=== PATIENT | female | born 1980 | race Caucasian/White ===

== ENCOUNTER 2016-12-10 14:44 | Emergency (ER) | payer OTHER ==
[2016-12-10 14:44] VITALS: BMI 32.7
[2016-12-10 16:17] VITALS: O2SAT 100
[2016-12-10] MEDS ORDERED: Sodium Chloride 0.9% 1,000 ML IV ONE (17:43)
[2016-12-10] MEDS ORDERED: DiphenhydrAMINE 50 mg/ml Inj IVP STA (17:44)
--- NOTE | 2016-12-10 18:14 | C.PDOC ---
History Of Present Illness 36 y/o female presents to the ED complaining of headache to the "upper face and forehead" since last night. She states that she also "feels achey" and has "shivers." Patient reports she was able to sleep last night despite her headache but this morning she took Advil with no relief. She has h/o prior similar headaches, however today it is also associated with dizziness (room spinning), particularly when she moves her head. She admits to light sensitivity. Patient denies fever, rashes, nausea, vomiting, chest pain, SOB, or sick contacts. Time Seen by Provider: 12/10/16 17:21 Chief Complaint (Nursing): Dizziness/Lightheaded History Per: Patient History/Exam Limitations: no limitations Onset/Duration Of Symptoms: Days Current Symptoms Are (Timing): Still Present Severity: Moderate Past Medical History Reviewed: Historical Data, Nursing Documentation, Vital Signs Vital Signs: Last Vital Signs Temp 98.8 F 12/10/16 16:15 Pulse 89 12/10/16 16:15 Resp 16 12/10/16 16:15 BP 124/78 12/10/16 16:15 Pulse Ox 100 12/10/16 18:47 - Medical History PMH: No Chronic Diseases - [facility] Procedures EXCISION OF ABDOMEN SKIN, EXTERNAL APPROACH (11/16/15) EXTRACTION OF POC, LOW CERVICAL, OPEN APPROACH (11/16/15) OCCLUSION OF BILATERAL FALLOPIAN TUBES, OPEN APPROACH (11/16/15) Family History: States: No Known Family Hx - Social History Hx Tobacco Use: No Hx Alcohol Use: No Hx Substance Use: No - Immunization History Hx Tetanus Toxoid Vaccination: No Hx Influenza Vaccination: No Hx Pneumococcal Vaccination: No Review Of Systems Except As Marked, All Systems Reviewed And Found Negative. Constitutional: Positive for: Chills, Other ("achey"). Negative for: Fever Eyes: Positive for: Vision Change (blurry vision) Cardiovascular: Negative for: Chest Pain, Palpitations Respiratory: Negative for: Cough, Shortness of Breath Gastrointestinal: Negative for: Nausea, Vomiting Skin: Negative for: Rash Neurological: Positive for: Headache, Dizziness. Negative for: Weakness, Numbness, Incoordination, Change in Speech, Altered Mental Status Physical Exam - Physical Exam Appears: Well, Non-toxic, Other (uncomfortable) Skin: Normal Color, Warm, Dry, No Rash Head: Normacephalic, Tenderness (at frontal and maxillary sinuses) Eye(s): bilateral: Normal Inspection, PERRL, EOMI Ear(s): Bilateral: Normal Nose: Normal, No Discharge Oral Mucosa: Moist Throat: Normal, No Erythema, No Exudate Neck: Normal ROM, No Midline Cervical Tenderness, Paracervical Tenderness, No Step Off Deformity, Supple, Other (no meningismus) Lymphatic: No Adenopathy Chest: Symmetrical Cardiovascular: Rhythm Regular Respiratory: Normal Breath Sounds, No Rales, No Rhonchi, No Wheezing Gastrointestinal/Abdominal: Normal Exam, Bowel Sounds, Soft, No Tenderness Extremity: Normal ROM, No Swelling Neurological/Psych: Oriented x3, Normal Speech, Normal Cognition, Normal Cranial Nerves (II-XII intact), No Cerebellar Signs, Normal Motor, Normal Sensation Gait: Steady ED Course And Treatment O2 Sat by Pulse Oximetry: 100 (ra) Pulse Ox Interpretation: Normal Progress Note: Upreg POC, IV Reglan, IV benadryl, IV NS bolus, and PO meclizine ordered. Disposition - Disposition Disposition Time: 19:00 Condition: STABLE - Clinical Impression Clinical Impression: Headache, Vertigo, peripheral - Scribe Statement The provider has reviewed the documentation as recorded by the Scribe (Mary Stewart) Provider Attestation: All medical record entries made by the Scribe were at my direction and personally dictated by me. I have reviewed the chart and agree that the record accurately reflects my personal performance of the history, physical exam, medical decision making, and the department course for this patient. I have also personally directed, reviewed, and agree with the discharge instructions and disposition. Physician Patient Turnover Patient Signed Over To: Solo Blankenship Handoff Comments: pending reassessment after IV fluids, IV & PO meds
[2016-12-10] MEDS ORDERED: DiphenhydrAMINE 50 mg/ml Inj ONE (19:09)
[2016-12-10 20:40] VITALS: BP 112/74; PULSE 78; RESP 18; TEMP 98.2
== END 2016-12-10 21:35 | disposition home or self-care (01) ==
LOC: C.ER 14:44
DX: R51 Headache (principal); H81.399 Other peripheral vertigo, unspecified ear
CPT/HCPCS: 96361; 96374; 96375; 99285; J1200; J2765; J7040

== ENCOUNTER 2017-01-16 04:18 | Inpatient (IN) | payer OTHER ==
[2017-01-16 04:18] VITALS: BMI 32.7
[2017-01-16] MEDS ORDERED: Sodium Chloride 0.9% 1,000 ML IV ONE ×2 (04:31→08:44)
--- NOTE | 2017-01-16 04:39 | C.PDOC ---
History Of Present Illness A 36 y/o female presents to the ER c/o lower abdominal pain and dysuria since yesterday. Pt developed left flank pain, several episodes of vomiting, and fever that began today. Patent denies diarrhea, recent travels, vaginal bleeding or discharge, or any other complaints. Time Seen by Provider: 01/16/17 04:30 Chief Complaint (Nursing): Abdominal Pain History Per: Patient History/Exam Limitations: no limitations Onset/Duration Of Symptoms: Days Current Symptoms Are (Timing): Still Present Severity: Mild Location Of Pain/Discomfort: Suprapubic Quality Of Discomfort: "Pain" Associated Symptoms: Fever, Vomiting, Back Pain (left flank). denies: Diarrhea Last Bowel Movement: Yesterday Recent travel outside of the [place]: No Additional History Per: Patient Abnormal Vaginal Bleeding: No Past Medical History Reviewed: Historical Data, Nursing Documentation, Vital Signs Vital Signs: Last Vital Signs Temp 100.9 F H 01/16/17 04:24 Pulse 132 H 01/16/17 04:24 Resp 16 01/16/17 04:24 BP 106/64 01/16/17 04:24 Pulse Ox 98 01/16/17 06:03 - Medical History PMH: No Chronic Diseases - [facility] Procedures EXCISION OF ABDOMEN SKIN, EXTERNAL APPROACH (11/16/15) EXTRACTION OF POC, LOW CERVICAL, OPEN APPROACH (11/16/15) OCCLUSION OF BILATERAL FALLOPIAN TUBES, OPEN APPROACH (11/16/15) Family History: States: Unknown Family Hx - Social History Hx Tobacco Use: No Hx Alcohol Use: No Hx Substance Use: No - Immunization History Hx Tetanus Toxoid Vaccination: No Hx Influenza Vaccination: No Hx Pneumococcal Vaccination: No Review Of Systems Constitutional: Positive for: Fever Gastrointestinal: Positive for: Vomiting, Abdominal Pain (Lower abdominal), Other (Left flank pain). Negative for: Diarrhea Genitourinary: Positive for: Dysuria. Negative for: Vaginal Discharge, Vaginal Bleeding Physical Exam - Physical Exam Appears: Non-toxic, No Acute Distress Skin: Warm, Dry Head: Atraumatic, Normacephalic Eye(s): bilateral: Normal Inspection Gastrointestinal/Abdominal: Soft, Tenderness (Suprapubic tenderness. No RLQ tenderness), No Guarding, No Rebound Back: CVA Tenderness (Left CVA tenderness) Neurological/Psych: Oriented x3, Normal Speech, Normal Cognition ED Course And Treatment - Laboratory Results Result Diagrams: 01/16/17 04:43 01/16/17 04:43 O2 Sat by Pulse Oximetry: 98 (RA) Pulse Ox Interpretation: Normal Medical Decision Making Medical Decision Making: Impression: 36 y/o c/o lower abdominal pain since yesterday and left flank pain , vomiting, and fever today. Plans: -Blood labs, UA/ UCG -Toradol -Zofran -IV fluids -Reassess and disposition Patient is tachycardic at 142 on arrival with T 100.9, vomiting and left flank pain, labs reviewed and pt has 24 bands and 94% shift. After hydratiion pt is still tachycardic at 132 with minimal dizziness but reports some pain improvement. Pt will be admitted to [facility] Dr Hatch for acute pyelonephritis. Case d/w Dr Hatch who accepted the pt. Pt is aware of admission plan. Disposition - Disposition Disposition: HOSPITALIZED Disposition Time: 06:01 Condition: STABLE - Clinical Impression Clinical Impression: Acute pyelonephritis - Scribe Statement The provider has reviewed the documentation as recorded by the Scribbushra harris All medical record entries made by the Nazaninibbushra were at my direction and personally dictated by me. I have reviewed the chart and agree that the record accurately reflects my personal performance of the history, physical exam, medical decision making, and the department course for this patient. I have also personally directed, reviewed, and agree with the discharge instructions and disposition.
[2017-01-16] MEDS ORDERED: Sodium Chloride 0.9% 1,000 ML ONE ×3 (04:43→16:18)
[2017-01-16 04:51] LABS: RBC URINE 49 /hpf (0-3); URINE BACTERIA MANY (<OCC); URINE BILIRUBIN NEGATIVE (NEGATIVE); URINE BLOOD 2+ (NEGATIVE); URINE COLOR Yellow (YELLOW); URINE GLUCOSE (UA) NORMAL (Normal); URINE KETONE NEGATIVE (NEGATIVE); URINE LEUKOCYTE ESTERASE 2+ Leu/uL (Negative); URINE PROTEIN 2+ mg/dL (NEGATIVE); URINE UROBILINOGEN NORMAL mg/dL (0.2-1.0); WBC URINE 166 /hpf (0-5)
[2017-01-16 04:52] LABS: BASO % 0.2 % (0.0-2.0); EOS % 0.1 % (0.0-4.0); HEMATOCRIT 40.7 % (34.0-47.0); LYMPH # 0.5 K/uL (1.0-4.3); LYMPH % 4.7 % (20.0-40.0); MEAN CELL VOLUME 89.4 fL (81.0-99.0); MEAN CORPUSCULAR HEMOGLOBIN 30.2 pg (27.0-31.0); MEAN CORPUSCULAR HGB CONC 33.8 g/dL (33.0-37.0); MEAN PLATELET VOLUME 8.1 fL (7.2-11.7); MONO # 0.1 K/uL (0.0-0.8); MONO % 1.1 % (0.0-10.0); PLATELET COUNT 197 K/uL (130-400); RED CELL DISTRIBUTION WIDTH 13.3 % (11.5-14.5); WHITE BLOOD COUNT 9.7 K/uL (4.8-10.8)
[2017-01-16 04:55] LABS: CHLORIDE 99 mmol/L (98-107)
[2017-01-16 04:56] LABS: POTASSIUM 3.2 mmol/L (3.6-5.2); SODIUM 135 mmol/L (132-148)
[2017-01-16 04:58] LABS: ALB/GLOB RATIO 1.2 (1.0-2.1); ALKALINE PHOSPHATASE 104 U/L (38-126); AST/SGOT 38 U/L (14-36); CARBON DIOXIDE 25 mmol/L (22-30); GFR AFRICAN-AMERICAN > 60; TOTAL PROTEIN 7.1 g/dL (6.3-8.3)
[2017-01-16 04:59] LABS: ALT/SGPT 44 U/L (9-52); BLOOD UREA NITROGEN 18 mg/dL (7-17); CALCIUM 8.8 mg/dl (8.6-10.4); GLUCOSE,RANDOM 115 mg/dL (65-105)
[2017-01-16] MEDS ORDERED: Potassium Chloride 10 mEq ER Tab PO ONE (05:11)
[2017-01-16] MEDS ORDERED: Potassium Chloride 10 mEq ER Tab PO STA (05:11)
[2017-01-16 05:43] LABS: EOSINOPHIL 1 % (0-4); MYELOCYTE 1 % (0-0); NEUTROPHIL 58 % (50-75); REACTIVE LYMPHOCYTES 3 % (0-0); TOTAL CELLS COUNTED 100
[2017-01-16] MEDS ORDERED: Sodium Chloride 0.9% 1,000 ML IV SCH (06:15)
[2017-01-16] MEDS ORDERED: Ciprofloxacin 400mg/200ml D5W 400 MG/200 ML BAG IVPB SCH (06:30)
--- NOTE | 2017-01-16 07:15 | CP.PCM.HP ---
<Aaron Rivera - Last Filed: 01/16/17 06:54> History of Present Illness - History of Present Illness History of Present Illness: CC: "Nausea/vomiting, Left Flank pain" 36 F with no significant PMH presents to [facility] ED with complaint of nausea/vomiting and left flank pain. Patient stated that it began yesterday morning. Patient has never experienced these symptoms before and stated they began suddenly. Patient reports that she had two episodes of vomiting, one was the food she ate and the second was dark brown coffee ground emesis. Patient is only complaining of left flank pain. She rates the pain 10/10 in severity. She describes the pain as constant and sharp, located in the left flank and radiating to the left groin. Nothing exacerbates her symptoms while hot tea helped alleviate them. Admits to subjective fever/chills, sob, palpitations, epigastric pain, n/v, dyuria, urinary frequency. Denies cp, diarrhea, constipation, incontinence, weakness, numbness/tingling. PMD: and [facility] in [place] PMH: denies Meds: denies Allergy: PCN PSH: Hosp: child FH: denies Social: works at [employer], denies tobacco/etoh/illicit drug use, LNMP January 07, regular flow and duration Present on Admission - Present on Admission Any Indicators Present on Admission: No History of DVT/PE: No History of Uncontrolled Diabetes: No Urinary Catheter: No Decubitus Ulcer Present: No Review of Systems - Constitutional Constitutional: Chills, Fever - EENT Eyes: absent: Change in Vision Ears: absent: Ear Discharge, Ear Pain, Dizziness Nose/Mouth/Throat: absent: Nasal Congestion, Nasal Discharge, Nose Pain - Breasts Breasts: absent: Mass, Pain, Swelling - Cardiovascular Cardiovascular: Dyspnea, Palpitations. absent: Chest Pain, Chest Pain at Rest, Chest Pain with Activity - Respiratory Respiratory: Dyspnea. absent: Cough, Hemoptysis - Gastrointestinal Gastrointestinal: Abdominal Pain, Coffee Ground Emesis, Nausea, Vomiting. absent: Constipation, Diarrhea, Fecal Incontinence - Genitourinary Genitourinary: Dysuria, Urinary Frequency, Urinary Urgency. absent: Difficulty Urinating, Urinary Incontinence, Urinary Hesitance - Reproductive: Female Reproductive:Female: Normal Menses - Menstruation Menstruation: Menses 1-7 Days, Normal Menses - Musculoskeletal Musculoskeletal: Back Pain. absent: Numbness, Tingling - Integumentary Integumentary: absent: Lesions, New Lesions, Jaundice - Neurological Neurological: absent: Dizziness, Numbness, Headaches, Syncope, Tingling, Vertigo , Weakness - Psychiatric Psychiatric: absent: Anxiety, Depression, Homicidal Ideation, Suicidal Ideation - Endocrine Endocrine: Palpitations. absent: Fatigue, Polydipsia, Polyuria - Hematologic/Lymphatic Hematologic: absent: Easy Bleeding, Easy Bruising, Lymphadenopathy Past Patient History - Infectious Disease Hx of Infectious Diseases: None - Past Social History Smoking Status: Never Smoked - PSYCHIATRIC Hx Substance Use: No - SURGICAL HISTORY Hx Surgeries: Yes Hx Section: Yes - ANESTHESIA Hx Anesthesia: Yes Meds Allergies/Adverse Reactions: Allergies Allergy/AdvReac Type Severity Reaction Status Date / Time Penicillins Allergy RASH Verified 01/16/17 04:30 Physical Exam - Constitutional Appears: In Acute Distress - Head Exam Head Exam: ATRAUMATIC, NORMOCEPHALIC - Eye Exam Eye Exam: Normal appearance - ENT Exam ENT Exam: Mucous Membranes Moist - Respiratory Exam Respiratory Exam: Clear to Auscultation Bilateral, NORMAL BREATHING PATTERN - Cardiovascular Exam Cardiovascular Exam: Tachycardia, REGULAR RHYTHM, +S1, +S2 - GI/Abdominal Exam GI & Abdominal Exam: Normal Bowel Sounds, Soft, Tenderness (epigastric). absent : Distended, Firm, Rebound - Extremities Exam Extremities exam: Positive for: normal capillary refill, pedal pulses present. Negative for: calf tenderness, pedal edema - Back Exam Back exam: CVA tenderness (L), CVA tenderness (R) - Neurological Exam Neurological exam: Alert, CN II-XII Intact, Oriented x3 - Psychiatric Exam Psychiatric exam: Normal Affect, Normal Mood - Skin Skin Exam: Diaphoretic, Intact, Normal Color, Warm Results - Vital Signs Recent Vital Signs: Last Vital Signs Temp 98.5 F 01/16/17 06:26 Pulse 101 H 01/16/17 06:26 Resp 20 01/16/17 06:26 BP 97/60 L 01/16/17 06:26 Pulse Ox 97 01/16/17 06:26 - Labs Result Diagrams: 01/16/17 04:43 01/16/17 04:43 Assessment & Plan - Assessment and Plan (Free Text) Plan: 1. UTI suspected pyelonephritis Med/surg received Phenazopyrinidine and Cipro PO in ED Ciprofloxacin 400 mg IVPB Q12H Morphine 1mg IVP Q4H PRN Tylenol 650 mg PO Q6H PRN NS 100 cc/hr 2. Nausea/vomting no episodes since yesterday morning Zofran 4 mg IVP Q6H PRN 3. Subjective Coffee ground emesis Protonix 40 mg IVP Q12H Monitor 4. Prophylactic Measures Lovenox 40 mg SC daily SCDs Protonix 40 mg IVP Q12H Regular diet <Christopher Hatch - Last Filed: 01/16/17 18:58> Results - Vital Signs Recent Vital Signs: Last Vital Signs Temp 98.1 F 01/16/17 18:26 Pulse 77 01/16/17 18:26 Resp 20 01/16/17 18:26 BP 98/55 L 01/16/17 18:26 Pulse Ox 98 01/16/17 18:26 - Labs Result Diagrams: 01/16/17 04:43 01/16/17 04:43 Labs: Laboratory Results - last 24 hr 01/16/17 01/16/17 01/16/17 09:21 09:21 09:37 Puncture Site Rra pCO2 31 L pO2 136 H HCO3 24.8 ABG pH 7.47 H ABG Total CO2 23.6 ABG O2 Saturation 99.6 H ABG Base Excess -0.2 Gabe Test Pos ABG Potassium 3.3 L A-a O2 Difference -25.0 Respiratory Index -0.2 Sodium 142.0 Chloride 114.0 H Glucose 162 H Lactate 1.9 FiO2 21.0 Magnesium 1.4 L Procalcitonin 10.22 H Arterial Blood Potassium 3.3 L Assessment & Plan - Date & Time Date: 01/16/17 (I have seen and examined the patient. I agree with the findings and plan of care as documented by Dr. Rivera. Patient with pyelonephritis. IV Cipro due to penicillin allergy. Also with nausea/ vomiting. Zofran. Symptomatic treatment. Monitor for acute changes.) Time: 18:56
[2017-01-16] MEDS ORDERED: Potassium Chloride 10 mEq ER Tab PO SCH (08:00)
[2017-01-16] MEDS ORDERED: Ciprofloxacin 200mg/100ml D5W 100 ML IVPB STA (08:41)
[2017-01-16 09:41] LABS: ABG ALLEN TEST POS; DRAW SITE RRA
[2017-01-16] MEDS ORDERED: Pantoprazole 40 mg EC Tab PO SCH (10:00)
[2017-01-16] MEDS ORDERED: Enoxaparin 40 mg Syringe ONE (10:08)
[2017-01-16] MEDS: Enoxaparin 40 mg Syringe SC SCH (10:13)
[2017-01-16] MEDS ORDERED: Magnesium Sulfate 1 gm in D5W 1 GM/100 ML BAG IVPB ONE ×2 (12:53→13:17)
[2017-01-16] MEDS: Magnesium Sulfate 1 gm in D5W 1 GM/100 ML BAG IVPB SCH ×2 (13:00→13:30)
[2017-01-16] MEDS ORDERED: Ciprofloxacin 400mg/200ml D5W 0 MG/0 ML BAG IVPB ONE (14:30)
[2017-01-16] MEDS ORDERED: Ciprofloxacin 400mg/200ml D5W 400 MG/200 ML BAG IVPB ONE (14:35)
[2017-01-16] MEDS: Ciprofloxacin 400mg/200ml D5W 400 MG/200 ML BAG IVPB SCH (14:35)
[2017-01-16] MEDS ORDERED: Iohexol 240 (50 ml) PO ONE (16:15)
[2017-01-16] MEDS ORDERED: Iohexol 240 (50 ml) ONE (16:18)
[2017-01-16] MEDS: Sodium Chloride 0.9% 1,000 ML IV SCH ×2 (16:23→21:14)
--- NOTE | 2017-01-16 16:41 | US ---
Abdominal ultrasound 01/16/2017. History: Abdominal and back pain. Sonographic evaluation of the abdomen performed. Comparison also made with renal ultrasound dated 09/21/2015 and abdominal ultrasound 05/01/2015. The liver exhibits normal size measuring approximately 13 cm in CC dimension. Liver demonstrates smooth contour however slight increased echotexture suggesting fatty infiltration. Other infiltrative hepatocellular disease process not excluded. No obvious hepatic mass or collection seen on images presented. No evidence of ascites. Gallbladder is physiologically distended. No evidence of intraluminal gallbladder calculi. No wall edema pericholecystic fluid collections or sonographic Paris sign. Common bile duct measures 2.4 mm. Evaluation of the pancreas is somewhat limited due to bowel gas and body habitus. No gross pancreatic masses collections or calcifications. No significant pancreatic dilatation. The spleen measures 9.5 cm. No obvious splenic mass collection or calcification. Kidneys are relatively symmetric in size. No evidence of nephrolithiasis or hydronephrosis. No renal mass or collection. . Two images (transverse and sagittal) images of the bladder demonstrate no shadowing intraluminal calculi. Mildly prominent bladder wall could be due to incomplete distention however cystitis not excluded. Impression: Findings suggest mild fatty hepatic infiltration however other infiltrative hepatocellular disease process not excluded. Clinical correlation recommended. Limited evaluation of the urinary bladder demonstrates no shadowing intraluminal calculi. Questionable minimal wall thickening could be due to underdistention however rule out cystitis.
[2017-01-16] MEDS: Meropenem 1 GM in Sodium Chloride 0.9% 100 ML IVPB SCH (16:49)
[2017-01-16] MEDS ORDERED: Iodixanol 320 MG/ML 100 ML BOTTLE IV ONE (17:21)
--- NOTE | 2017-01-16 17:35 | CP.PCM.PN ---
<BabakrejiCharissa acn - Last Filed: 01/17/17 00:55> Subjective - Date & Time of Evaluation Date of Evaluation: 01/17/17 Time of Evaluation: 10:14 - Subjective Subjective: Pt seen and examined. Pt reports that she is having lower abdominal pain and lower back pain on both the right and left side. Pt also report nausea and hematemesis prior to arrival, as well as fever and chills. Pt reports that she is slightly short of breath. Pt also reports dysuria. Pt denies chest pain, headache, dizzines. Objective - Vital Signs/Intake and Output Vital Signs (last 24 hours): Temp Pulse Resp BP Pulse Ox 98 F 77 18 123/80 98 01/16/17 11:15 01/16/17 15:15 01/16/17 15:15 01/16/17 15:15 01/16/17 15:15 Intake and Output: 01/16/17 01/16/17 06:59 18:59 Intake Total 1000 Balance 1000 - Medications Medications: Current Medications Acetaminophen (Tylenol 325mg Tab) 650 mg PO Q6 PRN PRN Reason: Fever >100.4 F Enoxaparin Sodium (Lovenox) 40 mg SC DAILY [facility] Last Admin: 01/16/17 10:13 Dose: 40 mg Ciprofloxacin (Cipro 400mg/200ml Dsw) 400 mg in 200 mls @ 133 mls/hr IVPB Q12H [facility] Last Admin: 01/16/17 14:35 Dose: 133 mls/hr Sodium Chloride (Sodium Chloride 0.9%) 1,000 mls @ 125 mls/hr IV .Q8H [facility] Last Admin: 01/16/17 16:23 Dose: 125 mls/hr Meropenem 1 gm/ Sodium (Chloride) 100 mls @ 200 mls/hr IVPB Q8H [facility] Last Admin: 01/16/17 16:49 Dose: 200 mls/hr Morphine Sulfate (Morphine) 1 mg IVP Q4 PRN PRN Reason: Pain, moderate (4-7) Last Admin: 01/16/17 11:16 Dose: 1 mg Ondansetron HCl (Zofran Inj) 4 mg IVP Q6 PRN PRN Reason: Nausea/Vomiting Last Admin: 01/16/17 15:17 Dose: 4 mg Pantoprazole Sodium (Protonix Inj) 40 mg IVP Q12 [facility] Last Admin: 01/16/17 10:14 Dose: 40 mg - Constitutional Appears: Toxic - Head Exam Head Exam: ATRAUMATIC, NORMOCEPHALIC - Eye Exam Eye Exam: EOMI, PERRL - ENT Exam ENT Exam: Mucous Membranes Dry - Neck Exam Neck Exam: Full ROM - Respiratory Exam Respiratory Exam: Clear to Ausculation Bilateral. absent: Rales, Rhonchi - Cardiovascular Exam Cardiovascular Exam: +S1, +S2 - GI/Abdominal Exam GI & Abdominal Exam: Soft, Tenderness. absent: Distended, Guarding, Rigid - Extremities Exam Extremities Exam: Full ROM. absent: Pedal Edema - Neurological Exam Neurological Exam: Alert, Awake, Oriented x3 - Psychiatric Exam Psychiatric exam: Normal Affect, Normal Mood - Skin Skin Exam: Normal Color, Warm Assessment and Plan - Assessment and Plan (Free Text) Assessment: Sepsis: Tmax 100.9 Bands -24 Hypotensive Tachycardic on admission Procalcitonin 10.22 ID, Dr. Ling, consulted. Help appreciated. Cipro 400 mg IV q12h Meropenem 1 gm IV q8h Blood cultures positive for gram negative rods Urine cultures pending Lactic Acid 1.9 NS IVF 125 cc/hr Tylenol 650 mg po q6h prn for fever Pyelonephritis/Complicated UTI: Abd/Pelvis CT with PO and IV contrast - no evidence of nephrolithiasis or hydronephrosis; pyelonephritis cannot be ruled out (please see full report) Abdomen U/S: no evidence of nephrolithiasis or hydronephrosis; baldder wall thickening, correlate with cystitis; fatty liver (please see full report) ID, Dr. Ling, consulted. Help appreciated. Cipro 400 mg IV q12h Meropenem 1 gm IV q8h Zofran prn for nausea Electrolyte Abmormalities: Hypokalemia and hypomangesemia K and Mg replaced Prophylactic Measures: DVT: SCDs, lovenox 40 mg sc qd GI: Protonix 40 mg IV <Jamel Whitaker - Last Filed: 01/17/17 17:19> Objective - Vital Signs/Intake and Output Vital Signs (last 24 hours): Temp Pulse Resp BP Pulse Ox 97.8 F 73 18 96/61 L 97 01/17/17 15:14 01/17/17 15:14 01/17/17 15:14 01/17/17 15:14 01/17/17 15:14 - Medications Medications: Current Medications Acetaminophen (Tylenol 325mg Tab) 650 mg PO Q6 PRN PRN Reason: Fever >100.4 F Last Admin: 01/16/17 22:50 Dose: 650 mg Enoxaparin Sodium (Lovenox) 40 mg SC DAILY [facility] Last Admin: 01/17/17 10:09 Dose: 40 mg Ciprofloxacin (Cipro 400mg/200ml Dsw) 400 mg in 200 mls @ 133 mls/hr IVPB Q12H [facility] Last Admin: 01/17/17 15:00 Dose: 133 mls/hr Sodium Chloride (Sodium Chloride 0.9%) 1,000 mls @ 125 mls/hr IV .Q8H [facility] Last Admin: 01/17/17 13:34 Dose: Not Given Meropenem 1 gm/ Sodium (Chloride) 100 mls @ 200 mls/hr IVPB Q8H [facility] Last Admin: 01/17/17 16:35 Dose: 200 mls/hr Morphine Sulfate (Morphine) 1 mg IVP Q4 PRN PRN Reason: Pain, moderate (4-7) Last Admin: 01/16/17 11:16 Dose: 1 mg Ondansetron HCl (Zofran Inj) 4 mg IVP Q6 PRN PRN Reason: Nausea/Vomiting Last Admin: 01/17/17 03:38 Dose: 4 mg Pantoprazole Sodium (Protonix Inj) 40 mg IVP Q12 [facility] Last Admin: 01/17/17 10:09 Dose: 40 mg Pneumococcal Polyvalent Vaccine (Pneumovax 23 Vaccine) 0.5 ml IM .ONCE ONE Stop: 01/19/17 10:01 - Labs Labs: 01/17/17 07:00 01/17/17 07:00 PT 13.2 SECONDS (9.7-12.2) H 01/17/17 07:00 INR 1.2 01/17/17 07:00 APTT 30 SECONDS (21-34) 01/17/17 07:00 Attending/Attestation - Attestation I have personally seen and examined this patient.: Yes I have fully participated in the care of the patient.: Yes I have reviewed all pertinent clinical information, including history, physical exam and plan: Yes Notes (Text): 01/17/17 17:18 Patient was seen and examined at bedside with the resident Patient is on treatment for pyelonephritis We will request ID evaluation I discussed the plan of care with the resident and agree with the above history and physical and assessment/plan by the resident.
--- NOTE | 2017-01-16 18:51 | CT ---
PROCEDURE: CT Abdomen and pelvis dated 01/16/2017. HISTORY: flank pain, abdominal pain, dysuria, hematemesis COMPARISON: Correlation made with abdominal ultrasound obtained earlier same day. TECHNIQUE: Contiguous axial images of the abdomen and pelvis of performed following oral and intravenous injection of approximately 100 cc Visipaque 320 contrast material. . Additional 2 dimensional sagittal and coronal reformats provided Radiation dose: Total exam DLP = 432.21 mGy-cm. This CT exam was performed using one or more of the following dose reduction techniques: Automated exposure control, adjustment of the mA and/or kV according to patient size, and/or use of iterative reconstruction technique. FINDINGS: LOWER THORAX: Mild atelectasis and or scarring changes left lung base including the left lingular region. No effusion or basilar pneumothorax. There is a small hiatal hernia with slight wall thickening of the distal esophagus that could be due to protrusion of gastric mucosa. Possibility of esophagitis not excluded. LIVER: The liver exhibits normal size measuring approximately 14.6 cm in CC dimension. Mild diffuse fatty hepatic infiltration. No obvious hepatic mass collection or calcification. Portal and splenic veins are opacified. . GALLBLADDER AND BILE DUCTS: Gallbladder is physiologically distended. No evidence of intraluminal gallbladder calculi. PANCREAS: Visualized portions of the pancreas appear grossly unremarkable. . SPLEEN: Spleen exhibits normal size and attenuation pattern without mass collection or calcification ADRENALS: No adrenal lesions KIDNEYS AND URETERS: . No evidence of nephrolithiasis or hydronephrosis.Vague area of low attenuation superior margin left renal cortex which is of uncertain etiology though could represent volume averaging of medulla which appears to be slightly compressed inferiorly by the somewhat lobular splenic parenchyma however the possibility of a pyelonephritis not excluded. . . There also appears to be very subtle enhancement of the left ureteral urothelium suggesting mild sequela of inflammation/infection. Clinical correlation recommended BLADDER: The urinary bladder is incompletely distended. No evidence of nephrolithiasis or hydronephrosis. REPRODUCTIVE: Uterus appears unremarkable. There small bilateral adnexal cysts on. Pelvic ultrasound followup could be performed if necessary APPENDIX: What appears to represent a normal appendix best seen on axial series 2, image 47- 53. BOWEL: Evaluation of the bowel is somewhat limited due to incomplete opacification. Stomach is incompletely distended which presumably accounts for slight thick-walled appearance. Visualized loops of small bowel exhibit normal contour and caliber. No evidence acute mechanical small bowel obstruction with oral contrast material seen extending into the colon to the level of the distal at ascending colon region. Moderate amount of stool seen throughout the transverse and to a lesser degree descending 6 sigmoid colon consistent with mild fecal retention. . PERITONEUM: No evidence of free intraperitoneal air or fluid. Small fat containing umbilical hernia LYMPH NODES: Unremarkable. No enlarged lymph nodes. VASCULATURE: Unremarkable. No aortic aneurysm. BONES: No fracture or destructive lesion. OTHER FINDINGS: None. IMPRESSION: Vague area of low attenuation superior margin left renal cortex which is of uncertain etiology though could represent volume averaging of medulla which appears to be slightly compressed inferiorly by the somewhat lobular splenic parenchyma however the possibility of a pyelonephritis not excluded. There also appears be some minor enhancement of the urothelium left ureter possibly secondary to inflammation/infection. Clinic correlation recommended. Small bilateral adnexal cysts ; pelvic ultrasound followup could be performed for further evaluation. . Mild fatty hepatic infiltration.
--- NOTE | 2017-01-16 22:27 | CP.PCM.CON ---
History of Present Illness - History of Present Illness History of Present Illness: dictated Past Patient History - Infectious Disease Hx of Infectious Diseases: None - Past Medical History & Family History Past Medical History?: Yes - Past Social History Smoking Status: Never Smoked - MUSCULOSKELETAL/RHEUMATOLOGICAL Hx Falls: No - PSYCHIATRIC Hx Substance Use: No - SURGICAL HISTORY Hx Surgeries: Yes Hx Section: Yes - ANESTHESIA Hx Anesthesia: Yes Meds Allergies/Adverse Reactions: Allergies Allergy/AdvReac Type Severity Reaction Status Date / Time Penicillins Allergy RASH Verified 01/16/17 04:30 - Medications Medications: Current Medications Acetaminophen (Tylenol 325mg Tab) 650 mg PO Q6 PRN PRN Reason: Fever >100.4 F Enoxaparin Sodium (Lovenox) 40 mg SC DAILY [facility] Last Admin: 01/16/17 10:13 Dose: 40 mg Ciprofloxacin (Cipro 400mg/200ml Dsw) 400 mg in 200 mls @ 133 mls/hr IVPB Q12H [facility] Last Admin: 01/16/17 14:35 Dose: 133 mls/hr Sodium Chloride (Sodium Chloride 0.9%) 1,000 mls @ 125 mls/hr IV .Q8H [facility] Last Admin: 01/16/17 21:14 Dose: Not Given Meropenem 1 gm/ Sodium (Chloride) 100 mls @ 200 mls/hr IVPB Q8H [facility] Last Admin: 01/16/17 16:49 Dose: 200 mls/hr Gentamicin Sulfate 240 mg/ (Sodium Chloride) 256 mls @ 167 mls/hr IVPB ONCE ONE Stop: 01/16/17 22:31 Last Admin: 01/16/17 21:09 Dose: 167 mls/hr Potassium Chloride (Potassium Chloride 20 Meq/100 Ml) 20 meq in 100 mls @ 50 mls/hr IVPB ONCE ONE Stop: 01/17/17 00:10 Morphine Sulfate (Morphine) 1 mg IVP Q4 PRN PRN Reason: Pain, moderate (4-7) Last Admin: 01/16/17 11:16 Dose: 1 mg Ondansetron HCl (Zofran Inj) 4 mg IVP Q6 PRN PRN Reason: Nausea/Vomiting Last Admin: 01/16/17 15:17 Dose: 4 mg Pantoprazole Sodium (Protonix Inj) 40 mg IVP Q12 [facility] Last Admin: 01/16/17 21:17 Dose: 40 mg Pneumococcal Polyvalent Vaccine (Pneumovax 23 Vaccine) 0.5 ml IM .ONCE ONE Stop: 01/19/17 10:01 Results - Vital Signs Recent Vital Signs: Last Vital Signs Temp 98 F 01/16/17 20:13 Pulse 77 01/16/17 20:13 Resp 20 01/16/17 20:13 BP 97/65 L 01/16/17 20:13 Pulse Ox 98 01/16/17 20:13 - Labs Result Diagrams: 01/16/17 04:43 01/16/17 04:43 Labs: Laboratory Results - last 24 hr 01/16/17 01/16/17 01/16/17 09:21 09:21 09:37 Puncture Site Rra pCO2 31 L pO2 136 H HCO3 24.8 ABG pH 7.47 H ABG Total CO2 23.6 ABG O2 Saturation 99.6 H ABG Base Excess -0.2 Gabe Test Pos ABG Potassium 3.3 L A-a O2 Difference -25.0 Respiratory Index -0.2 Sodium 142.0 Chloride 114.0 H Glucose 162 H Lactate 1.9 FiO2 21.0 Magnesium 1.4 L Procalcitonin 10.22 H Arterial Blood Potassium 3.3 L
--- NOTE | 2017-01-16 22:43 | CON ---
DATE: 01/16/2017 REQUESTING PHYSICIAN: Dr. Hatch. HISTORY OF PRESENT ILLNESS: This patient is a 36-year-old female came in with nausea and vomiting an d left-sided pain, pain started 2 days ago. She was vomiting and she says some blood came out. She has been having left flank pain and pain was 10/10. She also had severe bandemia. Hence, I was aske d to see her. She was admitted with fever, chills and also complains of epigastric pain, nausea, vom iting, urgency, frequency. Denies any diarrhea, no constipation. Denies any chest pain. She feels weak right now and she follows in the clinic on [address] [place]. PAST MEDICAL HISTORY: Negative. MEDICATIONS: She takes no medications. ALLERGIES: PENICILLIN CAUSES A RASH. PAST SURGICAL HISTORY: She has had . FAMILY HISTORY: Negative. SOCIAL HISTORY: Denies any tobacco, alcohol, or drug abuse, last LMP was 01/07/2017. REVIEW OF SYSTEMS: As above. She has been complaining of chills and fever. Denied any ear, nose, th roat problems. Did complain of some shortness of breath and palpitations. Also had no cough, no upp er respiratory infection signs. She has abdominal pain. Also had nausea and vomiting. Had some cof fee ground emesis. Complains of frequency, urgency and dysuria and has left flank pain and no neurol ogical, no psych, no endocrine problems and no past infections. She had 1 urine infection long ago a nd she says she has gallstones. PHYSICAL EXAMINATION: VITAL SIGNS: I find her temperature is 98. Pulse is 77, it was 92 before. Blood pressure is 97/65, respirations are 20. HEENT: Head is atraumatic, normocephalic. Pupils are reacting to light. Mild pallor present. Thro at: No congestion, no thrush seen. NECK: Supple. JVP is flat. LUNGS: Clear. HEART: S1, S2 regular. ABDOMEN: Soft. Left CVA tenderness present. Bowel sounds are present. EXTREMITIES: No edema, clubbing or cyanosis. LABORATORY DATA: Noted. Labs show white count is 9.7, hemoglobin is 13.8, hematocrit is 40.7, plate let count is 197. Neutrophils 93.9 4.7, bands are 24, lymphs 9. Chemistry shows 135, potassium 3.2, chloride 99, CO2 is 25, BUN is 18, creatinine is 1.1, magnesium is 1.4 and procalcitonin is 10. 22. ASSESSMENT AND PLAN: I hope she got potassium supplement and I gave 1 dose of gentamicin to her. Tess tomlinson is on meropenem and Cipro at this time. Blood cultures came out positive for gram-negative davina at this time, and I would order echocardiogram to rule out any endocarditis at this time. Will follow. Alice Ling MD cc: [id number] TT: 01/16/2017 22:43:15 Confirmation # [id number] Dictation # [id number] ln
[2017-01-17] MEDS: Meropenem 1 GM in Sodium Chloride 0.9% 100 ML IVPB SCH ×4 (00:31→21:41)
[2017-01-17] MEDS: Ciprofloxacin 400mg/200ml D5W 400 MG/200 ML BAG IVPB SCH ×3 (02:05→15:00)
[2017-01-17 07:20] LABS: EOS % 0.5 % (0.0-4.0); MONO # 0.5 K/uL (0.0-0.8)
[2017-01-17 07:37] LABS: BASO % 0.2 % (0.0-2.0); HEMATOCRIT 32.9 % (34.0-47.0); LYMPH # 1.4 K/uL (1.0-4.3); LYMPH % 17.1 % (20.0-40.0); MEAN CELL VOLUME 91.2 fL (81.0-99.0); MEAN CORPUSCULAR HEMOGLOBIN 30.5 pg (27.0-31.0); MEAN CORPUSCULAR HGB CONC 33.4 g/dL (33.0-37.0); MEAN PLATELET VOLUME 8.6 fL (7.2-11.7); MONO % 6.1 % (0.0-10.0); RED CELL DISTRIBUTION WIDTH 13.9 % (11.5-14.5)
[2017-01-17 07:58] LABS: CHLORIDE 107 mmol/L (98-107)
[2017-01-17 07:59] LABS: SODIUM 138 mmol/L (132-148)
[2017-01-17 08:01] LABS: ALKALINE PHOSPHATASE 68 U/L (38-126); AST/SGOT 38 U/L (14-36); BILIRUBIN,TOTAL 0.7 mg/dL (0.2-1.3); BLOOD UREA NITROGEN 11 mg/dL (7-17); CARBON DIOXIDE 25 mmol/L (22-30); GFR AFRICAN-AMERICAN > 60; GLUCOSE,RANDOM 96 mg/dL (65-105); TOTAL PROTEIN 5.6 g/dL (6.3-8.3)
[2017-01-17 08:02] LABS: ALT/SGPT 61 U/L (9-52); CALCIUM 7.4 mg/dl (8.6-10.4); MAGNESIUM 2.1 mg/dL (1.6-2.3); PHOSPHOROUS 1.9 mg/dL (2.5-4.5)
[2017-01-17 08:10] LABS: INR 1.2
[2017-01-17] MEDS ORDERED: Potassium Phosphate 15 MMOLE in Dextrose 5% In Water 250 ML IVPB ONE (10:00)
[2017-01-17] MEDS: Enoxaparin 40 mg Syringe SC SCH (10:09)
[2017-01-17] MEDS: Sodium Chloride 0.9% 1,000 ML IV SCH ×3 (10:10→21:20)
--- NOTE | 2017-01-17 14:41 | CP.PCM.PN ---
<Cortez Conrad - Last Filed: 01/17/17 14:39> Subjective - Date & Time of Evaluation Date of Evaluation: 01/17/17 Time of Evaluation: 09:05 - Subjective Subjective: Pt seen and examined. Pt reports that she is feeling a bit better than she did yesterday. Pt reports she had one episode of vomiting this am and is still nauseous. Pt reports that her abdominal pain has improved. Pt also reports subjective fever and chills. Pt reports decreased appetite. Pt denies chest pain , shortness of breath, diarrhea. Objective - Vital Signs/Intake and Output Vital Signs (last 24 hours): Temp Pulse Resp BP Pulse Ox 97.5 F L 76 20 103/70 100 01/17/17 00:00 01/17/17 04:00 01/17/17 00:00 01/17/17 04:00 01/17/17 00:00 - Medications Medications: Current Medications Acetaminophen (Tylenol 325mg Tab) 650 mg PO Q6 PRN PRN Reason: Fever >100.4 F Last Admin: 01/16/17 22:50 Dose: 650 mg Enoxaparin Sodium (Lovenox) 40 mg SC DAILY [facility] Last Admin: 01/17/17 10:09 Dose: 40 mg Ciprofloxacin (Cipro 400mg/200ml Dsw) 400 mg in 200 mls @ 133 mls/hr IVPB Q12H [facility] Last Admin: 01/17/17 02:05 Dose: 133 mls/hr Sodium Chloride (Sodium Chloride 0.9%) 1,000 mls @ 125 mls/hr IV .Q8H [facility] Last Admin: 01/17/17 13:34 Dose: Not Given Meropenem 1 gm/ Sodium (Chloride) 100 mls @ 200 mls/hr IVPB Q8H [facility] Last Admin: 01/17/17 06:06 Dose: 200 mls/hr Potassium Phosphate 15 mmole/ (Dextrose) 255 mls @ 42.5 mls/hr IVPB ONCE ONE Stop: 01/17/17 15:59 Last Admin: 01/17/17 10:31 Dose: 42.5 mls/hr Morphine Sulfate (Morphine) 1 mg IVP Q4 PRN PRN Reason: Pain, moderate (4-7) Last Admin: 01/16/17 11:16 Dose: 1 mg Ondansetron HCl (Zofran Inj) 4 mg IVP Q6 PRN PRN Reason: Nausea/Vomiting Last Admin: 01/17/17 03:38 Dose: 4 mg Pantoprazole Sodium (Protonix Inj) 40 mg IVP Q12 [facility] Last Admin: 01/17/17 10:09 Dose: 40 mg Pneumococcal Polyvalent Vaccine (Pneumovax 23 Vaccine) 0.5 ml IM .ONCE ONE Stop: 01/19/17 10:01 - Labs Labs: 01/17/17 07:00 01/17/17 07:00 PT 13.2 SECONDS (9.7-12.2) H 01/17/17 07:00 INR 1.2 01/17/17 07:00 APTT 30 SECONDS (21-34) 01/17/17 07:00 - Constitutional Appears: No Acute Distress - Head Exam Head Exam: ATRAUMATIC, NORMOCEPHALIC - Eye Exam Eye Exam: EOMI - ENT Exam ENT Exam: Mucous Membranes Moist - Neck Exam Neck Exam: Full ROM - Respiratory Exam Respiratory Exam: Clear to Ausculation Bilateral. absent: Rales, Rhonchi, Wheezes - Cardiovascular Exam Cardiovascular Exam: +S1, +S2. absent: Gallop, Rubs - GI/Abdominal Exam GI & Abdominal Exam: Soft, Tenderness Additional comments: Slight LLQ and mid epigastric tenderness - Extremities Exam Extremities Exam: Full ROM. absent: Pedal Edema - Neurological Exam Neurological Exam: Alert, Awake, Oriented x3 - Psychiatric Exam Psychiatric exam: Normal Affect, Normal Mood - Skin Skin Exam: Normal Color, Warm Assessment and Plan - Assessment and Plan (Free Text) Assessment: Sepsis: Afebrile, nontachycardic No leukocytosis Dr. Anuradha APPIAH, consulted. Help appreciated. Ciprofloxacin 400 mg IV q12h Meropenem 1 gm IV q8h Blood cultures positive for gram negative rods Urine cultures positive for gram negative rods Echocardiogram pending read NS IVF 125 cc/hr Tylenol 650 mg po q6h prn for fever Pyelonephritis/Complicated UTI: Abd/Pelvis CT with PO and IV contrast - no evidence of nephrolithiasis or hydronephrosis; pyelonephritis cannot be ruled out (please see full report) Abdomen U/S: no evidence of nephrolithiasis or hydronephrosis; baldder wall thickening, correlate with cystitis; fatty liver (please see full report) ID, Dr. Ling, consulted. Help appreciated. Cipro 400 mg IV q12h Meropenem 1 gm IV q8h Zofran prn for nausea Electrolyte Abmormalities: Hypophosphatemia Phos repleted Prophylactic Measures: DVT: SCDs, lovenox 40 mg sc qd GI: Protonix 40 mg IV <Jamel Whitaker M - Last Filed: 01/17/17 16:23> Objective - Vital Signs/Intake and Output Vital Signs (last 24 hours): Temp Pulse Resp BP Pulse Ox 97.8 F 73 18 96/61 L 97 01/17/17 15:14 01/17/17 15:14 01/17/17 15:14 01/17/17 15:14 01/17/17 15:14 - Medications Medications: Current Medications Acetaminophen (Tylenol 325mg Tab) 650 mg PO Q6 PRN PRN Reason: Fever >100.4 F Last Admin: 01/16/17 22:50 Dose: 650 mg Enoxaparin Sodium (Lovenox) 40 mg SC DAILY [facility] Last Admin: 01/17/17 10:09 Dose: 40 mg Ciprofloxacin (Cipro 400mg/200ml Dsw) 400 mg in 200 mls @ 133 mls/hr IVPB Q12H [facility] Last Admin: 01/17/17 15:00 Dose: 133 mls/hr Sodium Chloride (Sodium Chloride 0.9%) 1,000 mls @ 125 mls/hr IV .Q8H [facility] Last Admin: 01/17/17 13:34 Dose: Not Given Meropenem 1 gm/ Sodium (Chloride) 100 mls @ 200 mls/hr IVPB Q8H [facility] Last Admin: 01/17/17 06:06 Dose: 200 mls/hr Morphine Sulfate (Morphine) 1 mg IVP Q4 PRN PRN Reason: Pain, moderate (4-7) Last Admin: 01/16/17 11:16 Dose: 1 mg Ondansetron HCl (Zofran Inj) 4 mg IVP Q6 PRN PRN Reason: Nausea/Vomiting Last Admin: 01/17/17 03:38 Dose: 4 mg Pantoprazole Sodium (Protonix Inj) 40 mg IVP Q12 [facility] Last Admin: 01/17/17 10:09 Dose: 40 mg Pneumococcal Polyvalent Vaccine (Pneumovax 23 Vaccine) 0.5 ml IM .ONCE ONE Stop: 01/19/17 10:01 - Labs Labs: 01/17/17 07:00 01/17/17 07:00 PT 13.2 SECONDS (9.7-12.2) H 01/17/17 07:00 INR 1.2 01/17/17 07:00 APTT 30 SECONDS (21-34) 01/17/17 07:00 Attending/Attestation - Attestation I have personally seen and examined this patient.: Yes I have fully participated in the care of the patient.: Yes I have reviewed all pertinent clinical information, including history, physical exam and plan: Yes Notes (Text): 01/17/17 16:21 Patient was seen and examined at bedside with the resident. Patient is clinically improving. Continue antibiotic management for bacteremia/ pyelonephritis I discussed the plan of care with the resident and agree with the above history and physical and assessment/plan by the resident.
--- NOTE | 2017-01-17 16:14 | CARD ---
APPROVED REPORT EXAM: Two-dimensional and M-mode echocardiogram with Doppler and color Doppler. Other Information Quality : GoodRhythm : INDICATION Dyspnea Infection:Rule out subacute bacterial endocarditis Palpitations M-Mode DIMENSIONS RVDd2.21 (2.1-3.2cm)Left Atrium (MM)3.92 (2.5-4.0cm) IVSd0.75 (0.7-1.1cm)Aortic Root2.43 (2.2-3.7cm) LVDd4.49 (4.0-5.6cm)Aortic Cusp Exc.1.85 (1.5-2.0cm) PWd0.88 (0.7-1.1cm)FS (%) 56 % LVDs1.98 (2.0-3.8cm)LVEF (%)86 (>50%) Aortic Valve AI P 1/2 [id number] Mitral Valve MV E Zgxuakru08.7cm/sMV A Bqhypnxm59.6cm/sE/A ratio1.2 TDI E/Lateral E'0.0E/Medial E'0.0 Tricuspid Valve TR Peak [id number]/sTR Peak [id number] LEFT VENTRICLE The left ventricle is normal size. There is normal left ventricular wall thickness. The left ventricular function is normal. The left ventricular ejection fraction is within the normal range. There is normal LV segmental wall motion. The left ventricular diastolic function is normal. RIGHT VENTRICLE The right ventricle is normal size. There is normal right ventricular wall thickness. The right ventricular systolic function is normal. ATRIA The left atrium size is normal. The right atrium size is normal. AORTIC VALVE The aortic valve is not well visualized. There is trace aortic regurgitation. MITRAL VALVE The mitral valve is mildly thickened. There is no mitral valve regurgitation noted. TRICUSPID VALVE There is trace tricuspid regurgitation. There is mild pulmonary hypertension. GREAT VESSELS The aortic root is normal in size. The IVC is normal in size and collapses >50% with inspiration. PERICARDIAL EFFUSION There is no pericardial effusion. <Conclusion> The left ventricle is normal size. There is normal left ventricular wall thickness. The left ventricular function is normal. The left ventricular ejection fraction is within the normal range. There is normal LV segmental wall motion. There is mild pulmonary hypertension. Trace AI and Trace TR No vegitation seen
--- NOTE | 2017-01-17 20:54 | CP.PCM.PN ---
Subjective - Date & Time of Evaluation Date of Evaluation: 01/17/17 Time of Evaluation: 02:30 - Subjective Subjective: dictated Objective - Vital Signs/Intake and Output Vital Signs (last 24 hours): Temp Pulse Resp BP Pulse Ox 97.8 F 73 18 96/61 L 97 01/17/17 15:14 01/17/17 15:14 01/17/17 15:14 01/17/17 15:14 01/17/17 15:14 Intake and Output: 01/17/17 01/18/17 18:59 06:59 Intake Total 910 Balance 910 - Medications Medications: Current Medications Acetaminophen (Tylenol 325mg Tab) 650 mg PO Q6 PRN PRN Reason: Fever >100.4 F Last Admin: 01/16/17 22:50 Dose: 650 mg Enoxaparin Sodium (Lovenox) 40 mg SC DAILY [facility] Last Admin: 01/17/17 10:09 Dose: 40 mg Ciprofloxacin (Cipro 400mg/200ml Dsw) 400 mg in 200 mls @ 133 mls/hr IVPB Q12H [facility] Last Admin: 01/17/17 15:00 Dose: 133 mls/hr Sodium Chloride (Sodium Chloride 0.9%) 1,000 mls @ 125 mls/hr IV .Q8H [facility] Last Admin: 01/17/17 13:34 Dose: Not Given Meropenem 1 gm/ Sodium (Chloride) 100 mls @ 200 mls/hr IVPB Q8H [facility] Last Admin: 01/17/17 16:35 Dose: 200 mls/hr Morphine Sulfate (Morphine) 1 mg IVP Q4 PRN PRN Reason: Pain, moderate (4-7) Last Admin: 01/16/17 11:16 Dose: 1 mg Ondansetron HCl (Zofran Inj) 4 mg IVP Q6 PRN PRN Reason: Nausea/Vomiting Last Admin: 01/17/17 03:38 Dose: 4 mg Pantoprazole Sodium (Protonix Inj) 40 mg IVP Q12 [facility] Last Admin: 01/17/17 10:09 Dose: 40 mg Pneumococcal Polyvalent Vaccine (Pneumovax 23 Vaccine) 0.5 ml IM .ONCE ONE Stop: 01/19/17 10:01 - Labs Labs: 01/17/17 07:00 01/17/17 07:00 PT 13.2 SECONDS (9.7-12.2) H 01/17/17 07:00 INR 1.2 01/17/17 07:00 APTT 30 SECONDS (21-34) 01/17/17 07:00
--- NOTE | 2017-01-17 21:32 | PN ---
DATE: 01/17/2017 SUBJECTIVE: The patient was seen today again and she said she was feeling slightly better. She did not have any abdominal pain, but she had vomiting and was still nauseous. She denied any other compla ints. No chest pain, no shortness of breath, no fever. She did receive gentamicin yesterday and is on meropenem and Cipro at this time. PHYSICAL EXAMINATION: VITAL SIGNS: T-max is 97.8, pulse is 73, blood pressure remains 96/61, respirations are 18. HEENT: Head is atraumatic, normocephalic. Pupils are reacting to light. Throat: No congestion, no thrush seen. NECK: Supple. JVP flat. ABDOMEN: Mild left CVA tenderness present. No guarding, no rigidity present. EXTREMITIES: No edema, clubbing or cyanosis. LABORATORY DATA: White count 8, hemoglobin 11, hematocrit 32.9, platelet count is 172. Creatinine i s 1.1, BUN is 9. Her LFTs are a little bit elevated. Albumin is 2.8. She had a procalcitonin of 10 .22, so she is really septic and blood cultures came out positive and urine culture came out positive for gram-negative rods, and ID and sensitivity is pending. ASSESSMENT AND PLAN: She also had a CAT scan of the abdomen and pelvis, which showed no evidence of n ephrolithiasis or hydronephrosis, vague area of low attenuation, superior margin, left renal cortex w hich is of uncertain etiology, could represent volume averaging of medulla, which appears to be sligh tly compressed. However, the possibility of pyelonephritis cannot be excluded, which is probably wha t she has at this time. Also appears to be very subtle enhancement of the left ureter. Clinical cor relation recommended. Urinary bladder is incompletely distended, but there is no small bilater al adnexal cyst. Pelvic sonogram could be performed for further evaluation. At this time, this patie nt has gram-negative septicemia with left pyelonephritis from urinary tract infection. Echocardiogra m has been ordered. She is on 2 drugs, including Cipro and meropenem. Since blood pressure remains low, I am not sure if this is her baseline but she still remains with a low blood pressure. We will follow the ID and sensitivity of the organism and continue meropenem and Cipro at this time and I am hoping she is on fluids. We will find out if she is on fluids as she should be on. Alice Ling MD cc: [id number] TT: 01/17/2017 21:31:34 Confirmation # [id number] Dictation # [id number] ln
[2017-01-18] MEDS: Ciprofloxacin 400mg/200ml D5W 400 MG/200 ML BAG IVPB SCH ×2 (02:39→14:12)
[2017-01-18] MEDS: Sodium Chloride 0.9% 1,000 ML IV SCH ×3 (05:21→22:09)
[2017-01-18] MEDS: Meropenem 1 GM in Sodium Chloride 0.9% 100 ML IVPB SCH ×3 (05:49→22:08)
[2017-01-18 07:08] LABS: BASO % 0.4 % (0.0-2.0); EOS # 0.1 K/uL (0.0-0.7); EOS % 1.8 % (0.0-4.0); HEMATOCRIT 33.7 % (34.0-47.0); LYMPH # 1.5 K/uL (1.0-4.3); LYMPH % 29.2 % (20.0-40.0); MEAN CELL VOLUME 91.6 fL (81.0-99.0); MEAN CORPUSCULAR HEMOGLOBIN 31.7 pg (27.0-31.0); MEAN CORPUSCULAR HGB CONC 34.6 g/dL (33.0-37.0); MEAN PLATELET VOLUME 8.4 fL (7.2-11.7); MONO # 0.5 K/uL (0.0-0.8); MONO % 9.8 % (0.0-10.0); NRBC % 0.1 % (0.0-2.0); WHITE BLOOD COUNT 5.1 K/uL (4.8-10.8)
[2017-01-18 07:31] LABS: CHLORIDE 106 mmol/L (98-107)
[2017-01-18 07:32] LABS: SODIUM 138 mmol/L (132-148)
[2017-01-18 07:34] LABS: AST/SGOT 27 U/L (14-36); BILIRUBIN,TOTAL 0.6 mg/dL (0.2-1.3); CARBON DIOXIDE 25 mmol/L (22-30); GFR AFRICAN-AMERICAN > 60
[2017-01-18 07:35] LABS: ALKALINE PHOSPHATASE 68 U/L (38-126); ALT/SGPT 52 U/L (9-52); BLOOD UREA NITROGEN 11 mg/dL (7-17); CALCIUM 8.2 mg/dl (8.6-10.4); GLUCOSE,RANDOM 88 mg/dL (65-105); PHOSPHOROUS 2.5 mg/dL (2.5-4.5)
[2017-01-18 07:36] LABS: MAGNESIUM 2.1 mg/dL (1.6-2.3)
[2017-01-18] MEDS: Enoxaparin 40 mg Syringe SC SCH (09:07)
--- NOTE | 2017-01-18 16:38 | CP.PCM.PN ---
<Cortez Conrad - Last Filed: 01/18/17 18:18> Subjective - Date & Time of Evaluation Date of Evaluation: 01/18/17 Time of Evaluation: 09:34 - Subjective Subjective: Pt seen and examined. Pt reports that she is feeling much better today. She reports that she feels slightly nauseous but no reports of vomiting. She reports thather abdominal pain has improved. Pt denies fever, chills, chest pain , shortness of breath, diarrhea, constipation. Objective - Vital Signs/Intake and Output Vital Signs (last 24 hours): Temp Pulse Resp BP Pulse Ox 98.7 F 64 20 107/72 96 01/18/17 16:00 01/18/17 16:00 01/18/17 16:00 01/18/17 16:00 01/18/17 16:00 Intake and Output: 01/18/17 01/18/17 06:59 18:59 Intake Total 1700 Balance 1700 - Medications Medications: Current Medications Acetaminophen (Tylenol 325mg Tab) 650 mg PO Q6 PRN PRN Reason: Fever >100.4 F Last Admin: 01/16/17 22:50 Dose: 650 mg Enoxaparin Sodium (Lovenox) 40 mg SC DAILY [facility] Last Admin: 01/18/17 09:07 Dose: 40 mg Ciprofloxacin (Cipro 400mg/200ml Dsw) 400 mg in 200 mls @ 133 mls/hr IVPB Q12H [facility] Last Admin: 01/18/17 14:12 Dose: 133 mls/hr Sodium Chloride (Sodium Chloride 0.9%) 1,000 mls @ 125 mls/hr IV .Q8H [facility] Last Admin: 01/18/17 05:21 Dose: 125 mls/hr Meropenem 1 gm/ Sodium (Chloride) 100 mls @ 200 mls/hr IVPB Q8H [facility] Last Admin: 01/18/17 15:12 Dose: 200 mls/hr Morphine Sulfate (Morphine) 1 mg IVP Q4 PRN PRN Reason: Pain, moderate (4-7) Last Admin: 01/16/17 11:16 Dose: 1 mg Ondansetron HCl (Zofran Inj) 4 mg IVP Q6 PRN PRN Reason: Nausea/Vomiting Last Admin: 01/17/17 03:38 Dose: 4 mg Pantoprazole Sodium (Protonix Inj) 40 mg IVP Q12 [facility] Last Admin: 01/18/17 09:07 Dose: 40 mg Pneumococcal Polyvalent Vaccine (Pneumovax 23 Vaccine) 0.5 ml IM .ONCE ONE Stop: 01/19/17 10:01 - Labs Labs: 01/18/17 06:55 01/18/17 06:55 PT 13.2 SECONDS (9.7-12.2) H 01/17/17 07:00 INR 1.2 01/17/17 07:00 APTT 30 SECONDS (21-34) 01/17/17 07:00 - Constitutional Appears: No Acute Distress - Head Exam Head Exam: ATRAUMATIC, NORMOCEPHALIC - Eye Exam Eye Exam: EOMI - ENT Exam ENT Exam: Mucous Membranes Moist. absent: Mucous Membranes Dry - Respiratory Exam Respiratory Exam: Clear to Ausculation Bilateral. absent: Rales, Rhonchi, Wheezes - Cardiovascular Exam Cardiovascular Exam: +S1, +S2 - GI/Abdominal Exam GI & Abdominal Exam: Soft. absent: Distended, Guarding, Tenderness - Extremities Exam Extremities Exam: absent: Pedal Edema - Neurological Exam Neurological Exam: Alert, Awake, Oriented x3 - Psychiatric Exam Psychiatric exam: Normal Affect, Normal Mood - Skin Skin Exam: Normal Color, Warm Assessment and Plan - Assessment and Plan (Free Text) Assessment: Sepsis: Afebrile, nontachycardic No leukocytosis ID, Dr. Ling, consulted. Help appreciated. Ciprofloxacin 400 mg IV q12h Meropenem 1 gm IV q8h Blood cultures positive for E.coli Urine cultures positive for E.coli Repeat blood cultures negative after 48 hrs Repeat urine cultures pending Echocardiogram - normal EF, mild pulmonary HTN, no vegetations seen NS IVF 125 cc/hr Tylenol 650 mg po q6h prn for fever Pyelonephritis/Complicated UTI: Abd/Pelvis CT with PO and IV contrast - no evidence of nephrolithiasis or hydronephrosis; pyelonephritis cannot be ruled out (please see full report) Abdomen U/S: no evidence of nephrolithiasis or hydronephrosis; baldder wall thickening, correlate with cystitis; fatty liver (please see full report) ID, Dr. Ling, consulted. Help appreciated. Cipro 400 mg IV q12h Meropenem 1 gm IV q8h Zofran prn for nausea Prophylactic Measures: DVT: SCDs, lovenox 40 mg sc qd GI: Protonix 40 mg IV <Tina Whitakern M - Last Filed: 01/19/17 16:09> Objective - Vital Signs/Intake and Output Vital Signs (last 24 hours): Temp Pulse Resp BP Pulse Ox 98.6 F 87 21 93/59 L 97 01/19/17 15:35 01/19/17 15:35 01/19/17 15:35 01/19/17 15:35 01/19/17 15:35 Intake and Output: 01/19/17 01/19/17 06:59 18:59 Intake Total 735 Balance 735 - Medications Medications: Current Medications Acetaminophen (Tylenol 325mg Tab) 650 mg PO Q6 PRN PRN Reason: Fever >100.4 F Last Admin: 01/16/17 22:50 Dose: 650 mg Enoxaparin Sodium (Lovenox) 40 mg SC DAILY [facility] Last Admin: 01/19/17 10:41 Dose: 40 mg Ciprofloxacin (Cipro 400mg/200ml Dsw) 400 mg in 200 mls @ 133 mls/hr IVPB Q12H [facility] Morphine Sulfate (Morphine) 1 mg IVP Q4 PRN PRN Reason: Pain, moderate (4-7) Last Admin: 01/16/17 11:16 Dose: 1 mg Ondansetron HCl (Zofran Inj) 4 mg IVP Q6 PRN PRN Reason: Nausea/Vomiting Last Admin: 01/19/17 06:49 Dose: 4 mg Pantoprazole Sodium (Protonix Ec Tab) 40 mg PO Q12H [facility] Last Admin: 01/19/17 12:30 Dose: 40 mg - Labs Labs: 01/19/17 07:13 01/19/17 07:13 PT 13.2 SECONDS (9.7-12.2) H 01/17/17 07:00 INR 1.2 01/17/17 07:00 APTT 30 SECONDS (21-34) 01/17/17 07:00 Attending/Attestation - Attestation I have personally seen and examined this patient.: Yes I have fully participated in the care of the patient.: Yes I have reviewed all pertinent clinical information, including history, physical exam and plan: Yes Notes (Text): 01/19/17 16:08 Patient was seen and examined at bedside with the resident Patient is clinically improving Continue IV antibiotics for sepsis/pyelonephritis ID is on board I discussed the plan of care with the resident and agree with the above history and physical and assessment/plan by the resident.
--- NOTE | 2017-01-18 22:27 | CP.PCM.PN ---
Subjective - Date & Time of Evaluation Date of Evaluation: 01/18/17 Time of Evaluation: 05:00 - Subjective Subjective: Dictated Objective - Vital Signs/Intake and Output Vital Signs (last 24 hours): Temp Pulse Resp BP Pulse Ox 98.7 F 64 20 107/72 96 01/18/17 16:00 01/18/17 16:00 01/18/17 16:00 01/18/17 16:00 01/18/17 16:00 - Medications Medications: Current Medications Acetaminophen (Tylenol 325mg Tab) 650 mg PO Q6 PRN PRN Reason: Fever >100.4 F Last Admin: 01/16/17 22:50 Dose: 650 mg Enoxaparin Sodium (Lovenox) 40 mg SC DAILY [facility] Last Admin: 01/18/17 09:07 Dose: 40 mg Ciprofloxacin (Cipro 400mg/200ml Dsw) 400 mg in 200 mls @ 133 mls/hr IVPB Q12H [facility] Last Admin: 01/18/17 14:12 Dose: 133 mls/hr Sodium Chloride (Sodium Chloride 0.9%) 1,000 mls @ 125 mls/hr IV .Q8H [facility] Last Admin: 01/18/17 22:09 Dose: 125 mls/hr Meropenem 1 gm/ Sodium (Chloride) 100 mls @ 200 mls/hr IVPB Q8H [facility] Last Admin: 01/18/17 22:08 Dose: 200 mls/hr Morphine Sulfate (Morphine) 1 mg IVP Q4 PRN PRN Reason: Pain, moderate (4-7) Last Admin: 01/16/17 11:16 Dose: 1 mg Ondansetron HCl (Zofran Inj) 4 mg IVP Q6 PRN PRN Reason: Nausea/Vomiting Last Admin: 01/17/17 03:38 Dose: 4 mg Pantoprazole Sodium (Protonix Inj) 40 mg IVP Q12 [facility] Last Admin: 01/18/17 22:08 Dose: 40 mg Pneumococcal Polyvalent Vaccine (Pneumovax 23 Vaccine) 0.5 ml IM .ONCE ONE Stop: 01/19/17 10:01 - Labs Labs: 01/18/17 06:55 01/18/17 06:55 PT 13.2 SECONDS (9.7-12.2) H 01/17/17 07:00 INR 1.2 01/17/17 07:00 APTT 30 SECONDS (21-34) 01/17/17 07:00
--- NOTE | 2017-01-18 23:18 | PN ---
DATE: 01/18/2017 INFECTIOUS DISEASE FOLLOWUP: The patient is feeling better. She says she is going frequently to the bathroom and she is on IV flu ids. Denies any abdominal pain, no nausea and no vomiting. PHYSICAL EXAMINATION: VITAL SIGNS: T-max is 98.7, pulse 64, blood pressure 107/72 and respirations are 20. HEENT: Head is atraumatic and normocephalic. NECK: Supple. LUNGS: Clear. No crackles or rales pr esent. HEART: S1, S2 regular. ABDOMEN: Soft, nontender, no guarding and no rigidity present. EXTR EMITIES: Have no edema, clubbing or cyanosis. LABORATORY DATA: White count is 5.1, hemoglobin 11.7 and platelets are 190. Creatinine is 1.1 and B UN is 11. Her blood cultures came out positive E. coli and the urine is also sensitive to . C ultures are sensitive to Cipro and she was on Cipro and meropenem so at this time, will repeat the bl ood cultures to see if they are clearing. She will continue Cipro. She will need Cipro for a total o f 2 weeks starting from the day she came in. We will follow. Also to check the echo and I also told the patient to repeat a CAT scan in a month to see if her kidneys are good. Alice Ling MD cc: [id number] TT: 01/18/2017 22:59:30 Confirmation # [id number] Dictation # [id number] sn
[2017-01-19] MEDS: Ciprofloxacin 400mg/200ml D5W 400 MG/200 ML BAG IVPB SCH (02:26)
[2017-01-19] MEDS: Sodium Chloride 0.9% 1,000 ML IV SCH ×2 (05:26→13:59)
[2017-01-19 07:38] LABS: BASO % 0.5 % (0.0-2.0); EOS # 0.1 K/uL (0.0-0.7); HEMATOCRIT 37.6 % (34.0-47.0); LYMPH # 1.2 K/uL (1.0-4.3); LYMPH % 28.2 % (20.0-40.0); MEAN CELL VOLUME 90.7 fL (81.0-99.0); MEAN CORPUSCULAR HEMOGLOBIN 30.7 pg (27.0-31.0); MEAN CORPUSCULAR HGB CONC 33.8 g/dL (33.0-37.0); MEAN PLATELET VOLUME 8.8 fL (7.2-11.7); MONO # 0.4 K/uL (0.0-0.8); MONO % 8.9 % (0.0-10.0); NRBC % 0.1 % (0.0-2.0); RED CELL DISTRIBUTION WIDTH 13.6 % (11.5-14.5); WHITE BLOOD COUNT 4.3 K/uL (4.8-10.8)
[2017-01-19 08:13] LABS: CHLORIDE 102 mmol/L (98-107); POTASSIUM 4.2 mmol/L (3.6-5.2); SODIUM 137 mmol/L (132-148)
[2017-01-19 08:15] LABS: ALB/GLOB RATIO 1.1 (1.0-2.1); AST/SGOT 22 U/L (14-36); BILIRUBIN,TOTAL 0.5 mg/dL (0.2-1.3); CARBON DIOXIDE 26 mmol/L (22-30); GFR AFRICAN-AMERICAN > 60; TOTAL PROTEIN 6.6 g/dL (6.3-8.3)
[2017-01-19 08:16] LABS: ALKALINE PHOSPHATASE 69 U/L (38-126); ALT/SGPT 45 U/L (9-52); BLOOD UREA NITROGEN 14 mg/dL (7-17); CALCIUM 8.6 mg/dl (8.6-10.4); GLUCOSE,RANDOM 105 mg/dL (65-105); PHOSPHOROUS 2.5 mg/dL (2.5-4.5)
[2017-01-19] MEDS ORDERED: Pneumococcal 23-Valent Vaccine IM ONE (10:00)
[2017-01-19] MEDS: Enoxaparin 40 mg Syringe SC SCH (10:41)
[2017-01-19] MEDS ORDERED: Pantoprazole 40 mg EC Tab PO SCH (12:15)
--- NOTE | 2017-01-19 12:26 | CP.PCM.PN ---
<Milagro Barnes - Last Filed: 01/19/17 12:24> Subjective - Date & Time of Evaluation Date of Evaluation: 01/19/17 Time of Evaluation: 08:45 - Subjective Subjective: Medicine Progress Note Patient seen and examined. Patient had one episode of non-bilious, non-bloody vomiting this morning prior to breakfast. Pt currently states that she feels better after she vomited and is willing to eat her breakfast. Patient continues to complain of bilateral low back pain but states that it has improved. She denies dysuria or hematuria. Denies fever, chills, diarrhea, abdominal pain, chest pain and shortness of breath. Objective - Vital Signs/Intake and Output Vital Signs (last 24 hours): Temp Pulse Resp BP Pulse Ox 98.1 F 73 20 92/60 L 98 01/19/17 08:27 01/19/17 08:27 01/19/17 08:27 01/19/17 08:27 01/19/17 08:27 - Medications Medications: Current Medications Acetaminophen (Tylenol 325mg Tab) 650 mg PO Q6 PRN PRN Reason: Fever >100.4 F Last Admin: 01/16/17 22:50 Dose: 650 mg Enoxaparin Sodium (Lovenox) 40 mg SC DAILY [facility] Last Admin: 01/19/17 10:41 Dose: 40 mg Ciprofloxacin (Cipro 400mg/200ml Dsw) 400 mg in 200 mls @ 133 mls/hr IVPB Q12H [facility] Last Admin: 01/19/17 02:26 Dose: 133 mls/hr Sodium Chloride (Sodium Chloride 0.9%) 1,000 mls @ 125 mls/hr IV .Q8H [facility] Last Admin: 01/19/17 05:26 Dose: 125 mls/hr Morphine Sulfate (Morphine) 1 mg IVP Q4 PRN PRN Reason: Pain, moderate (4-7) Last Admin: 01/16/17 11:16 Dose: 1 mg Ondansetron HCl (Zofran Inj) 4 mg IVP Q6 PRN PRN Reason: Nausea/Vomiting Last Admin: 01/19/17 06:49 Dose: 4 mg Pantoprazole Sodium (Protonix Ec Tab) 40 mg PO Q12H [facility] - Labs Labs: 01/19/17 07:13 01/19/17 07:13 PT 13.2 SECONDS (9.7-12.2) H 01/17/17 07:00 INR 1.2 01/17/17 07:00 APTT 30 SECONDS (21-34) 01/17/17 07:00 - Constitutional Appears: Non-toxic, No Acute Distress - Head Exam Head Exam: ATRAUMATIC, NORMOCEPHALIC - Eye Exam Eye Exam: EOMI, Normal appearance - ENT Exam ENT Exam: Mucous Membranes Moist - Neck Exam Neck Exam: Normal Inspection - Respiratory Exam Respiratory Exam: Clear to Ausculation Bilateral, NORMAL BREATHING PATTERN. absent: Rhonchi, Wheezes, Respiratory Distress - Cardiovascular Exam Cardiovascular Exam: REGULAR RHYTHM, +S1, +S2. absent: Irregular Rhythm, Murmur - GI/Abdominal Exam GI & Abdominal Exam: Soft, Normal Bowel Sounds. absent: Tenderness - Extremities Exam Extremities Exam: Normal Inspection. absent: Pedal Edema - Back Exam Back Exam: NORMAL INSPECTION - Neurological Exam Neurological Exam: Alert, Awake, Normal Gait, Oriented x3 - Psychiatric Exam Psychiatric exam: Normal Affect, Normal Mood - Skin Skin Exam: Dry, Intact, Normal Color, Warm Assessment and Plan - Assessment and Plan (Free Text) Assessment: Sepsis- Resolved: Afebrile, nontachycardic No leukocytosis ID, Dr. Ling, consulted. Help appreciated. Ciprofloxacin 400 mg IV q12h Meropenem 1 gm IV q8h Blood cultures positive for E.coli Urine cultures positive for E.coli Repeat blood cultures negative after 48 hrs Repeat urine cultures negative x24 hours Echocardiogram - normal EF, mild pulmonary HTN, no vegetations seen NS IVF 125 cc/hr Tylenol 650 mg po q6h prn for fever Pyelonephritis/Complicated UTI: Abd/Pelvis CT with PO and IV contrast - no evidence of nephrolithiasis or hydronephrosis; pyelonephritis cannot be ruled out (please see full report) Abdomen U/S: no evidence of nephrolithiasis or hydronephrosis; baldder wall thickening, correlate with cystitis; fatty liver (please see full report) ID, Dr. Ling, consulted. Help appreciated. Continue Cipro 400 mg IV q12h for 14 days Meropenem 1 gm IV q8h DC on 01/[address] Anuradha Iniguezfrgenia prn for nausea Prophylactic Measures: DVT: SCDs, lovenox 40 mg sc qd GI: Protonix 40 mg IV <Jamel Whitaker M - Last Filed: 01/19/17 17:21> Objective - Vital Signs/Intake and Output Vital Signs (last 24 hours): Temp Pulse Resp BP Pulse Ox 98.6 F 87 21 93/59 L 97 01/19/17 15:35 01/19/17 15:35 01/19/17 15:35 01/19/17 15:35 01/19/17 15:35 Intake and Output: 01/19/17 01/19/17 06:59 18:59 Intake Total 735 Balance 735 - Medications Medications: Current Medications Acetaminophen (Tylenol 325mg Tab) 650 mg PO Q6 PRN PRN Reason: Fever >100.4 F Last Admin: 01/16/17 22:50 Dose: 650 mg Enoxaparin Sodium (Lovenox) 40 mg SC DAILY [facility] Last Admin: 01/19/17 10:41 Dose: 40 mg Ciprofloxacin (Cipro 400mg/200ml Dsw) 400 mg in 200 mls @ 133 mls/hr IVPB Q12H [facility] Morphine Sulfate (Morphine) 1 mg IVP Q4 PRN PRN Reason: Pain, moderate (4-7) Last Admin: 01/16/17 11:16 Dose: 1 mg Ondansetron HCl (Zofran Inj) 4 mg IVP Q6 PRN PRN Reason: Nausea/Vomiting Last Admin: 01/19/17 06:49 Dose: 4 mg Pantoprazole Sodium (Protonix Ec Tab) 40 mg PO Q12H [facility] Last Admin: 01/19/17 12:30 Dose: 40 mg - Labs Labs: 01/19/17 07:13 01/19/17 07:13 PT 13.2 SECONDS (9.7-12.2) H 01/17/17 07:00 INR 1.2 01/17/17 07:00 APTT 30 SECONDS (21-34) 01/17/17 07:00 Attending/Attestation - Attestation I have personally seen and examined this patient.: Yes I have fully participated in the care of the patient.: Yes I have reviewed all pertinent clinical information, including history, physical exam and plan: Yes Notes (Text): 01/19/17 17:20 Patient was seen and examined at bedside with the resident Patient stated that she is feeling better We will continue IV antibiotics Follow-up results of repeat blood culture Discussed the plan of care with the resident and agree with the above history and physical and assessment/plan by the resident.
--- NOTE | 2017-01-19 19:23 | CP.PCM.PN ---
Subjective - Date & Time of Evaluation Date of Evaluation: 01/19/17 Time of Evaluation: 02:20 - Subjective Subjective: dictated Objective - Vital Signs/Intake and Output Vital Signs (last 24 hours): Temp Pulse Resp BP Pulse Ox 98.6 F 87 21 93/59 L 97 01/19/17 15:35 01/19/17 15:35 01/19/17 15:35 01/19/17 15:35 01/19/17 15:35 Intake and Output: 01/19/17 01/20/17 18:59 06:59 Intake Total 735 Balance 735 - Medications Medications: Current Medications Acetaminophen (Tylenol 325mg Tab) 650 mg PO Q6 PRN PRN Reason: Fever >100.4 F Last Admin: 01/16/17 22:50 Dose: 650 mg Enoxaparin Sodium (Lovenox) 40 mg SC DAILY [facility] Last Admin: 01/19/17 10:41 Dose: 40 mg Ciprofloxacin (Cipro 400mg/200ml Dsw) 400 mg in 200 mls @ 133 mls/hr IVPB Q12H [facility] Morphine Sulfate (Morphine) 1 mg IVP Q4 PRN PRN Reason: Pain, moderate (4-7) Last Admin: 01/16/17 11:16 Dose: 1 mg Ondansetron HCl (Zofran Inj) 4 mg IVP Q6 PRN PRN Reason: Nausea/Vomiting Last Admin: 01/19/17 06:49 Dose: 4 mg Pantoprazole Sodium (Protonix Ec Tab) 40 mg PO Q12H [facility] Last Admin: 01/19/17 12:30 Dose: 40 mg - Labs Labs: 01/19/17 07:13 01/19/17 07:13 PT 13.2 SECONDS (9.7-12.2) H 01/17/17 07:00 INR 1.2 01/17/17 07:00 APTT 30 SECONDS (21-34) 01/17/17 07:00
--- NOTE | 2017-01-19 20:01 | PN ---
DATE: 01/19/2017 SUBJECTIVE: The patient said she was feeling a little better. She did not have any IV access, so th ey gave Cipro p.o. this morning. Her speaks a good amount of Albanian and I explained to him what happened, that she developed a blood infection secondary to the urine infection and has swelling of the right kidney and I also told him that in 4 weeks she needs to repeat the CAT scan as an outpa tient to see if the kidney has come back to its normal size and she needs a followup with the primary and she can follow in the clinic with Dr. Whitaker or his team. PHYSICAL EXAMINATION: VITAL SIGNS: T-max is 98.6, pulse 87, blood pressure 93/59, respirations are 21. HEENT: Head is atraumatic, normocephalic. NECK: Supple. LUNGS: Clear. No crackles or rales present. HEART: S1, S2 regular. ABDOMEN: Soft. No CVA tenderness present. EXTREMITIES: No edema, clubbing or cyanosis. LABORATORY DATA: White count is 4.3, hemoglobin 12.7, hematocrit 37.6, platelet count is 218. Creat inine is 1.1. Last urine culture and blood culture are negative at 24 hours. She was admitted on the , so today is day 4 of treatment. We will continue Cipro until Saturday an d if she remains stable, she can go home on Cipro p.o. for 9 more days. She should repeat her CAT sc an in a month or so and also she should get acidophilus so that she does not end up with Clostridium difficile. We will follow. Also need to check the echo report. The echo report shows conclusion is that there is no vegetation seen, so that is a good echo, so we will continue with Cipro and add Bacid for now. Alice Ling MD cc: [id number] TT: 01/19/2017 20:00:24 Confirmation # [id number] Dictation # [id number] dwight
[2017-01-19] MEDS: Pantoprazole 40 mg EC Tab PO SCH (21:33)
[2017-01-20] MEDS: Ciprofloxacin 400mg/200ml D5W 400 MG/200 ML BAG IVPB SCH ×2 (01:50→13:31)
[2017-01-20 07:51] LABS: BASO % 1.1 % (0.0-2.0); EOS # 0.1 K/uL (0.0-0.7); EOS % 2.7 % (0.0-4.0); HEMATOCRIT 38.6 % (34.0-47.0); LYMPH # 1.9 K/uL (1.0-4.3); LYMPH % 42.6 % (20.0-40.0); MEAN CELL VOLUME 91.7 fL (81.0-99.0); MEAN CORPUSCULAR HGB CONC 33.8 g/dL (33.0-37.0); MEAN PLATELET VOLUME 8.5 fL (7.2-11.7); MONO # 0.4 K/uL (0.0-0.8); MONO % 9.9 % (0.0-10.0); NRBC % 0.1 % (0.0-2.0); RED CELL DISTRIBUTION WIDTH 13.5 % (11.5-14.5); WHITE BLOOD COUNT 4.4 K/uL (4.8-10.8)
[2017-01-20 07:58] VITALS: RESP 20
[2017-01-20 08:11] LABS: CHLORIDE 103 mmol/L (98-107); SODIUM 138 mmol/L (132-148)
[2017-01-20 08:12] LABS: POTASSIUM 4.9 mmol/L (3.6-5.2)
[2017-01-20 08:13] LABS: GFR AFRICAN-AMERICAN > 60
[2017-01-20 08:14] LABS: ALB/GLOB RATIO 1.1 (1.0-2.1); ALKALINE PHOSPHATASE 72 U/L (38-126); AST/SGOT 38 U/L (14-36); BILIRUBIN,TOTAL 0.5 mg/dL (0.2-1.3); BLOOD UREA NITROGEN 13 mg/dL (7-17); CARBON DIOXIDE 28 mmol/L (22-30); GLUCOSE,RANDOM 87 mg/dL (65-105); PHOSPHOROUS 2.9 mg/dL (2.5-4.5); TOTAL PROTEIN 6.5 g/dL (6.3-8.3)
[2017-01-20 08:15] LABS: ALT/SGPT 51 U/L (9-52); CALCIUM 8.9 mg/dl (8.6-10.4); MAGNESIUM 2.2 mg/dL (1.6-2.3)
--- NOTE | 2017-01-20 09:30 | VASCLAB ---
PROCEDURE: Right Upper Extremity Venous Duplex Exam HISTORY: right upper extremity edema PRIORS: None. TECHNIQUE: Right upper extremity, internal jugular, subclavian, axillary, brachial, ulnar, radial, basilic and upper cephalic veins were evaluated. Flow was assessed with color Doppler, compressibility, assessment of phasic flow and augmentation response. Report prepared by EUNICE Ortega, RVT FINDINGS: RIGHT: 1. Internal Jugular: 1.1. Compressibility - Fully compressible: Thrombus - None : Flow - Phasic: Augmentation -Normal: Reflux - None. 2. Subclavian: 2.1. Compressibility - Fully compressible: Thrombus - None : Flow - Phasic: Augmentation -Normal: Reflux - None. 3. Axillary: 3.1. Compressibility - Fully compressible: Thrombus - None : Flow - Phasic: Augmentation -Normal: Reflux - None. 4. Brachial: 4.1. Compressibility - Fully compressible: Thrombus - None: Flow - Phasic: Augmentation -Normal: Reflux - None. 5. Ulnar: 5.1. Compressibility - Fully compressible: Thrombus - None: Flow - Phasic: Augmentation -Normal: Reflux - None. 6. Radial: 6.1. Compressibility - Fully compressible: Thrombus - None: Flow - Phasic: Augmentation - Normal: Reflux - None. 7. Cephalic: 7.1. Compressibility - Fully compressible: Thrombus - None: Flow - Phasic: Augmentation -Normal: Reflux - None. 8. Basilic: 8.1. Compressibility - Fully compressible: Thrombus - None: Flow - Phasic: Augmentation -Normal: Reflux - None. OTHER FINDINGS: Right: None. IMPRESSION: Right: No evidence of vein thrombosis of the right upper extremity with excellent venous flow. Normal valve function noted of the right side. Normal venous flow noted in the left internal jugular and left subclavian veins.
--- NOTE | 2017-01-20 09:54 | CP.PCM.PN ---
<Milagro Barnes - Last Filed: 01/20/17 09:50> Subjective - Date & Time of Evaluation Date of Evaluation: 01/20/17 Time of Evaluation: 09:50 - Subjective Subjective: Medicine Progress Note Patient seen and examined. Patient states that she feels much better today and is in a positive mood. She ate her breakfast today with no difficulty. Patient ambulating around room comfortably and states her back pain has improved as well. Patient denies fever, chest pain, shortness of breath, abdominal pain and vomiting. Objective - Vital Signs/Intake and Output Vital Signs (last 24 hours): Temp Pulse Resp BP Pulse Ox 97.9 F 71 20 92/63 L 95 01/20/17 07:57 01/20/17 07:57 01/20/17 07:57 01/20/17 07:57 01/20/17 07:57 - Medications Medications: Current Medications Acetaminophen (Tylenol 325mg Tab) 650 mg PO Q6 PRN PRN Reason: Fever >100.4 F Last Admin: 01/16/17 22:50 Dose: 650 mg Enoxaparin Sodium (Lovenox) 40 mg SC DAILY [facility] Last Admin: 01/19/17 10:41 Dose: 40 mg Ciprofloxacin (Cipro 400mg/200ml Dsw) 400 mg in 200 mls @ 133 mls/hr IVPB Q12H [facility] Last Admin: 01/20/17 01:50 Dose: 133 mls/hr Lactobacillus Acidophilus (Bacid Acidophilus) 1 cap PO BID [facility] Morphine Sulfate (Morphine) 1 mg IVP Q4 PRN PRN Reason: Pain, moderate (4-7) Last Admin: 01/16/17 11:16 Dose: 1 mg Ondansetron HCl (Zofran Inj) 4 mg IVP Q6 PRN PRN Reason: Nausea/Vomiting Last Admin: 01/19/17 06:49 Dose: 4 mg Pantoprazole Sodium (Protonix Ec Tab) 40 mg PO Q12 [facility] Last Admin: 01/19/17 21:33 Dose: 40 mg - Labs Labs: 01/20/17 07:38 01/20/17 07:38 PT 13.2 SECONDS (9.7-12.2) H 01/17/17 07:00 INR 1.2 01/17/17 07:00 APTT 30 SECONDS (21-34) 01/17/17 07:00 - Constitutional Appears: Non-toxic, No Acute Distress - Head Exam Head Exam: ATRAUMATIC, NORMOCEPHALIC - Eye Exam Eye Exam: EOMI, Normal appearance - ENT Exam ENT Exam: Mucous Membranes Moist, Normal Exam - Respiratory Exam Respiratory Exam: Clear to Ausculation Bilateral, NORMAL BREATHING PATTERN. absent: Rhonchi, Wheezes, Respiratory Distress - Cardiovascular Exam Cardiovascular Exam: REGULAR RHYTHM, +S1, +S2 - GI/Abdominal Exam GI & Abdominal Exam: Soft, Normal Bowel Sounds. absent: Tenderness - Extremities Exam Extremities Exam: Normal Inspection. absent: Pedal Edema - Back Exam Back Exam: NORMAL INSPECTION - Neurological Exam Neurological Exam: Alert, Awake, Normal Gait, Oriented x3 - Psychiatric Exam Psychiatric exam: Normal Affect, Normal Mood - Skin Skin Exam: Dry, Intact, Normal Color, Warm Assessment and Plan - Assessment and Plan (Free Text) Assessment: Sepsis- Resolved: Afebrile, nontachycardic No leukocytosis ID, Dr. Ling, consulted. Help appreciated. Per ID recommendations, the patient may be discharged home Sunday 01/21 if blood cultures remain negative. Should discharge patient on PO Cipro and Bacid for 9 days. Patient should then follow up with [facility] to establish care. Start Bacid today. Ciprofloxacin 400 mg IV q12h Blood cultures positive for E.coli Urine cultures positive for E.coli Repeat blood cultures negative after 48 hrs Repeat urine cultures negative x24 hours Echocardiogram - normal EF, mild pulmonary HTN, no vegetations seen Tylenol 650 mg po q6h prn for fever Pyelonephritis/Complicated UTI: Abd/Pelvis CT with PO and IV contrast - no evidence of nephrolithiasis or hydronephrosis; pyelonephritis cannot be ruled out (please see full report) Abdomen U/S: no evidence of nephrolithiasis or hydronephrosis; baldder wall thickening, correlate with cystitis; fatty liver (please see full report) ID, Dr. Ling, consulted. Help appreciated. Continue Cipro 400 mg IV q12h for 14 days Meropenem 1 gm IV q8h DC on 01/[address] Anuradha Iniguezfrgenia prn for nausea Prophylactic Measures: DVT: SCDs, lovenox 40 mg sc qd GI: Protonix 40 mg IV <Jamel Whitaker M - Last Filed: 01/20/17 12:09> Objective - Vital Signs/Intake and Output Vital Signs (last 24 hours): Temp Pulse Resp BP Pulse Ox 97.9 F 71 20 92/63 L 95 01/20/17 07:57 01/20/17 07:57 01/20/17 07:57 01/20/17 07:57 01/20/17 07:57 - Medications Medications: Current Medications Acetaminophen (Tylenol 325mg Tab) 650 mg PO Q6 PRN PRN Reason: Fever >100.4 F Last Admin: 01/16/17 22:50 Dose: 650 mg Enoxaparin Sodium (Lovenox) 40 mg SC DAILY [facility] Last Admin: 01/20/17 10:03 Dose: 40 mg Ciprofloxacin (Cipro 400mg/200ml Dsw) 400 mg in 200 mls @ 133 mls/hr IVPB Q12H [facility] Last Admin: 01/20/17 01:50 Dose: 133 mls/hr Lactobacillus Acidophilus (Bacid Acidophilus) 1 cap PO BID [facility] Last Admin: 01/20/17 10:03 Dose: 1 cap Morphine Sulfate (Morphine) 1 mg IVP Q4 PRN PRN Reason: Pain, moderate (4-7) Last Admin: 01/16/17 11:16 Dose: 1 mg Ondansetron HCl (Zofran Inj) 4 mg IVP Q6 PRN PRN Reason: Nausea/Vomiting Last Admin: 01/19/17 06:49 Dose: 4 mg Pantoprazole Sodium (Protonix Ec Tab) 40 mg PO Q12 [facility] Last Admin: 01/20/17 10:02 Dose: 40 mg - Labs Labs: 01/20/17 07:38 01/20/17 07:38 PT 13.2 SECONDS (9.7-12.2) H 01/17/17 07:00 INR 1.2 01/17/17 07:00 APTT 30 SECONDS (21-34) 01/17/17 07:00 Attending/Attestation - Attestation I have personally seen and examined this patient.: Yes I have fully participated in the care of the patient.: Yes I have reviewed all pertinent clinical information, including history, physical exam and plan: Yes Notes (Text): 01/20/17 12:08 Patient was seen and examined at bedside. Family is present at bedside. Patient feels better. No complains of abdominal pain or flank pain. No complaints of dysuria. Patient continues to be on IV ciprofloxacin. Repeat blood culture and urine cultures are negative so far. Discharge planning likely in the next 24 hours if the patient remains medically stable and she continues to improve and she remains afebrile. I discussed the plan of care with the resident and agree with the above history and physical and assessment/plan but the resident.
[2017-01-20] MEDS: Pantoprazole 40 mg EC Tab PO SCH ×2 (10:02→21:30)
[2017-01-20] MEDS: Enoxaparin 40 mg Syringe SC SCH (10:03)
[2017-01-20] MEDS: Lactobacillus Acidophilus 500 MU Cap PO SCH ×2 (10:03→17:54)
[2017-01-21] MEDS: Ciprofloxacin 400mg/200ml D5W 400 MG/200 ML BAG IVPB SCH ×2 (01:16→14:07)
[2017-01-21 07:19] LABS: BASO % 0.9 % (0.0-2.0); EOS # 0.1 K/uL (0.0-0.7); EOS % 2.6 % (0.0-4.0); HEMATOCRIT 40.3 % (34.0-47.0); LYMPH % 36.1 % (20.0-40.0); MEAN CELL VOLUME 91.7 fL (81.0-99.0); MEAN CORPUSCULAR HEMOGLOBIN 31.8 pg (27.0-31.0); MEAN CORPUSCULAR HGB CONC 34.7 g/dL (33.0-37.0); MONO # 0.5 K/uL (0.0-0.8); MONO % 9.3 % (0.0-10.0); RED CELL DISTRIBUTION WIDTH 13.2 % (11.5-14.5); WHITE BLOOD COUNT 5.6 K/uL (4.8-10.8)
[2017-01-21 08:05] LABS: CHLORIDE 100 mmol/L (98-107); POTASSIUM 4.2 mmol/L (3.6-5.2); SODIUM 136 mmol/L (132-148)
[2017-01-21 08:07] LABS: ALB/GLOB RATIO 1.1 (1.0-2.1); ALKALINE PHOSPHATASE 75 U/L (38-126); AST/SGOT 41 U/L (14-36); BILIRUBIN,TOTAL 0.6 mg/dL (0.2-1.3); CARBON DIOXIDE 28 mmol/L (22-30); GFR AFRICAN-AMERICAN > 60; TOTAL PROTEIN 6.9 g/dL (6.3-8.3)
[2017-01-21 08:08] LABS: ALT/SGPT 56 U/L (9-52); BLOOD UREA NITROGEN 18 mg/dL (7-17); CALCIUM 8.7 mg/dl (8.6-10.4); GLUCOSE,RANDOM 90 mg/dL (65-105); MAGNESIUM 2.1 mg/dL (1.6-2.3); PHOSPHOROUS 3.4 mg/dL (2.5-4.5)
[2017-01-21 08:19] VITALS: BP 93/66; PULSE 92; TEMP 98.7; O2SAT 99
[2017-01-21] MEDS: Pantoprazole 40 mg EC Tab PO SCH (09:12)
[2017-01-21] MEDS: Enoxaparin 40 mg Syringe SC SCH (09:12)
[2017-01-21] MEDS: Lactobacillus Acidophilus 500 MU Cap PO SCH (09:12)
--- NOTE | 2017-01-21 16:45 | CP.PCM.DIS ---
<HoustonCortez - Last Filed: 01/21/17 16:35> Provider - Provider Date of Admission: 01/16/17 05:54 Attending physician: Crhistopher Hatch MD Time Spent in preparation of Discharge (in minutes): 34 Hospital Course - Lab Results Lab Results: Micro Results 01/16/17 06:00 Blood-Venous Blood Culture - Final NO GROWTH AFTER 5 DAYS 01/16/17 06:00 Blood-Venous Gram Stain - Final TEST NOT PERFORMED 01/18/17 17:00 Blood Blood Culture - Preliminary NO GROWTH AFTER 48 HOURS 01/18/17 20:00 Urine,Clean Catch Urine Culture - Final No Growth (<1,000 CFU/ML) 01/16/17 06:00 Blood-Venous Blood Culture - Final Escherichia Coli 01/16/17 06:00 Blood-Venous Gram Stain - Final Most Recent Lab Values WBC 5.6 K/uL (4.8-10.8) 01/21/17 07:13 RBC 4.39 Mil/uL (3.80-5.20) 01/21/17 07:13 Hgb 14.0 g/dL (11.0-16.0) 01/21/17 07:13 Hct 40.3 % (34.0-47.0) 01/21/17 07:13 MCV 91.7 fL (81.0-99.0) 01/21/17 07:13 MCH 31.8 pg (27.0-31.0) H 01/21/17 07:13 MCHC 34.7 g/dL (33.0-37.0) 01/21/17 07:13 RDW 13.2 % (11.5-14.5) 01/21/17 07:13 Plt Count 254 K/uL (130-400) 01/21/17 07:13 MPV 8.0 fL (7.2-11.7) 01/21/17 07:13 Neut % (Auto) 51.1 % (50.0-75.0) 01/21/17 07:13 Lymph % (Auto) 36.1 % (20.0-40.0) 01/21/17 07:13 [facility] % (Auto) 9.3 % (0.0-10.0) 01/21/17 07:13 Eos % (Auto) 2.6 % (0.0-4.0) 01/21/17 07:13 Baso % (Auto) 0.9 % (0.0-2.0) 01/21/17 07:13 Neut # 2.9 K/uL (1.8-7.0) 01/21/17 07:13 Lymph # 2.0 K/uL (1.0-4.3) 01/21/17 07:13 [facility] # 0.5 K/uL (0.0-0.8) 01/21/17 07:13 Eos # 0.1 K/uL (0.0-0.7) 01/21/17 07:13 Baso # 0.0 K/uL (0.0-0.2) 01/21/17 07:13 Neutrophils % (Manual) 58 % (50-75) 01/16/17 04:43 Band Neutrophils % 24 % (0-2) H* 01/16/17 04:43 Lymphocytes % (Manual) 9 % (20-40) L 01/16/17 04:43 Reactive Lymphs % 3 % (0-0) H 01/16/17 04:43 Monocytes % (Manual) 4 % (0-10) 01/16/17 04:43 Eosinophils % (Manual) 1 % (0-4) 01/16/17 04:43 Myelocytes % 1 % (0-0) H 01/16/17 04:43 Platelet Estimate Normal (NORMAL) 01/16/17 04:43 PT 13.2 SECONDS (9.7-12.2) H 01/17/17 07:00 INR 1.2 01/17/17 07:00 APTT 30 SECONDS (21-34) 01/17/17 07:00 Puncture Site Rra 01/16/17 09:37 pCO2 31 mm/Hg (35-45) L 01/16/17 09:37 pO2 136 mm/Hg (80-100) H 01/16/17 09:37 HCO3 24.8 mmol/L (21-28) 01/16/17 09:37 ABG pH 7.47 (7.35-7.45) H 01/16/17 09:37 ABG Total CO2 23.6 mmol/L (22-28) 01/16/17 09:37 ABG O2 Saturation 99.6 % (95-98) H 01/16/17 09:37 ABG Base Excess -0.2 mmol/L (-2.0-3.0) 01/16/17 09:37 Gabe Test Pos 01/16/17 09:37 ABG Potassium 3.3 mmol/L (3.6-5.2) L 01/16/17 09:37 A-a O2 Difference -25.0 mm/Hg 01/16/17 09:37 Respiratory Index -0.2 01/16/17 09:37 Sodium 142.0 mmol/l (132-148) 01/16/17 09:37 Chloride 114.0 mmol/L (98-107) H 01/16/17 09:37 Glucose 162 mg/dl (65-105) H 01/16/17 09:37 Lactate 1.9 mmol/L (0.7-2.1) 01/16/17 09:37 FiO2 21.0 % 01/16/17 09:37 Sodium 136 mmol/L (132-148) 01/21/17 07:13 Potassium 4.2 mmol/L (3.6-5.2) 01/21/17 07:13 Chloride 100 mmol/L (98-107) 01/21/17 07:13 Carbon Dioxide 28 mmol/L (22-30) 01/21/17 07:13 Anion Gap 13 (10-20) 01/21/17 07:13 BUN 18 mg/dL (7-17) H 01/21/17 07:13 Creatinine 1.2 MG/DL (0.7-1.2) 01/21/17 07:13 Est GFR ( Amer) > 60 01/21/17 07:13 Est GFR (Non-Af Amer) 51 01/21/17 07:13 Random Glucose 90 mg/dL (65-105) 01/21/17 07:13 Calcium 8.7 mg/dl (8.6-10.4) 01/21/17 07:13 Phosphorus 3.4 mg/dL (2.5-4.5) 01/21/17 07:13 Magnesium 2.1 mg/dL (1.6-2.3) 01/21/17 07:13 Total Bilirubin 0.6 mg/dL (0.2-1.3) 01/21/17 07:13 AST 41 U/L (14-36) H 01/21/17 07:13 ALT 56 U/L (9-52) H 01/21/17 07:13 Alkaline Phosphatase 75 U/L (38-126) 01/21/17 07:13 Total Protein 6.9 g/dL (6.3-8.3) 01/21/17 07:13 Albumin 3.6 g/dL (3.5-5.0) 01/21/17 07:13 Globulin 3.2 gm/dL (2.2-3.9) 01/21/17 07:13 Albumin/Globulin Ratio 1.1 (1.0-2.1) 01/21/17 07:13 Lipase 142 U/L (23-300) 01/16/17 04:43 Procalcitonin 10.22 NG/ML (0.19-0.49) H 01/16/17 09:21 Arterial Blood Potassium 3.3 mmol/L (3.6-5.2) L 01/16/17 09:37 Urine Color Yellow (YELLOW) 01/16/17 04:43 Urine Clarity Hazy (Clear) 01/16/17 04:43 Urine pH 6.0 (5.0-8.0) 01/16/17 04:43 Ur Specific May 1.008 (1.003-1.030) 01/16/17 04:43 Urine Protein 2+ mg/dL (NEGATIVE) H 01/16/17 04:43 Urine Glucose (UA) Normal mg/dL (Normal) 01/16/17 04:43 Urine Ketones Negative mg/dL (NEGATIVE) 01/16/17 04:43 Urine Blood 2+ (NEGATIVE) H 01/16/17 04:43 Urine Nitrate Positive (NEGATIVE) H 01/16/17 04:43 Urine Bilirubin Negative (NEGATIVE) 01/16/17 04:43 Urine Urobilinogen Normal mg/dL (0.2-1.0) 01/16/17 04:43 Ur Leukocyte Esterase 2+ Helder/uL (Negative) H 01/16/17 04:43 Urine WBC (Auto) 166 /hpf (0-5) H 01/16/17 04:43 Urine RBC (Auto) 49 /hpf (0-3) H 01/16/17 04:43 Ur Squamous Epith Cells 12 /hpf (0-5) H 01/16/17 04:43 Urine Bacteria Many (<OCC) H 01/16/17 04:43 Urine HCG, Qual Negative (NEGATIVE) 01/16/17 04:43 - Hospital Course Hospital Course: HPI: 36 F with no significant PMH presents to [facility] ED with complaint of nausea/vomiting and left flank pain. Patient stated that it began yesterday morning. Patient has never experienced these symptoms before and stated they began suddenly. Patient reports that she had two episodes of vomiting, one was the food she ate and the second was dark brown coffee ground emesis. Patient is only complaining of left flank pain. She rates the pain 10/ 10 in severity. She describes the pain as constant and sharp, located in the left flank and radiating to the left groin. Nothing exacerbates her symptoms while hot tea helped alleviate them. Admits to subjective fever/chills, sob, palpitations, epigastric pain, n/v, dyuria, urinary frequency. Denies cp, diarrhea, constipation, incontinence, weakness, numbness/tingling. Hospital Course: Pt presented with sepsis with a fever of 100.9, HR of 142, and bandemia, with neutrophils being 24. Both urine and blood cultures were positive for E.coli. Infectious Disease, Dr. Ling, was consulted. Pt was started on IV meropenem and ciprofloxacin. Fever was controlled with tylenol prn. Abd/Pelvis CT with PO and IV contrast revealed no evidence of nephrolithiasis or hydronephrosis; pyelonephritis cannot be ruled out (please see full report). Abdomen U/S revealed no evidence of nephrolithiasis or hydronephrosis; bladder wall thickening, correlate with cystitis; fatty liver ( please see full report). Echocardiogram revealed a normal EF, mild pulmonary HTN , no vegetations seen. Pt improved clinically on IV antibiotics. Pt remained afebrile. Rpeeat urine cultures were negative. Blood cultures were negative after 48 hours. As per ID, pt was deemed stable to be discharged on oral antibiotics and probiotc with follow up with PMD and follow up abd/pelvis CT within one month. Discharge Exam - Head Exam Head Exam: ATRAUMATIC, NORMOCEPHALIC - Eye Exam Eye Exam: EOMI, PERRL - ENT Exam ENT Exam: Mucous Membranes Moist - Neck Exam Neck exam: Full Rom - Respiratory Exam Respiratory Exam: Clear to PA & Lateral. absent: Rales, Rhonchi, Wheezes - Cardiovascular Exam Cardiovascular Exam: +S1, +S2. absent: Gallop, Rubs - Extremities Exam Extremities exam: full ROM - Neurological Exam Neurological exam: Alert, Oriented x3 - Psychiatric Exam Psychiatric exam: Normal Affect, Normal Mood - Skin Skin Exam: Normal Color, Warm Discharge Plan - Discharge Medications Prescriptions: Ciprofloxacin [Cipro] 500 mg PO Q12 #16 tab Lactobacillus Acidophilus [Bacid Acidophilus] 1 cap PO BID #16 cap - Follow Up Plan Condition: STABLE Disposition: HOME/ ROUTINE Patient education suggested?: Yes Instructions: Ciprofloxacin (By mouth), Probiotic (By mouth), Acute Pyelonephritis (DC), Acute Pyelonephritis (GEN) Additional Instructions: Please follow up with primary medical doctor in one month. Please also obtain a repeat CAT scan of the abdomen/pelvis in one month. Please take scripts for new medications, ciprofloxacin and bacid, as prescribed. Please return to the hospital if symptoms worsen or new symptoms arise. <Steve Rollins - Last Filed: 02/22/17 13:26> Provider - Provider Date of Admission: 01/16/17 05:54 Attending physician: Christopher Hatch MD Hospital Course - Lab Results Lab Results: Micro Results 01/18/17 17:00 Blood Blood Culture - Final NO GROWTH AFTER 5 DAYS 01/18/17 17:00 Blood Gram Stain - Final TEST NOT PERFORMED 01/16/17 06:00 Blood-Venous Blood Culture - Final NO GROWTH AFTER 5 DAYS 01/16/17 06:00 Blood-Venous Gram Stain - Final TEST NOT PERFORMED 01/18/17 20:00 Urine,Clean Catch Urine Culture - Final No Growth (<1,000 CFU/ML) 01/16/17 06:00 Blood-Venous Blood Culture - Final Escherichia Coli 01/16/17 06:00 Blood-Venous Gram Stain - Final Most Recent Lab Values WBC 5.6 K/uL (4.8-10.8) 01/21/17 07:13 RBC 4.39 Mil/uL (3.80-5.20) 01/21/17 07:13 Hgb 14.0 g/dL (11.0-16.0) 01/21/17 07:13 Hct 40.3 % (34.0-47.0) 01/21/17 07:13 MCV 91.7 fL (81.0-99.0) 01/21/17 07:13 MCH 31.8 pg (27.0-31.0) H 01/21/17 07:13 MCHC 34.7 g/dL (33.0-37.0) 01/21/17 07:13 RDW 13.2 % (11.5-14.5) 01/21/17 07:13 Plt Count 254 K/uL (130-400) 01/21/17 07:13 MPV 8.0 fL (7.2-11.7) 01/21/17 07:13 Neut % (Auto) 51.1 % (50.0-75.0) 01/21/17 07:13 Lymph % (Auto) 36.1 % (20.0-40.0) 01/21/17 07:13 [facility] % (Auto) 9.3 % (0.0-10.0) 01/21/17 07:13 Eos % (Auto) 2.6 % (0.0-4.0) 01/21/17 07:13 Baso % (Auto) 0.9 % (0.0-2.0) 01/21/17 07:13 Neut # 2.9 K/uL (1.8-7.0) 01/21/17 07:13 Lymph # 2.0 K/uL (1.0-4.3) 01/21/17 07:13 [facility] # 0.5 K/uL (0.0-0.8) 01/21/17 07:13 Eos # 0.1 K/uL (0.0-0.7) 01/21/17 07:13 Baso # 0.0 K/uL (0.0-0.2) 01/21/17 07:13 Neutrophils % (Manual) 58 % (50-75) 01/16/17 04:43 Band Neutrophils % 24 % (0-2) H* 01/16/17 04:43 Lymphocytes % (Manual) 9 % (20-40) L 01/16/17 04:43 Reactive Lymphs % 3 % (0-0) H 01/16/17 04:43 Monocytes % (Manual) 4 % (0-10) 01/16/17 04:43 Eosinophils % (Manual) 1 % (0-4) 01/16/17 04:43 Myelocytes % 1 % (0-0) H 01/16/17 04:43 Platelet Estimate Normal (NORMAL) 01/16/17 04:43 PT 13.2 SECONDS (9.7-12.2) H 01/17/17 07:00 INR 1.2 01/17/17 07:00 APTT 30 SECONDS (21-34) 01/17/17 07:00 Puncture Site Rra 01/16/17 09:37 pCO2 31 mm/Hg (35-45) L 01/16/17 09:37 pO2 136 mm/Hg (80-100) H 01/16/17 09:37 HCO3 24.8 mmol/L (21-28) 01/16/17 09:37 ABG pH 7.47 (7.35-7.45) H 01/16/17 09:37 ABG Total CO2 23.6 mmol/L (22-28) 01/16/17 09:37 ABG O2 Saturation 99.6 % (95-98) H 01/16/17 09:37 ABG Base Excess -0.2 mmol/L (-2.0-3.0) 01/16/17 09:37 Gabe Test Pos 01/16/17 09:37 ABG Potassium 3.3 mmol/L (3.6-5.2) L 01/16/17 09:37 A-a O2 Difference -25.0 mm/Hg 01/16/17 09:37 Respiratory Index -0.2 01/16/17 09:37 Sodium 142.0 mmol/l (132-148) 01/16/17 09:37 Chloride 114.0 mmol/L (98-107) H 01/16/17 09:37 Glucose 162 mg/dl (65-105) H 01/16/17 09:37 Lactate 1.9 mmol/L (0.7-2.1) 01/16/17 09:37 FiO2 21.0 % 01/16/17 09:37 Sodium 136 mmol/L (132-148) 01/21/17 07:13 Potassium 4.2 mmol/L (3.6-5.2) 01/21/17 07:13 Chloride 100 mmol/L (98-107) 01/21/17 07:13 Carbon Dioxide 28 mmol/L (22-30) 01/21/17 07:13 Anion Gap 13 (10-20) 01/21/17 07:13 BUN 18 mg/dL (7-17) H 01/21/17 07:13 Creatinine 1.2 MG/DL (0.7-1.2) 01/21/17 07:13 Est GFR ( Amer) > 60 01/21/17 07:13 Est GFR (Non-Af Amer) 51 01/21/17 07:13 Random Glucose 90 mg/dL (65-105) 01/21/17 07:13 Calcium 8.7 mg/dl (8.6-10.4) 01/21/17 07:13 Phosphorus 3.4 mg/dL (2.5-4.5) 01/21/17 07:13 Magnesium 2.1 mg/dL (1.6-2.3) 01/21/17 07:13 Total Bilirubin 0.6 mg/dL (0.2-1.3) 01/21/17 07:13 AST 41 U/L (14-36) H 01/21/17 07:13 ALT 56 U/L (9-52) H 01/21/17 07:13 Alkaline Phosphatase 75 U/L (38-126) 01/21/17 07:13 Total Protein 6.9 g/dL (6.3-8.3) 01/21/17 07:13 Albumin 3.6 g/dL (3.5-5.0) 01/21/17 07:13 Globulin 3.2 gm/dL (2.2-3.9) 01/21/17 07:13 Albumin/Globulin Ratio 1.1 (1.0-2.1) 01/21/17 07:13 Lipase 142 U/L (23-300) 01/16/17 04:43 Procalcitonin 10.22 NG/ML (0.19-0.49) H 01/16/17 09:21 Arterial Blood Potassium 3.3 mmol/L (3.6-5.2) L 01/16/17 09:37 Urine Color Yellow (YELLOW) 01/16/17 04:43 Urine Clarity Hazy (Clear) 01/16/17 04:43 Urine pH 6.0 (5.0-8.0) 05/10/17 04:43 Ur Specific May 1.008 (1.003-1.030) 01/16/17 04:43 Urine Protein 2+ mg/dL (NEGATIVE) H 01/16/17 04:43 Urine Glucose (UA) Normal mg/dL (Normal) 01/16/17 04:43 Urine Ketones Negative mg/dL (NEGATIVE) 01/16/17 04:43 Urine Blood 2+ (NEGATIVE) H 01/16/17 04:43 Urine Nitrate Positive (NEGATIVE) H 01/16/17 04:43 Urine Bilirubin Negative (NEGATIVE) 01/16/17 04:43 Urine Urobilinogen Normal mg/dL (0.2-1.0) 01/16/17 04:43 Ur Leukocyte Esterase 2+ Helder/uL (Negative) H 01/16/17 04:43 Urine WBC (Auto) 166 /hpf (0-5) H 01/16/17 04:43 Urine RBC (Auto) 49 /hpf (0-3) H 01/16/17 04:43 Ur Squamous Epith Cells 12 /hpf (0-5) H 01/16/17 04:43 Urine Bacteria Many (<OCC) H 01/16/17 04:43 Urine HCG, Qual Negative (NEGATIVE) 01/16/17 04:43 Attending/Attestation - Attestation I have personally seen and examined this patient.: Yes I have fully participated in the care of the patient.: Yes I have reviewed all pertinent clinical information, including history, physical exam and plan: Yes Notes (Text): Patient Seen and examined with the resident. Agree with the resident's evaluation, assessment and plan. sepsis due to e.coli bacteremia and e.coli uti.
== END 2017-01-21 14:30 | disposition home or self-care (01) | DRG 901 ==
LOC: C.ER 04:18 → C.9E 05:54 → C.5T 18:35 → C.3T 01-20 14:36
PROVIDERS: ADMIT Family Medicine; ATTEND Family Medicine
DX: A41.51 Sepsis due to Escherichia coli [E. coli] (principal); I27.2 Other secondary pulmonary hypertension; K76.0 Fatty (change of) liver, not elsewhere classified; N10 Acute pyelonephritis; E87.6 Hypokalemia; E83.39 Other disorders of phosphorus metabolism

== ENCOUNTER 2017-04-09 10:46 | Emergency (ER) | payer OTHER ==
[2017-04-09 10:57] VITALS: BP 111/76; PULSE 76; RESP 18; TEMP 98.2; O2SAT 97
--- NOTE | 2017-04-09 11:29 | C.PDOC ---
History Of Present Illness Pt c/o b/l eye itching and swelling. She states that she went to an "eye doctor " who prescribed Cipro eye drops with modest improvement. Time Seen by Provider: 04/09/17 11:12 Chief Complaint (Nursing): Eye Problem History Per: Patient, [employer] History/Exam Limitations: language barrier Onset/Duration Of Symptoms: Days (about 2 weeks) Current Symptoms Are (Timing): Still Present Injury To Eye?: No Severity: Moderate Associated Symptoms: Itching, Discharge From Eye Additional History Per: Prior Records Past Medical History Reviewed: Historical Data, Nursing Documentation, Vital Signs Vital Signs: Last Vital Signs Temp 98.2 F 04/09/17 10:55 Pulse 76 04/09/17 10:55 Resp 18 04/09/17 10:55 BP 111/76 04/09/17 10:55 Pulse Ox 97 04/09/17 10:55 - Medical History PMH: No Chronic Diseases - [facility] Procedures EXCISION OF ABDOMEN SKIN, EXTERNAL APPROACH (11/16/15) EXTRACTION OF POC, LOW CERVICAL, OPEN APPROACH (11/16/15) OCCLUSION OF BILATERAL FALLOPIAN TUBES, OPEN APPROACH (11/16/15) Family History: States: Unknown Family Hx - Social History Hx Tobacco Use: No Hx Alcohol Use: No Hx Substance Use: No - Immunization History Hx Tetanus Toxoid Vaccination: No Hx Influenza Vaccination: No Hx Pneumococcal Vaccination: No Review Of Systems Except As Marked, All Systems Reviewed And Found Negative. Constitutional: Negative for: Fever, Weakness ENT: Negative for: Nose Congestion Cardiovascular: Negative for: Chest Pain Respiratory: Negative for: Shortness of Breath Gastrointestinal: Negative for: Vomiting, Abdominal Pain Musculoskeletal: Negative for: Neck Pain Skin: Negative for: Rash Neurological: Negative for: Weakness, Numbness, Seizures, Altered Mental Status Physical Exam - Physical Exam Appears: Non-toxic, No Acute Distress Skin: Normal Color, Warm, Dry, No Rash Head: Atraumatic, Normacephalic Eye(s): bilateral: PERRL, EOMI, Other (mild eyelid edema) Neck: Normal ROM, Supple Lymphatic: No Adenopathy Extremity: Normal ROM Neurological/Psych: Oriented x3, Normal Speech, Normal Cranial Nerves, Normal Motor, Normal Sensation ED Course And Treatment O2 Sat by Pulse Oximetry: 97 Pulse Ox Interpretation: Normal Medical Decision Making Medical Decision Making: Will change antibiotic eye drops to antihistamine eyedrops as symptoms may be allergic in nature. Disposition Counseled Patient/Family Regarding: Diagnosis, Need For Followup, Rx Given - Disposition Referrals: Rowdy Sheth MD [Staff Provider] - Disposition: HOME/ ROUTINE Disposition Time: 11:32 Condition: STABLE Additional Instructions: Follow up with an Gym Supervisor this week for further evaluation and treatment. Return to the ER if you develop redness, fever, worsening of symptoms or if you have any other concerns. Prescriptions: Loratadine [Claritin] 10 mg PO DAILY #30 tab Olopatadine 0.1% Opht [Patanol 0.1% Opht Soln] 1 drop OP BID PRN #1 bottle PRN Reason: Allergy Symptoms Instructions: Conjunctivitis (ED) Forms: [facility] [employer] (T/A) (Romanian) Print Language: BELARUSIAN - Clinical Impression Clinical Impression: Allergic conjunctivitis
== END 2017-04-09 11:44 | disposition home or self-care (01) ==
LOC: C.ER 10:46
DX: H10.13 Acute atopic conjunctivitis, bilateral (principal)

== ENCOUNTER 2017-04-16 09:23 | Emergency (ER) | payer OTHER ==
[2017-04-16 09:30] VITALS: TEMP 99; O2SAT 98
[2017-04-16 10:02] LABS: RBC URINE 3 /hpf (0-3); URINE BACTERIA RARE (<OCC); URINE BILIRUBIN NEGATIVE (NEGATIVE); URINE BLOOD 1+ (NEGATIVE); URINE COLOR Yellow (YELLOW); URINE GLUCOSE (UA) NORMAL (Normal); URINE KETONE NEGATIVE (NEGATIVE); URINE LEUKOCYTE ESTERASE 3+ Leu/uL (Negative); URINE PROTEIN 2+ mg/dL (NEGATIVE); URINE UROBILINOGEN NORMAL mg/dL (0.2-1.0); WBC URINE 366 /hpf (0-5)
--- NOTE | 2017-04-16 10:17 | C.PDOC ---
History Of Present Illness <JessaMariam - Last Filed: 04/18/17 10:29> <UcheeJssica mcgowan - Last Filed: 04/19/17 18:04> 36 y/o female presents to ED with complaints of suprapubic pain, dysuria, fever , chills, urinary urgency, nausea and vomiting since yesterday. Patient has Hx of acute pyelonephritis, was admitted to hospital January 2017. Patient denies vaginal bleeding/discharge, diarrhea, abdominal or flank pain. (Jessica Ivey) <Theresa Germainerie - Last Filed: 04/18/17 10:29> History Per: Patient History/Exam Limitations: no limitations Onset/Duration Of Symptoms: Days Current Symptoms Are (Timing): Still Present Severity: Mild Location Of Pain/Discomfort: Suprapubic Quality Of Discomfort: "Pain" Associated Symptoms: Fever, Chills, Nausea, Vomiting, Urinary Symptoms Abnormal Vaginal Bleeding: No <Jessica Ivey - Last Filed: 04/19/17 18:04> Time Seen by Provider: 04/16/17 09:38 Chief Complaint (Nursing): Fever Past Medical History Reviewed: Historical Data, Nursing Documentation, Vital Signs - Medical History PMH: Chronic Kidney Disease Family History: States: No Known Family Hx - Social History Hx Tobacco Use: No Hx Alcohol Use: No Hx Substance Use: No - Immunization History Hx Tetanus Toxoid Vaccination: No Hx Influenza Vaccination: No Hx Pneumococcal Vaccination: No <Jessica Ivey - Last Filed: 04/19/17 18:04> Vital Signs: Last Vital Signs Temp 99 F 04/16/17 09:26 Pulse 88 04/16/17 11:43 Resp 18 04/16/17 11:43 BP 105/69 04/16/17 11:43 Pulse Ox 98 04/16/17 11:43 - [facility] Procedures EXCISION OF ABDOMEN SKIN, EXTERNAL APPROACH (11/16/15) EXTRACTION OF POC, LOW CERVICAL, OPEN APPROACH (11/16/15) OCCLUSION OF BILATERAL FALLOPIAN TUBES, OPEN APPROACH (11/16/15) Review Of Systems Except As Marked, All Systems Reviewed And Found Negative. Constitutional: Positive for: Fever. Negative for: Chills Respiratory: Negative for: Cough Gastrointestinal: Positive for: Nausea, Vomiting, Abdominal Pain. Negative for : Diarrhea Genitourinary: Positive for: Dysuria, Frequency. Negative for: Hematuria, Vaginal Discharge, Vaginal Bleeding Musculoskeletal: Negative for: Back Pain Skin: Negative for: Rash <Jessica Ivey - Last Filed: 04/19/17 18:04> Physical Exam - Physical Exam Appears: Well, Non-toxic, Other (In mild discomfort) Skin: Normal Color, Warm, Dry, No Rash Head: Normacephalic Oral Mucosa: Moist Cardiovascular: Rhythm Regular Respiratory: Normal Breath Sounds, No Rales, No Rhonchi, No Wheezing Gastrointestinal/Abdominal: Bowel Sounds, Soft, Tenderness (Mild Suprapubic TTP) , No Guarding, No Rebound Back: Normal Inspection, No CVA Tenderness Extremity: Normal ROM Neurological/Psych: Oriented x3 <Jessica Ivey - Last Filed: 04/19/17 18:04> ED Course And Treatment - Laboratory Results Result Diagrams: 04/16/17 10:26 04/16/17 10:26 <Mariam Germain - Last Filed: 04/18/17 10:29> - Laboratory Results Result Diagrams: 04/16/17 10:26 04/16/17 10:26 O2 Sat by Pulse Oximetry: 98 (RA) Pulse Ox Interpretation: Normal Progress Note: Blood Work, UA, Ucx ordered. Patient given IV NS bolus, IV toradol, IV zofan. Reevaluation Time: 11:30 Reassessment Condition: Improved (Patient reassessed, is currently resting comfortably, in no current pain/distress. UA (+) for UTI, blood work unmarkable except for mild LFT elevation. Patient is well appearing and comfortable being discharged home. Rxs given for Ciprofloxacin and pyridium. Patient instructed to follow up with PMD/clinic in 1-2 days, and understands she should return to ED if symptoms worsen.) <Jessica Ivey - Last Filed: 04/19/17 18:04> Disposition <Mariam Germain - Last Filed: 04/18/17 10:29> Counseled Patient/Family Regarding: Studies Performed, Diagnosis, Need For Followup, Rx Given - Disposition Disposition Time: 11:30 - POA Present On Arrival: None <Jessica Ivey - Last Filed: 04/19/17 18:04> - Disposition Referrals: [facility] [Outside] Disposition: HOME/ ROUTINE Condition: STABLE Additional Instructions: SEGUIMIENTO CON JON DOCTOR / CLNICA EN 1-2 SESAY USE MEDICAMENTOS SEGN LO DIRIGIDO BEBER MUCHO LQUIDO DEVUELVA A LA PRIMO DE EMERGENCIA SI LOS SNTOMAS EMPEORARAN Prescriptions: Ciprofloxacin [Cipro] 1 tab PO BID #14 tab Phenazopyridine [Pyridium] 100 mg PO TID #9 tab Instructions: Urinary Tract Infection in Women (ED) Forms: [employer] (Kyrgyz) Print Language: KINYARWANDA - Clinical Impression Clinical Impression: UTI (urinary tract infection) <Mariam Germain - Last Filed: 04/18/17 10:29> - Scribe Statement The provider has reviewed the documentation as recorded by the Scribe <Jessica Ivey - Last Filed: 04/19/17 18:04> - Scribe Statement Ana Sharma All medical record entries made by the Scribe were at my direction and personally dictated by me. I have reviewed the chart and agree that the record accurately reflects my personal performance of the history, physical exam, medical decision making, and the department course for this patient. I have also personally directed, reviewed, and agree with the discharge instructions and disposition. (Jessica Ivey) Addendum <Mariam Germain - Last Filed: 04/18/17 10:29> <Jessica Ivey - Last Filed: 04/19/17 18:04> Addendum: 04/18/17 10:29 Got the report from Micro lab, Urine culture pos for E.Coli that resistant to Cipro that was prescribed. Antibiotic has to be changed. Called patient phone [phone], no answer, left voice message. (Mariam Germain)
[2017-04-16 10:32] LABS: BASO % 0.5 % (0.0-2.0); EOS % 0.1 % (0.0-4.0); HEMATOCRIT 39.2 % (34.0-47.0); LYMPH # 1.1 K/uL (1.0-4.3); LYMPH % 14.8 % (20.0-40.0); MEAN CELL VOLUME 89.6 fL (81.0-99.0); MEAN CORPUSCULAR HEMOGLOBIN 30.9 pg (27.0-31.0); MEAN CORPUSCULAR HGB CONC 34.4 g/dL (33.0-37.0); MEAN PLATELET VOLUME 8.6 fL (7.2-11.7); MONO # 0.7 K/uL (0.0-0.8); MONO % 9.5 % (0.0-10.0); RED CELL DISTRIBUTION WIDTH 13.2 % (11.5-14.5); WHITE BLOOD COUNT 7.2 K/uL (4.8-10.8)
[2017-04-16 10:41] LABS: CHLORIDE 102 mmol/L (98-107)
[2017-04-16 10:42] LABS: POTASSIUM 3.8 mmol/L (3.6-5.2); SODIUM 138 mmol/L (132-148)
[2017-04-16 10:44] LABS: ALB/GLOB RATIO 1.1 (1.0-2.1); ALKALINE PHOSPHATASE 91 U/L (38-126); AST/SGOT 74 U/L (14-36); BILIRUBIN,TOTAL 0.8 mg/dL (0.2-1.3); BLOOD UREA NITROGEN 19 mg/dL (7-17); CARBON DIOXIDE 23 mmol/L (22-30); GFR AFRICAN-AMERICAN > 60; GLUCOSE,RANDOM 113 mg/dL (65-105)
[2017-04-16 10:45] LABS: ALT/SGPT 103 U/L (9-52)
[2017-04-16 11:50] VITALS: BP 105/69; PULSE 88; RESP 18
== END 2017-04-16 11:50 | disposition home or self-care (01) ==
LOC: C.ER 09:23
DX: N39.0 Urinary tract infection, site not specified (principal)
CPT/HCPCS: 80053; 81001; 84703; 85025; 87086; 87181; 96374; 96375; 99285; J1885; J2405

== ENCOUNTER 2017-04-20 14:03 | Inpatient (IN) | payer OTHER ==
[2017-04-20] MEDS ORDERED: Sodium Chloride 0.9% 1,000 ML IV ONE ×5 (14:40→18:18)
[2017-04-20] MEDS ORDERED: Imipenem/Cilastatin 500 MG in Dextrose 5% In Water 100 ML IVPB STA (14:41)
--- NOTE | 2017-04-20 14:44 | C.PDOC ---
History Of Present Illness 36 year old female who presents to the ED with a complaint of fever, chills, nausea, vomiting, dysuria, and generalized body aches for the past 5 days. Patient has a hx of pyelo ED in January and admitted for 5 days. More recently, patient presented with similar complaint and was started on cipro; she followed up in the clinic where she was told to allow more time for the cipro to take effect. However, urine cultures were done at the time of her hospital visit that were found to be positive for resistant e. coli. Patient was called to give results of urine culture and to have her return to ED, however, she never responded to the call. Patient presents now febrile with a fever of 102.7 ; denies hematuria, diarrhea, or abdominal pain. Patient c/o full body pain, fever, chills. Time Seen by Provider: 04/20/17 14:26 Chief Complaint (Nursing): Fever History Per: Patient History/Exam Limitations: no limitations Onset/Duration Of Symptoms: Days Current Symptoms Are (Timing): Still Present Location Of Pain: Diffuse Myalgias Sick Contacts (Context): None Associated Symptoms: Fever, Chills, Myalgias, Nausea, Vomiting. denies: Diarrhea Ear Symptoms: Bilateral: None Pain Scale Rating Of: 6 Recent travel outside of the [place]: No Past Medical History Reviewed: Historical Data, Nursing Documentation, Vital Signs Vital Signs: Last Vital Signs Temp 102.7 F H 04/20/17 14:30 Pulse 126 H 04/20/17 14:16 Resp 22 04/20/17 14:16 BP 109/77 04/20/17 14:16 Pulse Ox 97 04/20/17 14:59 - Medical History PMH: Chronic Kidney Disease - [facility] Procedures EXCISION OF ABDOMEN SKIN, EXTERNAL APPROACH (11/16/15) EXTRACTION OF POC, LOW CERVICAL, OPEN APPROACH (11/16/15) OCCLUSION OF BILATERAL FALLOPIAN TUBES, OPEN APPROACH (11/16/15) Family History: States: Unknown Family Hx - Social History Hx Tobacco Use: No Hx Alcohol Use: No Hx Substance Use: No - Immunization History Hx Tetanus Toxoid Vaccination: No Hx Influenza Vaccination: No Hx Pneumococcal Vaccination: No Review Of Systems Constitutional: Positive for: Fever, Chills Gastrointestinal: Positive for: Nausea, Vomiting. Negative for: Abdominal Pain , Diarrhea Genitourinary: Positive for: Dysuria. Negative for: Hematuria Musculoskeletal: Positive for: Other (Generalized bodyaches) Skin: Negative for: Rash Neurological: Positive for: Headache, Dizziness. Negative for: Weakness, Numbness Physical Exam - Physical Exam Appears: Non-toxic, Other (Ill, Febrile, Awake, Alert) Skin: Normal Color, Warm, Dry Head: Atraumatic, Normacephalic Oral Mucosa: Moist Neck: Normal, Supple Chest: Symmetrical, No Tenderness Cardiovascular: Rhythm Regular, No Murmur Respiratory: Normal Breath Sounds, No Rales, No Rhonchi, No Wheezing Gastrointestinal/Abdominal: Soft, No Tenderness Back: CVA Tenderness (Bilateral) Neurological/Psych: Oriented x3, Normal Speech, Normal Cognition ED Course And Treatment - Laboratory Results Result Diagrams: 04/20/17 14:47 04/20/17 14:47 O2 Sat by Pulse Oximetry: 97 (Room air) Pulse Ox Interpretation: Normal Medical Decision Making Medical Decision Making: Plan: * Blood work * Urinalysis * Tylenol * Primaxin * Toradol * IV fluids Disposition Discussed With DrPedrito: Griffin Pickett Doctor Will See Patient In The: ED Counseled Patient/Family Regarding: Studies Performed, Diagnosis - Disposition Disposition: HOSPITALIZED Disposition Time: 15:21 Condition: GUARDED Forms: [employer] (Danish) - Clinical Impression Clinical Impression: Fever, Pyelonephritis - Scribe Statement The provider has reviewed the documentation as recorded by the Scribbushra Valle All medical record entries made by the Scribe were at my direction and personally dictated by me. I have reviewed the chart and agree that the record accurately reflects my personal performance of the history, physical exam, medical decision making, and the department course for this patient. I have also personally directed, reviewed, and agree with the discharge instructions and disposition. Decision To Admit - Pt Status Changed To: Hospital Disposition Of: Inpatient - Admit Certification Admit to Inpatient:: After my assessment, the patient will require hospitalization for at least two midnights. This is because of the severity of symptoms shown, intensity of services needed, and/or the medical risk in this patient being treated as an outpatient. - InPatient: Physician Admission Certification:: resiatant e coli, needs IV abx - . Bed Request Type: Regular Patient Diagnosis: Fever, Pyelonephritis
[2017-04-20 14:50] LABS: BASO % 0.4 % (0.0-2.0); EOS % 0.6 % (0.0-4.0); HEMATOCRIT 34.8 % (34.0-47.0); LYMPH # 0.7 K/uL (1.0-4.3); LYMPH % 9.7 % (20.0-40.0); MEAN CELL VOLUME 90.3 fL (81.0-99.0); MEAN CORPUSCULAR HEMOGLOBIN 30.9 pg (27.0-31.0); MEAN CORPUSCULAR HGB CONC 34.2 g/dL (33.0-37.0); MEAN PLATELET VOLUME 8.1 fL (7.2-11.7); MONO # 0.3 K/uL (0.0-0.8); MONO % 3.8 % (0.0-10.0); PLATELET COUNT 191 K/uL (130-400); RED CELL DISTRIBUTION WIDTH 12.6 % (11.5-14.5); WHITE BLOOD COUNT 7.2 K/uL (4.8-10.8)
[2017-04-20 14:58] LABS: POTASSIUM 3.6 mmol/L (3.6-5.2)
[2017-04-20 14:59] LABS: URINE BACTERIA FEW (<OCC); URINE BILIRUBIN NEGATIVE (NEGATIVE); URINE BLOOD 1+ (NEGATIVE); URINE COLOR Straw (YELLOW); URINE GLUCOSE (UA) NORMAL (Normal); URINE KETONE NEGATIVE (NEGATIVE); URINE LEUKOCYTE ESTERASE 3+ Leu/uL (Negative); URINE PROTEIN 2+ mg/dL (NEGATIVE); URINE UROBILINOGEN NORMAL mg/dL (0.2-1.0); WBC URINE 92 /hpf (0-5)
[2017-04-20 15:00] LABS: RBC URINE 5 /hpf (0-3)
[2017-04-20 15:01] LABS: ALB/GLOB RATIO 0.9 (1.0-2.1); BILIRUBIN,TOTAL 0.5 mg/dL (0.2-1.3); CALCIUM 8.5 mg/dl (8.6-10.4); TOTAL PROTEIN 6.5 g/dL (6.3-8.3)
[2017-04-20] MEDS ORDERED: Sodium Chloride 0.9% 1,000 ML ONE ×2 (15:02→15:49)
[2017-04-20] MEDS ORDERED: DiphenhydrAMINE 50 mg/ml Inj IVP STA (15:29)
[2017-04-20] MEDS ORDERED: DiphenhydrAMINE 50 mg/ml Inj ONE (15:33)
[2017-04-20 15:36] LABS: VENOUS BLOOD GAS BASE EXCESS 2.4 mmol/L (0.0-2.0); VENOUS BLOOD GAS PCO2 38 mmHg (40-60); VENOUS BLOOD PH 7.45 (7.32-7.43)
[2017-04-20 15:37] LABS: NEUTROPHIL 77 % (50-75); TOTAL CELLS COUNTED 100
[2017-04-20] MEDS ORDERED: Sodium Chloride 0.9% 1,000 ML IV SCH (15:45)
--- NOTE | 2017-04-20 15:50 | CP.PCM.HP ---
<Jany Newman - Last Filed: 04/20/17 16:29> History of Present Illness - History of Present Illness History of Present Illness: Medicine Note for Dr. Pickett CC: fever, chills, nausea, vomiting, dysuria, and generalized body aches for the past 5 days. HPI: 36F with Hx of pyelonephritis with admission 01/2017 presents to the ED with fever, chills, nausea, vomiting, dysuria, and generalized body aches for the past 5 days. Patient reports she was discharged previously with Cipro and to follow up with the clinic. A repeat urine culture 04/16/17 was done and she was called and told to return to the ED- grew ESBL +. She has fever, chills, headache, weakness, dizziness, nausea, vomiting x 1 episodes, abdominal pain, hematuria, dysuria, and urinary frequency. Denied chest pain or d/c. PMD: Dr. Mandujano ([facility]) PMHx: HLD, hx of pyelonoephritis with admission 01/2017 PSHx: C-Sections x2 Meds: Denied All: PCN- rash SHx: Denied x3 FHx: Unremarkable Present on Admission - Present on Admission Any Indicators Present on Admission: No Review of Systems - Constitutional Constitutional: Chills, Fever, Headache, Malaise, Weakness - EENT Eyes: absent: Change in Vision Ears: absent: Tinnitus - Breasts Breasts: absent: Pain - Cardiovascular Cardiovascular: absent: Chest Pain - Respiratory Respiratory: absent: Cough, Dyspnea - Gastrointestinal Gastrointestinal: Abdominal Pain, Nausea, Vomiting. absent: Constipation, Diarrhea - Genitourinary Genitourinary: Dysuria, Flank Pain, Hematuria, Urinary Frequency, Freq UTI - Reproductive: Female Reproductive:Female: absent: Amenorrhea - Menstruation Menstruation: Currently Menstual - Musculoskeletal Musculoskeletal: Back Pain - Integumentary Integumentary: absent: Dry Skin - Neurological Neurological: Weakness - Endocrine Endocrine: Polyuria - Hematologic/Lymphatic Hematologic: absent: Easy Bleeding, Easy Bruising, Lymphadenopathy Past Patient History - Infectious Disease Hx of Infectious Diseases: None - Past Medical History & Family History Past Medical History?: Yes - Past Social History Smoking Status: Never Smoked - RENAL Hx Chronic Kidney Disease: Yes - MUSCULOSKELETAL/RHEUMATOLOGICAL Hx Falls: No - PSYCHIATRIC Hx Substance Use: No - SURGICAL HISTORY Hx Surgeries: Yes Hx Section: Yes - ANESTHESIA Hx Anesthesia: Yes Hx Anesthesia Reactions: No Meds Allergies/Adverse Reactions: Allergies Allergy/AdvReac Type Severity Reaction Status Date / Time Penicillins Allergy RASH Verified 04/16/17 09:30 Physical Exam - Constitutional Appears: Toxic, No Acute Distress - Head Exam Head Exam: NORMAL INSPECTION, NORMOCEPHALIC - Eye Exam Eye Exam: EOMI, Normal appearance, PERRL Pupil Exam: NORMAL ACCOMODATION - ENT Exam ENT Exam: Mucous Membranes Dry - Respiratory Exam Respiratory Exam: Clear to Auscultation Bilateral, NORMAL BREATHING PATTERN. absent: Decreased Breath Sounds, Wheezes - Cardiovascular Exam Cardiovascular Exam: REGULAR RHYTHM, RRR, +S1, +S2 - GI/Abdominal Exam GI & Abdominal Exam: Normal Bowel Sounds, Soft, Tenderness - Extremities Exam Extremities exam: Positive for: normal inspection, pedal pulses present. Negative for: pedal edema, tenderness - Back Exam Back exam: CVA tenderness (L), CVA tenderness (R) - Neurological Exam Neurological exam: Alert - Psychiatric Exam Psychiatric exam: Normal Affect, Normal Mood - Skin Skin Exam: Dry, Intact, Normal Color, Warm Results - Vital Signs Recent Vital Signs: Last Vital Signs Temp 102.7 F H 04/20/17 14:30 Pulse 126 H 04/20/17 14:16 Resp 22 04/20/17 14:16 BP 109/77 04/20/17 14:16 Pulse Ox 97 04/20/17 14:59 - Labs Result Diagrams: 04/20/17 14:47 04/20/17 14:47 Labs: Laboratory Results - last 24 hr 04/20/17 04/20/17 04/20/17 14:47 14:47 14:51 WBC 7.2 RBC 3.86 Hgb 11.9 Hct 34.8 MCV 90.3 MCH 30.9 MCHC 34.2 RDW 12.6 Plt Count 191 MPV 8.1 Neut % (Auto) 85.5 H Lymph % (Auto) 9.7 L [place] % (Auto) 3.8 Eos % (Auto) 0.6 Baso % (Auto) 0.4 Neut # 6.2 Lymph # 0.7 L [place] # 0.3 Eos # 0.0 Baso # 0.0 Sodium 135 Potassium 3.6 Chloride 99 Carbon Dioxide 23 Anion Gap 16 BUN 17 Creatinine 1.4 H Est GFR ( Amer) 51 Est GFR (Non-Af Amer) 42 Random Glucose 109 H Calcium 8.5 L Total Bilirubin 0.5 AST 115 H D ALT 143 H D Alkaline Phosphatase 119 Total Protein 6.5 Albumin 3.1 L Globulin 3.4 Albumin/Globulin Ratio 0.9 L Urine Color Straw Urine Clarity Hazy Urine pH 7.0 Ur Specific Girard 1.005 Urine Protein 2+ H Urine Glucose (UA) Normal Urine Ketones Negative Urine Blood 1+ H Urine Nitrate Negative Urine Bilirubin Negative Urine Urobilinogen Normal Ur Leukocyte Esterase 3+ H Urine WBC (Auto) 92 H Urine RBC (Auto) 5 H Ur Squamous Epith Cells 1 Urine Bacteria Few H Assessment & Plan - Assessment and Plan (Free Text) Plan: Pyelonephritis * SIRS:Febrile, tachycardiac, no leukocytosis, left shift, bandemia, lactate = 0.8 * +ESBL on urine culture on 04/16/17 - resistant to Cipro * UA: +3 LE, +1 blood, +2 protein * Urine culture 04/16/17 - ESBL + * Patient placed on CONTACT PRECAUTIONS * Toradol PRN, Morphine PRN, Zofran PRN * Started on NS @150cc/hr, Primaxin 500mg IV Q6H, Pyridium 200mg PO TIDPC. * F/U blood culture, urine culture, procalcitonin Hx of Pyelonephritis * January 2017 * Patient was DC on cipro and asked to follow up in the [facility] * Repeat Urine culture showed ESBL (+) on 04/16/17 Transaminitis * AST/ALT: 115/143 HLD * Lipid Panel on 01/2017: TG 271 * Started on Crestor 5mg PO QHS Prior studies: * ECHO 01/2017 - LVEF 86%, mild pulm htn, trace AI, trace TR * Abdomen and pelvis PO and IV contrast CT 03/2017: normal bilateral nephrograms , no evidence of cystic or solid mass, hydronephrosis or even pyelonephritis bilaterally. Fatty liver. Small bilateral adnexal cysts. * HGA1C: 5.3- WNL Prophylactic Measures * GI PPX: Protonix 40mg PO daily * DVT PPX: SCDs, Lovenox 40mg SC Daily * Regular Diet DW Trent Higginbotham DO, PGY-1 <Griffin Pickett H - Last Filed: 04/21/17 07:56> Results - Vital Signs Recent Vital Signs: Last Vital Signs Temp 98.9 F 04/21/17 03:38 Pulse 51 L 04/21/17 06:03 Resp 12 04/21/17 06:03 BP 107/65 04/21/17 06:03 Pulse Ox 97 04/21/17 06:03 - Labs Result Diagrams: 04/21/17 06:38 04/21/17 06:38 Labs: Laboratory Results - last 24 hr 04/20/17 04/20/17 04/20/17 15:33 16:16 18:07 WBC RBC Hgb Hct MCV MCH MCHC RDW Plt Count MPV Neut % (Auto) Lymph % (Auto) [place] % (Auto) Eos % (Auto) Baso % (Auto) Neut # Lymph # [place] # Eos # Baso # pO2 19 L 37 VBG pH 7.45 H 7.38 VBG pCO2 38 L 35 L VBG HCO3 25.0 21.2 VBG Total CO2 27.6 21.8 L VBG O2 Sat (Calc) 40.8 75.4 H VBG Base Excess 2.4 H -3.8 L VBG Potassium 3.3 L 3.0 L Sodium 136.0 142.0 Chloride 103.0 112.0 H Glucose 107 H 89 Lactate 0.8 0.6 L Potassium Carbon Dioxide Anion Gap BUN Creatinine Est GFR ( Amer) Est GFR (Non-Af Amer) Random Glucose Calcium Total Bilirubin AST ALT Alkaline Phosphatase Total Protein Albumin Globulin Albumin/Globulin Ratio Procalcitonin 13.80 H Venous Blood Potassium 3.3 L 3.0 L 04/21/17 04/21/17 06:38 06:38 WBC 12.4 H D RBC 3.88 Hgb 12.1 Hct 35.6 MCV 91.8 MCH 31.3 H MCHC 34.1 RDW 12.9 Plt Count 234 MPV 8.3 Neut % (Auto) 87.2 H Lymph % (Auto) 8.5 L [place] % (Auto) 4.1 Eos % (Auto) 0.0 Baso % (Auto) 0.2 Neut # 10.8 H Lymph # 1.1 [place] # 0.5 Eos # 0.0 Baso # 0.0 pO2 VBG pH VBG pCO2 VBG HCO3 VBG Total CO2 VBG O2 Sat (Calc) VBG Base Excess VBG Potassium Sodium 144 Chloride 113 H Glucose Lactate Potassium 3.9 Carbon Dioxide 20 L Anion Gap 15 BUN 12 Creatinine 1.0 Est GFR ( Amer) > 60 Est GFR (Non-Af Amer) > 60 Random Glucose 162 H Calcium 7.8 L Total Bilirubin 0.3 AST 165 H D ALT 235 H D Alkaline Phosphatase 129 H Total Protein 6.2 L Albumin 3.2 L Globulin 3.0 Albumin/Globulin Ratio 1.1 Procalcitonin Venous Blood Potassium Attending/Attestation - Attestation I have personally seen and examined this patient.: Yes I have fully participated in the care of the patient.: Yes I have reviewed all pertinent clinical information: Yes Notes (Text): Medical attending: Patient was seen and examined by me. Agree with the above note by the resident. The patient was seen in the ER, she recently had labwork and cultures done outpatient which showed that she had E coli ESBL + in the urine. On bloodwork there was elevated bandemia noted. The cultures and sensitivity showed that the bacteria was resistant to Cipro and sensitive to Primaxin. The patient had several IVF boluses in the ER and then on the medical floor however because of perisistently low BP she was then moved to the ICU. She had a large procalictonin level. CT scan of the abdomen and pelivis was done showed a hydrouteronephrosis but did not see a stone or obstruction. Griffin Pickett
[2017-04-20] MEDS ORDERED: DiphenhydrAMINE 50 mg/ml Inj IVP PRN (16:00)
[2017-04-20] MEDS: Sodium Chloride 0.9% 1,000 ML IV SCH ×2 (16:39→18:54)
[2017-04-20] MEDS ORDERED: Sodium Chloride 0.9% 2,000 ML ONE (17:59)
[2017-04-20 18:14] LABS: VENOUS BLOOD GAS BASE EXCESS -3.8 mmol/L (0.0-2.0); VENOUS BLOOD GAS PCO2 35 mmHg (40-60); VENOUS BLOOD PH 7.38 (7.32-7.43)
[2017-04-20] MEDS ORDERED: MethylPREDNISolone 40 mg Vial ONE (18:26)
[2017-04-20] MEDS ORDERED: DOPamine 400mg/250ml D5W 400 MG/250 ML BAG IV PRN (19:13)
[2017-04-20] MEDS ORDERED: DOPamine 400mg/250ml D5W 400 MG/250 ML BAG IV ONE (19:25)
[2017-04-20] MEDS ORDERED: SODIUM CHLORIDE 0.9% IVPB ONE (20:00)
[2017-04-20] MEDS ORDERED: AMIKACIN SULFATE IVPB ONE (20:00)
--- NOTE | 2017-04-20 23:33 | CT ---
EXAM: CT Abdomen and Pelvis Without Intravenous Contrast CLINICAL HISTORY: 36 years old, female; Pain; Abdominal pain; Generalized; Additional info: Pylonephritis TECHNIQUE: Axial computed tomography images of the abdomen and pelvis without intravenous contrast. All CT scans at this facility use one or more dose reduction techniques, viz.: automated exposure control; ma/kV adjustment per patient size (including targeted exams where dose is matched to indication; i.e. head); or iterative reconstruction technique. Coronal and sagittal reformatted images were created and reviewed. COMPARISON: None FINDINGS: Lower thorax: Bibasilar atelectasis. ABDOMEN: Liver: Steatosis. Gallbladder and bile ducts: No acute finding. No calcified stones. No intra-extrahepatic biliary ductal dilation. Pancreas: Limited evaluation secondary to the lack of intravenous contrast. Spleen: No acute findings. Adrenals: No acute findings. Kidneys and ureters: Right-sided hydroureteronephrosis without a source of obstruction identified. The left kidney and ureter are unremarkable. PELVIS: Bladder: The bladder is distended, but otherwise unremarkable. Reproductive: The uterus is anteverted and anteflexed, and nodular in contour. Appendix: The appendix is of normal-caliber (series 2, image 51; series 601, image 53). ABDOMEN and PELVIS: Stomach and bowel: No acute findings. Peritoneum: No acute findings. Lymph nodes: Limited evaluation without intravenous contrast. Vasculature: No aortic aneurysm. Bones: No acute fracture. IMPRESSION: Right-sided hydroureteronephrosis without a source of obstruction identified.
[2017-04-21] MEDS: Sodium Chloride 0.9% 1,000 ML IV SCH ×6 (02:00→14:56)
[2017-04-21 06:47] LABS: BASO % 0.2 % (0.0-2.0); HEMATOCRIT 35.6 % (34.0-47.0); LYMPH # 1.1 K/uL (1.0-4.3); LYMPH % 8.5 % (20.0-40.0); MEAN CELL VOLUME 91.8 fL (81.0-99.0); MEAN CORPUSCULAR HEMOGLOBIN 31.3 pg (27.0-31.0); MEAN CORPUSCULAR HGB CONC 34.1 g/dL (33.0-37.0); MEAN PLATELET VOLUME 8.3 fL (7.2-11.7); MONO # 0.5 K/uL (0.0-0.8); MONO % 4.1 % (0.0-10.0); PLATELET COUNT 234 K/uL (130-400); RED CELL DISTRIBUTION WIDTH 12.9 % (11.5-14.5); WHITE BLOOD COUNT 12.4 K/uL (4.8-10.8)
[2017-04-21 07:03] LABS: ALB/GLOB RATIO 1.1 (1.0-2.1); ALKALINE PHOSPHATASE 129 U/L (38-126); ALT/SGPT 235 U/L (9-52); AST/SGOT 165 U/L (14-36); BILIRUBIN,TOTAL 0.3 mg/dL (0.2-1.3); BLOOD UREA NITROGEN 12 mg/dL (7-17); CALCIUM 7.8 mg/dl (8.6-10.4); CARBON DIOXIDE 20 mmol/L (22-30); CHLORIDE 113 mmol/L (98-107); GFR AFRICAN-AMERICAN > 60; GLUCOSE,RANDOM 162 mg/dL (65-105); POTASSIUM 3.9 mmol/L (3.6-5.2); SODIUM 144 mmol/L (132-148); TOTAL PROTEIN 6.2 g/dL (6.3-8.3)
[2017-04-21 09:07] LABS: NEUTROPHIL 78 % (50-75); REACTIVE LYMPHOCYTES 1 % (0-0); TOTAL CELLS COUNTED 100
[2017-04-21] MEDS: Pantoprazole 40 mg EC Tab PO SCH (10:00)
[2017-04-21] MEDS ORDERED: Enoxaparin 40 mg Syringe SC SCH (10:00)
[2017-04-21] MEDS: Enoxaparin 40 mg Syringe SC SCH (10:48)
--- NOTE | 2017-04-21 11:55 | CP.PCM.PN ---
Subjective - Date & Time of Evaluation Date of Evaluation: 04/21/17 Time of Evaluation: 11:40 - Subjective Subjective: Overnight the patient was moved to the ICU because of persistently low BP even after fluid IVF boluses. As mentioned previously she had out patient Urine culture showing ESBL + E coli. Sensitive to only Primaxin and Amikacin. She is being contined on the primaxin and overnight had amikacin given. CT scan from last night showed right side hydrouteronephrosis. An ultrasound is pending at this time. Today she reports that the abdominal pain as well as flank pain resolved. Still reports feeling weak and tired. Denied chest pain, denied shortness of breath, denied dysuria, denied hematuria, denied fever, denied chills Labwork shows she still has a lot of bandemia 11. Procalcitonin was high 13 Objective - Vital Signs/Intake and Output Vital Signs (last 24 hours): Temp Pulse Resp BP Pulse Ox 97.3 F L 60 18 102/63 98 04/21/17 08:00 04/21/17 11:02 04/21/17 11:02 04/21/17 11:02 04/21/17 11:02 Intake and Output: 04/21/17 04/21/17 06:59 18:59 Intake Total 1416 969 Output Total 1500 950 Balance -84 19 - Medications Medications: Current Medications Acetaminophen (Tylenol 325mg Tab) 650 mg PO Q6 PRN PRN Reason: Fever >100.4 F Docusate Sodium (Colace) 100 mg PO BID [facility] Last Admin: 04/21/17 10:47 Dose: Not Given Enoxaparin Sodium (Lovenox) 40 mg SC DAILY [facility] Last Admin: 04/21/17 10:48 Dose: 40 mg Sodium Chloride (Sodium Chloride 0.9%) 1,000 mls @ 150 mls/hr IV .Q6H40M [facility] Last Admin: 04/21/17 09:39 Dose: 150 mls/hr Sodium Chloride (Sodium Chloride 0.9%) 1,000 mls @ 100 mls/hr IV .Q10H [facility] Last Admin: 04/21/17 07:34 Dose: Not Given Dopamine HCl/Dextrose (Dopamine 400mg/250ml D5w) 400 mg in 250 mls @ 4.763 mls/ hr IV .Q24H PRN; Protocol; 2 MCG/KG/MIN PRN Reason: TITRATE PER MD ORDER Last Titration: 04/21/17 07:30 Dose: 3 mcg/kg/min, 7.144 mls/hr Meropenem 1 gm/ Sodium (Chloride) 100 mls @ 100 mls/hr IVPB Q8 CASANDRA Ketorolac Tromethamine (Toradol) 30 mg IVP Q6 PRN PRN Reason: Pain, moderate (4-7) Morphine Sulfate (Morphine) 1 mg IVP Q4 PRN PRN Reason: Pain, severe (8-10) Ondansetron HCl (Zofran Inj) 4 mg IVP Q6H PRN PRN Reason: Nausea/Vomiting Last Admin: 04/20/17 21:40 Dose: 4 mg Pantoprazole Sodium (Protonix Ec Tab) 40 mg PO DAILY CASANDRA - Labs Labs: 04/21/17 06:38 04/21/17 06:38 Assessment and Plan - Assessment and Plan (Free Text) Assessment: Pyelonephritis * 04/21: Now off of pressor medications, blood pressure systolic is in the 100s. Still has elevated bandemia, high procalcitonin, recived also Amikacin yesterday. The CT scan showed hydrouternephrosis, pending ultrasound. Continue the Primaxin IV * SIRS:Febrile, tachycardiac, no leukocytosis, left shift, bandemia, lactate = 0.8 * +ESBL on urine culture on 04/16/17 - resistant to Cipro * UA: +3 LE, +1 blood, +2 protein * Urine culture 04/16/17 - ESBL + * Patient placed on CONTACT PRECAUTIONS * Toradol PRN, Morphine PRN, Zofran PRN * F/U blood culture, urine culture, procalcitonin Hx of Pyelonephritis * January 2017 * Patient was DC on cipro and asked to follow up in the [facility] * Repeat Urine culture showed ESBL (+) on 04/16/17 Prior studies: * ECHO 01/2017 - LVEF 86%, mild pulm htn, trace AI, trace TR * Abdomen and pelvis PO and IV contrast CT 03/2017: normal bilateral nephrograms , no evidence of cystic or solid mass, hydronephrosis or even pyelonephritis bilaterally. Fatty liver. Small bilateral adnexal cysts. * HGA1C: 5.3- WNL Prophylactic Measures * GI PPX: Protonix 40mg PO daily * DVT PPX: SCDs, Lovenox 40mg SC Daily
[2017-04-21] MEDS: Meropenem 1 GM in Sodium Chloride 0.9% 100 ML IVPB SCH ×3 (12:00→22:30)
--- NOTE | 2017-04-21 12:33 | RAD ---
HISTORY: Shortness of breath. Technique: Portable study performed @ 18:30. COMPARISON: No prior. FINDINGS: LUNGS: No active pulmonary disease. PLEURA: No significant pleural effusion identified, no pneumothorax apparent. CARDIOVASCULAR: Normal. OSSEOUS STRUCTURES: No significant abnormalities. VISUALIZED UPPER ABDOMEN: Normal. OTHER FINDINGS: None. IMPRESSION: No active disease. No preliminary report provided by emergency department personnel.
--- NOTE | 2017-04-21 13:23 | CP.PCM.CON ---
History of Present Illness - History of Present Illness History of Present Illness: dictated Past Patient History - Infectious Disease Hx of Infectious Diseases: None - Past Medical History & Family History Past Medical History?: Yes - Past Social History Smoking Status: Never Smoked - CARDIAC Hx Hypercholesterolemia: Yes - RENAL Hx Chronic Kidney Disease: Yes - MUSCULOSKELETAL/RHEUMATOLOGICAL Hx Falls: No - GENITOURINARY/GYNECOLOGICAL Hx Urinary Tract Infection: Yes - PSYCHIATRIC Hx Substance Use: No - SURGICAL HISTORY Hx Surgeries: Yes Hx Section: Yes - ANESTHESIA Hx Anesthesia: Yes Hx Anesthesia Reactions: No Hx Malignant Hyperthermia: No Meds Allergies/Adverse Reactions: Allergies Allergy/AdvReac Type Severity Reaction Status Date / Time Penicillins Allergy RASH Verified 04/16/17 09:30 - Medications Medications: Current Medications Acetaminophen (Tylenol 325mg Tab) 650 mg PO Q6 PRN PRN Reason: Fever >100.4 F Docusate Sodium (Colace) 100 mg PO BID [facility] Last Admin: 04/21/17 10:47 Dose: Not Given Enoxaparin Sodium (Lovenox) 40 mg SC DAILY [facility] Last Admin: 04/21/17 10:48 Dose: 40 mg Sodium Chloride (Sodium Chloride 0.9%) 1,000 mls @ 150 mls/hr IV .Q6H40M [facility] Last Admin: 04/21/17 09:39 Dose: 150 mls/hr Sodium Chloride (Sodium Chloride 0.9%) 1,000 mls @ 100 mls/hr IV .Q10H [facility] Last Admin: 04/21/17 07:34 Dose: Not Given Dopamine HCl/Dextrose (Dopamine 400mg/250ml D5w) 400 mg in 250 mls @ 4.763 mls/ hr IV .Q24H PRN; Protocol; 2 MCG/KG/MIN PRN Reason: TITRATE PER MD ORDER Last Titration: 04/21/17 07:30 Dose: 3 mcg/kg/min, 7.144 mls/hr Meropenem 1 gm/ Sodium (Chloride) 100 mls @ 100 mls/hr IVPB Q8 [facility] Amikacin Sulfate 500 mg/ (Dextrose) 102 mls @ 204 mls/hr IVPB Q12H [facility] Ketorolac Tromethamine (Toradol) 30 mg IVP Q6 PRN PRN Reason: Pain, moderate (4-7) Morphine Sulfate (Morphine) 1 mg IVP Q4 PRN PRN Reason: Pain, severe (8-10) Ondansetron HCl (Zofran Inj) 4 mg IVP Q6H PRN PRN Reason: Nausea/Vomiting Last Admin: 04/20/17 21:40 Dose: 4 mg Pantoprazole Sodium (Protonix Ec Tab) 40 mg PO DAILY [facility] Results - Vital Signs Recent Vital Signs: Last Vital Signs Temp 97.6 F 04/21/17 12:00 Pulse 64 04/21/17 13:02 Resp 11 L 04/21/17 13:02 BP 103/68 04/21/17 13:02 Pulse Ox 99 04/21/17 13:02 - Labs Result Diagrams: 04/21/17 06:38 04/21/17 06:38 Labs: Laboratory Results - last 24 hr 04/20/17 04/20/17 04/20/17 15:33 16:16 18:07 WBC RBC Hgb Hct MCV MCH MCHC RDW Plt Count MPV Neut % (Auto) Lymph % (Auto) [place] % (Auto) Eos % (Auto) Baso % (Auto) Neut # Lymph # [place] # Eos # Baso # Neutrophils % (Manual) Band Neutrophils % Lymphocytes % (Manual) Reactive Lymphs % Monocytes % (Manual) Toxic Granulation Platelet Estimate Anisocytosis (manual) pO2 19 L 37 VBG pH 7.45 H 7.38 VBG pCO2 38 L 35 L VBG HCO3 25.0 21.2 VBG Total CO2 27.6 21.8 L VBG O2 Sat (Calc) 40.8 75.4 H VBG Base Excess 2.4 H -3.8 L VBG Potassium 3.3 L 3.0 L Sodium 136.0 142.0 Chloride 103.0 112.0 H Glucose 107 H 89 Lactate 0.8 0.6 L Potassium Carbon Dioxide Anion Gap BUN Creatinine Est GFR ( Amer) Est GFR (Non-Af Amer) Random Glucose Calcium Total Bilirubin AST ALT Alkaline Phosphatase Total Protein Albumin Globulin Albumin/Globulin Ratio Procalcitonin 13.80 H Venous Blood Potassium 3.3 L 3.0 L 04/21/17 04/21/17 06:38 06:38 WBC 12.4 H D RBC 3.88 Hgb 12.1 Hct 35.6 MCV 91.8 MCH 31.3 H MCHC 34.1 RDW 12.9 Plt Count 234 MPV 8.3 Neut % (Auto) 87.2 H Lymph % (Auto) 8.5 L [place] % (Auto) 4.1 Eos % (Auto) 0.0 Baso % (Auto) 0.2 Neut # 10.8 H Lymph # 1.1 [place] # 0.5 Eos # 0.0 Baso # 0.0 Neutrophils % (Manual) 78 H Band Neutrophils % 11 H* Lymphocytes % (Manual) 7 L Reactive Lymphs % 1 H Monocytes % (Manual) 3 Toxic Granulation Present Platelet Estimate Normal Anisocytosis (manual) Slight pO2 VBG pH VBG pCO2 VBG HCO3 VBG Total CO2 VBG O2 Sat (Calc) VBG Base Excess VBG Potassium Sodium 144 Chloride 113 H Glucose Lactate Potassium 3.9 Carbon Dioxide 20 L Anion Gap 15 BUN 12 Creatinine 1.0 Est GFR ( Amer) > 60 Est GFR (Non-Af Amer) > 60 Random Glucose 162 H Calcium 7.8 L Total Bilirubin 0.3 AST 165 H D ALT 235 H D Alkaline Phosphatase 129 H Total Protein 6.2 L Albumin 3.2 L Globulin 3.0 Albumin/Globulin Ratio 1.1 Procalcitonin Venous Blood Potassium
[2017-04-21] MEDS: Amikacin 500 MG in Dextrose 5% In Water 100 ML IVPB SCH (14:45)
[2017-04-21] MEDS ORDERED: Pneumococcal 23-Valent Vaccine IM ONE (15:46)
--- NOTE | 2017-04-21 15:56 | US ---
HISTORY: cholecystitis COMPARISON: Comparison is made to the previous CT dated 04/20/2017 previous ultrasound of the abdomen dated 04/26/2014. TECHNIQUE: Sonographic evaluation of the abdomen. FINDINGS: LIVER: Measures 15.1 cm. Heterogeneous increased echogenicity of the liver parenchyma. No mass. No intrahepatic bile duct dilatation. GALLBLADDER: No evidence of gallstones. No ultrasound evidence of acute cholecystitis COMMON BILE DUCT: Measures or 0.9 mm. No stones. No dilatation. PANCREAS: Unremarkable as visualized. No mass. No ductal dilatation. RIGHT KIDNEY: Measures 8.7 x 3.6 x 4.6cm. Normal echogenicity. No calculus, mass, or hydronephrosis. LEFT KIDNEY: Measures 9.5 x 4.8 x 4.1cm. Normal echogenicity. No calculus, mass, or hydronephrosis. SPLEEN: Normal in size and contour. No mass. AORTA: No aneurysmal dilatation. IVC: Unremarkable. OTHER FINDINGS: None. IMPRESSION: No evidence of cholelithiasis or cholecystitis. Heterogeneous echogenic liver suggestive of hepatic steatosis. No evidence of right hydronephrosis.
--- NOTE | 2017-04-21 22:13 | CP.PCM.CON ---
History of Present Illness - History of Present Illness History of Present Illness: CC: fever, chills, nausea, vomiting, dysuria, and generalized body aches for the past 5 days. HPI: 36F with Hx of pyelonephritis with admission 01/2017 presents to the ED with fever, chills, nausea, vomiting, dysuria, and generalized body aches for the past 5 days. Patient reports she was discharged previously with Cipro and to follow up with the clinic. A repeat urine culture 04/16/17 was done and she was called and told to return to the ED- grew ESBL +. She has fever, chills, headache, weakness, dizziness, nausea, vomiting x 1 episodes, abdominal pain, hematuria, dysuria, and urinary frequency. Denied chest pain or d/c. PMD: Dr. Mandujano ([facility]) PMHx: HLD, hx of pyelonoephritis with admission 01/2017 PSHx: C-Sections x2 Meds: Denied All: PCN- rash SHx: Denied x3 FHx: Unremarkable Patient admitted with acute is severe sepsis. Lethargic. Sometimes nausea vomiting noted. Blood pressure was low. Labs reviewed Possible ESBL Escherichia coli sepsis. We will get a CT scan of the abdomen. IV fluid. Dopamine drip. We will follow the patient Past Patient History - Infectious Disease Hx of Infectious Diseases: None - Past Medical History & Family History Past Medical History?: Yes - Past Social History Smoking Status: Never Smoked - CARDIAC Hx Hypercholesterolemia: Yes - RENAL Hx Chronic Kidney Disease: Yes - MUSCULOSKELETAL/RHEUMATOLOGICAL Hx Falls: No - GENITOURINARY/GYNECOLOGICAL Hx Urinary Tract Infection: Yes - PSYCHIATRIC Hx Substance Use: No - SURGICAL HISTORY Hx Surgeries: Yes Hx Section: Yes - ANESTHESIA Hx Anesthesia: Yes Hx Anesthesia Reactions: No Hx Malignant Hyperthermia: No Meds Allergies/Adverse Reactions: Allergies Allergy/AdvReac Type Severity Reaction Status Date / Time Penicillins Allergy RASH Verified 04/16/17 09:30 - Medications Medications: Current Medications Acetaminophen (Tylenol 325mg Tab) 650 mg PO Q6 PRN PRN Reason: Fever >100.4 F Docusate Sodium (Colace) 100 mg PO BID [facility] Last Admin: 04/21/17 17:54 Dose: 100 mg Enoxaparin Sodium (Lovenox) 40 mg SC DAILY [facility] Last Admin: 04/21/17 10:48 Dose: 40 mg Sodium Chloride (Sodium Chloride 0.9%) 1,000 mls @ 100 mls/hr IV .Q10H [facility] Last Admin: 04/21/17 14:56 Dose: 100 mls/hr Dopamine HCl/Dextrose (Dopamine 400mg/250ml D5w) 400 mg in 250 mls @ 4.763 mls/ hr IV .Q24H PRN; Protocol; 2 MCG/KG/MIN PRN Reason: TITRATE PER MD ORDER Last Titration: 04/21/17 08:30 Dose: 0 mcg/kg/min, 0 mls/hr Meropenem 1 gm/ Sodium (Chloride) 100 mls @ 100 mls/hr IVPB Q8 [facility] Last Admin: 04/21/17 13:27 Dose: 100 mls/hr Amikacin Sulfate 500 mg/ (Dextrose) 102 mls @ 204 mls/hr IVPB Q12H [facility] Last Admin: 04/21/17 14:45 Dose: 204 mls/hr Ketorolac Tromethamine (Toradol) 30 mg IVP Q6 PRN PRN Reason: Pain, moderate (4-7) Morphine Sulfate (Morphine) 1 mg IVP Q4 PRN PRN Reason: Pain, severe (8-10) Ondansetron HCl (Zofran Inj) 4 mg IVP Q6H PRN PRN Reason: Nausea/Vomiting Last Admin: 04/20/17 21:40 Dose: 4 mg Pantoprazole Sodium (Protonix Ec Tab) 40 mg PO DAILY [facility] Last Admin: 04/21/17 10:00 Dose: Not Given Results - Vital Signs Recent Vital Signs: Last Vital Signs Temp 97.8 F 04/21/17 16:00 Pulse 70 04/21/17 19:02 Resp 19 04/21/17 19:02 BP 102/64 04/21/17 19:02 Pulse Ox 99 04/21/17 19:02 - Labs Result Diagrams: 04/21/17 06:38 04/21/17 06:38 Labs: Laboratory Results - last 24 hr 04/21/17 04/21/17 06:38 06:38 WBC 12.4 H D RBC 3.88 Hgb 12.1 Hct 35.6 MCV 91.8 MCH 31.3 H MCHC 34.1 RDW 12.9 Plt Count 234 MPV 8.3 Neut % (Auto) 87.2 H Lymph % (Auto) 8.5 L [place] % (Auto) 4.1 Eos % (Auto) 0.0 Baso % (Auto) 0.2 Neut # 10.8 H Lymph # 1.1 [place] # 0.5 Eos # 0.0 Baso # 0.0 Neutrophils % (Manual) 78 H Band Neutrophils % 11 H* Lymphocytes % (Manual) 7 L Reactive Lymphs % 1 H Monocytes % (Manual) 3 Toxic Granulation Present Platelet Estimate Normal Anisocytosis (manual) Slight Sodium 144 Potassium 3.9 Chloride 113 H Carbon Dioxide 20 L Anion Gap 15 BUN 12 Creatinine 1.0 Est GFR ( Amer) > 60 Est GFR (Non-Af Amer) > 60 Random Glucose 162 H Calcium 7.8 L Total Bilirubin 0.3 AST 165 H D ALT 235 H D Alkaline Phosphatase 129 H Total Protein 6.2 L Albumin 3.2 L Globulin 3.0 Albumin/Globulin Ratio 1.1
--- NOTE | 2017-04-21 22:14 | CP.CCUPN ---
CCU Subjective - Physician Review Events Since Last Encounter (Free Text): 04/21/17 22:13 Patient is feeling much better. Blood pressure is stable. Bacteremia with Escherichia coli noted likely. No vomiting nausea. Afebrile. Clinically stable otherwise. CAT scan of the abdomen showing evidence of right-sided hydronephrosis. Urology evaluation was called. On antibiotic, ID evaluation. Continue the current treatment. If the patient is stable clinically tomorrow can be transferred CCU Objective - Vital Signs / Intake & Output Vital Signs (Last 4 hours): Vital Signs Pulse Resp BP Pulse Ox 04/21/17 19:02 70 19 102/64 99 04/21/17 19:00 70 19 99 Intake and Output (Last 8hrs): Intake & Output 04/21/17 04/21/17 04/21/17 06:59 14:59 22:59 Intake Total 1416 1469 850 Output Total 1500 1150 500 Balance -84 319 350 Intake: IV 0 Intake, IV Amount 1296 1269 500 Right Antecubital 1296 1169 500 Right Hand 0 100 Oral 120 200 350 Output: Urine 1500 1150 500 Urine, Voided 1500 1150 500 Other: Voiding Method Bedpan # Voids Urine, Voided 1 1 1 - Medications Active Medications: Active Medications Generic Name Dose Route Start Last Admin Trade Name Freq PRN Reason Stop Dose Admin Acetaminophen 650 mg 04/20/17 15:34 Tylenol 325mg Tab PO Q6 PRN Fever >100.4 F Docusate Sodium 100 mg 04/20/17 18:00 04/21/17 17:54 Colace PO 100 mg BID [facility] Administration Enoxaparin Sodium 40 mg 04/21/17 10:00 04/21/17 10:48 Lovenox SC 40 mg DAILY [facility] Administration Sodium Chloride 1,000 mls @ 100 mls/hr 04/20/17 18:45 04/21/17 14:56 Sodium Chloride 0.9% IV 100 mls/hr .Q10H [facility] Administration Dopamine HCl/Dextrose 400 mg in 250 mls @ 4.763 mls/hr 04/20/17 19:13 08:30 Dopamine 400mg/250ml D5w IV 0 mcg/kg/min .Q24H PRN 0 mls/hr TITRATE PER MD ORDER Titration Protocol 2 MCG/KG/MIN Meropenem 1 gm/ Sodium 100 mls @ 100 mls/hr 04/21/17 12:00 04/21/17 13:27 Chloride IVPB 100 mls/hr Q8 [facility] Administration Amikacin Sulfate 500 mg/ 102 mls @ 204 mls/hr 04/21/17 13:30 04/21/17 14:45 Dextrose IVPB 204 mls/hr Q12H [facility] Administration Ketorolac Tromethamine 30 mg 04/20/17 15:36 Toradol IVP Q6 PRN Pain, moderate (4-7) Morphine Sulfate 1 mg 04/20/17 16:27 Morphine IVP Q4 PRN Pain, severe (8-10) Ondansetron HCl 4 mg 04/20/17 15:45 04/20/17 21:40 Zofran Inj IVP 4 mg Q6H PRN Administration Nausea/Vomiting Pantoprazole Sodium 40 mg 04/21/17 10:00 04/21/17 10:00 Protonix Ec Tab PO Not Given DAILY [facility] - Patient Studies Lab Studies: Lab Studies 04/21/17 04/21/17 Range/Units 06:38 06:38 WBC 12.4 H D (4.8-10.8) K/uL RBC 3.88 (3.80-5.20) Mil/uL Hgb 12.1 (11.0-16.0) g/dL Hct 35.6 (34.0-47.0) % MCV 91.8 (81.0-99.0) fL MCH 31.3 H (27.0-31.0) pg MCHC 34.1 (33.0-37.0) g/dL RDW 12.9 (11.5-14.5) % Plt Count 234 (130-400) K/uL MPV 8.3 (7.2-11.7) fL Neut % (Auto) 87.2 H (50.0-75.0) % Lymph % (Auto) 8.5 L (20.0-40.0) % [place] % (Auto) 4.1 (0.0-10.0) % Eos % (Auto) 0.0 (0.0-4.0) % Baso % (Auto) 0.2 (0.0-2.0) % Neut # 10.8 H (1.8-7.0) K/uL Lymph # 1.1 (1.0-4.3) K/uL [place] # 0.5 (0.0-0.8) K/uL Eos # 0.0 (0.0-0.7) K/uL Baso # 0.0 (0.0-0.2) K/uL Neutrophils % (Manual) 78 H (50-75) % Band Neutrophils % 11 H* (0-2) % Lymphocytes % (Manual) 7 L (20-40) % Reactive Lymphs % 1 H (0-0) % Monocytes % (Manual) 3 (0-10) % Toxic Granulation Present Platelet Estimate Normal (NORMAL) Anisocytosis (manual) Slight Sodium 144 (132-148) mmol/L Potassium 3.9 (3.6-5.2) mmol/L Chloride 113 H (98-107) mmol/L Carbon Dioxide 20 L (22-30) mmol/L Anion Gap 15 (10-20) BUN 12 (7-17) mg/dL Creatinine 1.0 (0.7-1.2) MG/DL Est GFR ( Amer) > 60 Est GFR (Non-Af Amer) > 60 Random Glucose 162 H (65-105) mg/dL Calcium 7.8 L (8.6-10.4) mg/dl Total Bilirubin 0.3 (0.2-1.3) mg/dL AST 165 H D (14-36) U/L ALT 235 H D (9-52) U/L Alkaline Phosphatase 129 H (38-126) U/L Total Protein 6.2 L (6.3-8.3) g/dL Albumin 3.2 L (3.5-5.0) g/dL Globulin 3.0 (2.2-3.9) gm/dL Albumin/Globulin Ratio 1.1 (1.0-2.1) Laboratory Results - last 24 hr 04/21/17 04/21/17 06:38 06:38 WBC 12.4 H D RBC 3.88 Hgb 12.1 Hct 35.6 MCV 91.8 MCH 31.3 H MCHC 34.1 RDW 12.9 Plt Count 234 MPV 8.3 Neut % (Auto) 87.2 H Lymph % (Auto) 8.5 L [place] % (Auto) 4.1 Eos % (Auto) 0.0 Baso % (Auto) 0.2 Neut # 10.8 H Lymph # 1.1 [place] # 0.5 Eos # 0.0 Baso # 0.0 Neutrophils % (Manual) 78 H Band Neutrophils % 11 H* Lymphocytes % (Manual) 7 L Reactive Lymphs % 1 H Monocytes % (Manual) 3 Toxic Granulation Present Platelet Estimate Normal Anisocytosis (manual) Slight Sodium 144 Potassium 3.9 Chloride 113 H Carbon Dioxide 20 L Anion Gap 15 BUN 12 Creatinine 1.0 Est GFR ( Amer) > 60 Est GFR (Non-Af Amer) > 60 Random Glucose 162 H Calcium 7.8 L Total Bilirubin 0.3 AST 165 H D ALT 235 H D Alkaline Phosphatase 129 H Total Protein 6.2 L Albumin 3.2 L Globulin 3.0 Albumin/Globulin Ratio 1.1 Critical Care Progress Note - Nutrition Nutrition: Nutrition Category Date Time Status Regular Diet [DIET] Diets 04/20/17 Dinner Active
[2017-04-22] MEDS: Amikacin 500 MG in Dextrose 5% In Water 100 ML IVPB SCH ×2 (01:31→13:15)
[2017-04-22] MEDS: Sodium Chloride 0.9% 1,000 ML IV SCH ×3 (02:45→18:05)
--- NOTE | 2017-04-22 02:53 | CON ---
DATE: INFECTIOUS DISEASE CONSULTATION REQUESTING PHYSICIAN: Dr. Griffin Pickett HISTORY OF PRESENT ILLNESS: This patient is a 36-year-old female. She was admitted here with pyelonephritis in October and comes back again with fever, chills, nausea, vomiting, dysuria. She denies fever at this time. I am asked to evaluate her because she has ESBL in her urine. She was discharged with Cipro before as she did had Cipro sensitive E. coli at that time and she had a repeat urine culture done on 04/16/2017 and she was called to return to the emergency room as her urine grew ESBL and she was running fevers, chills, nausea, vomiting. She denies any abdominal pain right now. She was given Primaxin twice and I am asked to evaluate because of ESBL and the need of medication right now. I have placed her on Merrem 1 g q. 8 hours and also added amikacin, however, it is surprising that her infection did not clear. She will need a urologist to do a cystoscopy or give their input. PAST MEDICAL HISTORY: Significant for hyperlipidemia, history of pyelonephritis. SURGICAL HISTORY: Significant for C section x2. ALLERGIES: SHE IS ALLERGIC TO PENICILLIN, BUT SHE TOLERATED PRIMAXIN. SOCIAL HISTORY: Negative for smoking or drinking or any drug abuse. FAMILY HISTORY: Unremarkable. REVIEW OF SYSTEMS: She was admitted with fevers, chills, headache, malaise and weakness. There is no eye problems. She does not have any ear problems. No chest pain. No shortness of breath. No cough. No cold. She does have abdominal pain with nausea and vomiting. No constipation. No diarrhea. She does have dysuria, flank pain, hematuria, urinary frequency, urgency and has been called in because her urine grew ESBL and she complains of back pain when she was admitted and she does feel weak and had polyuria and she denies any history of diabetes, and she does not have any bleeding problems. She did come here she says and was admitted for UTI and E. coli and so I will look over the old chart. She is ALLERGIC TO PENICILLIN, GIVES HER ITCHING, SHE SAYS RASH. PHYSICAL EXAMINATION VITAL SIGNS: T max is 97.8, pulse is 57, blood pressure 107/65, respiratory rate is 18. HEENT: Head is atraumatic and normocephalic. She appears a little pale. Eye movements are unremarkable. NECK: Supple. JVP is flat. LUNGS: Clear. No crackles or rales present, no wheezing present. HEART: S1 and S2, regular. No murmurs appreciated. ABDOMEN: Soft and nontender. No guarding. No rigidity present. No CVA tenderness present on the right, but mild CVA tenderness present on the left. EXTREMITIES: No edema, clubbing or cyanosis. GENERAL: She did come with a temperature of 102.7 on 04/20 and I was called in today. LABORATORY DATA: White count is 7.2 on 04/20, let me see the other labs. Today it was 12.4, hemoglobin 12.1, hematocrit 35.6, platelet count is 234. She has 11 bands, and neutrophils of 78. Chemistry shows sodium is 144, potassium is 3.9, chloride 113, CO2 is 20, anion gap is 15, BUN is 12, creatinine is 1.0. Glucose is 162, is elevated, so we must make sure whether she has diabetes. She had a procalcitonin level of 13.80 and LFTs are also elevated. ALT, alk phos and she underwent a CAT scan. UA shows 2+ protein, 1+ blood. Glucose is normal. She does have 3+ leukocytes, and her blood culture just came out positive for gram negative and the urine culture is positive and so she has again septicemia with urine infection and she was called in on 04/16 as her urine had ESBL positive which was only imipenem, nitrofurantoin, and amikacin sensitive. ASSESSMENT AND PLAN: She is on contact precaution at this time. Her abdomen and pelvis CAT scan shows right-sided hydroureteronephrosis without a source of obstruction identified. She does have a uterus which is anteverted, anteflexed and nodular in contour. So in this case I think we will get an echo done, place her on meropenem and amikacin. I understand the urologist should make some effort to see where she is having septicemia from because this is her second time getting infection and now the bacteria is resistant to many antibiotics and we need to know the exact etiology of this problem. She also had an abdominal sonogram today and the sonogram showed no evidence of cholelithiasis or cholecystitis, heterogenous or echogenic liver or hepatic steatosis, no evidence of right hydronephrosis. It is unclear why she continues to have septicemia. Alice Ling MD [facility]
[2017-04-22 06:25] LABS: ALB/GLOB RATIO 0.9 (1.0-2.1); ALKALINE PHOSPHATASE 116 U/L (38-126); ALT/SGPT 251 U/L (9-52); AST/SGOT 186 U/L (14-36); BILIRUBIN,TOTAL 0.2 mg/dL (0.2-1.3); BLOOD UREA NITROGEN 12 mg/dL (7-17); CALCIUM 7.7 mg/dl (8.6-10.4); CARBON DIOXIDE 24 mmol/L (22-30); CHLORIDE 111 mmol/L (98-107); GFR AFRICAN-AMERICAN > 60; GLUCOSE,RANDOM 79 mg/dL (65-105); POTASSIUM 3.8 mmol/L (3.6-5.2); SODIUM 142 mmol/L (132-148); TOTAL PROTEIN 5.4 g/dL (6.3-8.3)
[2017-04-22 06:31] LABS: BASO % 0.4 % (0.0-2.0); EOS % 0.2 % (0.0-4.0); HEMATOCRIT 31.5 % (34.0-47.0); LYMPH # 1.7 K/uL (1.0-4.3); LYMPH % 19.2 % (20.0-40.0); MEAN CELL VOLUME 92.1 fL (81.0-99.0); MEAN CORPUSCULAR HEMOGLOBIN 31.5 pg (27.0-31.0); MEAN CORPUSCULAR HGB CONC 34.2 g/dL (33.0-37.0); MEAN PLATELET VOLUME 9.2 fL (7.2-11.7); MONO # 0.6 K/uL (0.0-0.8); NRBC % 0.1 % (0.0-2.0); RED CELL DISTRIBUTION WIDTH 13.2 % (11.5-14.5); WHITE BLOOD COUNT 8.7 K/uL (4.8-10.8)
[2017-04-22] MEDS: Meropenem 1 GM in Sodium Chloride 0.9% 100 ML IVPB SCH ×3 (06:31→22:00)
[2017-04-22] MEDS ORDERED: Lactated Ringer's 1,000 ML IV ONE ×2 (09:04)
--- NOTE | 2017-04-22 10:49 | CP.CCUPN ---
<Deepthi Seay - Last Filed: 04/22/17 10:46> CCU Subjective - Physician Review Subjective (Free Text): Patient was seen and examined at bedside in the morning. Patient was in no acute distress and reports feeling better today. She reports having a little lower abdominal pain, and occasional chest/epigastric pain at night. Patient currently denies having chest pain, palpitations, shortness of breath, nausea, vomiting, diarrhea, fevers, and headaches. 04/22/17 10:46 CCU Objective - Vital Signs / Intake & Output Vital Signs (Last 4 hours): Vital Signs Temp Pulse Resp BP Pulse Ox 04/22/17 08:03 66 13 124/80 97 04/22/17 08:00 97.3 F L 60 16 98 04/22/17 07:03 56 L 12 129/76 98 04/22/17 07:00 60 15 97 Intake and Output (Last 8hrs): Intake & Output 04/21/17 04/22/17 04/22/17 22:59 06:59 14:59 Intake Total 1150 800 300 Output Total 1000 0 1550 Balance 150 800 -1250 Intake: Intake, IV Amount 800 800 300 Right Antecubital 800 800 300 Oral 350 Output: Urine 1000 0 1550 Urine, Voided 1000 0 1550 Stool 0 0 Other: # Voids Urine, Voided 1 1 # Bowel Movements 1 - Physical Exam Head: Positive for: Atraumatic, Normocephalic Extroacular Muscles: Positive for: EOMI Conjunctiva: Positive for: Normal Mouth: Positive for: Moist Mucous Membranes Respiratory/Chest: Positive for: Clear to Auscultation. Negative for: Wheezes, Rales, Rhonchi Cardiovascular: Positive for: Regular Rate and Rhythm, Normal S1, S2. Negative for: Murmurs, Tachycardic, Bradycardic Abdomen: Positive for: Tenderness (lower abdomen L>R), Normal Bowel Sounds. Negative for: Distention Upper Extremity: Positive for: Normal Inspection. Negative for: Edema Lower Extremity: Positive for: Normal Inspection. Negative for: Edema Skin: Positive for: Warm, Dry, Normal Color Psychiatric: Positive for: Alert, Oriented x 3, Normal Affect, Normal Mood - Medications Active Medications: Active Medications Generic Name Dose Route Start Last Admin Trade Name Freq PRN Reason Stop Dose Admin Acetaminophen 650 mg 04/20/17 15:34 Tylenol 325mg Tab PO Q6 PRN Fever >100.4 F Docusate Sodium 100 mg 04/20/17 18:00 04/21/17 17:54 Colace PO 100 mg BID CASANDRA Administration Enoxaparin Sodium 40 mg 04/21/17 10:00 04/21/17 10:48 Lovenox SC 40 mg DAILY CASANDRA Administration Sodium Chloride 1,000 mls @ 100 mls/hr 04/20/17 18:45 04/22/17 02:45 Sodium Chloride 0.9% IV 100 mls/hr .Q10H CASANDRA Administration Meropenem 1 gm/ Sodium 100 mls @ 100 mls/hr 04/21/17 12:00 04/22/17 06:31 Chloride IVPB 100 mls/hr Q8 CASANDRA Administration Amikacin Sulfate 500 mg/ 102 mls @ 204 mls/hr 04/21/17 13:30 04/22/17 01:31 Dextrose IVPB 204 mls/hr Q12H CASANDRA Administration Morphine Sulfate 1 mg 04/20/17 16:27 Morphine IVP Q4 PRN Pain, severe (8-10) Ondansetron HCl 4 mg 04/20/17 15:45 04/20/17 21:40 Zofran Inj IVP 4 mg Q6H PRN Administration Nausea/Vomiting Pantoprazole Sodium 40 mg 04/21/17 10:00 04/21/17 10:00 Protonix Ec Tab PO Not Given DAILY CASANDRA - Patient Studies Lab Studies: Microbiology Studies 04/21/17 06:00 MRSA Culture (Admit) - Final Naris MRSA NOT DETECTED Lab Studies 04/22/17 04/22/17 04/22/17 Range/Units 09:56 06:07 06:07 WBC 8.7 (4.8-10.8) K/uL RBC 3.42 L (3.80-5.20) Mil/uL Hgb 10.8 L (11.0-16.0) g/dL Hct 31.5 L (34.0-47.0) % MCV 92.1 (81.0-99.0) fL MCH 31.5 H (27.0-31.0) pg MCHC 34.2 (33.0-37.0) g/dL RDW 13.2 (11.5-14.5) % Plt Count 219 (130-400) K/uL MPV 9.2 (7.2-11.7) fL Neut % (Auto) 73.2 (50.0-75.0) % Lymph % (Auto) 19.2 L (20.0-40.0) % [place] % (Auto) 7.0 (0.0-10.0) % Eos % (Auto) 0.2 (0.0-4.0) % Baso % (Auto) 0.4 (0.0-2.0) % Neut # 6.3 (1.8-7.0) K/uL Lymph # 1.7 (1.0-4.3) K/uL [place] # 0.6 (0.0-0.8) K/uL Eos # 0.0 (0.0-0.7) K/uL Baso # 0.0 (0.0-0.2) K/uL Sodium (132-148) mmol/L Potassium (3.6-5.2) mmol/L Chloride (98-107) mmol/L Carbon Dioxide (22-30) mmol/L Anion Gap (10-20) BUN (7-17) mg/dL Creatinine (0.7-1.2) MG/DL Est GFR ( Amer) Est GFR (Non-Af Amer) Random Glucose (65-105) mg/dL Hemoglobin A1c 5.6 (4.2-6.5) % Lactic Acid (0.7-2.1) mmol/L Calcium (8.6-10.4) mg/dl Total Bilirubin (0.2-1.3) mg/dL AST (14-36) U/L ALT (9-52) U/L Alkaline Phosphatase (38-126) U/L Total Protein (6.3-8.3) g/dL Albumin (3.5-5.0) g/dL Globulin (2.2-3.9) gm/dL Albumin/Globulin Ratio (1.0-2.1) Urine HCG, Qual Negative (NEGATIVE) 04/22/17 04/22/17 Range/Units 06:06 06:06 WBC (4.8-10.8) K/uL RBC (3.80-5.20) Mil/uL Hgb (11.0-16.0) g/dL Hct (34.0-47.0) % MCV (81.0-99.0) fL MCH (27.0-31.0) pg MCHC (33.0-37.0) g/dL RDW (11.5-14.5) % Plt Count (130-400) K/uL MPV (7.2-11.7) fL Neut % (Auto) (50.0-75.0) % Lymph % (Auto) (20.0-40.0) % [place] % (Auto) (0.0-10.0) % Eos % (Auto) (0.0-4.0) % Baso % (Auto) (0.0-2.0) % Neut # (1.8-7.0) K/uL Lymph # (1.0-4.3) K/uL [place] # (0.0-0.8) K/uL Eos # (0.0-0.7) K/uL Baso # (0.0-0.2) K/uL Sodium 142 (132-148) mmol/L Potassium 3.8 (3.6-5.2) mmol/L Chloride 111 H (98-107) mmol/L Carbon Dioxide 24 (22-30) mmol/L Anion Gap 11 (10-20) BUN 12 (7-17) mg/dL Creatinine 0.9 (0.7-1.2) MG/DL Est GFR ( Amer) > 60 Est GFR (Non-Af Amer) > 60 Random Glucose 79 (65-105) mg/dL Hemoglobin A1c (4.2-6.5) % Lactic Acid 1.0 (0.7-2.1) mmol/L Calcium 7.7 L (8.6-10.4) mg/dl Total Bilirubin 0.2 (0.2-1.3) mg/dL AST 186 H (14-36) U/L ALT 251 H (9-52) U/L Alkaline Phosphatase 116 (38-126) U/L Total Protein 5.4 L (6.3-8.3) g/dL Albumin 2.6 L (3.5-5.0) g/dL Globulin 2.8 (2.2-3.9) gm/dL Albumin/Globulin Ratio 0.9 L (1.0-2.1) Urine HCG, Qual (NEGATIVE) Laboratory Results - last 24 hr 04/22/17 04/22/17 04/22/17 06:06 06:06 06:07 WBC 8.7 RBC 3.42 L Hgb 10.8 L Hct 31.5 L MCV 92.1 MCH 31.5 H MCHC 34.2 RDW 13.2 Plt Count 219 MPV 9.2 Neut % (Auto) 73.2 Lymph % (Auto) 19.2 L [place] % (Auto) 7.0 Eos % (Auto) 0.2 Baso % (Auto) 0.4 Neut # 6.3 Lymph # 1.7 [place] # 0.6 Eos # 0.0 Baso # 0.0 Sodium 142 Potassium 3.8 Chloride 111 H Carbon Dioxide 24 Anion Gap 11 BUN 12 Creatinine 0.9 Est GFR ( Amer) > 60 Est GFR (Non-Af Amer) > 60 Random Glucose 79 Hemoglobin A1c Lactic Acid 1.0 Calcium 7.7 L Total Bilirubin 0.2 AST 186 H ALT 251 H Alkaline Phosphatase 116 Total Protein 5.4 L Albumin 2.6 L Globulin 2.8 Albumin/Globulin Ratio 0.9 L Urine HCG, Qual 04/22/17 04/22/17 06:07 09:56 WBC RBC Hgb Hct MCV MCH MCHC RDW Plt Count MPV Neut % (Auto) Lymph % (Auto) [place] % (Auto) Eos % (Auto) Baso % (Auto) Neut # Lymph # [place] # Eos # Baso # Sodium Potassium Chloride Carbon Dioxide Anion Gap BUN Creatinine Est GFR ( Amer) Est GFR (Non-Af Amer) Random Glucose Hemoglobin A1c 5.6 Lactic Acid Calcium Total Bilirubin AST ALT Alkaline Phosphatase Total Protein Albumin Globulin Albumin/Globulin Ratio Urine HCG, Qual Negative Review of Systems - Constitutional Constitutional: absent: Fever - Cardiovascular Cardiovascular: absent: Chest Pain, Dyspnea, Palpitations - Respiratory Respiratory: absent: Dyspnea - Gastrointestinal Gastrointestinal: Abdominal Pain (lower abdomen). absent: Constipation, Diarrhea, Nausea, Vomiting - Neurological Neurological: absent: Dizziness, Headaches - Endocrine Endocrine: absent: Palpitations Critical Care Progress Note - Nutrition Nutrition: Nutrition Category Date Time Status Regular Diet [DIET] Diets 04/20/17 Dinner Active Assessment/Plan - Assessment and Plan (Free Text) Assessment: 36 year old female with past history of pyelonephritis and ESBL positive, presents with fever, chills, nausea, vomiting, dysuria, and body aches for 5 days. Neuro: alert, oriented x3 Pulm: no acute issues - nasal cannula 2L prn CV: sepsis, ESBL+ in both blood and urine - Echo (ordered by ID) to r/o septicemia r/o endocarditis Endo: - no acute issues GI: NPO - Protonix 40 PO - Abdominal US: heterogenous echogenic liver, hepatic steatosis? - CT Abd/Pelv: right hydroureteronephrosis w/o obstruction : - Sepsis, ESBL+ - CT Abd/Pelv: right hyroureteronephrosis w/o obstruction - Urology consulted: Dr. Newton, help appreciated - Patient scheduled for cystoscopy today. Heme: - Monitor H/H Renal: - Monitor kidney function ID: Sepsis, bandemia, ESBL+ - ID consulted: Dr. Ling, help appreciated - Meropenem, Amikacin - Bands: 11 - Procalcitonin: 13.8 - Urine/blood cx: gram negative rods, ESBL+ Prophylaxis: - DVT: Lovenox 40mg SC - GI: Protonix 40 PO - SCDs <Kathy Means - Last Filed: 04/22/17 19:52> CCU Objective - Vital Signs / Intake & Output Vital Signs (Last 4 hours): Vital Signs Temp Pulse Resp BP Pulse Ox 04/22/17 18:40 56 L 8 L 115/62 100 04/22/17 18:00 50 L 15 04/22/17 17:39 62 12 118/65 04/22/17 17:00 60 18 04/22/17 16:39 55 L 15 128/73 04/22/17 16:00 97.4 F L 54 L 16 Intake and Output (Last 8hrs): Intake & Output 04/22/17 04/22/17 04/22/17 06:59 14:59 22:59 Intake Total 800 1000 660 Output Total 0 2000 300 Balance 800 -1000 360 Intake: Intake, IV Amount 800 800 500 Right Antecubital 800 800 500 Oral 200 160 Output: Urine 0 2000 300 Urine, Voided 0 2000 300 Stool 0 Other: # Voids Urine, Voided 1 - Medications Active Medications: Active Medications Generic Name Dose Route Start Last Admin Trade Name Freq PRN Reason Stop Dose Admin Acetaminophen 650 mg 04/20/17 15:34 Tylenol 325mg Tab PO Q6 PRN Fever >100.4 F Docusate Sodium 100 mg 04/20/17 18:00 04/22/17 18:03 Colace PO 100 mg BID CASANDRA Administration Enoxaparin Sodium 40 mg 04/21/17 10:00 04/22/17 10:58 Lovenox SC Not Given DAILY CASANDRA Sodium Chloride 1,000 mls @ 100 mls/hr 04/20/17 18:45 04/22/17 18:05 Sodium Chloride 0.9% IV 100 mls/hr .Q10H CASANDRA Administration Meropenem 1 gm/ Sodium 100 mls @ 100 mls/hr 04/21/17 12:00 04/22/17 13:15 Chloride IVPB 100 mls/hr Q8 CASANDRA Administration Amikacin Sulfate 500 mg/ 102 mls @ 204 mls/hr 04/21/17 13:30 04/22/17 13:15 Dextrose IVPB 204 mls/hr Q12H CASANDRA Administration Morphine Sulfate 1 mg 04/20/17 16:27 04/22/17 18:41 Morphine IVP 1 mg Q4 PRN Administration Pain, severe (8-10) Ondansetron HCl 4 mg 04/20/17 15:45 04/20/17 21:40 Zofran Inj IVP 4 mg Q6H PRN Administration Nausea/Vomiting Pantoprazole Sodium 40 mg 04/21/17 10:00 04/22/17 10:59 Protonix Ec Tab PO Not Given DAILY CASANDRA - Patient Studies Lab Studies: Microbiology Studies 04/21/17 06:00 MRSA Culture (Admit) - Final Naris MRSA NOT DETECTED Lab Studies 04/22/17 04/22/17 04/22/17 Range/Units 09:56 06:07 06:07 WBC 8.7 (4.8-10.8) K/uL RBC 3.42 L (3.80-5.20) Mil/uL Hgb 10.8 L (11.0-16.0) g/dL Hct 31.5 L (34.0-47.0) % MCV 92.1 (81.0-99.0) fL MCH 31.5 H (27.0-31.0) pg MCHC 34.2 (33.0-37.0) g/dL RDW 13.2 (11.5-14.5) % Plt Count 219 (130-400) K/uL MPV 9.2 (7.2-11.7) fL Neut % (Auto) 73.2 (50.0-75.0) % Lymph % (Auto) 19.2 L (20.0-40.0) % [place] % (Auto) 7.0 (0.0-10.0) % Eos % (Auto) 0.2 (0.0-4.0) % Baso % (Auto) 0.4 (0.0-2.0) % Neut # 6.3 (1.8-7.0) K/uL Lymph # 1.7 (1.0-4.3) K/uL [place] # 0.6 (0.0-0.8) K/uL Eos # 0.0 (0.0-0.7) K/uL Baso # 0.0 (0.0-0.2) K/uL Sodium (132-148) mmol/L Potassium (3.6-5.2) mmol/L Chloride (98-107) mmol/L Carbon Dioxide (22-30) mmol/L Anion Gap (10-20) BUN (7-17) mg/dL Creatinine (0.7-1.2) MG/DL Est GFR ( Amer) Est GFR (Non-Af Amer) Random Glucose (65-105) mg/dL Hemoglobin A1c 5.6 (4.2-6.5) % Lactic Acid (0.7-2.1) mmol/L Calcium (8.6-10.4) mg/dl Total Bilirubin (0.2-1.3) mg/dL AST (14-36) U/L ALT (9-52) U/L Alkaline Phosphatase (38-126) U/L Total Protein (6.3-8.3) g/dL Albumin (3.5-5.0) g/dL Globulin (2.2-3.9) gm/dL Albumin/Globulin Ratio (1.0-2.1) Urine HCG, Qual Negative (NEGATIVE) 04/22/17 04/22/17 Range/Units 06:06 06:06 WBC (4.8-10.8) K/uL RBC (3.80-5.20) Mil/uL Hgb (11.0-16.0) g/dL Hct (34.0-47.0) % MCV (81.0-99.0) fL MCH (27.0-31.0) pg MCHC (33.0-37.0) g/dL RDW (11.5-14.5) % Plt Count (130-400) K/uL MPV (7.2-11.7) fL Neut % (Auto) (50.0-75.0) % Lymph % (Auto) (20.0-40.0) % [place] % (Auto) (0.0-10.0) % Eos % (Auto) (0.0-4.0) % Baso % (Auto) (0.0-2.0) % Neut # (1.8-7.0) K/uL Lymph # (1.0-4.3) K/uL [place] # (0.0-0.8) K/uL Eos # (0.0-0.7) K/uL Baso # (0.0-0.2) K/uL Sodium 142 (132-148) mmol/L Potassium 3.8 (3.6-5.2) mmol/L Chloride 111 H (98-107) mmol/L Carbon Dioxide 24 (22-30) mmol/L Anion Gap 11 (10-20) BUN 12 (7-17) mg/dL Creatinine 0.9 (0.7-1.2) MG/DL Est GFR ( Amer) > 60 Est GFR (Non-Af Amer) > 60 Random Glucose 79 (65-105) mg/dL Hemoglobin A1c (4.2-6.5) % Lactic Acid 1.0 (0.7-2.1) mmol/L Calcium 7.7 L (8.6-10.4) mg/dl Total Bilirubin 0.2 (0.2-1.3) mg/dL AST 186 H (14-36) U/L ALT 251 H (9-52) U/L Alkaline Phosphatase 116 (38-126) U/L Total Protein 5.4 L (6.3-8.3) g/dL Albumin 2.6 L (3.5-5.0) g/dL Globulin 2.8 (2.2-3.9) gm/dL Albumin/Globulin Ratio 0.9 L (1.0-2.1) Urine HCG, Qual (NEGATIVE) Laboratory Results - last 24 hr 04/22/17 04/22/17 04/22/17 06:06 06:06 06:07 WBC 8.7 RBC 3.42 L Hgb 10.8 L Hct 31.5 L MCV 92.1 MCH 31.5 H MCHC 34.2 RDW 13.2 Plt Count 219 MPV 9.2 Neut % (Auto) 73.2 Lymph % (Auto) 19.2 L [place] % (Auto) 7.0 Eos % (Auto) 0.2 Baso % (Auto) 0.4 Neut # 6.3 Lymph # 1.7 [place] # 0.6 Eos # 0.0 Baso # 0.0 Sodium 142 Potassium 3.8 Chloride 111 H Carbon Dioxide 24 Anion Gap 11 BUN 12 Creatinine 0.9 Est GFR ( Amer) > 60 Est GFR (Non-Af Amer) > 60 Random Glucose 79 Hemoglobin A1c Lactic Acid 1.0 Calcium 7.7 L Total Bilirubin 0.2 AST 186 H ALT 251 H Alkaline Phosphatase 116 Total Protein 5.4 L Albumin 2.6 L Globulin 2.8 Albumin/Globulin Ratio 0.9 L Urine HCG, Qual 04/22/17 04/22/17 06:07 09:56 WBC RBC Hgb Hct MCV MCH MCHC RDW Plt Count MPV Neut % (Auto) Lymph % (Auto) [place] % (Auto) Eos % (Auto) Baso % (Auto) Neut # Lymph # [place] # Eos # Baso # Sodium Potassium Chloride Carbon Dioxide Anion Gap BUN Creatinine Est GFR ( Amer) Est GFR (Non-Af Amer) Random Glucose Hemoglobin A1c 5.6 Lactic Acid Calcium Total Bilirubin AST ALT Alkaline Phosphatase Total Protein Albumin Globulin Albumin/Globulin Ratio Urine HCG, Qual Negative Critical Care Progress Note - Nutrition Nutrition: Nutrition Category Date Time Status Regular Diet [DIET] Diets 04/20/17 Dinner Active Attending/Attestation - Attestation I have personally seen and examined this patient.: Yes I have fully participated in the care of the patient.: Yes I have reviewed all pertinent clinical information: Yes Notes (Text): 04/22/17 19:51 Patient evaluated. She underwent a stent in the right kidney. Currently doing well. Tolerating the food. On antibiotic seen by ID can be transferred to a regular medical floor
[2017-04-22] MEDS: Enoxaparin 40 mg Syringe SC SCH (10:58)
[2017-04-22] MEDS: Pantoprazole 40 mg EC Tab PO SCH (10:59)
[2017-04-22] MEDS ORDERED: Propofol 10 mg/ml Inj (20 ML) ONE (11:05)
[2017-04-22] MEDS ORDERED: Midazolam 2 MG/2 ML VIAL ONE (11:05)
[2017-04-22] MEDS ORDERED: Iohexol 240 (50 ml) ONE (11:13)
--- NOTE | 2017-04-22 12:01 | CP.PCM.CON ---
History of Present Illness - History of Present Illness History of Present Illness: PLEASE SEE DICTATED CONSULTATION REPORT THANK YOU YS Past Patient History - Infectious Disease Hx of Infectious Diseases: None - Past Medical History & Family History Past Medical History?: Yes - Past Social History Smoking Status: Never Smoked - CARDIAC Hx Hypercholesterolemia: Yes - RENAL Hx Chronic Kidney Disease: Yes - MUSCULOSKELETAL/RHEUMATOLOGICAL Hx Falls: No - GENITOURINARY/GYNECOLOGICAL Hx Urinary Tract Infection: Yes - PSYCHIATRIC Hx Substance Use: No - SURGICAL HISTORY Hx Surgeries: Yes Hx Section: Yes - ANESTHESIA Hx Anesthesia: Yes Hx Anesthesia Reactions: No Hx Malignant Hyperthermia: No Meds Home Medications: Home Medication List Medication Instructions Recorded Confirmed Type Ertapenem [Invanz] 1 gm IVPB ONCE #10 vial 04/28/17 Rx Allergies/Adverse Reactions: Allergies Allergy/AdvReac Type Severity Reaction Status Date / Time Penicillins Allergy RASH Verified 04/16/17 09:30 - Medications Medications: Current Medications Acetaminophen (Tylenol 325mg Tab) 650 mg PO Q6 PRN PRN Reason: Fever >100.4 F Docusate Sodium (Colace) 100 mg PO BID [facility] Last Admin: 04/22/17 10:58 Dose: Not Given Enoxaparin Sodium (Lovenox) 40 mg SC DAILY [facility] Last Admin: 04/22/17 10:58 Dose: Not Given Sodium Chloride (Sodium Chloride 0.9%) 1,000 mls @ 100 mls/hr IV .Q10H [facility] Last Admin: 04/22/17 02:45 Dose: 100 mls/hr Meropenem 1 gm/ Sodium (Chloride) 100 mls @ 100 mls/hr IVPB Q8 [facility] Last Admin: 04/22/17 06:31 Dose: 100 mls/hr Amikacin Sulfate 500 mg/ (Dextrose) 102 mls @ 204 mls/hr IVPB Q12H [facility] Last Admin: 04/22/17 01:31 Dose: 204 mls/hr Morphine Sulfate (Morphine) 1 mg IVP Q4 PRN PRN Reason: Pain, severe (8-10) Ondansetron HCl (Zofran Inj) 4 mg IVP Q6H PRN PRN Reason: Nausea/Vomiting Last Admin: 04/20/17 21:40 Dose: 4 mg Pantoprazole Sodium (Protonix Ec Tab) 40 mg PO DAILY [facility] Last Admin: 04/22/17 10:59 Dose: Not Given Results - Vital Signs Recent Vital Signs: Last Vital Signs Temp 97.3 F L 04/22/17 08:00 Pulse 66 04/22/17 08:03 Resp 13 04/22/17 08:03 BP 124/80 04/22/17 08:03 Pulse Ox 97 04/22/17 08:03 - Labs Result Diagrams: 04/28/17 08:32 04/28/17 08:32 Labs: Laboratory Results - last 24 hr 04/22/17 04/22/17 04/22/17 06:06 06:06 06:07 WBC 8.7 RBC 3.42 L Hgb 10.8 L Hct 31.5 L MCV 92.1 MCH 31.5 H MCHC 34.2 RDW 13.2 Plt Count 219 MPV 9.2 Neut % (Auto) 73.2 Lymph % (Auto) 19.2 L [place] % (Auto) 7.0 Eos % (Auto) 0.2 Baso % (Auto) 0.4 Neut # 6.3 Lymph # 1.7 [place] # 0.6 Eos # 0.0 Baso # 0.0 Sodium 142 Potassium 3.8 Chloride 111 H Carbon Dioxide 24 Anion Gap 11 BUN 12 Creatinine 0.9 Est GFR ( Amer) > 60 Est GFR (Non-Af Amer) > 60 Random Glucose 79 Hemoglobin A1c Lactic Acid 1.0 Calcium 7.7 L Total Bilirubin 0.2 AST 186 H ALT 251 H Alkaline Phosphatase 116 Total Protein 5.4 L Albumin 2.6 L Globulin 2.8 Albumin/Globulin Ratio 0.9 L Urine HCG, Qual 04/22/17 04/22/17 06:07 09:56 WBC RBC Hgb Hct MCV MCH MCHC RDW Plt Count MPV Neut % (Auto) Lymph % (Auto) [place] % (Auto) Eos % (Auto) Baso % (Auto) Neut # Lymph # [place] # Eos # Baso # Sodium Potassium Chloride Carbon Dioxide Anion Gap BUN Creatinine Est GFR ( Amer) Est GFR (Non-Af Amer) Random Glucose Hemoglobin A1c 5.6 Lactic Acid Calcium Total Bilirubin AST ALT Alkaline Phosphatase Total Protein Albumin Globulin Albumin/Globulin Ratio Urine HCG, Qual Negative Assessment & Plan - Assessment and Plan (Free Text) Assessment: IMP: UTI - recurrent Urosepsis s/p x2 R hydronephrosis - Date & Time Date: 04/22/17 Time: 10:30
--- NOTE | 2017-04-22 12:09 | PCM.SURG1 ---
Surgeon's Initial Post Op Note - Surgeon's Notes Surgeon: jhonathan arreola Editing Computer Publisher: none Type of Anesthesia: IV Sedation Pre-Operative Diagnosis: R hydronephrosis Operative Findings: same. 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 Bilat rtg pyelogram. Insertion of R ureteral stent. EUA Specimen/Specimens Removed: urine Estimated Blood Loss: EBL {In ML}: 0 Blood Products Given: N/A Date of Surgery/Procedure: 04/22/17 Time of Surgery/Procedure: 11:45
--- NOTE | 2017-04-22 16:38 | RAD ---
PROCEDURE: Intraoperative Fluoroscopy. HISTORY: Right hydronephrosis FINDINGS: Fluoroscopic assistance was provided. . 32.9 seconds of fluoroscopy time utilized during this procedure. Radiation dose = [id number] mGy-cm. Please refer to the operative report
--- NOTE | 2017-04-22 16:47 | RAD ---
HISTORY: RT. HYDRONEPHROSIS COMPARISON: Comparison made with CT scan abdomen pelvis 04/20/2017. FINDINGS: BOWEL: Normal. No obstruction. No free air. BONES: Normal. OTHER FINDINGS: There are 2 small calcifications within the true pelvis consistent with calcified pelvic phleboliths. IMPRESSION: No evidence of acute mechanical bowel obstruction. Two tiny pelvic calcification consistent with calcified pelvic phleboliths.
--- NOTE | 2017-04-22 18:18 | CP.PCM.PN ---
Subjective - Date & Time of Evaluation Date of Evaluation: 04/22/17 Time of Evaluation: 04:00 - Subjective Subjective: dictated Objective - Vital Signs/Intake and Output Vital Signs (last 24 hours): Temp Pulse Resp BP Pulse Ox 97.4 F L 60 18 128/73 100 04/22/17 16:00 04/22/17 17:00 04/22/17 17:00 04/22/17 16:39 04/22/17 12:38 Intake and Output: 04/22/17 04/22/17 06:59 18:59 Intake Total 1200 1100 Output Total 500 2000 Balance 700 -900 - Medications Medications: Current Medications Acetaminophen (Tylenol 325mg Tab) 650 mg PO Q6 PRN PRN Reason: Fever >100.4 F Docusate Sodium (Colace) 100 mg PO BID [facility] Last Admin: 04/22/17 18:03 Dose: 100 mg Enoxaparin Sodium (Lovenox) 40 mg SC DAILY [facility] Last Admin: 04/22/17 10:58 Dose: Not Given Sodium Chloride (Sodium Chloride 0.9%) 1,000 mls @ 100 mls/hr IV .Q10H [facility] Last Admin: 04/22/17 18:05 Dose: 100 mls/hr Meropenem 1 gm/ Sodium (Chloride) 100 mls @ 100 mls/hr IVPB Q8 [facility] Last Admin: 04/22/17 13:15 Dose: 100 mls/hr Amikacin Sulfate 500 mg/ (Dextrose) 102 mls @ 204 mls/hr IVPB Q12H [facility] Last Admin: 04/22/17 13:15 Dose: 204 mls/hr Morphine Sulfate (Morphine) 1 mg IVP Q4 PRN PRN Reason: Pain, severe (8-10) Ondansetron HCl (Zofran Inj) 4 mg IVP Q6H PRN PRN Reason: Nausea/Vomiting Last Admin: 04/20/17 21:40 Dose: 4 mg Pantoprazole Sodium (Protonix Ec Tab) 40 mg PO DAILY [facility] Last Admin: 04/22/17 10:59 Dose: Not Given - Labs Labs: 04/22/17 06:07 04/22/17 06:06
--- NOTE | 2017-04-22 18:26 | CP.PCM.PN ---
Subjective - Date & Time of Evaluation Date of Evaluation: 04/22/17 Time of Evaluation: 14:00 - Subjective Subjective: Patient was seen and examined in ICU. Patient is complaining of for flank pain. She is status post the cystoscopy and ureteral stent placement. Objective - Vital Signs/Intake and Output Vital Signs (last 24 hours): Temp Pulse Resp BP Pulse Ox 97.4 F L 60 18 128/73 100 04/22/17 16:00 04/22/17 17:00 04/22/17 17:00 04/22/17 16:39 04/22/17 12:38 Intake and Output: 04/22/17 04/22/17 06:59 18:59 Intake Total 1200 1100 Output Total 500 2000 Balance 700 -900 - Medications Medications: Current Medications Acetaminophen (Tylenol 325mg Tab) 650 mg PO Q6 PRN PRN Reason: Fever >100.4 F Docusate Sodium (Colace) 100 mg PO BID [facility] Last Admin: 04/22/17 18:03 Dose: 100 mg Enoxaparin Sodium (Lovenox) 40 mg SC DAILY [facility] Last Admin: 04/22/17 10:58 Dose: Not Given Sodium Chloride (Sodium Chloride 0.9%) 1,000 mls @ 100 mls/hr IV .Q10H [facility] Last Admin: 04/22/17 18:05 Dose: 100 mls/hr Meropenem 1 gm/ Sodium (Chloride) 100 mls @ 100 mls/hr IVPB Q8 [facility] Last Admin: 04/22/17 13:15 Dose: 100 mls/hr Amikacin Sulfate 500 mg/ (Dextrose) 102 mls @ 204 mls/hr IVPB Q12H [facility] Last Admin: 04/22/17 13:15 Dose: 204 mls/hr Morphine Sulfate (Morphine) 1 mg IVP Q4 PRN PRN Reason: Pain, severe (8-10) Ondansetron HCl (Zofran Inj) 4 mg IVP Q6H PRN PRN Reason: Nausea/Vomiting Last Admin: 04/20/17 21:40 Dose: 4 mg Pantoprazole Sodium (Protonix Ec Tab) 40 mg PO DAILY [facility] Last Admin: 04/22/17 10:59 Dose: Not Given - Labs Labs: 04/22/17 06:07 04/22/17 06:06 - Head Exam Head Exam: ATRAUMATIC, NORMOCEPHALIC - Eye Exam Eye Exam: Normal appearance - ENT Exam ENT Exam: Mucous Membranes Moist - Neck Exam Neck Exam: Normal Inspection - Respiratory Exam Respiratory Exam: Clear to Ausculation Bilateral - Cardiovascular Exam Cardiovascular Exam: REGULAR RHYTHM, +S1, +S2 - GI/Abdominal Exam GI & Abdominal Exam: Soft. absent: Tenderness - Extremities Exam Extremities Exam: absent: Pedal Edema - Neurological Exam Neurological Exam: Alert, Awake, Oriented x3 Assessment and Plan (1) Fever Status: Acute (2) Acute pyelonephritis Status: Acute (3) Bacteremia Status: Acute - Assessment and Plan (Free Text) Plan: Patient is status post a stent placement. Continue IV antibiotics as per recommendations of ID I discussed the plan of care with the ICU team and continue management as per ICU team.
--- NOTE | 2017-04-22 19:56 | PN ---
SUBJECTIVE: I went to see her today. She had a cystoscopy with right ureteral stent placed in for right hydronephrosis. She was getting out of bed with support of the nurse to help her. She was little dizzy and she complained of back pain. She is status post stent and voided. PHYSICAL EXAMINATION VITAL SIGNS: T-max is 97.4, pulse 60, blood pressure is 128/73, respirations 18. HEENT: Head is atraumatic and normocephalic. NECK: Supple. LUNGS: Clear. HEART: S1 and S2 is regular. ABDOMEN: Soft. Nontender. EXTREMITIES: No edema. LABORATORY DATA: Labs are noted. She had a urine culture done from the OR. White count is 8.7 today, so it is better. There is no bandemia reported. She is on meropenem and amikacin. Sodium is 142, potassium 3.8. Her AST is 186, ALT is 251 still elevated. She did come in with septicemia with ESBL, which is only sensitive to a few drugs, and at this time, she is on meropenem and amikacin and she had a cystoscopy done - the partner wanted to know what was done and what needs to be done after this, which probably needs to be explained to him once we know what suggests as now she has a stent. I will continue the antibiotics and she will need these for 14 days and today is the day 3 of the antibiotics. We will follow. Alice Ling MD
--- NOTE | 2017-04-23 01:03 | CARD ---
APPROVED REPORT EXAM: Two-dimensional and M-mode echocardiogram with Doppler and color Doppler. Other Information Quality : GoodRhythm : NSR INDICATION Dizziness and Vertigo Fever/ Pyelonephritis/ Sepsis 2D DIMENSIONS IVSd0.8 (0.7-1.1cm)LVDd4.1 (3.9-5.9cm) PWd0.9 (0.7-1.1cm)LVDs3.0 (2.5-4.0cm) FS (%) 26.7 %LVEF (%)52.7 (>50%) M-Mode DIMENSIONS RVDd2.32 (2.1-3.2cm)Left Atrium (MM)3.70 (2.5-4.0cm) IVSd0.68 (0.7-1.1cm)Aortic Root2.73 (2.2-3.7cm) LVDd4.72 (4.0-5.6cm)Aortic Cusp Exc.1.89 (1.5-2.0cm) PWd0.73 (0.7-1.1cm)FS (%) 30 % LVDs3.32 (2.0-3.8cm)LVEF (%)57 (>50%) Aortic Valve AI P 1/2 [id number] Mitral Valve MV E Yynbkhmt67.0cm/sMV A Thsjbzzq15.0cm/sE/A ratio1.2 TDI E/Lateral E'0.0E/Medial E'0.0 Tricuspid Valve TR Peak [id number] Peak [id number] LEFT VENTRICLE The left ventricle is normal size. There is normal left ventricular wall thickness. Left ventricle systolic function is normal. Ejection Fraction is 55-60%. There is normal LV segmental wall motion. The left ventricular diastolic function is normal. No left ventricle thrombus noted on this study. RIGHT VENTRICLE The right ventricle is normal size. The right ventricular systolic function is normal. ATRIA The left atrium size is normal. The right atrium size is normal. AORTIC VALVE The aortic valve is mildly thickened. The aortic valve is trileaflet. There is mild aortic regurgitation. There is no aortic valvular stenosis. There is no aortic valvular vegetation. MITRAL VALVE Mitral annular calcification is mild. There is no evidence of mitral valve prolapse. There is no mitral valve stenosis. There is no mitral valve regurgitation noted. TRICUSPID VALVE The tricuspid valve is normal in structure. There is mild tricuspid regurgitation. Right ventricular systolic pressure is estimated at less than 30 mmHg. There is no pulmonary hypertension. There is no tricuspid valve prolapse or vegetation. There is no tricuspid valve stenosis. PULMONIC VALVE The pulmonic valve is not well visualized. There is no pulmonic valvular regurgitation. GREAT VESSELS The aortic root is normal in size. The IVC is normal in size and collapses >50% with inspiration. PERICARDIAL EFFUSION There is no pericardial effusion. There is no pleural effusion. <Conclusion> The left ventricle is normal size. Left ventricle systolic function is normal. Ejection Fraction is 55-60%. The left ventricular diastolic function is normal. The right ventricle is normal size. The right ventricular systolic function is normal. The left atrium size is normal. The right atrium size is normal. There is mild aortic regurgitation. There is mild tricuspid regurgitation.
[2017-04-23] MEDS: Sodium Chloride 0.9% 1,000 ML IV SCH ×2 (02:17→09:36)
[2017-04-23] MEDS: Amikacin 500 MG in Dextrose 5% In Water 100 ML IVPB SCH ×2 (02:19→12:49)
[2017-04-23] MEDS: Meropenem 1 GM in Sodium Chloride 0.9% 100 ML IVPB SCH ×3 (05:12→22:20)
[2017-04-23 06:51] LABS: BASO % 0.4 % (0.0-2.0); EOS # 0.1 K/uL (0.0-0.7); EOS % 0.9 % (0.0-4.0); HEMATOCRIT 33.4 % (34.0-47.0); LYMPH # 1.2 K/uL (1.0-4.3); LYMPH % 17.1 % (20.0-40.0); MEAN CELL VOLUME 90.3 fL (81.0-99.0); MEAN CORPUSCULAR HEMOGLOBIN 30.7 pg (27.0-31.0); MEAN PLATELET VOLUME 8.6 fL (7.2-11.7); MONO # 0.4 K/uL (0.0-0.8); MONO % 6.3 % (0.0-10.0); RED CELL DISTRIBUTION WIDTH 13.1 % (11.5-14.5); WHITE BLOOD COUNT 6.9 K/uL (4.8-10.8)
[2017-04-23 07:03] LABS: MAGNESIUM 1.5 mg/dL (1.6-2.3)
[2017-04-23 07:08] LABS: ALKALINE PHOSPHATASE 119 U/L (38-126); ALT/SGPT 183 U/L (9-52); AST/SGOT 67 U/L (14-36); BILIRUBIN,TOTAL 0.3 mg/dL (0.2-1.3); BLOOD UREA NITROGEN 11 mg/dL (7-17); CALCIUM 8.5 mg/dl (8.6-10.4); CARBON DIOXIDE 24 mmol/L (22-30); CHLORIDE 104 mmol/L (98-107); GFR AFRICAN-AMERICAN > 60; GLUCOSE,RANDOM 76 mg/dL (65-105); POTASSIUM 3.2 mmol/L (3.6-5.2); SODIUM 138 mmol/L (132-148); TOTAL PROTEIN 5.7 g/dL (6.3-8.3)
[2017-04-23] MEDS: Pantoprazole 40 mg EC Tab PO SCH (09:35)
[2017-04-23] MEDS: Enoxaparin 40 mg Syringe SC SCH (09:35)
[2017-04-23] MEDS ORDERED: Potassium Chloride 20 mEq ER Tab PO STA (09:58)
[2017-04-23] MEDS: Magnesium Sulfate 1 gm in D5W 1 GM/100 ML BAG IVPB SCH ×2 (10:13→10:47)
--- NOTE | 2017-04-23 14:07 | CP.PCM.PN ---
Subjective - Date & Time of Evaluation Date of Evaluation: 04/23/17 Time of Evaluation: 02:05 - Subjective Subjective: dictated Objective - Vital Signs/Intake and Output Vital Signs (last 24 hours): Temp Pulse Resp BP Pulse Ox 98.1 F 88 12 106/75 99 04/23/17 12:00 04/23/17 12:00 04/23/17 12:00 04/23/17 12:00 04/23/17 12:00 Intake and Output: 04/23/17 04/23/17 06:59 18:59 Intake Total 2100 750 Output Total 1000 500 Balance 1100 250 - Medications Medications: Current Medications Acetaminophen (Tylenol 325mg Tab) 650 mg PO Q6 PRN PRN Reason: Fever >100.4 F Docusate Sodium (Colace) 100 mg PO BID [facility] Last Admin: 04/23/17 09:35 Dose: 100 mg Enoxaparin Sodium (Lovenox) 40 mg SC DAILY [facility] Last Admin: 04/23/17 09:35 Dose: 40 mg Sodium Chloride (Sodium Chloride 0.9%) 1,000 mls @ 100 mls/hr IV .Q10H [facility] Last Admin: 04/23/17 09:36 Dose: 100 mls/hr Meropenem 1 gm/ Sodium (Chloride) 100 mls @ 100 mls/hr IVPB Q8 [facility] Last Admin: 04/23/17 05:12 Dose: 100 mls/hr Amikacin Sulfate 500 mg/ (Dextrose) 102 mls @ 204 mls/hr IVPB Q12H [facility] Last Admin: 04/23/17 12:49 Dose: 204 mls/hr Morphine Sulfate (Morphine) 1 mg IVP Q4 PRN PRN Reason: Pain, severe (8-10) Last Admin: 04/22/17 23:07 Dose: 1 mg Ondansetron HCl (Zofran Inj) 4 mg IVP Q6H PRN PRN Reason: Nausea/Vomiting Last Admin: 04/23/17 09:38 Dose: 4 mg Pantoprazole Sodium (Protonix Ec Tab) 40 mg PO DAILY [facility] Last Admin: 04/23/17 09:35 Dose: 40 mg - Labs Labs: 04/23/17 06:35 04/23/17 06:31
--- NOTE | 2017-04-23 14:51 | CP.PCM.PN ---
Subjective - Date & Time of Evaluation Date of Evaluation: 04/24/17 Time of Evaluation: 14:00 - Subjective Subjective: Patient was seen and examined in ICU. Patient stated that she is feeling better Flank pain is improving She is status post a stent placement in the right ureter. Objective - Vital Signs/Intake and Output Vital Signs (last 24 hours): Temp Pulse Resp BP Pulse Ox 98.1 F 88 12 106/75 99 04/23/17 12:00 04/23/17 12:00 04/23/17 12:00 04/23/17 12:00 04/23/17 12:00 Intake and Output: 04/23/17 04/23/17 06:59 18:59 Intake Total 2100 750 Output Total 1000 500 Balance 1100 250 - Medications Medications: Current Medications Acetaminophen (Tylenol 325mg Tab) 650 mg PO Q6 PRN PRN Reason: Fever >100.4 F Docusate Sodium (Colace) 100 mg PO BID [facility] Last Admin: 04/23/17 09:35 Dose: 100 mg Enoxaparin Sodium (Lovenox) 40 mg SC DAILY [facility] Last Admin: 04/23/17 09:35 Dose: 40 mg Sodium Chloride (Sodium Chloride 0.9%) 1,000 mls @ 100 mls/hr IV .Q10H [facility] Last Admin: 04/23/17 09:36 Dose: 100 mls/hr Meropenem 1 gm/ Sodium (Chloride) 100 mls @ 100 mls/hr IVPB Q8 [facility] Last Admin: 04/23/17 05:12 Dose: 100 mls/hr Amikacin Sulfate 500 mg/ (Dextrose) 102 mls @ 204 mls/hr IVPB Q12H [facility] Last Admin: 04/23/17 12:49 Dose: 204 mls/hr Morphine Sulfate (Morphine) 1 mg IVP Q4 PRN PRN Reason: Pain, severe (8-10) Last Admin: 04/22/17 23:07 Dose: 1 mg Ondansetron HCl (Zofran Inj) 4 mg IVP Q6H PRN PRN Reason: Nausea/Vomiting Last Admin: 04/23/17 09:38 Dose: 4 mg Pantoprazole Sodium (Protonix Ec Tab) 40 mg PO DAILY [facility] Last Admin: 04/23/17 09:35 Dose: 40 mg - Labs Labs: 04/23/17 06:35 04/23/17 06:31 - Head Exam Head Exam: ATRAUMATIC, NORMOCEPHALIC - Eye Exam Eye Exam: PERRL - ENT Exam ENT Exam: Mucous Membranes Moist - Respiratory Exam Respiratory Exam: Clear to Ausculation Bilateral - Cardiovascular Exam Cardiovascular Exam: REGULAR RHYTHM, +S1, +S2 - GI/Abdominal Exam GI & Abdominal Exam: Soft. absent: Tenderness - Extremities Exam Extremities Exam: absent: Pedal Edema - Neurological Exam Neurological Exam: Alert, Oriented x3 Assessment and Plan (1) Bacteremia Status: Acute (2) Fever Status: Acute (3) Pyelonephritis Status: Acute - Assessment and Plan (Free Text) Plan: Patient has ESBL Escherichia coli bacteremia and Escherichia coli in the urine. Continue amikacin and meropenem as per recommendations of ID Discussed with ID. Once bacteremia is cleared patient can be discharged to home on IV antibiotics Continue current management
[2017-04-24] MEDS: Sodium Chloride 0.9% 1,000 ML IV SCH ×5 (00:30→23:56)
[2017-04-24] MEDS: Amikacin 500 MG in Dextrose 5% In Water 100 ML IVPB SCH ×2 (00:45→12:46)
--- NOTE | 2017-04-24 03:55 | PN ---
DATE: SUBJECTIVE: The patient is afebrile. She is feeling lot better. She is concerned that how long she needs antibiotics and she says she can come back and forth if necessary. Right now, she is on two antibiotics and she does complain of pain on the right side. When she urinates, she has a ureteral stent present at that place and I also told her that she may need to follow with Dr. Newton about the stent when it will be removed or changed, but she needs to continue antibiotics for two weeks. PHYSICAL EXAMINATION: VITAL SIGNS: T-max is 98.6, pulse 80, blood pressure 105/72, and respirations are 20. HEENT: Head is atraumatic and normocephalic today. NECK: Supple. LUNGS: Clear. HEART: S1 and S2 is regular. ABDOMEN: Soft and nontender. Mild right CVA tenderness present. EXTREMITIES: Have no edema, clubbing or cyanosis. LABORATORY DATA: She denied any hematuria in the urine. White count is 6.9 today, hemoglobin 11.3 and the potassium was 3.2 and I am sure she is at the supplements and the magnesium was low too that is being supplemented and micro-ma, the blood cultures came out E. coli, which was ESBL. Repeat cultures and urine culture repeated on 04/22/2017 from the OR is at this time. MRSA is not detected and we are repeating the urine culture, which were repeated this morning will be followed and we will follow. ASSESSMENT AND PLAN: She had Escherichia coli multidrug resistant septicemia with pyelonephritis and it seems to be a resistant Escherichia coli, we will have to find out from the lab if it is sensitive to ertapenem, because that may be the drug, which can be given once a day if finally she gets stable to be discharged. Alice Ling MD
[2017-04-24] MEDS: Meropenem 1 GM in Sodium Chloride 0.9% 100 ML IVPB SCH ×3 (05:10→21:48)
[2017-04-24 06:55] LABS: BASO % 0.6 % (0.0-2.0); EOS # 0.1 K/uL (0.0-0.7); EOS % 1.1 % (0.0-4.0); HEMATOCRIT 34.8 % (34.0-47.0); LYMPH # 0.8 K/uL (1.0-4.3); LYMPH % 15.3 % (20.0-40.0); MEAN CELL VOLUME 89.4 fL (81.0-99.0); MEAN CORPUSCULAR HEMOGLOBIN 30.5 pg (27.0-31.0); MEAN CORPUSCULAR HGB CONC 34.1 g/dL (33.0-37.0); MEAN PLATELET VOLUME 8.5 fL (7.2-11.7); MONO # 0.3 K/uL (0.0-0.8); MONO % 5.6 % (0.0-10.0); NRBC % 0.1 % (0.0-2.0); PLATELET COUNT 321 K/uL (130-400); RED CELL DISTRIBUTION WIDTH 13.1 % (11.5-14.5); WHITE BLOOD COUNT 5.2 K/uL (4.8-10.8)
[2017-04-24 07:05] LABS: ALKALINE PHOSPHATASE 108 U/L (38-126); ALT/SGPT 128 U/L (9-52); AST/SGOT 37 U/L (14-36); BILIRUBIN,TOTAL 0.3 mg/dL (0.2-1.3); BLOOD UREA NITROGEN 11 mg/dL (7-17); CALCIUM 8.5 mg/dl (8.6-10.4); CARBON DIOXIDE 24 mmol/L (22-30); CHLORIDE 104 mmol/L (98-107); GFR AFRICAN-AMERICAN > 60; GLUCOSE,RANDOM 77 mg/dL (65-105); POTASSIUM 3.6 mmol/L (3.6-5.2); SODIUM 138 mmol/L (132-148); TOTAL PROTEIN 5.7 g/dL (6.3-8.3)
[2017-04-24 07:07] LABS: PHOSPHOROUS 2.7 mg/dL (2.5-4.5)
--- NOTE | 2017-04-24 07:25 | CP.PCM.PN ---
<Jany Newman - Last Filed: 04/24/17 12:22> Subjective - Date & Time of Evaluation Date of Evaluation: 04/24/17 Time of Evaluation: 07:00 - Subjective Subjective: Medicine Note for Dr. Whitaker, Patient was seen and examined at bedside. Patient reports she feel much better. She reports she feels pressure on her right sided flank pain s/p cystoscopy and stent placement on 04/22/17. Patient hasn't moved her bowels x 2 days. She ambulates and tolerates her diet well. Denied fever, chills, headache, chest pain, SOB, abdominal pain, n/v/d/c, or dysuria. Objective - Vital Signs/Intake and Output Vital Signs (last 24 hours): Temp Pulse Resp BP Pulse Ox 98.4 F 68 20 106/62 100 04/24/17 04:00 04/24/17 04:00 04/24/17 04:00 04/24/17 04:00 04/23/17 20:00 - Medications Medications: Current Medications Acetaminophen (Tylenol 325mg Tab) 650 mg PO Q6 PRN PRN Reason: Fever >100.4 F Docusate Sodium (Colace) 100 mg PO BID [facility] Last Admin: 04/23/17 17:11 Dose: 100 mg Enoxaparin Sodium (Lovenox) 40 mg SC DAILY [facility] Last Admin: 04/23/17 09:35 Dose: 40 mg Sodium Chloride (Sodium Chloride 0.9%) 1,000 mls @ 100 mls/hr IV .Q10H [facility] Last Admin: 04/24/17 02:45 Dose: Not Given Meropenem 1 gm/ Sodium (Chloride) 100 mls @ 100 mls/hr IVPB Q8 [facility] Last Admin: 04/24/17 05:10 Dose: 100 mls/hr Amikacin Sulfate 500 mg/ (Dextrose) 102 mls @ 204 mls/hr IVPB Q12H [facility] Last Admin: 04/24/17 00:45 Dose: 204 mls/hr Morphine Sulfate (Morphine) 1 mg IVP Q4 PRN PRN Reason: Pain, severe (8-10) Last Admin: 04/22/17 23:07 Dose: 1 mg Ondansetron HCl (Zofran Inj) 4 mg IVP Q6H PRN PRN Reason: Nausea/Vomiting Last Admin: 04/23/17 09:38 Dose: 4 mg Pantoprazole Sodium (Protonix Ec Tab) 40 mg PO DAILY [facility] Last Admin: 04/23/17 09:35 Dose: 40 mg - Labs Labs: 04/24/17 06:40 04/24/17 06:40 - Constitutional Appears: No Acute Distress - Head Exam Head Exam: NORMAL INSPECTION, NORMOCEPHALIC - Eye Exam Eye Exam: EOMI, Normal appearance, PERRL Pupil Exam: NORMAL ACCOMODATION - ENT Exam ENT Exam: Mucous Membranes Moist - Respiratory Exam Respiratory Exam: Clear to Ausculation Bilateral, NORMAL BREATHING PATTERN. absent: Accessory Muscle Use, Decreased Breath Sounds, Wheezes - Cardiovascular Exam Cardiovascular Exam: REGULAR RHYTHM, Rubs, +S1, +S2 - GI/Abdominal Exam GI & Abdominal Exam: Normal Bowel Sounds. absent: Distended, Tenderness - Extremities Exam Extremities Exam: Normal Inspection. absent: Pedal Edema, Tenderness - Back Exam Back Exam: CVA tenderness (R) - Neurological Exam Neurological Exam: Alert, Awake, Oriented x3 - Psychiatric Exam Psychiatric exam: Normal Affect, Normal Mood - Skin Skin Exam: Dry, Intact, Normal Color, Warm Assessment and Plan - Assessment and Plan (Free Text) Plan: Pyelonephritis * SIRS: Febrile, tachycardiac, no leukocytosis, left shift, bandemia, lactate = 0.8 --> 0.6, procal 13.8 * +ESBL on urine culture on 04/16/17 - resistant to Cipro * UA: +3 LE, +1 blood, +2 protein * Urine culture 04/16/17 - ESBL + * Blood culture 04/20/17 - ESBL + * Patient placed on CONTACT PRECAUTIONS * Morphine PRN, Zofran PRN * Urology consulted- Dr. Catie Newton * Repeat Blood and urine cultures on 04/22/17 - negative * S/P CYSTOSCOPY AND R STENT PLACEMENT 04/22/17 * Amikacin Q12H and Meropenem Q8H started on 04/21/17 * Currently on NS @100cc/hr Hx of Pyelonephritis * January 2017 * Patient was DC on cipro and asked to follow up in the [facility] * Repeat Urine culture showed ESBL (+) on 04/16/17 Refractory Hypotension * 2/2 Pyelonephritis * Was transferred to ICU for 3 days * RESOLVED Transaminitis * AST/ALT: 115/143 on admission * Downtrending HLD * Lipid Panel on 01/2017: TG 271 * Started on Crestor 5mg PO QHS Prior studies: * ECHO 01/2017 - LVEF 86%, mild pulm htn, trace AI, trace TR * Abdomen and pelvis PO and IV contrast CT 03/2017: normal bilateral nephrograms , no evidence of cystic or solid mass, hydronephrosis or even pyelonephritis bilaterally. Fatty liver. Small bilateral adnexal cysts. * HGA1C: 5.3- WNL Prophylactic Measures * GI PPX: Protonix 40mg PO daily * DVT PPX: SCDs, Lovenox 40mg SC Daily * Regular Diet * Case Management - for home infusion vs infusion center * Once blood cultures are placed, PICC line will be placed for IV Abx DW Trent Uribe DO, PGY-1 <Jamel Whitaker - Last Filed: 04/24/17 15:07> Objective - Vital Signs/Intake and Output Vital Signs (last 24 hours): Temp Pulse Resp BP Pulse Ox 98.4 F 68 20 106/62 100 04/24/17 04:00 04/24/17 04:00 04/24/17 04:00 04/24/17 04:00 04/23/17 20:00 - Medications Medications: Current Medications Acetaminophen (Tylenol 325mg Tab) 650 mg PO Q6 PRN PRN Reason: Fever >100.4 F Docusate Sodium (Colace) 100 mg PO BID [facility] Last Admin: 04/24/17 09:47 Dose: 100 mg Enoxaparin Sodium (Lovenox) 40 mg SC DAILY [facility] Last Admin: 04/24/17 09:47 Dose: 40 mg Sodium Chloride (Sodium Chloride 0.9%) 1,000 mls @ 100 mls/hr IV .Q10H [facility] Last Admin: 04/24/17 12:45 Dose: 100 mls/hr Meropenem 1 gm/ Sodium (Chloride) 100 mls @ 100 mls/hr IVPB Q8 [facility] Last Admin: 04/24/17 13:29 Dose: 100 mls/hr Amikacin Sulfate 500 mg/ (Dextrose) 102 mls @ 204 mls/hr IVPB Q12H [facility] Last Admin: 04/24/17 12:46 Dose: 204 mls/hr Morphine Sulfate (Morphine) 1 mg IVP Q4 PRN PRN Reason: Pain, severe (8-10) Last Admin: 04/22/17 23:07 Dose: 1 mg Ondansetron HCl (Zofran Inj) 4 mg IVP Q6H PRN PRN Reason: Nausea/Vomiting Last Admin: 04/24/17 08:37 Dose: 4 mg Pantoprazole Sodium (Protonix Ec Tab) 40 mg PO DAILY [facility] Last Admin: 04/24/17 09:47 Dose: 40 mg Rosuvastatin Calcium (Crestor) 5 mg PO HS [facility] - Labs Labs: 04/24/17 06:40 04/24/17 06:40 Assessment and Plan (1) Bacteremia Status: Acute (2) Fever Status: Acute (3) Pyelonephritis Status: Acute Attending/Attestation - Attestation I have personally seen and examined this patient.: Yes I have fully participated in the care of the patient.: Yes I have reviewed all pertinent clinical information, including history, physical exam and plan: Yes Notes (Text): 04/24/17 15:05 Patient was seen and examined at bedside with the resident Patient stated that she is still having right flank pain However patient is afebrile with last 24 hours We will continue IV antibiotics as per recommendations of ID. Patient is on amikacin and meropenem Follow-up repeat blood cultures and urine cultures Patient may need a PICC line for continued antibiotic treatment at home. I discussed the plan of care with the resident and agree with the history and physical and assessment/plan by treatment with the resident.
[2017-04-24] MEDS: Enoxaparin 40 mg Syringe SC SCH (09:47)
[2017-04-24] MEDS: Pantoprazole 40 mg EC Tab PO SCH (09:47)
[2017-04-24] MEDS ORDERED: POLYETHYLENE GLYCOL 3350 17 GM/Dose PACKET PO ONE (10:00)
[2017-04-24 12:22] LABS: EOSINOPHIL 1 % (0-4); METAMYELOCYTE 3 % (0-0); MYELOCYTE 2 % (0-0); NEUTROPHIL 59 % (50-75); NUCLEATED RED BLOOD CELL 1 % (0-0); TOTAL CELLS COUNTED 100
--- NOTE | 2017-04-24 12:39 | PCM.URO ---
Urology Progress Note - General General: No Complaints, Tolerating Diet - Subjective Abdominal Pain: No Flank Pain: No Nausea: No Vomiting: No Voiding Well: Yes Hematuria: No Good Stream: Yes Stone Passed: No Dsypnea: No Chest Pain: No Fever & Chills: No - Objective Lab Studies: Reviewed Lab Results Last 24 Hours: Laboratory Results - last 24 hr 04/24/17 04/24/17 04/24/17 06:40 06:40 06:40 WBC 5.2 RBC 3.89 Hgb 11.9 Hct 34.8 MCV 89.4 MCH 30.5 MCHC 34.1 RDW 13.1 Plt Count 321 MPV 8.5 Neut % (Auto) 77.4 H Lymph % (Auto) 15.3 L [place] % (Auto) 5.6 Eos % (Auto) 1.1 Baso % (Auto) 0.6 Neut # 4.0 Lymph # 0.8 L [place] # 0.3 Eos # 0.1 Baso # 0.0 Neutrophils % (Manual) 59 Band Neutrophils % 9 H Lymphocytes % (Manual) 21 Monocytes % (Manual) 5 Eosinophils % (Manual) 1 Metamyelocytes % 3 H Myelocytes % 2 H Nucleated RBC % 1 H Platelet Estimate Normal RBC Morphology Normal Sodium 138 Potassium 3.6 Chloride 104 Carbon Dioxide 24 Anion Gap 13 BUN 11 Creatinine 0.9 Est GFR ( Amer) > 60 Est GFR (Non-Af Amer) > 60 Random Glucose 77 Calcium 8.5 L Phosphorus 2.7 Magnesium 2.0 Total Bilirubin 0.3 AST 37 H D ALT 128 H D Alkaline Phosphatase 108 Total Protein 5.7 L Albumin 2.8 L Globulin 2.9 Albumin/Globulin Ratio 1.0 Intake & Output: Intake & Output 04/23/17 04/24/17 04/24/17 18:59 06:59 18:59 Intake Total 1550 Output Total 1850 Balance -300 Intake: Intake, IV Amount 1100 Right Antecubital 1100 Proximal Port Oral 450 Output: Urine 1850 Urine, Voided 1850 Vital Signs: Vital Signs - 24 hr 04/23/17 04/23/17 04/23/17 13:00 13:39 14:00 Temperature Pulse Rate 74 72 63 Respiratory 16 15 16 Rate Blood Pressure O2 Sat by Pulse Oximetry 04/23/17 04/23/17 04/23/17 14:39 15:00 15:40 Temperature Pulse Rate 57 L 61 78 Respiratory 12 15 10 L Rate Blood Pressure 97/64 L 107/74 O2 Sat by Pulse Oximetry 04/23/17 04/23/17 04/23/17 16:00 16:39 17:00 Temperature 98.3 F Pulse Rate 66 61 64 Respiratory 14 16 23 Rate Blood Pressure 101/62 101/62 O2 Sat by Pulse Oximetry 04/23/17 04/24/17 04/24/17 20:00 00:00 04:00 Temperature 98.6 F 98.2 F 98.4 F Pulse Rate 80 84 68 Respiratory 20 20 20 Rate Blood Pressure 105/72 110/70 106/62 O2 Sat by Pulse 100 Oximetry - Physical Exam Abdominal Exam: Soft, Non-Tender, Non-Distended Back: No CVA Tenderness Urine Color: Yellow - Plan Additional Information: IMP: STABLE POST CYSTO, STENT INSERTION. porgressing well. Rec: Antibiotic rx. Stent in place. Further urologic rx t/f, i.e. poss ureteroscopy - Date & Time of Note Date: 04/24/17 Time: 11:55
[2017-04-25] MEDS: Sodium Chloride 0.9% 1,000 ML IV SCH ×3 (01:02→19:41)
[2017-04-25] MEDS: Amikacin 500 MG in Dextrose 5% In Water 100 ML IVPB SCH ×2 (01:03→13:33)
[2017-04-25] MEDS: Meropenem 1 GM in Sodium Chloride 0.9% 100 ML IVPB SCH ×3 (05:01→21:05)
[2017-04-25] MEDS: Enoxaparin 40 mg Syringe SC SCH (10:28)
[2017-04-25] MEDS: Pantoprazole 40 mg EC Tab PO SCH (10:28)
--- NOTE | 2017-04-25 13:40 | CP.PCM.PN ---
<Jany Newman - Last Filed: 04/25/17 13:34> Subjective - Date & Time of Evaluation Date of Evaluation: 04/25/17 Time of Evaluation: 07:00 - Subjective Subjective: Medicine Note for Dr. Whitaker, Patient was seen and examined at bedside. Patient reports she feel much better. She reports she feels pressure on her right sided flank pain s/p cystoscopy and stent placement on 04/22/17. She ambulates and tolerates her diet well. Denied fever, chills, headache, chest pain, SOB, abdominal pain, n/v/d/c, hematuria, or dysuria. Objective - Vital Signs/Intake and Output Vital Signs (last 24 hours): Temp Pulse Resp BP Pulse Ox 97.9 F 67 20 100/59 L 98 04/25/17 08:05 04/25/17 08:05 04/25/17 08:05 04/25/17 08:05 04/25/17 08:05 Intake and Output: 04/25/17 04/25/17 06:59 18:59 Intake Total 2380 Output Total 1200 Balance 1180 - Medications Medications: Current Medications Acetaminophen (Tylenol 325mg Tab) 650 mg PO Q6 PRN PRN Reason: Fever >100.4 F Docusate Sodium (Colace) 100 mg PO BID [facility] Last Admin: 04/25/17 10:28 Dose: 100 mg Enoxaparin Sodium (Lovenox) 40 mg SC DAILY [facility] Last Admin: 04/25/17 10:28 Dose: 40 mg Sodium Chloride (Sodium Chloride 0.9%) 1,000 mls @ 100 mls/hr IV .Q10H [facility] Last Admin: 04/25/17 13:32 Dose: 100 mls/hr Amikacin Sulfate 500 mg/ (Dextrose) 102 mls @ 204 mls/hr IVPB Q12H [facility] Last Admin: 04/25/17 13:33 Dose: 204 mls/hr Ertapenem 1 gm/ Sodium (Chloride) 100 mls @ 100 mls/hr IVPB ONCE ONE Stop: 04/29/17 10:59 Meropenem 1 gm/ Sodium (Chloride) 100 mls @ 100 mls/hr IVPB Q8 [facility] Stop: 04/28/17 14:01 Morphine Sulfate (Morphine) 1 mg IVP Q4 PRN PRN Reason: Pain, severe (8-10) Last Admin: 04/24/17 17:05 Dose: 1 mg Ondansetron HCl (Zofran Inj) 4 mg IVP Q6H PRN PRN Reason: Nausea/Vomiting Last Admin: 04/24/17 08:37 Dose: 4 mg Pantoprazole Sodium (Protonix Ec Tab) 40 mg PO DAILY [facility] Last Admin: 04/25/17 10:28 Dose: 40 mg Rosuvastatin Calcium (Crestor) 5 mg PO HS [facility] Last Admin: 04/24/17 21:47 Dose: 5 mg - Labs Labs: 04/24/17 06:40 04/24/17 06:40 - Constitutional Appears: No Acute Distress - Head Exam Head Exam: NORMAL INSPECTION, NORMOCEPHALIC - Eye Exam Eye Exam: EOMI, Normal appearance, PERRL Pupil Exam: NORMAL ACCOMODATION - ENT Exam ENT Exam: Mucous Membranes Moist - Respiratory Exam Respiratory Exam: NORMAL BREATHING PATTERN. absent: Clear to Ausculation Bilateral - Cardiovascular Exam Cardiovascular Exam: REGULAR RHYTHM, RRR, +S1, +S2 - GI/Abdominal Exam GI & Abdominal Exam: Soft, Normal Bowel Sounds. absent: Tenderness - Back Exam Back Exam: CVA tenderness (R) - Neurological Exam Neurological Exam: Alert, Awake, Oriented x3 - Skin Skin Exam: Dry, Intact, Normal Color, Warm Assessment and Plan - Assessment and Plan (Free Text) Plan: Pyelonephritis * SIRS: Febrile, tachycardiac, no leukocytosis, left shift, bandemia, lactate = 0.8 --> 0.6, procal 13.8 * +ESBL on urine culture on 04/16/17 - resistant to Cipro * UA: +3 LE, +1 blood, +2 protein * Urine culture 04/16/17 - ESBL + * Blood culture 04/20/17 - ESBL + * Patient placed on CONTACT PRECAUTIONS * Morphine PRN, Zofran PRN * Urology consulted- Dr. Catie Newton * Repeat Blood and urine cultures on 04/22/17, 04/23/17 - negative * S/P CYSTOSCOPY AND R STENT PLACEMENT 04/22/17 * Amikacin Q12H and Meropenem Q8H started on 04/21/17 * Currently on NS @100cc/hr Plan for PICC line placement tomorrow. Arrangements are made for patient to go to the infusion center here at [facility]. However they are closed during the weekend. As per Dr. Ling patient can get 1st time dose of Ertapenem (Invanz) on DAY OF DISCHARGE (most likely 04/29/17). And continue a 10 day course after discharge. Hx of Pyelonephritis * January 2017 * Patient was DC on cipro and asked to follow up in the [facility] * Repeat Urine culture showed ESBL (+) on 04/16/17 Transaminitis * AST/ALT: 115/143 on admission * Downtrending HLD * Lipid Panel on 01/2017: TG 271 * Started on Crestor 5mg PO QHS Refractory Hypotension * 2/2 Pyelonephritis * Was transferred to ICU for 3 days * RESOLVED Prior studies: * ECHO 01/2017 - LVEF 86%, mild pulm htn, trace AI, trace TR * Abdomen and pelvis PO and IV contrast CT 03/2017: normal bilateral nephrograms , no evidence of cystic or solid mass, hydronephrosis or even pyelonephritis bilaterally. Fatty liver. Small bilateral adnexal cysts. * HGA1C: 5.3- WNL Prophylactic Measures * GI PPX: Protonix 40mg PO daily * DVT PPX: SCDs, Lovenox 40mg SC Daily * Regular Diet * Case Management - for home infusion vs infusion center * Once blood cultures are placed, PICC line will be placed for IV Abx DW Trent Uribe DO, PGY-1 <Jamel Whitaker M - Last Filed: 04/25/17 17:33> Objective - Vital Signs/Intake and Output Vital Signs (last 24 hours): Temp Pulse Resp BP Pulse Ox 97.7 F 77 20 100/66 98 04/25/17 15:22 04/25/17 15:22 04/25/17 15:22 04/25/17 15:22 04/25/17 15:22 Intake and Output: 04/25/17 04/25/17 06:59 18:59 Intake Total 2380 Output Total 1200 Balance 1180 - Medications Medications: Current Medications Acetaminophen (Tylenol 325mg Tab) 650 mg PO Q6 PRN PRN Reason: Fever >100.4 F Docusate Sodium (Colace) 100 mg PO BID [facility] Last Admin: 04/25/17 17:07 Dose: 100 mg Enoxaparin Sodium (Lovenox) 40 mg SC DAILY [facility] Last Admin: 04/25/17 10:28 Dose: 40 mg Sodium Chloride (Sodium Chloride 0.9%) 1,000 mls @ 100 mls/hr IV .Q10H [facility] Last Admin: 04/25/17 13:32 Dose: 100 mls/hr Ertapenem 1 gm/ Sodium (Chloride) 100 mls @ 100 mls/hr IVPB ONCE ONE Stop: 04/29/17 10:59 Meropenem 1 gm/ Sodium (Chloride) 100 mls @ 100 mls/hr IVPB Q8 [facility] Stop: 04/28/17 14:01 Last Admin: 04/25/17 15:03 Dose: 100 mls/hr Morphine Sulfate (Morphine) 1 mg IVP Q4 PRN PRN Reason: Pain, severe (8-10) Last Admin: 04/24/17 17:05 Dose: 1 mg Ondansetron HCl (Zofran Inj) 4 mg IVP Q6H PRN PRN Reason: Nausea/Vomiting Last Admin: 04/25/17 15:06 Dose: 4 mg Pantoprazole Sodium (Protonix Ec Tab) 40 mg PO DAILY [facility] Last Admin: 04/25/17 10:28 Dose: 40 mg Rosuvastatin Calcium (Crestor) 5 mg PO HS [facility] Last Admin: 04/24/17 21:47 Dose: 5 mg - Labs Labs: 04/24/17 06:40 04/24/17 06:40 Assessment and Plan (1) Bacteremia Status: Acute (2) Fever Status: Acute (3) Pyelonephritis Status: Acute Attending/Attestation - Attestation I have personally seen and examined this patient.: Yes I have fully participated in the care of the patient.: Yes I have reviewed all pertinent clinical information, including history, physical exam and plan: Yes Notes (Text): 04/25/17 17:32 Patient was seen and examined at bedside with the resident States that she is feeling better but still has some right flank pain Continue IV antibiotics and plan for PICC line placement in the morning and then continue IV antibiotics at home discussed the plan of care with the resident and agree with the assessment and plan documented above.
[2017-04-25] MEDS ORDERED: Meropenem 1 GM in Sodium Chloride 0.9% 100 ML IVPB SCH (14:00)
--- NOTE | 2017-04-25 15:34 | CP.PCM.PN ---
Subjective - Date & Time of Evaluation Date of Evaluation: 04/25/17 Time of Evaluation: 02:00 - Subjective Subjective: dictated Objective - Vital Signs/Intake and Output Vital Signs (last 24 hours): Temp Pulse Resp BP Pulse Ox 97.7 F 77 20 100/66 98 04/25/17 15:22 04/25/17 15:22 04/25/17 15:22 04/25/17 15:22 04/25/17 15:22 Intake and Output: 04/25/17 04/25/17 06:59 18:59 Intake Total 2380 Output Total 1200 Balance 1180 - Medications Medications: Current Medications Acetaminophen (Tylenol 325mg Tab) 650 mg PO Q6 PRN PRN Reason: Fever >100.4 F Docusate Sodium (Colace) 100 mg PO BID [facility] Last Admin: 04/25/17 10:28 Dose: 100 mg Enoxaparin Sodium (Lovenox) 40 mg SC DAILY [facility] Last Admin: 04/25/17 10:28 Dose: 40 mg Sodium Chloride (Sodium Chloride 0.9%) 1,000 mls @ 100 mls/hr IV .Q10H [facility] Last Admin: 04/25/17 13:32 Dose: 100 mls/hr Amikacin Sulfate 500 mg/ (Dextrose) 102 mls @ 204 mls/hr IVPB Q12H [facility] Last Admin: 04/25/17 13:33 Dose: 204 mls/hr Ertapenem 1 gm/ Sodium (Chloride) 100 mls @ 100 mls/hr IVPB ONCE ONE Stop: 04/29/17 10:59 Meropenem 1 gm/ Sodium (Chloride) 100 mls @ 100 mls/hr IVPB Q8 [facility] Stop: 04/28/17 14:01 Last Admin: 04/25/17 15:03 Dose: 100 mls/hr Morphine Sulfate (Morphine) 1 mg IVP Q4 PRN PRN Reason: Pain, severe (8-10) Last Admin: 04/24/17 17:05 Dose: 1 mg Ondansetron HCl (Zofran Inj) 4 mg IVP Q6H PRN PRN Reason: Nausea/Vomiting Last Admin: 04/25/17 15:06 Dose: 4 mg Pantoprazole Sodium (Protonix Ec Tab) 40 mg PO DAILY [facility] Last Admin: 04/25/17 10:28 Dose: 40 mg Rosuvastatin Calcium (Crestor) 5 mg PO HS [facility] Last Admin: 04/24/17 21:47 Dose: 5 mg - Labs Labs: 04/24/17 06:40 04/24/17 06:40
[2017-04-26] MEDS: Sodium Chloride 0.9% 1,000 ML IV SCH ×3 (03:05→18:32)
[2017-04-26] MEDS: Meropenem 1 GM in Sodium Chloride 0.9% 100 ML IVPB SCH ×3 (06:00→21:21)
[2017-04-26 08:26] LABS: BASO % 0.7 % (0.0-2.0); EOS # 0.1 K/uL (0.0-0.7); EOS % 1.5 % (0.0-4.0); HEMATOCRIT 33.2 % (34.0-47.0); LYMPH # 1.1 K/uL (1.0-4.3); LYMPH % 16.1 % (20.0-40.0); MEAN CELL VOLUME 90.2 fL (81.0-99.0); MEAN CORPUSCULAR HEMOGLOBIN 30.6 pg (27.0-31.0); MEAN PLATELET VOLUME 7.8 fL (7.2-11.7); MONO # 0.3 K/uL (0.0-0.8); MONO % 4.1 % (0.0-10.0); NRBC % 0.1 % (0.0-2.0); PLATELET COUNT 329 K/uL (130-400); RED CELL DISTRIBUTION WIDTH 12.6 % (11.5-14.5); WHITE BLOOD COUNT 6.9 K/uL (4.8-10.8)
[2017-04-26 08:31] LABS: CHLORIDE 105 mmol/L (98-107); SODIUM 140 mmol/L (132-148)
[2017-04-26 08:32] LABS: POTASSIUM 3.9 mmol/L (3.6-5.2)
[2017-04-26 08:34] LABS: ALB/GLOB RATIO 0.8 (1.0-2.1); ALKALINE PHOSPHATASE 85 U/L (38-126); AST/SGOT 23 U/L (14-36); BILIRUBIN,TOTAL 0.5 mg/dL (0.2-1.3); BLOOD UREA NITROGEN 12 mg/dL (7-17); CARBON DIOXIDE 25 mmol/L (22-30); GFR AFRICAN-AMERICAN > 60; GLUCOSE,RANDOM 83 mg/dL (65-105); TOTAL PROTEIN 5.7 g/dL (6.3-8.3)
[2017-04-26 08:35] LABS: ALT/SGPT 75 U/L (9-52); CALCIUM 8.4 mg/dl (8.6-10.4)
[2017-04-26] MEDS: Pantoprazole 40 mg EC Tab PO SCH (09:20)
[2017-04-26] MEDS: Enoxaparin 40 mg Syringe SC SCH (09:20)
--- NOTE | 2017-04-26 09:57 | CP.PCM.PN ---
Subjective - Date & Time of Evaluation Date of Evaluation: 04/26/17 Time of Evaluation: 09:56 - Subjective Subjective: ORDERED PICC LINE INSERTION TODAY FOR POOR IV ACCESS AND IV ABX. DISCUSSED BENEFITS AND RISKS WITH PT AND SHE VERBALIZES UNDERSTANDING. CONSENT SIGNED WITH WATCH AND CLOCK REPAIRER, PT AND PRIMARY RN, [place]. NO OTHER ORDERS. Objective - Vital Signs/Intake and Output Vital Signs (last 24 hours): Temp Pulse Resp BP Pulse Ox 98.5 F 72 20 93/58 L 95 04/25/17 23:25 04/25/17 23:25 04/25/17 23:25 04/25/17 23:25 04/25/17 23:25 Intake and Output: 04/26/17 04/26/17 06:59 18:59 Intake Total 1200 Balance 1200 - Medications Medications: Current Medications Acetaminophen (Tylenol 325mg Tab) 650 mg PO Q6 PRN PRN Reason: Fever >100.4 F Docusate Sodium (Colace) 100 mg PO BID [facility] Last Admin: 04/26/17 09:20 Dose: 100 mg Enoxaparin Sodium (Lovenox) 40 mg SC DAILY [facility] Last Admin: 04/26/17 09:20 Dose: 40 mg Sodium Chloride (Sodium Chloride 0.9%) 1,000 mls @ 100 mls/hr IV .Q10H [facility] Last Admin: 04/26/17 04:01 Dose: Not Given Ertapenem 1 gm/ Sodium (Chloride) 100 mls @ 100 mls/hr IVPB ONCE ONE Stop: 04/29/17 10:59 Meropenem 1 gm/ Sodium (Chloride) 100 mls @ 100 mls/hr IVPB Q8 [facility] Stop: 04/28/17 14:01 Last Admin: 04/26/17 06:00 Dose: 100 mls/hr Morphine Sulfate (Morphine) 1 mg IVP Q4 PRN PRN Reason: Pain, severe (8-10) Last Admin: 04/24/17 17:05 Dose: 1 mg Ondansetron HCl (Zofran Inj) 4 mg IVP Q6H PRN PRN Reason: Nausea/Vomiting Last Admin: 04/25/17 15:06 Dose: 4 mg Pantoprazole Sodium (Protonix Ec Tab) 40 mg PO DAILY [facility] Last Admin: 04/26/17 09:20 Dose: 40 mg Rosuvastatin Calcium (Crestor) 5 mg PO HS [facility] Last Admin: 04/25/17 21:05 Dose: 5 mg - Labs Labs: 04/26/17 08:17 04/26/17 08:17
[2017-04-26 09:59] LABS: EOSINOPHIL 2 % (0-4); METAMYELOCYTE 4 % (0-0); MYELOCYTE 5 % (0-0); NEUTROPHIL 55 % (50-75); PROMYELOCYTE 1 % (0-0); REACTIVE LYMPHOCYTES 4 % (0-0); TOTAL CELLS COUNTED 100
--- NOTE | 2017-04-26 11:18 | PN ---
DATE: SUBJECTIVE: The patient is feeling better. She still has pain in the right flank. She does have a stent placement. She denies any dysuria. Denies fevers, chills, or any nausea or vomiting. She does have back pain. PHYSICAL EXAMINATION: VITAL SIGNS: Stable. T-max is 97.7, pulse 77. She does complain of some nausea. Blood pressure is 100/66, respirations are 20. HEENT: Atraumatic, normocephalic. NECK: Supple. LUNGS: Clear. No crackles or rales present. HEART: S1 and S2 is regular. ABDOMEN: Soft, nontender. No guarding, no rigidity present. She has mild right CVA tenderness present. EXTREMITIES: Have no edema, clubbing, or cyanosis. LABORATORY DATA: White count is 5.2. BUN is 11, creatinine 0.90. Her liver enzymes are mildly elevated and microwise blood culture done are negative. Urine culture is negative. ASSESSMENT AND PLAN: They will plan to get her home and she was admitted on antibiotics from the , today is the 6th day and she needs a PICC line and she will need antibiotics for 10 days within 1 gram a day. We would be doing that from tomorrow and she can have it after they put a PICC line and PICC line has been ordered. Echo was unremarkable. Alice Ling MD
--- NOTE | 2017-04-26 11:54 | RAD ---
HISTORY: verify right PICC COMPARISON: 04/20/2017 FINDINGS: LUNGS: No active pulmonary disease. PLEURA: New right PICC catheter terminating at the level of the cavoatrial junction. CARDIOVASCULAR: Normal. OSSEOUS STRUCTURES: No significant abnormalities. VISUALIZED UPPER ABDOMEN: Normal. OTHER FINDINGS: None. IMPRESSION: New right PICC catheter terminating at the level of the cavoatrial junction. Otherwise unremarkable examination.
--- NOTE | 2017-04-26 16:34 | CP.PCM.PN ---
Subjective - Date & Time of Evaluation Date of Evaluation: 04/26/17 Time of Evaluation: 04:00 - Subjective Subjective: dictated Objective - Vital Signs/Intake and Output Vital Signs (last 24 hours): Temp Pulse Resp BP Pulse Ox 98.2 F 73 20 90/60 L 96 04/26/17 15:38 04/26/17 15:38 04/26/17 15:38 04/26/17 15:38 04/26/17 15:38 Intake and Output: 04/26/17 04/26/17 06:59 18:59 Intake Total 1200 Balance 1200 - Medications Medications: Current Medications Acetaminophen (Tylenol 325mg Tab) 650 mg PO Q6 PRN PRN Reason: Fever >100.4 F Docusate Sodium (Colace) 100 mg PO BID [facility] Last Admin: 04/26/17 09:20 Dose: 100 mg Enoxaparin Sodium (Lovenox) 40 mg SC DAILY [facility] Last Admin: 04/26/17 09:20 Dose: 40 mg Ertapenem 1 gm/ Sodium (Chloride) 100 mls @ 100 mls/hr IVPB ONCE ONE Stop: 04/29/17 10:59 Meropenem 1 gm/ Sodium (Chloride) 100 mls @ 100 mls/hr IVPB Q8 [facility] Stop: 04/28/17 14:01 Last Admin: 04/26/17 13:50 Dose: 100 mls/hr Morphine Sulfate (Morphine) 1 mg IVP Q4 PRN PRN Reason: Pain, severe (8-10) Last Admin: 04/24/17 17:05 Dose: 1 mg Ondansetron HCl (Zofran Inj) 4 mg IVP Q6H PRN PRN Reason: Nausea/Vomiting Last Admin: 04/25/17 15:06 Dose: 4 mg Pantoprazole Sodium (Protonix Ec Tab) 40 mg PO DAILY [facility] Last Admin: 04/26/17 09:20 Dose: 40 mg Rosuvastatin Calcium (Crestor) 5 mg PO HS [facility] Last Admin: 04/25/17 21:05 Dose: 5 mg - Labs Labs: 04/26/17 08:17 04/26/17 08:17
--- NOTE | 2017-04-26 22:34 | CP.PCM.PN ---
<Shaw Pukcett - Last Filed: 04/26/17 22:19> Subjective - Date & Time of Evaluation Date of Evaluation: 04/26/17 Time of Evaluation: 09:00 - Subjective Subjective: PGY-[address] Carl Whitaker Patient seen and examined at bedside. Patient reports tenderness around site of PICC line placement. Patient still experiencing dysuria. Patient denies, fevers , chills, headache, dizziness, chest pain, SOB, abdominal pain, n/v/c/d. Objective - Vital Signs/Intake and Output Vital Signs (last 24 hours): Temp Pulse Resp BP Pulse Ox 98.2 F 73 20 90/60 L 96 04/26/17 15:38 04/26/17 15:38 04/26/17 15:38 04/26/17 15:38 04/26/17 15:38 Intake and Output: 04/26/17 04/27/17 18:59 06:59 Intake Total 1300 Balance 1300 - Medications Medications: Current Medications Acetaminophen (Tylenol 325mg Tab) 650 mg PO Q6 PRN PRN Reason: Fever >100.4 F Docusate Sodium (Colace) 100 mg PO BID [facility] Last Admin: 04/26/17 18:31 Dose: 100 mg Enoxaparin Sodium (Lovenox) 40 mg SC DAILY [facility] Last Admin: 04/26/17 09:20 Dose: 40 mg Ertapenem 1 gm/ Sodium (Chloride) 100 mls @ 100 mls/hr IVPB ONCE ONE Stop: 04/29/17 10:59 Meropenem 1 gm/ Sodium (Chloride) 100 mls @ 100 mls/hr IVPB Q8 [facility] Stop: 04/28/17 14:01 Last Admin: 04/26/17 21:21 Dose: 100 mls/hr Morphine Sulfate (Morphine) 1 mg IVP Q4 PRN PRN Reason: Pain, severe (8-10) Last Admin: 04/24/17 17:05 Dose: 1 mg Ondansetron HCl (Zofran Inj) 4 mg IVP Q6H PRN PRN Reason: Nausea/Vomiting Last Admin: 04/25/17 15:06 Dose: 4 mg Pantoprazole Sodium (Protonix Ec Tab) 40 mg PO DAILY [facility] Last Admin: 04/26/17 09:20 Dose: 40 mg Rosuvastatin Calcium (Crestor) 5 mg PO HS [facility] Last Admin: 04/26/17 21:21 Dose: 5 mg - Labs Labs: 04/26/17 08:17 04/26/17 08:17 - Constitutional Appears: No Acute Distress - Head Exam Head Exam: ATRAUMATIC, NORMAL INSPECTION, NORMOCEPHALIC - Eye Exam Eye Exam: EOMI, PERRL - ENT Exam ENT Exam: Mucous Membranes Moist - Respiratory Exam Respiratory Exam: Clear to Ausculation Bilateral. absent: Rales, Rhonchi, Wheezes - Cardiovascular Exam Cardiovascular Exam: REGULAR RHYTHM, +S1, +S2 - GI/Abdominal Exam GI & Abdominal Exam: Soft, Normal Bowel Sounds. absent: Tenderness Additional comments: Suprapubic tenderness - Extremities Exam Extremities Exam: absent: Pedal Edema, Tenderness Additional comments: PICC line right arm - Back Exam Back Exam: CVA tenderness (R) - Neurological Exam Neurological Exam: Alert, Awake, Oriented x3 - Skin Skin Exam: Dry, Intact, Normal Color, Warm Assessment and Plan - Assessment and Plan (Free Text) Plan: Pyelonephritis * SIRS: Febrile, tachycardiac, no leukocytosis, left shift, bandemia, lactate = 0.8 --> 0.6, procal 13.8 * +ESBL on urine culture on 04/16/17 - resistant to Cipro * UA: +3 LE, +1 blood, +2 protein * Urine culture 04/16/17 - ESBL + * Blood culture 04/20/17 - ESBL + * Patient placed on CONTACT PRECAUTIONS * Morphine PRN, Zofran PRN * Urology consulted- Dr. Catie Newton * Repeat Blood and urine cultures on 04/22/17, 04/23/17 - negative * S/P CYSTOSCOPY AND R STENT PLACEMENT 04/22/17 * Amikacin Q12H and Meropenem Q8H started on 04/21/17 * Currently on NS @100cc/hr PICC placed 04/26. Arrangements are made for patient to go to the infusion center here at [facility]. However they are closed during the weekend. As per Dr. Ling patient can get 1st time dose of Ertapenem (Invanz) on DAY OF DISCHARGE (planned for Saturday04/28/17). And continue a 10 day course after discharge. Hx of Pyelonephritis * January 2017 * Patient was DC on cipro and asked to follow up in the [facility] * Repeat Urine culture showed ESBL (+) on 04/16/17 Transaminitis * AST/ALT: 115/143 on admission * Downtrending HLD * Lipid Panel on 01/2017: TG 271 * Started on Crestor 5mg PO QHS Refractory Hypotension * 2/2 Pyelonephritis * Was transferred to ICU for 3 days * RESOLVED Prior studies: * ECHO 01/2017 - LVEF 86%, mild pulm htn, trace AI, trace TR * Abdomen and pelvis PO and IV contrast CT 03/2017: normal bilateral nephrograms , no evidence of cystic or solid mass, hydronephrosis or even pyelonephritis bilaterally. Fatty liver. Small bilateral adnexal cysts. * HGA1C: 5.3- WNL Prophylactic Measures * GI PPX: Protonix 40mg PO daily * DVT PPX: SCDs, Lovenox 40mg SC Daily * Regular Diet * Case Management - for home infusion vs infusion center * PICC in place DW Dr. Julianne Puckett PGY1 <Jamel Whitaker - Last Filed: 04/27/17 10:15> Objective - Vital Signs/Intake and Output Vital Signs (last 24 hours): Temp Pulse Resp BP Pulse Ox 98.1 F 68 20 96/63 L 96 04/27/17 08:29 04/27/17 08:29 04/27/17 08:29 04/27/17 08:29 04/27/17 08:29 Intake and Output: 04/27/17 04/27/17 06:59 18:59 Intake Total 1200 Balance 1200 - Medications Medications: Current Medications Acetaminophen (Tylenol 325mg Tab) 650 mg PO Q6 PRN PRN Reason: Fever >100.4 F Docusate Sodium (Colace) 100 mg PO BID [facility] Last Admin: 04/26/17 18:31 Dose: 100 mg Enoxaparin Sodium (Lovenox) 40 mg SC DAILY [facility] Last Admin: 04/26/17 09:20 Dose: 40 mg Meropenem 1 gm/ Sodium (Chloride) 100 mls @ 100 mls/hr IVPB Q8 [facility] Stop: 04/28/17 14:01 Last Admin: 04/27/17 05:16 Dose: 100 mls/hr Ertapenem 1 gm/ Sodium (Chloride) 100 mls @ 100 mls/hr IVPB ONCE ONE Stop: 04/28/17 10:59 Sodium Chloride (Sodium Chloride 0.9%) 1,000 mls @ 100 mls/hr IV .Q10H [facility] Last Admin: 04/27/17 00:24 Dose: 100 mls/hr Morphine Sulfate (Morphine) 1 mg IVP Q4 PRN PRN Reason: Pain, severe (8-10) Last Admin: 04/24/17 17:05 Dose: 1 mg Ondansetron HCl (Zofran Inj) 4 mg IVP Q6H PRN PRN Reason: Nausea/Vomiting Last Admin: 04/25/17 15:06 Dose: 4 mg Pantoprazole Sodium (Protonix Ec Tab) 40 mg PO DAILY [facility] Last Admin: 04/26/17 09:20 Dose: 40 mg Rosuvastatin Calcium (Crestor) 5 mg PO HS [facility] Last Admin: 04/26/17 21:21 Dose: 5 mg - Labs Labs: 04/27/17 07:38 04/27/17 07:38 Assessment and Plan (1) Bacteremia Status: Acute (2) Fever Status: Acute (3) Pyelonephritis Status: Acute Attending/Attestation - Attestation I have personally seen and examined this patient.: Yes I have fully participated in the care of the patient.: Yes I have reviewed all pertinent clinical information, including history, physical exam and plan: Yes Notes (Text): 04/27/17 10:14 Patient was seen and examined at bedside with the resident Patient still complains of mild right flank pain but states it is significantly improved We will continue IV antibiotics Discharge planning likely on Saturday. I discussed the plan of care with the resident and agree with the assessment and plan documented
[2017-04-27] MEDS: Sodium Chloride 0.9% 1,000 ML IV SCH ×4 (00:24→21:28)
--- NOTE | 2017-04-27 00:32 | CP.PCM.PN ---
<Elliot Newmanrina - Last Filed: 04/27/17 00:24> Subjective - Date & Time of Evaluation Date of Evaluation: 04/27/17 Time of Evaluation: 07:00 - Subjective Subjective: Medicine Note for Dr. Whitaker Patient was seen and examined at bedside. She reports she feels pressure on her right sided flank pain s/p cystoscopy and stent placement on 04/22/17. Patient is sleeping and resting well. Denied fever, chills, headache, chest pain, SOB, abdominal pain, n/v/d/c, hematuria, or dysuria. Objective - Vital Signs/Intake and Output Vital Signs (last 24 hours): Temp Pulse Resp BP Pulse Ox 98.2 F 73 20 90/60 L 96 04/26/17 15:38 04/26/17 15:38 04/26/17 15:38 04/26/17 15:38 04/26/17 15:38 Intake and Output: 04/26/17 04/27/17 18:59 06:59 Intake Total 1300 1200 Balance 1300 1200 - Medications Medications: Current Medications Acetaminophen (Tylenol 325mg Tab) 650 mg PO Q6 PRN PRN Reason: Fever >100.4 F Docusate Sodium (Colace) 100 mg PO BID [facility] Last Admin: 04/26/17 18:31 Dose: 100 mg Enoxaparin Sodium (Lovenox) 40 mg SC DAILY [facility] Last Admin: 04/26/17 09:20 Dose: 40 mg Meropenem 1 gm/ Sodium (Chloride) 100 mls @ 100 mls/hr IVPB Q8 [facility] Stop: 04/28/17 14:01 Last Admin: 04/26/17 21:21 Dose: 100 mls/hr Ertapenem 1 gm/ Sodium (Chloride) 100 mls @ 100 mls/hr IVPB ONCE ONE Stop: 04/28/17 10:59 Sodium Chloride (Sodium Chloride 0.9%) 1,000 mls @ 100 mls/hr IV .Q10H [facility] Morphine Sulfate (Morphine) 1 mg IVP Q4 PRN PRN Reason: Pain, severe (8-10) Last Admin: 04/24/17 17:05 Dose: 1 mg Ondansetron HCl (Zofran Inj) 4 mg IVP Q6H PRN PRN Reason: Nausea/Vomiting Last Admin: 04/25/17 15:06 Dose: 4 mg Pantoprazole Sodium (Protonix Ec Tab) 40 mg PO DAILY [facility] Last Admin: 04/26/17 09:20 Dose: 40 mg Rosuvastatin Calcium (Crestor) 5 mg PO HS [facility] Last Admin: 04/26/17 21:21 Dose: 5 mg - Labs Labs: 04/26/17 08:17 04/26/17 08:17 - Constitutional Appears: No Acute Distress - Head Exam Head Exam: NORMAL INSPECTION, NORMOCEPHALIC - Eye Exam Eye Exam: EOMI, Normal appearance, PERRL Pupil Exam: NORMAL ACCOMODATION - ENT Exam ENT Exam: Mucous Membranes Moist, Normal Exam - Respiratory Exam Respiratory Exam: Clear to Ausculation Bilateral, NORMAL BREATHING PATTERN. absent: Decreased Breath Sounds, Wheezes - Cardiovascular Exam Cardiovascular Exam: REGULAR RHYTHM, RRR, +S1, +S2 - GI/Abdominal Exam GI & Abdominal Exam: Soft, Normal Bowel Sounds. absent: Distended, Tenderness - Extremities Exam Extremities Exam: Normal Inspection. absent: Pedal Edema, Tenderness Additional comments: RIGHT ARM PICC LINE - Neurological Exam Neurological Exam: Alert, Awake, Oriented x3 - Psychiatric Exam Psychiatric exam: Normal Affect, Normal Mood - Skin Skin Exam: Dry, Intact, Normal Color, Warm Assessment and Plan - Assessment and Plan (Free Text) Plan: Pyelonephritis * SIRS: Febrile, tachycardiac, no leukocytosis, left shift, bandemia, lactate = 0.8 --> 0.6, procal 13.8 * +ESBL on urine culture on 04/16/17 - resistant to Cipro * UA: +3 LE, +1 blood, +2 protein * Urine culture 04/16/17 - ESBL + * Blood culture 04/20/17 - ESBL + * Patient placed on CONTACT PRECAUTIONS * Morphine PRN, Zofran PRN * Urology consulted- Dr. Catie Newton * Repeat Blood and urine cultures on 04/22/17, 04/23/17 - negative * S/P CYSTOSCOPY AND R STENT PLACEMENT 04/22/17 * Amikacin Q12H and Meropenem Q8H started on 04/21/17 * Currently on NS @100cc/hr PICC placed 04/26/17 Arrangements are made for patient to go to the infusion center here at [place]. However they are closed during the weekend. As per Dr. Ling patient can get 1st time dose of Ertapenem (Invanz) on DAY OF DISCHARGE (most likely 04/28/17). And continue a 10 day course after discharge. Clarifications need to be made with Dr. Ling and the infusion center. Since the center is closed on weekends, where will the patient go to have the weekend doses administered? Hx of Pyelonephritis * January 2017 * Patient was DC on cipro and asked to follow up in the [facility] * Repeat Urine culture showed ESBL (+) on 04/16/17 Transaminitis * AST/ALT: 115/143 on admission * Downtrending HLD * Lipid Panel on 01/2017: TG 271 * Started on Crestor 5mg PO QHS Refractory Hypotension * 2/2 Pyelonephritis * Was transferred to ICU for 3 days * RESOLVED Prior studies: * ECHO 01/2017 - LVEF 86%, mild pulm htn, trace AI, trace TR * Abdomen and pelvis PO and IV contrast CT 03/2017: normal bilateral nephrograms , no evidence of cystic or solid mass, hydronephrosis or even pyelonephritis bilaterally. Fatty liver. Small bilateral adnexal cysts. * HGA1C: 5.3- WNL Prophylactic Measures * GI PPX: Protonix 40mg PO daily * DVT PPX: SCDs, Lovenox 40mg SC Daily * Regular Diet * Case Management - Infusion center arrangements made for patient DW Trent Uribe DO, PGY-1 <Jamel Whitaker - Last Filed: 04/27/17 15:58> Objective - Vital Signs/Intake and Output Vital Signs (last 24 hours): Temp Pulse Resp BP Pulse Ox 98.1 F 68 20 96/63 L 96 04/27/17 08:29 04/27/17 08:29 04/27/17 08:29 04/27/17 08:29 04/27/17 08:29 Intake and Output: 04/27/17 04/27/17 06:59 18:59 Intake Total 1200 Balance 1200 - Medications Medications: Current Medications Acetaminophen (Tylenol 325mg Tab) 650 mg PO Q6 PRN PRN Reason: Fever >100.4 F Docusate Sodium (Colace) 100 mg PO BID [facility] Last Admin: 04/27/17 10:36 Dose: 100 mg Enoxaparin Sodium (Lovenox) 40 mg SC DAILY [facility] Last Admin: 04/27/17 10:35 Dose: 40 mg Meropenem 1 gm/ Sodium (Chloride) 100 mls @ 100 mls/hr IVPB Q8 [facility] Stop: 04/28/17 14:01 Last Admin: 04/27/17 13:12 Dose: 100 mls/hr Ertapenem 1 gm/ Sodium (Chloride) 100 mls @ 100 mls/hr IVPB ONCE ONE Stop: 04/28/17 10:59 Sodium Chloride (Sodium Chloride 0.9%) 1,000 mls @ 100 mls/hr IV .Q10H [facility] Last Admin: 04/27/17 09:45 Dose: Not Given Morphine Sulfate (Morphine) 1 mg IVP Q4 PRN PRN Reason: Pain, severe (8-10) Last Admin: 04/24/17 17:05 Dose: 1 mg Ondansetron HCl (Zofran Inj) 4 mg IVP Q6H PRN PRN Reason: Nausea/Vomiting Last Admin: 04/25/17 15:06 Dose: 4 mg Pantoprazole Sodium (Protonix Ec Tab) 40 mg PO DAILY [facility] Last Admin: 04/27/17 10:36 Dose: 40 mg Rosuvastatin Calcium (Crestor) 5 mg PO HS [facility] Last Admin: 04/26/17 21:21 Dose: 5 mg - Labs Labs: 04/27/17 07:38 04/27/17 07:38 Assessment and Plan (1) Bacteremia Status: Acute (2) Fever Status: Acute (3) Pyelonephritis Status: Acute Attending/Attestation - Attestation I have personally seen and examined this patient.: Yes I have fully participated in the care of the patient.: Yes I have reviewed all pertinent clinical information, including history, physical exam and plan: Yes Notes (Text): 04/27/17 15:57 Patient was seen and examined at bedside and stent patient stated that she is feeling better and the flank pain is improved We will continue IV antibiotics patient is currently on meropenem. Patient will be started on ertapenem tomorrow and then discharge to home Patient will come to the infusion center daily for completing the antibiotic treatment Discussed the plan of care with the resident and agree with the assessment and plan documented above.
--- NOTE | 2017-04-27 02:51 | PN ---
DATE: SUBJECTIVE: The patient was seen today. She denied any pain. Only pain she has is when she goes to the bathroom for *-voiding---gets back pain on right side CVA--* and she had PICC line inserted and is still on IV antibiotics and she only has pain when she goes to pee again, so we will repeat the urine culture. PHYSICAL EXAMINATION: VITAL SIGNS: Temperature is 98, pulse 72, respirations are 20, blood pressure is 90/60. HEENT: Head is atraumatic. NECK: Supple. LUNGS: Clear. HEART: S1, S2, regular. ABDOMEN: Soft and nontender. No guarding and no rigidity present. EXTREMITIES: Have no edema, clubbing, or cyanosis. She did get the PICC line, but remains with a low blood pressure. LABORATORY DATA: White count is 6.9 and chemistry shows creatinine is 1. She is status post *------* hydronephrosis and UTI with ESBL and on Saturday, we will decide about if she can get IV antibiotics as outpatient. IMP: Patient is gram negative septicemia with s/p stent with need to complete course of iv antibiotics for ESBL infection Alice Ling MD Dictation: 04/26/2017 21:04:22 MTDD
[2017-04-27] MEDS: Meropenem 1 GM in Sodium Chloride 0.9% 100 ML IVPB SCH ×3 (05:16→21:04)
--- NOTE | 2017-04-27 05:25 | OP ---
PROCEDURE DATE: 04/22/2017 The procedure was performed under video endoscopic control as well as under fluoroscopic control. PREOPERATIVE DIAGNOSES: Urinary tract infection. Urosepsis. Right hydronephrosis. POSTOPERATIVE DIAGNOSES: Urinary tract infection. Urosepsis. Right hydronephrosis. Possible right distal ureteral stricture. Cystitis and lymphofollicularis. PROCEDURES: Cystoscopy. Bilateral retrograde pyelogram. Insertion of right ureteral stent. Exam under anesthesia. OPERATING SURGEON: Dr. Catie Newton. DESCRIPTION OF PROCEDURE: The patient was placed in lithotomy position. Packing Line Worker film of the abdomen was obtained. Sedation was provided by the anesthesiologist. A 22-Filipino cystoscope sheath was introduced with obturator. The urine within the bladder was approximately 100 mL in volume. Urine was sent back to urologic examination. The bladder was inspected with 30-degree and 70-degree lenses. There was diffuse moderate cystitis. There was cystitis and lymphofollicularis throughout the body. There was no bladder tumor. There was mild bladder trabeculation. There was no bladder stone. There was no bladder diverticulum. The ureteral orifices demonstrated mild inflammation and edema as was demonstrated within the remainder of the trabecula and the bladder. Occlusive tip retrograde ureteropyelogram was performed. Iodinated contrast instilled via cone tipped catheter into the right ureteral orifice. Urine in the kidney was viewed sequentially. There was noted to be a narrowing in the distal ureter, approximately 3 cm above the needle orifice. There was [id number] hydroureteronephrosis involving the ureter as well as involving the kidney. There was no stone identified. The 0.035-inch guidewire was inserted into the ureteral orifice up to level of kidney. A 6-Filipino multi-length stent was inserted over the guidewire. Proper stent position was confirmed with fluoroscopy and endoscopy. The guidewire was removed and the stent was left in place. Left retrograde ureteropyelogram was performed. Iodinated contrast then was instilled. Left retrograde ureteropyelogram demonstrated normal collecting system and ureter. There was good drainage noted on the post drainage film. There was also improved drainage from the right kidney with the stent in place. The bladder was drained, cystoscope sheath was removed. Exam under anesthesia was performed. There was no abnormal pelvic mass fixation or induration. The patient was returned to the supine position. The patient tolerated the procedure without complication. Catie Newton MD [facility] # [id number]
[2017-04-27 07:51] LABS: BASO # 0.1 K/uL (0.0-0.2); BASO % 0.9 % (0.0-2.0); EOS # 0.1 K/uL (0.0-0.7); EOS % 1.4 % (0.0-4.0); HEMATOCRIT 34.7 % (34.0-47.0); LYMPH # 1.3 K/uL (1.0-4.3); LYMPH % 18.9 % (20.0-40.0); MEAN CORPUSCULAR HEMOGLOBIN 30.6 pg (27.0-31.0); MEAN CORPUSCULAR HGB CONC 33.6 g/dL (33.0-37.0); MONO # 0.2 K/uL (0.0-0.8); MONO % 3.6 % (0.0-10.0); RED CELL DISTRIBUTION WIDTH 12.7 % (11.5-14.5); WHITE BLOOD COUNT 6.7 K/uL (4.8-10.8)
[2017-04-27 08:26] LABS: CHLORIDE 106 mmol/L (98-107)
[2017-04-27 08:27] LABS: POTASSIUM 4.2 mmol/L (3.6-5.2); SODIUM 140 mmol/L (132-148)
[2017-04-27 08:29] LABS: ALB/GLOB RATIO 0.9 (1.0-2.1); ALKALINE PHOSPHATASE 85 U/L (38-126); AST/SGOT 32 U/L (14-36); BILIRUBIN,TOTAL 0.5 mg/dL (0.2-1.3); BLOOD UREA NITROGEN 12 mg/dL (7-17); CARBON DIOXIDE 25 mmol/L (22-30); GFR AFRICAN-AMERICAN > 60; GLUCOSE,RANDOM 78 mg/dL (65-105); TOTAL PROTEIN 5.9 g/dL (6.3-8.3)
[2017-04-27 08:30] LABS: ALT/SGPT 72 U/L (9-52); CALCIUM 8.7 mg/dl (8.6-10.4)
[2017-04-27] MEDS: Enoxaparin 40 mg Syringe SC SCH (10:35)
[2017-04-27] MEDS: Pantoprazole 40 mg EC Tab PO SCH (10:36)
--- NOTE | 2017-04-27 18:13 | CP.PCM.PN ---
Subjective - Date & Time of Evaluation Date of Evaluation: 04/27/17 Time of Evaluation: 03:00 - Subjective Subjective: dictated Objective - Vital Signs/Intake and Output Vital Signs (last 24 hours): Temp Pulse Resp BP Pulse Ox 97.8 F 81 18 87/53 L 99 04/27/17 16:00 04/27/17 16:00 04/27/17 16:00 04/27/17 16:00 04/27/17 16:00 Intake and Output: 04/27/17 04/27/17 06:59 18:59 Intake Total 1200 Balance 1200 - Medications Medications: Current Medications Acetaminophen (Tylenol 325mg Tab) 650 mg PO Q6 PRN PRN Reason: Fever >100.4 F Docusate Sodium (Colace) 100 mg PO BID [facility] Last Admin: 04/27/17 17:25 Dose: 100 mg Enoxaparin Sodium (Lovenox) 40 mg SC DAILY [facility] Last Admin: 04/27/17 10:35 Dose: 40 mg Meropenem 1 gm/ Sodium (Chloride) 100 mls @ 100 mls/hr IVPB Q8 [facility] Stop: 04/28/17 14:01 Last Admin: 04/27/17 13:12 Dose: 100 mls/hr Ertapenem 1 gm/ Sodium (Chloride) 100 mls @ 100 mls/hr IVPB ONCE ONE Stop: 04/28/17 10:59 Sodium Chloride (Sodium Chloride 0.9%) 1,000 mls @ 100 mls/hr IV .Q10H [facility] Last Admin: 04/27/17 09:45 Dose: Not Given Morphine Sulfate (Morphine) 1 mg IVP Q4 PRN PRN Reason: Pain, severe (8-10) Last Admin: 04/24/17 17:05 Dose: 1 mg Ondansetron HCl (Zofran Inj) 4 mg IVP Q6H PRN PRN Reason: Nausea/Vomiting Last Admin: 04/25/17 15:06 Dose: 4 mg Pantoprazole Sodium (Protonix Ec Tab) 40 mg PO DAILY [facility] Last Admin: 04/27/17 10:36 Dose: 40 mg Rosuvastatin Calcium (Crestor) 5 mg PO HS [facility] Last Admin: 04/26/17 21:21 Dose: 5 mg - Labs Labs: 04/27/17 07:38 04/27/17 07:38
--- NOTE | 2017-04-28 01:15 | CP.PCM.PN ---
<Yohan Newmana - Last Filed: 04/28/17 01:14> Subjective - Date & Time of Evaluation Date of Evaluation: 04/28/17 Time of Evaluation: 01:00 - Subjective Subjective: Medicine Note for Dr. Whitaker Patient was seen and examined at bedside. She reports she feels pressure on her right sided flank pain s/p cystoscopy and stent placement on 04/22/17. Patient is sleeping and resting well. Denied fever, chills, headache, chest pain, SOB, abdominal pain, n/v/d/c, hematuria, or dysuria. Objective - Vital Signs/Intake and Output Vital Signs (last 24 hours): Temp Pulse Resp BP Pulse Ox 98 F 68 20 101/65 99 04/28/17 00:40 04/28/17 00:40 04/28/17 00:40 04/28/17 00:40 04/28/17 00:40 Intake and Output: 04/27/17 04/28/17 18:59 06:59 Intake Total 1300 Balance 1300 - Medications Medications: Current Medications Acetaminophen (Tylenol 325mg Tab) 650 mg PO Q6 PRN PRN Reason: Fever >100.4 F Docusate Sodium (Colace) 100 mg PO BID [facility] Last Admin: 04/27/17 17:25 Dose: 100 mg Enoxaparin Sodium (Lovenox) 40 mg SC DAILY [facility] Last Admin: 04/27/17 10:35 Dose: 40 mg Meropenem 1 gm/ Sodium (Chloride) 100 mls @ 100 mls/hr IVPB Q8 [facility] Stop: 04/28/17 14:01 Last Admin: 04/27/17 21:04 Dose: 100 mls/hr Ertapenem 1 gm/ Sodium (Chloride) 100 mls @ 100 mls/hr IVPB ONCE ONE Stop: 04/28/17 10:59 Sodium Chloride (Sodium Chloride 0.9%) 1,000 mls @ 100 mls/hr IV .Q10H [facility] Last Admin: 04/27/17 21:28 Dose: Not Given Morphine Sulfate (Morphine) 1 mg IVP Q4 PRN PRN Reason: Pain, severe (8-10) Last Admin: 04/24/17 17:05 Dose: 1 mg Ondansetron HCl (Zofran Inj) 4 mg IVP Q6H PRN PRN Reason: Nausea/Vomiting Last Admin: 04/25/17 15:06 Dose: 4 mg Pantoprazole Sodium (Protonix Ec Tab) 40 mg PO DAILY [facility] Last Admin: 04/27/17 10:36 Dose: 40 mg Rosuvastatin Calcium (Crestor) 5 mg PO HS [facility] Last Admin: 04/27/17 21:04 Dose: 5 mg - Labs Labs: 04/27/17 07:38 04/27/17 07:38 - Constitutional Appears: No Acute Distress - Head Exam Head Exam: NORMAL INSPECTION, NORMOCEPHALIC - Eye Exam Eye Exam: EOMI, Normal appearance, PERRL Pupil Exam: NORMAL ACCOMODATION - ENT Exam ENT Exam: Mucous Membranes Moist, Normal Exam - Respiratory Exam Respiratory Exam: Clear to Ausculation Bilateral, NORMAL BREATHING PATTERN. absent: Wheezes - Cardiovascular Exam Cardiovascular Exam: REGULAR RHYTHM, RRR - GI/Abdominal Exam GI & Abdominal Exam: Soft, Normal Bowel Sounds. absent: Distended, Tenderness - Extremities Exam Extremities Exam: Normal Inspection. absent: Pedal Edema, Tenderness Additional comments: RIGHT ARM PICC - Neurological Exam Neurological Exam: Alert, Awake, Oriented x3 - Psychiatric Exam Psychiatric exam: Normal Affect, Normal Mood - Skin Skin Exam: Dry, Intact, Normal Color, Warm Assessment and Plan - Assessment and Plan (Free Text) Plan: Pyelonephritis * SIRS: Febrile, tachycardiac, no leukocytosis, left shift, bandemia, lactate = 0.8 --> 0.6, procal 13.8 * +ESBL on urine culture on 04/16/17 - resistant to Cipro * UA: +3 LE, +1 blood, +2 protein * Urine culture 04/16/17 - ESBL + * Blood culture 04/20/17 - ESBL + * Patient placed on CONTACT PRECAUTIONS * Morphine PRN, Zofran PRN * Urology consulted- Dr. Catie Newton * Repeat Blood and urine cultures on 04/22/17, 04/23/17 - negative * S/P CYSTOSCOPY AND R STENT PLACEMENT 04/22/17 * Amikacin Q12H and Meropenem Q8H started on 04/21/17 * Currently on NS @100cc/hr PICC placed 04/26/17 Arrangements are made for patient to go to the infusion center here at [place]. However they are closed during the weekend. As per Dr. Ling patient can get 1st time dose of Ertapenem (Invanz) on DAY OF DISCHARGE (most likely 04/28/17). And continue a 10 day course after discharge. Clarifications need to be made with Dr. Ling and the infusion center. Since the center is closed on weekends, where will the patient go to have the weekend doses administered? Hx of Pyelonephritis * January 2017 * Patient was DC on cipro and asked to follow up in the [facility] * Repeat Urine culture showed ESBL (+) on 04/16/17 Transaminitis * AST/ALT: 115/143 on admission * Downtrending HLD * Lipid Panel on 01/2017: TG 271 * Started on Crestor 5mg PO QHS Refractory Hypotension * 2/2 Pyelonephritis * Was transferred to ICU for 3 days * RESOLVED Prior studies: * ECHO 01/2017 - LVEF 86%, mild pulm htn, trace AI, trace TR * Abdomen and pelvis PO and IV contrast CT 03/2017: normal bilateral nephrograms , no evidence of cystic or solid mass, hydronephrosis or even pyelonephritis bilaterally. Fatty liver. Small bilateral adnexal cysts. * HGA1C: 5.3- WNL Prophylactic Measures * GI PPX: Protonix 40mg PO daily * DVT PPX: SCDs, Lovenox 40mg SC Daily * Regular Diet * Case Management - Infusion center arrangements made for patient DW Trent Uribe DO, PGY-1 <Jamel Whitaker - Last Filed: 04/28/17 15:08> Objective - Vital Signs/Intake and Output Vital Signs (last 24 hours): Temp Pulse Resp BP Pulse Ox 97.9 F 57 L 20 112/72 97 04/28/17 08:00 04/28/17 08:00 04/28/17 08:00 04/28/17 08:00 04/28/17 08:00 Intake and Output: 04/28/17 04/28/17 06:59 18:59 Intake Total 2220 Balance 2220 - Medications Medications: Current Medications Acetaminophen (Tylenol 325mg Tab) 650 mg PO Q6 PRN PRN Reason: Fever >100.4 F Docusate Sodium (Colace) 100 mg PO BID [facility] Last Admin: 04/28/17 10:36 Dose: 100 mg Sodium Chloride (Sodium Chloride 0.9%) 1,000 mls @ 100 mls/hr IV .Q10H [facility] Last Admin: 04/28/17 05:07 Dose: Not Given Morphine Sulfate (Morphine) 1 mg IVP Q4 PRN PRN Reason: Pain, severe (8-10) Last Admin: 04/24/17 17:05 Dose: 1 mg Ondansetron HCl (Zofran Inj) 4 mg IVP Q6H PRN PRN Reason: Nausea/Vomiting Last Admin: 04/25/17 15:06 Dose: 4 mg Pantoprazole Sodium (Protonix Ec Tab) 40 mg PO DAILY [facility] Last Admin: 04/28/17 10:36 Dose: 40 mg Rosuvastatin Calcium (Crestor) 5 mg PO HS [facility] Last Admin: 04/27/17 21:04 Dose: 5 mg - Labs Labs: 04/28/17 08:32 04/28/17 08:32 Assessment and Plan (1) Bacteremia Status: Acute (2) Fever Status: Acute (3) Pyelonephritis Status: Acute Attending/Attestation - Attestation I have personally seen and examined this patient.: Yes I have fully participated in the care of the patient.: Yes I have reviewed all pertinent clinical information, including history, physical exam and plan: Yes Notes (Text): 04/28/17 15:06 Patient was seen and examined at bedside with the resident Patient still complains of for mild discomfort in the right flank Labs noted. Bands have increased today. We will hold the discharge. Continue IV antibiotics. Patient is on Invanz. We'll discharge the patient if the patient remains afebrile and if the bands and down. Arrangements have already been made for outpatient IV infusion for the patient I discussed the plan of care with the resident and agree with the assessment and plan documented.
[2017-04-28] MEDS: Sodium Chloride 0.9% 1,000 ML IV SCH ×2 (03:27→05:07)
[2017-04-28] MEDS: Meropenem 1 GM in Sodium Chloride 0.9% 100 ML IVPB SCH (05:01)
--- NOTE | 2017-04-28 06:12 | PN ---
INFECTIOUS DISEASE FOLLOWUP SUBJECTIVE: The patient still continues to feel bad on the right side status post cystoscopy and she had a stent placement. She did yesterday complain of dysuria. I am going to order urine culture as I think I meant to order it yesterday. She is going to get ertapenem on 04/28/2017 and she is going to finish meropenem that day so that she can it get as an outpatient and right now, I would order a urine culture just to be sure. PHYSICAL EXAMINATION: VITAL SIGNS: The patient remains afebrile. Vitals are stable. LUNGS: Clear. HEART: S1, S2 is regular. ABDOMEN: Soft, nontender, mild CVA tenderness remains on the right side. Otherwise, she is improving. PLAN: She will be getting antibiotics as an outpatient, and she came in with ESBL septicemia with UTI and is improving. Alice Ling MD
[2017-04-28 08:59] LABS: BASO % 0.8 % (0.0-2.0); EOS # 0.1 K/uL (0.0-0.7); EOS % 1.8 % (0.0-4.0); HEMATOCRIT 31.1 % (34.0-47.0); LYMPH # 1.2 K/uL (1.0-4.3); LYMPH % 22.1 % (20.0-40.0); MEAN CELL VOLUME 91.3 fL (81.0-99.0); MONO # 0.4 K/uL (0.0-0.8); MONO % 7.2 % (0.0-10.0); NRBC % 0.1 % (0.0-2.0); PLATELET COUNT 301 K/uL (130-400); RED CELL DISTRIBUTION WIDTH 12.9 % (11.5-14.5); WHITE BLOOD COUNT 5.4 K/uL (4.8-10.8)
[2017-04-28 09:15] LABS: CHLORIDE 106 mmol/L (98-107)
[2017-04-28 09:16] LABS: POTASSIUM 3.9 mmol/L (3.6-5.2); SODIUM 139 mmol/L (132-148)
[2017-04-28 09:18] LABS: ALB/GLOB RATIO 0.9 (1.0-2.1); ALKALINE PHOSPHATASE 98 U/L (38-126); AST/SGOT 33 U/L (14-36); BILIRUBIN,TOTAL 0.5 mg/dL (0.2-1.3); CARBON DIOXIDE 25 mmol/L (22-30); GFR AFRICAN-AMERICAN > 60; TOTAL PROTEIN 5.6 g/dL (6.3-8.3)
[2017-04-28 09:19] LABS: ALT/SGPT 70 U/L (9-52); BLOOD UREA NITROGEN 16 mg/dL (7-17); CALCIUM 8.5 mg/dl (8.6-10.4); GLUCOSE,RANDOM 78 mg/dL (65-105)
[2017-04-28] MEDS: Pantoprazole 40 mg EC Tab PO SCH (10:36)
[2017-04-28] MEDS: Enoxaparin 40 mg Syringe SC SCH (10:36)
[2017-04-28 11:17] LABS: METAMYELOCYTE 1 % (0-0); NEUTROPHIL 58 % (50-75); TOTAL CELLS COUNTED 100
[2017-04-29] MEDS: Sodium Chloride 0.9% 1,000 ML IV SCH ×4 (02:00→22:47)
--- NOTE | 2017-04-29 05:56 | CON ---
DATE: 04/22/2017 UROLOGY CONSULTATION Consultation requested by Dr. Griffin Pickett and Dr. Kathy Means. HISTORY OF PRESENT ILLNESS: The patient is a 36-year-old female in the ICU. The patient is currently admitted for recurrent urinary tract infection and urosepsis. The patient presented to the emergency room on 04/20/2017. The patient presented with a fever. She was found to have leukocytosis with leukophilia. The patient has hypotension. She was treated with hydration, transferred to the ICU. The patient receives steroids as well. The patient has history of abdominal pain and back pain. The patient has history of previous pyelonephritis, which required admission to the hospital several months ago. The patient was treated as an outpatient with oral antibiotics more recently; however, she not improved. She presented to the emergency room with fever to 102 degrees Fahrenheit. The patient reports that she voids with good urinary stream. She has occasional dysuria. No hematuria, The patient has abdominal pain. The patient has flank pain. The patient also has rigors. The patient reports no history of urolithiasis. The patient has been treated in the ICU for the past 2 days. The patient was found to have right-sided hydronephrosis. The patient has history of previous x2. The patient has a history of previous vaginal delivery x1. THE PATIENT HAS HISTORY OF PENICILLIN ALLERGY. The patient has required dopamine for her hypotension. She also has required fluids. MEDICATIONS: Included antibiotic therapy including amikacin and meropenem. The patient had elevation of white blood count of 7000-12,000, BUN 12, creatinine 1.0. PHYSICAL EXAMINATION: GENERAL: The patient is well-developed, well-nourished, middle-aged female. The patient is awake and alert. ABDOMEN: Soft, nondistended. There is mild right-sided abdominal tenderness. BACK: No CVA tenderness. LABORATORY DATA: See attached reports. CT scan revealed right hydronephrosis. There is no definite cause for the obstruction. There is no identified. IMPRESSION: Recurrent urinary tract infection, urosepsis, right hydronephrosis, history of section. The etiology of the infection may be related to the hydronephrosis. Hydronephrosis may be related to obstruction. Also possible hydronephrosis secondary to vesicoureteral reflux. RECOMMENDATIONS AND PLAN: Continue antibiotic therapy. We will discuss with the patient regarding possible cystoscopy and stent insertion. Further therapy to follow according to the patient's clinical course. Thank you for recommending the patient for Urology consultation. Catie Newton MD cc: MD HARLEY Nguyen, (Patient)
[2017-04-29 07:27] LABS: BASO % 0.7 % (0.0-2.0); EOS # 0.1 K/uL (0.0-0.7); EOS % 1.9 % (0.0-4.0); HEMATOCRIT 32.6 % (34.0-47.0); LYMPH # 1.4 K/uL (1.0-4.3); LYMPH % 26.3 % (20.0-40.0); MEAN CELL VOLUME 91.4 fL (81.0-99.0); MEAN CORPUSCULAR HEMOGLOBIN 30.6 pg (27.0-31.0); MEAN CORPUSCULAR HGB CONC 33.4 g/dL (33.0-37.0); MEAN PLATELET VOLUME 8.4 fL (7.2-11.7); MONO # 0.4 K/uL (0.0-0.8); MONO % 6.9 % (0.0-10.0); NRBC % 0.1 % (0.0-2.0); RED CELL DISTRIBUTION WIDTH 12.6 % (11.5-14.5); WHITE BLOOD COUNT 5.2 K/uL (4.8-10.8)
[2017-04-29 07:44] LABS: CHLORIDE 106 mmol/L (98-107)
[2017-04-29 07:45] LABS: POTASSIUM 4.1 mmol/L (3.6-5.2); SODIUM 138 mmol/L (132-148)
[2017-04-29 07:47] LABS: ALB/GLOB RATIO 0.9 (1.0-2.1); ALKALINE PHOSPHATASE 94 U/L (38-126); ALT/SGPT 64 U/L (9-52); AST/SGOT 32 U/L (14-36); BILIRUBIN,TOTAL 0.5 mg/dL (0.2-1.3); BLOOD UREA NITROGEN 14 mg/dL (7-17); CARBON DIOXIDE 24 mmol/L (22-30); GFR AFRICAN-AMERICAN > 60; GLUCOSE,RANDOM 77 mg/dL (65-105)
[2017-04-29 07:48] LABS: CALCIUM 8.7 mg/dl (8.6-10.4); MAGNESIUM 1.9 mg/dL (1.6-2.3); PHOSPHOROUS 2.7 mg/dL (2.5-4.5)
[2017-04-29] MEDS: Pantoprazole 40 mg EC Tab PO SCH (10:31)
--- NOTE | 2017-04-29 14:35 | CP.PCM.PN ---
<Yohan Newmana - Last Filed: 04/29/17 14:30> Subjective - Date & Time of Evaluation Date of Evaluation: 04/29/17 Time of Evaluation: 07:00 - Subjective Subjective: Medicine Note for Dr. Whitaker Patient was seen and examined at bedside. She reports she feels pressure on her right sided flank pain s/p cystoscopy and stent placement on 04/22/17. Patient feels well. States she feels some right sided flank pain. Denied fever, chills, headache, chest pain, SOB, abdominal pain, n/v/d/c, hematuria, or dysuria. Objective - Vital Signs/Intake and Output Vital Signs (last 24 hours): Temp Pulse Resp BP Pulse Ox 97.8 F 64 20 86/54 L 99 04/29/17 09:45 04/29/17 09:45 04/29/17 09:45 04/29/17 09:45 04/29/17 09:45 Intake and Output: 04/29/17 04/29/17 06:59 18:59 Intake Total 1600 Balance 1600 - Medications Medications: Current Medications Acetaminophen (Tylenol 325mg Tab) 650 mg PO Q6 PRN PRN Reason: Fever >100.4 F Docusate Sodium (Colace) 100 mg PO BID [facility] Last Admin: 04/29/17 10:31 Dose: 100 mg Sodium Chloride (Sodium Chloride 0.9%) 1,000 mls @ 100 mls/hr IV .Q10H [facility] Last Admin: 04/29/17 13:40 Dose: 100 mls/hr Ketorolac Tromethamine (Toradol) 30 mg IVP Q6 PRN PRN Reason: Pain, moderate (4-7) Ondansetron HCl (Zofran Inj) 4 mg IVP Q6H PRN PRN Reason: Nausea/Vomiting Last Admin: 04/25/17 15:06 Dose: 4 mg Pantoprazole Sodium (Protonix Ec Tab) 40 mg PO DAILY [facility] Last Admin: 04/29/17 10:31 Dose: 40 mg Rosuvastatin Calcium (Crestor) 5 mg PO HS [facility] Last Admin: 04/28/17 21:32 Dose: 5 mg - Labs Labs: 04/29/17 07:07 04/29/17 07:07 - Constitutional Appears: No Acute Distress - Head Exam Head Exam: NORMAL INSPECTION, NORMOCEPHALIC - Eye Exam Eye Exam: EOMI, Normal appearance, PERRL Pupil Exam: NORMAL ACCOMODATION - ENT Exam ENT Exam: Mucous Membranes Moist - Respiratory Exam Respiratory Exam: Clear to Ausculation Bilateral, NORMAL BREATHING PATTERN. absent: Wheezes - Cardiovascular Exam Cardiovascular Exam: REGULAR RHYTHM, RRR, +S1, +S2 - GI/Abdominal Exam GI & Abdominal Exam: Soft, Normal Bowel Sounds. absent: Distended, Tenderness - Extremities Exam Extremities Exam: Normal Inspection. absent: Pedal Edema, Tenderness - Back Exam Back Exam: CVA tenderness (R) - Neurological Exam Neurological Exam: Alert, Awake, Oriented x3 - Psychiatric Exam Psychiatric exam: Normal Affect, Normal Mood - Skin Skin Exam: Dry, Intact, Normal Color, Warm Assessment and Plan - Assessment and Plan (Free Text) Plan: Disposition: Patient received Invanz on 04/28, 04/29, and will receive final dose tomorrow 04/30. She will then be discharged and required to have 7 more days of Invanz. Patient was no discharged yesterday or today due to continued bandemia. Plan for discharged tomorrow. Pyelonephritis * SIRS: Febrile, tachycardiac, no leukocytosis, left shift, bandemia, lactate = 0.8 --> 0.6, procal 13.8 * +ESBL on urine culture on 04/16/17 - resistant to Cipro * UA: +3 LE, +1 blood, +2 protein * Urine culture 04/16/17 - ESBL + * Blood culture 04/20/17 - ESBL + * Patient placed on CONTACT PRECAUTIONS * Morphine PRN, Zofran PRN * Urology consulted- Dr. Catie Newton * Repeat Blood and urine cultures on 04/22/17, 04/23/17 - negative * S/P CYSTOSCOPY AND R STENT PLACEMENT 04/22/17 * Amikacin Q12H and Meropenem Q8H started on 04/21/17 * Currently on NS @100cc/hr PICC placed 04/26/17 Arrangements are made for patient to go to the infusion center here at [facility]. Patient received Invanz on 04/28, 04/29, and will receive final dose tomorrow . She will then be discharged and required to have 7 more days of Invanz. Hx of Pyelonephritis * January 2017 * Patient was DC on cipro and asked to follow up in the [facility] * Repeat Urine culture showed ESBL (+) on 04/16/17 Transaminitis * AST/ALT: 115/143 on admission * Downtrending HLD * Lipid Panel on 01/2017: TG 271 * Started on Crestor 5mg PO QHS Refractory Hypotension * 2/2 Pyelonephritis * Was transferred to ICU for 3 days * RESOLVED Prior studies: * ECHO 01/2017 - LVEF 86%, mild pulm htn, trace AI, trace TR * Abdomen and pelvis PO and IV contrast CT 03/2017: normal bilateral nephrograms , no evidence of cystic or solid mass, hydronephrosis or even pyelonephritis bilaterally. Fatty liver. Small bilateral adnexal cysts. * HGA1C: 5.3- WNL Prophylactic Measures * GI PPX: Protonix 40mg PO daily * DVT PPX: SCDs, Lovenox 40mg SC Daily * Regular Diet * Case Management - Infusion center arrangements made for patient DW Trent Higginbotham DO, PGY-1 <Griffin Pickett H - Last Filed: 04/29/17 15:20> Objective - Vital Signs/Intake and Output Vital Signs (last 24 hours): Temp Pulse Resp BP Pulse Ox 97.8 F 64 20 86/54 L 99 04/29/17 09:45 04/29/17 09:45 04/29/17 09:45 04/29/17 09:45 04/29/17 09:45 Intake and Output: 04/29/17 04/29/17 06:59 18:59 Intake Total 1600 Balance 1600 - Medications Medications: Current Medications Acetaminophen (Tylenol 325mg Tab) 650 mg PO Q6 PRN PRN Reason: Pain, Mild (1-3) Docusate Sodium (Colace) 100 mg PO BID [facility] Last Admin: 04/29/17 10:31 Dose: 100 mg Sodium Chloride (Sodium Chloride 0.9%) 1,000 mls @ 100 mls/hr IV .Q10H [facility] Last Admin: 04/29/17 13:40 Dose: 100 mls/hr Meropenem 1 gm/ Sodium (Chloride) 100 mls @ 100 mls/hr IVPB Q8 [facility] Ketorolac Tromethamine (Toradol) 30 mg IVP Q6 PRN PRN Reason: Pain, moderate (4-7) Ondansetron HCl (Zofran Inj) 4 mg IVP Q6H PRN PRN Reason: Nausea/Vomiting Last Admin: 04/25/17 15:06 Dose: 4 mg Pantoprazole Sodium (Protonix Ec Tab) 40 mg PO DAILY [facility] Last Admin: 04/29/17 10:31 Dose: 40 mg Rosuvastatin Calcium (Crestor) 5 mg PO HS [facility] Last Admin: 04/28/17 21:32 Dose: 5 mg - Labs Labs: 04/29/17 07:07 04/29/17 07:07 Attending/Attestation - Attestation I have personally seen and examined this patient.: Yes I have fully participated in the care of the patient.: Yes I have reviewed all pertinent clinical information, including history, physical exam and plan: Yes Notes (Text): Medical attending: Patient was seen and examined by me, agrees the above note by medical director of hospice. The patient was with family members present at bedside translation was given via the help of medical director of hospice. The patient does report feeling significantly better since the previous time of seen her. As mentioned previously she patient had cultures positive in both the blood in the urine for ESBL positive Escherichia coli. It is sensitive to Primaxin as well as amikacin. The patient's white blood cell count has decreased, however as of yesterday she still has very significant bandemia noted. Hopefully she'll be able to discharge tomorrow. Today she is reported feeling fine she had some right lower quadrant pain with palpation however she said dose of very mild. Thank you very much, Griffin Pickett
--- NOTE | 2017-04-29 16:56 | PCM.URO ---
Urology Progress Note - Objective Lab Results Last 24 Hours: Laboratory Results - last 24 hr 04/29/17 04/29/17 07:07 07:07 WBC 5.2 RBC 3.56 L Hgb 10.9 L Hct 32.6 L MCV 91.4 MCH 30.6 MCHC 33.4 RDW 12.6 Plt Count 286 MPV 8.4 Neut % (Auto) 64.2 Lymph % (Auto) 26.3 [place] % (Auto) 6.9 Eos % (Auto) 1.9 Baso % (Auto) 0.7 Neut # 3.4 Lymph # 1.4 [place] # 0.4 Eos # 0.1 Baso # 0.0 Sodium 138 Potassium 4.1 Chloride 106 Carbon Dioxide 24 Anion Gap 12 BUN 14 Creatinine 0.9 Est GFR ( Amer) > 60 Est GFR (Non-Af Amer) > 60 Random Glucose 77 Calcium 8.7 Phosphorus 2.7 Magnesium 1.9 Total Bilirubin 0.5 AST 32 ALT 64 H Alkaline Phosphatase 94 Total Protein 6.0 L Albumin 2.9 L Globulin 3.1 Albumin/Globulin Ratio 0.9 L Intake & Output: Intake & Output 04/28/17 04/29/17 04/29/17 18:59 06:59 18:59 Intake Total 1560 1600 1250 Balance 1560 1600 1250 Intake: Intake, IV Amount 800 1600 800 Right Antecubital 800 1600 800 Proximal Port Oral 760 450 Other: # Voids Urine, Voided 6 4 # Bowel Movements 2 0 Vital Signs: Vital Signs - 24 hr 04/28/17 04/29/17 04/29/17 23:19 09:45 16:00 Temperature 97.9 F 97.8 F 98.4 F Pulse Rate 70 64 75 Respiratory 18 20 20 Rate Blood Pressure 90/54 L 86/54 L 90/58 L O2 Sat by Pulse 97 99 100 Oximetry
[2017-04-29] MEDS: Meropenem 1 GM in Sodium Chloride 0.9% 100 ML IVPB SCH ×2 (17:54→22:43)
--- NOTE | 2017-04-29 19:59 | CP.PCM.PN ---
Subjective - Date & Time of Evaluation Date of Evaluation: 04/29/17 Time of Evaluation: 02:00 - Subjective Subjective: dictated Objective - Vital Signs/Intake and Output Vital Signs (last 24 hours): Temp Pulse Resp BP Pulse Ox 98.4 F 75 20 90/58 L 100 04/29/17 16:00 04/29/17 16:00 04/29/17 16:00 04/29/17 16:00 04/29/17 16:00 Intake and Output: 04/29/17 04/30/17 18:59 06:59 Intake Total 1250 Balance 1250 - Medications Medications: Current Medications Acetaminophen (Tylenol 325mg Tab) 650 mg PO Q6 PRN PRN Reason: Pain, Mild (1-3) Docusate Sodium (Colace) 100 mg PO BID [facility] Last Admin: 04/29/17 17:54 Dose: 100 mg Sodium Chloride (Sodium Chloride 0.9%) 1,000 mls @ 100 mls/hr IV .Q10H [facility] Last Admin: 04/29/17 13:40 Dose: 100 mls/hr Meropenem 1 gm/ Sodium (Chloride) 100 mls @ 100 mls/hr IVPB Q8 [facility] Last Admin: 04/29/17 17:54 Dose: 100 mls/hr Amikacin Sulfate 500 mg/ (Sodium Chloride) 102 mls @ 100 mls/hr IV Q12H [facility] Ketorolac Tromethamine (Toradol) 30 mg IVP Q6 PRN PRN Reason: Pain, moderate (4-7) Ondansetron HCl (Zofran Inj) 4 mg IVP Q6H PRN PRN Reason: Nausea/Vomiting Last Admin: 04/25/17 15:06 Dose: 4 mg Pantoprazole Sodium (Protonix Ec Tab) 40 mg PO DAILY [facility] Last Admin: 04/29/17 10:31 Dose: 40 mg Rosuvastatin Calcium (Crestor) 5 mg PO HS [facility] Last Admin: 04/28/17 21:32 Dose: 5 mg - Labs Labs: 04/29/17 07:07 04/29/17 07:07
[2017-04-30] MEDS: Meropenem 1 GM in Sodium Chloride 0.9% 100 ML IVPB SCH ×3 (05:45→22:16)
--- NOTE | 2017-04-30 06:27 | PN ---
DATE: SUBJECTIVE: The patient was seen today. She has a PICC line. However, she has bandemia and hence, she still has been here. Dr. Newton was called in, and I have placed her back on meropenem. She also reported feeling pressure on the right side and had a stent placement. She continues to have right-sided flank pain and remains with bandemia, but denies any nausea and vomiting. PHYSICAL EXAMINATION VITAL SIGNS: Temperature is 98.4, pulse 75, blood pressure remains 90/58, respirations are 20. She remains with pain and was seen by the urologist. HEENT: Head is atraumatic. NECK: Supple. LUNGS: Clear. No crackles or rales present. HEART: S1 and S2 regular. ABDOMEN: Soft, nontender, no guarding, no rigidity present. Mild CVA tenderness present. EXTREMITIES: Have no edema, clubbing, or cyanosis. LABORATORY DATA: White count is 5.2, hemoglobin 10.9, hematocrit 32, platelet count is 286. She was given a dose of ertapenem yesterday. I do not think that it is helping much, so at this time I have put her on meropenem. We will continue with the meropenem and also place her back on amikacin as she does have significant resistant organism and may not be improving. We will follow what the urologist recommends. Since she had a resistant organism, we will place the amikacin back. IMPRESSION AND PLAN: She had septicemia. We will place her back on amikacin and give her first dose today again. We will follow. Alice Ling MD
--- NOTE | 2017-04-30 07:15 | CP.PCM.PN ---
<Jany Newman - Last Filed: 04/30/17 12:57> Subjective - Date & Time of Evaluation Date of Evaluation: 04/30/17 Time of Evaluation: 07:00 - Subjective Subjective: Medicine Note for Dr. Pickett, Patient was seen and examined at bedside. Patient reports she feels well. It was explained to her that she will most likely stay for her entire course of antibiotic treatment due to ESBL in urine x2 and in the blood. She continued to have bandemia on a monotherapy, so that was DC by ID and restarted on 2 antibiotics with Q12 and Q8H dosing. All this was explained to her using a flight test data acquisition technician, she explained that she understood and agreed with the plan. Denied fever, chills, headache, chest pain, SOB, abdominal pain, n/v/d/c, hematuria, or dysuria. Objective - Vital Signs/Intake and Output Vital Signs (last 24 hours): Temp Pulse Resp BP Pulse Ox 98.6 F 79 20 91/56 L 97 04/29/17 23:45 04/29/17 23:45 04/29/17 23:45 04/29/17 23:45 04/29/17 23:45 Intake and Output: 04/30/17 04/30/17 06:59 18:59 Intake Total 1302 Balance 1302 - Medications Medications: Current Medications Acetaminophen (Tylenol 325mg Tab) 650 mg PO Q6 PRN PRN Reason: Pain, Mild (1-3) Docusate Sodium (Colace) 100 mg PO BID [facility] Last Admin: 04/29/17 17:54 Dose: 100 mg Sodium Chloride (Sodium Chloride 0.9%) 1,000 mls @ 100 mls/hr IV .Q10H [facility] Last Admin: 04/29/17 22:47 Dose: 100 mls/hr Meropenem 1 gm/ Sodium (Chloride) 100 mls @ 100 mls/hr IVPB Q8 [facility] Last Admin: 04/30/17 05:45 Dose: 100 mls/hr Amikacin Sulfate 500 mg/ (Sodium Chloride) 102 mls @ 100 mls/hr IV Q12H [facility] Last Admin: 04/29/17 21:04 Dose: 100 mls/hr Ketorolac Tromethamine (Toradol) 30 mg IVP Q6 PRN PRN Reason: Pain, moderate (4-7) Ondansetron HCl (Zofran Inj) 4 mg IVP Q6H PRN PRN Reason: Nausea/Vomiting Last Admin: 04/25/17 15:06 Dose: 4 mg Pantoprazole Sodium (Protonix Ec Tab) 40 mg PO DAILY [facility] Last Admin: 04/29/17 10:31 Dose: 40 mg Rosuvastatin Calcium (Crestor) 5 mg PO HS [facility] Last Admin: 04/29/17 21:04 Dose: 5 mg - Labs Labs: 04/29/17 07:07 04/29/17 07:07 - Constitutional Appears: No Acute Distress - Head Exam Head Exam: NORMAL INSPECTION, NORMOCEPHALIC - Eye Exam Eye Exam: EOMI, Normal appearance, PERRL Pupil Exam: NORMAL ACCOMODATION - ENT Exam ENT Exam: Mucous Membranes Moist, Normal Exam - Respiratory Exam Respiratory Exam: Clear to Ausculation Bilateral, NORMAL BREATHING PATTERN. absent: Wheezes - Cardiovascular Exam Cardiovascular Exam: REGULAR RHYTHM, RRR, +S1, +S2 - GI/Abdominal Exam GI & Abdominal Exam: Soft, Normal Bowel Sounds. absent: Distended, Tenderness - Extremities Exam Extremities Exam: Normal Inspection. absent: Pedal Edema, Tenderness - Back Exam Back Exam: CVA tenderness (R) - Neurological Exam Neurological Exam: Alert, Awake, Oriented x3 - Psychiatric Exam Psychiatric exam: Normal Affect, Normal Mood - Skin Skin Exam: Dry, Intact, Normal Color, Warm Assessment and Plan - Assessment and Plan (Free Text) Plan: Disposition: Patient placed back on Amikacin and Meropenem, Invanz was not sufficient. Patient has history of ESBL in BOTH urine x2 and blood. Patient will most likely stay in house for the entire course of her antibiotic treatment. Pyelonephritis * SIRS: Febrile, tachycardiac, no leukocytosis, left shift, bandemia, lactate = 0.8 --> 0.6, procal 13.8 * +ESBL on urine culture on 04/16/17 - resistant to Cipro * UA: +3 LE, +1 blood, +2 protein * Urine culture 04/16/17 - ESBL + * Blood culture 04/20/17 - ESBL + * Patient placed on CONTACT PRECAUTIONS * Morphine PRN, Zofran PRN * Urology consulted- Dr. Catie Newton * Repeat Blood and urine cultures on 04/22/17, 04/23/17 - negative * S/P CYSTOSCOPY AND R STENT PLACEMENT 04/22/17 * Currently on NS @100cc/hr * PICC placed 04/26/17 * Arrangements are made for patient to go to the infusion center here at [facility]. * Patient received Invanz on 04/28, 04/29. However with continued bandemia on lab work. Repeat urine culture taken on 04/29. Patient placed back on Amikacin Q12H and Meropenem Q8H started on 04/29/17 Hx of Pyelonephritis * January 2017 * Patient was DC on cipro and asked to follow up in the [facility] * Repeat Urine culture showed ESBL (+) on 04/16/17 Transaminitis * AST/ALT: 115/143 on admission * Downtrending HLD * Lipid Panel on 01/2017: TG 271 * Started on Crestor 5mg PO QHS Refractory Hypotension * 2/2 Pyelonephritis * Was transferred to ICU for 3 days * RESOLVED Prior studies: * ECHO 01/2017 - LVEF 86%, mild pulm htn, trace AI, trace TR * Abdomen and pelvis PO and IV contrast CT 03/2017: normal bilateral nephrograms , no evidence of cystic or solid mass, hydronephrosis or even pyelonephritis bilaterally. Fatty liver. Small bilateral adnexal cysts. * HGA1C: 5.3- WNL Prophylactic Measures * GI PPX: Protonix 40mg PO daily * DVT PPX: SCDs, Lovenox 40mg SC Daily * Regular Diet * Case Management - Infusion center arrangements made for patient DW Trent Higginbotham DO, PGY-1 <Griffin Pickett H - Last Filed: 04/30/17 15:46> Objective - Vital Signs/Intake and Output Vital Signs (last 24 hours): Temp Pulse Resp BP Pulse Ox 97.9 F 70 20 91/60 L 99 04/30/17 07:56 04/30/17 07:56 04/30/17 07:56 04/30/17 07:56 04/30/17 07:56 Intake and Output: 04/30/17 04/30/17 06:59 18:59 Intake Total 1302 800 Balance 1302 800 - Medications Medications: Current Medications Acetaminophen (Tylenol 325mg Tab) 650 mg PO Q6 PRN PRN Reason: Pain, Mild (1-3) Docusate Sodium (Colace) 100 mg PO BID [facility] Last Admin: 04/30/17 10:18 Dose: 100 mg Sodium Chloride (Sodium Chloride 0.9%) 1,000 mls @ 100 mls/hr IV .Q10H [facility] Last Admin: 04/30/17 12:07 Dose: 100 mls/hr Meropenem 1 gm/ Sodium (Chloride) 100 mls @ 100 mls/hr IVPB Q8 [facility] Last Admin: 04/30/17 13:19 Dose: 100 mls/hr Amikacin Sulfate 500 mg/ (Sodium Chloride) 102 mls @ 100 mls/hr IV Q12H [facility] Last Admin: 04/30/17 08:33 Dose: 100 mls/hr Ketorolac Tromethamine (Toradol) 30 mg IVP Q6 PRN PRN Reason: Pain, moderate (4-7) Ondansetron HCl (Zofran Inj) 4 mg IVP Q6H PRN PRN Reason: Nausea/Vomiting Last Admin: 04/25/17 15:06 Dose: 4 mg Pantoprazole Sodium (Protonix Ec Tab) 40 mg PO DAILY [facility] Last Admin: 04/30/17 10:18 Dose: 40 mg Rosuvastatin Calcium (Crestor) 5 mg PO HS [facility] Last Admin: 04/29/17 21:04 Dose: 5 mg - Labs Labs: 04/30/17 07:20 04/30/17 07:20 Attending/Attestation - Attestation I have personally seen and examined this patient.: Yes I have fully participated in the care of the patient.: Yes I have reviewed all pertinent clinical information, including history, physical exam and plan: Yes Notes (Text): Medical Attending: Patient was seen and examined by me. Agree with the above note by the resident. Today we had a computer translation service with us and explained that the patient would be staying. As mentioned previously she was recenlty still showing bandemia on the blood work. ID has changed the IV abx back to her previous regimen Patient understood. She reported no current fever or chills at this time. She still has some minimal flank pain. She is aware that at some point will need follow up with urology as well. thank you Griffin Pickett
[2017-04-30 07:45] LABS: BASO # 0.1 K/uL (0.0-0.2); BASO % 0.8 % (0.0-2.0); EOS # 0.1 K/uL (0.0-0.7); EOS % 1.6 % (0.0-4.0); HEMATOCRIT 30.8 % (34.0-47.0); LYMPH # 1.3 K/uL (1.0-4.3); LYMPH % 21.3 % (20.0-40.0); MEAN CELL VOLUME 90.8 fL (81.0-99.0); MEAN CORPUSCULAR HGB CONC 34.2 g/dL (33.0-37.0); MEAN PLATELET VOLUME 8.6 fL (7.2-11.7); MONO # 0.4 K/uL (0.0-0.8); MONO % 6.9 % (0.0-10.0); RED CELL DISTRIBUTION WIDTH 12.5 % (11.5-14.5); WHITE BLOOD COUNT 6.1 K/uL (4.8-10.8)
[2017-04-30 07:49] LABS: CHLORIDE 106 mmol/L (98-107); POTASSIUM 3.7 mmol/L (3.6-5.2); SODIUM 140 mmol/L (132-148)
[2017-04-30 07:51] LABS: AST/SGOT 25 U/L (14-36); BILIRUBIN,TOTAL 0.5 mg/dL (0.2-1.3); CARBON DIOXIDE 23 mmol/L (22-30); GFR AFRICAN-AMERICAN > 60
[2017-04-30 07:52] LABS: ALB/GLOB RATIO 0.9 (1.0-2.1); ALKALINE PHOSPHATASE 107 U/L (38-126); ALT/SGPT 57 U/L (9-52); BLOOD UREA NITROGEN 16 mg/dL (7-17); GLUCOSE,RANDOM 86 mg/dL (65-105); TOTAL PROTEIN 5.8 g/dL (6.3-8.3)
[2017-04-30 07:53] LABS: CALCIUM 8.6 mg/dl (8.6-10.4)
[2017-04-30] MEDS: Sodium Chloride 0.9% 1,000 ML IV SCH ×3 (08:04→17:34)
--- NOTE | 2017-04-30 09:48 | PCM.URO ---
Urology Progress Note - General General: No Complaints, Tolerating Diet - Subjective Abdominal Pain: No Flank Pain: No Nausea: No Vomiting: No Voiding Well: Yes Dysuria: Yes (mild) [place]: Yes [place]ed: No Chest Pain: No Fever & Chills: No - Objective Lab Studies: Reviewed Lab Results Last 24 Hours: Laboratory Results - last 24 hr 04/30/17 04/30/17 07:20 07:20 WBC 6.1 RBC 3.39 L Hgb 10.5 L Hct 30.8 L MCV 90.8 MCH 31.0 MCHC 34.2 RDW 12.5 Plt Count 260 MPV 8.6 Neut % (Auto) 69.4 Lymph % (Auto) 21.3 [place] % (Auto) 6.9 Eos % (Auto) 1.6 Baso % (Auto) 0.8 Neut # 4.2 Lymph # 1.3 [place] # 0.4 Eos # 0.1 Baso # 0.1 Sodium 140 Potassium 3.7 Chloride 106 Carbon Dioxide 23 Anion Gap 14 BUN 16 Creatinine 1.1 Est GFR ( Amer) > 60 Est GFR (Non-Af Amer) 56 Random Glucose 86 Calcium 8.6 Total Bilirubin 0.5 AST 25 ALT 57 H Alkaline Phosphatase 107 Total Protein 5.8 L Albumin 2.8 L Globulin 3.1 Albumin/Globulin Ratio 0.9 L Intake & Output: Intake & Output 04/29/17 04/30/17 04/30/17 18:59 06:59 18:59 Intake Total 1250 1302 Balance 1250 1302 Intake: Intake, IV Amount 800 1002 Right Antecubital 800 1002 Proximal Port Oral 450 300 Other: # Voids Urine, Voided 4 # Bowel Movements 0 Vital Signs: Vital Signs - 24 hr 04/29/17 04/29/17 04/30/17 16:00 23:45 07:56 Temperature 98.4 F 98.6 F 97.9 F Pulse Rate 75 79 70 Respiratory 20 20 20 Rate Blood Pressure 90/58 L 91/56 L 91/60 L O2 Sat by Pulse 100 97 99 Oximetry - Physical Exam Abdominal Exam: Soft, Non-Tender, Non-Distended Back: No CVA Tenderness Urine Color: Yellow - Plan Additional Information: Imp: progressing well. uti. R hydronephrosis, w R uretral stent in place. rec/p: antibiotic rx. pt will need cysto, urteroscopy. Discussed w pt and resident staff. YS - Date & Time of Note Date: 04/30/17 Time: 09:48
[2017-04-30] MEDS: Pantoprazole 40 mg EC Tab PO SCH (10:18)
[2017-04-30] MEDS ORDERED: Ertapenem 1gm in NS 50ml 1 GM in Sodium Chloride 0.9% 50 ML IV ONE (11:20)
[2017-04-30 12:25] LABS: RBC URINE 9 /hpf (0-3); URINE BACTERIA OCC (<OCC); URINE BILIRUBIN NEGATIVE (NEGATIVE); URINE BLOOD 1+ (NEGATIVE); URINE COLOR Colorless (YELLOW); URINE GLUCOSE (UA) NORMAL (Normal); URINE KETONE NEGATIVE (NEGATIVE); URINE LEUKOCYTE ESTERASE NEG Leu/uL (Negative); URINE PROTEIN 1+ mg/dL (NEGATIVE); URINE UROBILINOGEN NORMAL mg/dL (0.2-1.0); WBC URINE 1 /hpf (0-5)
--- NOTE | 2017-04-30 15:45 | CP.PCM.PN ---
Subjective - Date & Time of Evaluation Date of Evaluation: 04/30/17 Time of Evaluation: 04:00 - Subjective Subjective: dictated Objective - Vital Signs/Intake and Output Vital Signs (last 24 hours): Temp Pulse Resp BP Pulse Ox 97.9 F 70 20 91/60 L 99 04/30/17 07:56 04/30/17 07:56 04/30/17 07:56 04/30/17 07:56 04/30/17 07:56 Intake and Output: 04/30/17 04/30/17 06:59 18:59 Intake Total 1302 800 Balance 1302 800 - Medications Medications: Current Medications Acetaminophen (Tylenol 325mg Tab) 650 mg PO Q6 PRN PRN Reason: Pain, Mild (1-3) Docusate Sodium (Colace) 100 mg PO BID [facility] Last Admin: 04/30/17 10:18 Dose: 100 mg Sodium Chloride (Sodium Chloride 0.9%) 1,000 mls @ 100 mls/hr IV .Q10H [facility] Last Admin: 04/30/17 12:07 Dose: 100 mls/hr Meropenem 1 gm/ Sodium (Chloride) 100 mls @ 100 mls/hr IVPB Q8 [facility] Last Admin: 04/30/17 13:19 Dose: 100 mls/hr Amikacin Sulfate 500 mg/ (Sodium Chloride) 102 mls @ 100 mls/hr IV Q12H [facility] Last Admin: 04/30/17 08:33 Dose: 100 mls/hr Ketorolac Tromethamine (Toradol) 30 mg IVP Q6 PRN PRN Reason: Pain, moderate (4-7) Ondansetron HCl (Zofran Inj) 4 mg IVP Q6H PRN PRN Reason: Nausea/Vomiting Last Admin: 04/25/17 15:06 Dose: 4 mg Pantoprazole Sodium (Protonix Ec Tab) 40 mg PO DAILY [facility] Last Admin: 04/30/17 10:18 Dose: 40 mg Rosuvastatin Calcium (Crestor) 5 mg PO HS [facility] Last Admin: 04/29/17 21:04 Dose: 5 mg - Labs Labs: 04/30/17 07:20 04/30/17 07:20
--- NOTE | 2017-05-01 00:20 | PN ---
DATE: 04/30/2017 INFECTIOUS DISEASE FOLLOWUP SUBJECTIVE: The patient states yesterday she had severe bandemia, so I put her back on amikacin and meropenem. She is the one who has ESBL septicemia and was rarely acutely ill, was in ICU. She underwent a stent placement on the right kidney, right ureter and she still complains of mild pain. PHYSICAL EXAMINATION: VITAL SIGNS: T-max is 98.2, pulse is 75, blood pressure remains 93/63 and respirations are 20. HEENT: Atraumatic, normocephalic. She is pale. NECK: Supple. HEART: S1 and S2 is regular. LUNGS: Clear. ABDOMEN: Soft, nontender. No guarding, no rigidity present. EXTREMITIES: Have no edema. ASSESSMENT AND PLAN: I started her back on amikacin and she is also on meropenem. She did have Escherichia Coli extended spectrum beta lactamase on 04/28/2017. Today, she completes almost 10 days and will need to be 4 more days on amikacin as well as meropenem and to monitor the creatinine and to monitor her bandemia. If there is any infectious disease issues, make sure Dr. Garcia is informed. I will be back on 05/07/2017. Alice Ling MD
[2017-05-01] MEDS: Sodium Chloride 0.9% 1,000 ML IV SCH ×2 (01:28→13:31)
[2017-05-01] MEDS: Meropenem 1 GM in Sodium Chloride 0.9% 100 ML IVPB SCH ×3 (05:05→21:13)
--- NOTE | 2017-05-01 06:01 | CP.PCM.PN ---
<Yohan Newmana - Last Filed: 05/01/17 11:09> Subjective - Date & Time of Evaluation Date of Evaluation: 05/01/17 Time of Evaluation: 07:00 - Subjective Subjective: Medicine Note for Dr. Pickett, Patient was seen and examined at bedside. Patient reports she feels well. She will remain on Amikacin and Meropenem for 4 more days. Anticipated day of discharge 05/05/17. Denied fever, chills, headache, chest pain, SOB, abdominal pain, n/v/d/c, hematuria, or dysuria. Objective - Vital Signs/Intake and Output Vital Signs (last 24 hours): Temp Pulse Resp BP Pulse Ox 98.5 F 77 20 91/52 L 97 04/30/17 23:12 04/30/17 23:12 04/30/17 23:12 04/30/17 23:12 04/30/17 23:12 Intake and Output: 04/30/17 05/01/17 18:59 06:59 Intake Total 800 1300 Balance 800 1300 - Medications Medications: Current Medications Acetaminophen (Tylenol 325mg Tab) 650 mg PO Q6 PRN PRN Reason: Pain, Mild (1-3) Docusate Sodium (Colace) 100 mg PO BID [facility] Last Admin: 04/30/17 17:33 Dose: 100 mg Sodium Chloride (Sodium Chloride 0.9%) 1,000 mls @ 100 mls/hr IV .Q10H [facility] Last Admin: 05/01/17 01:28 Dose: 100 mls/hr Meropenem 1 gm/ Sodium (Chloride) 100 mls @ 100 mls/hr IVPB Q8 [facility] Last Admin: 05/01/17 05:05 Dose: 100 mls/hr Amikacin Sulfate 500 mg/ (Sodium Chloride) 102 mls @ 100 mls/hr IV Q12H [facility] Last Admin: 04/30/17 20:28 Dose: 100 mls/hr Ketorolac Tromethamine (Toradol) 30 mg IVP Q6 PRN PRN Reason: Pain, moderate (4-7) Last Admin: 04/30/17 16:15 Dose: 30 mg Ondansetron HCl (Zofran Inj) 4 mg IVP Q6H PRN PRN Reason: Nausea/Vomiting Last Admin: 04/25/17 15:06 Dose: 4 mg Pantoprazole Sodium (Protonix Ec Tab) 40 mg PO DAILY [facility] Last Admin: 04/30/17 10:18 Dose: 40 mg Rosuvastatin Calcium (Crestor) 5 mg PO HS [facility] Last Admin: 04/30/17 22:16 Dose: 5 mg - Labs Labs: 04/30/17 07:20 04/30/17 07:20 - Constitutional Appears: No Acute Distress - Head Exam Head Exam: NORMAL INSPECTION, NORMOCEPHALIC - Eye Exam Eye Exam: EOMI, Normal appearance, PERRL Pupil Exam: NORMAL ACCOMODATION - ENT Exam ENT Exam: Mucous Membranes Moist - Respiratory Exam Respiratory Exam: Clear to Ausculation Bilateral, NORMAL BREATHING PATTERN. absent: Wheezes - GI/Abdominal Exam GI & Abdominal Exam: Soft, Normal Bowel Sounds. absent: Distended, Tenderness - Extremities Exam Extremities Exam: Normal Inspection. absent: Pedal Edema, Tenderness - Back Exam Back Exam: CVA tenderness (R) - Neurological Exam Neurological Exam: Alert, Awake, Oriented x3 - Psychiatric Exam Psychiatric exam: Normal Affect, Normal Mood - Skin Skin Exam: Dry, Intact, Normal Color, Warm Assessment and Plan - Assessment and Plan (Free Text) Plan: Disposition: Patient placed back on Amikacin and Meropenem, monotherapy with Invanz was not sufficient coverage. Patient has history of ESBL in BOTH urine x2 and blood. Patient will stay for her entire course of antibiotics. Anticipated day of discharge 05/05/17. Pyelonephritis * SIRS: Febrile, tachycardiac, no leukocytosis, left shift, bandemia, lactate = 0.8 --> 0.6, procal 13.8 * +ESBL on urine culture on 04/16/17 - resistant to Cipro * UA: +3 LE, +1 blood, +2 protein * Urine culture 04/16/17 - ESBL + * Blood culture 04/20/17 - ESBL + * Patient placed on CONTACT PRECAUTIONS * Morphine PRN, Zofran PRN * Urology consulted- Dr. Catie Newton * Repeat Blood and urine cultures on 04/22/17, 04/23/17 - negative * S/P CYSTOSCOPY AND R STENT PLACEMENT 04/22/17 * Currently on NS @100cc/hr * PICC placed 04/26/17 * Arrangements are made for patient to go to the infusion center here at [facility]. * Patient received Invanz on 04/28, 04/29. However due to continued bandemia on despite monotherapy, she was placed back on Amikacin Q12H and Meropenem Q8H which she was originally on. As per Dr. Ling, she will require 4 more days of antibiotic treatment. Anticipated day of discharge 05/05/17. Hx of Pyelonephritis * January 2017 * Patient was DC on cipro and asked to follow up in the [facility] * Repeat Urine culture showed ESBL (+) on 04/16/17 Transaminitis * AST/ALT: 115/143 on admission * Downtrending HLD * Lipid Panel on 01/2017: TG 271 * Started on Crestor 5mg PO QHS Refractory Hypotension * 2/2 Pyelonephritis * Was transferred to ICU for 3 days * RESOLVED Prior studies: * ECHO 01/2017 - LVEF 86%, mild pulm htn, trace AI, trace TR * Abdomen and pelvis PO and IV contrast CT 03/2017: normal bilateral nephrograms , no evidence of cystic or solid mass, hydronephrosis or even pyelonephritis bilaterally. Fatty liver. Small bilateral adnexal cysts. * HGA1C: 5.3- WNL Prophylactic Measures * GI PPX: Protonix 40mg PO daily * DVT PPX: SCDs, Lovenox 40mg SC Daily * Regular Diet DW Dr. Pickett, Trent THOMPSON, PGY-1 <Griffin Pickett H - Last Filed: 05/01/17 14:50> Objective - Vital Signs/Intake and Output Vital Signs (last 24 hours): Temp Pulse Resp BP Pulse Ox 97.9 F 68 20 93/57 L 97 05/01/17 07:57 05/01/17 07:57 05/01/17 07:57 05/01/17 07:57 05/01/17 07:57 Intake and Output: 05/01/17 05/01/17 06:59 18:59 Intake Total 1300 800 Balance 1300 800 - Medications Medications: Current Medications Acetaminophen (Tylenol 325mg Tab) 650 mg PO Q6 PRN PRN Reason: Pain, Mild (1-3) Docusate Sodium (Colace) 100 mg PO BID [facility] Last Admin: 05/01/17 09:05 Dose: 100 mg Sodium Chloride (Sodium Chloride 0.9%) 1,000 mls @ 100 mls/hr IV .Q10H [facility] Last Admin: 05/01/17 13:31 Dose: 100 mls/hr Meropenem 1 gm/ Sodium (Chloride) 100 mls @ 100 mls/hr IVPB Q8 [facility] Last Admin: 05/01/17 13:30 Dose: 100 mls/hr Amikacin Sulfate 500 mg/ (Sodium Chloride) 102 mls @ 100 mls/hr IV Q12H [facility] Last Admin: 05/01/17 09:05 Dose: 100 mls/hr Ketorolac Tromethamine (Toradol) 30 mg IVP Q6 PRN PRN Reason: Pain, moderate (4-7) Last Admin: 04/30/17 16:15 Dose: 30 mg Ondansetron HCl (Zofran Inj) 4 mg IVP Q6H PRN PRN Reason: Nausea/Vomiting Last Admin: 04/25/17 15:06 Dose: 4 mg Pantoprazole Sodium (Protonix Ec Tab) 40 mg PO DAILY [facility] Last Admin: 05/01/17 09:05 Dose: 40 mg Rosuvastatin Calcium (Crestor) 5 mg PO HS [facility] Last Admin: 04/30/17 22:16 Dose: 5 mg - Labs Labs: 05/01/17 05:59 05/01/17 05:59 Attending/Attestation - Attestation I have personally seen and examined this patient.: Yes I have fully participated in the care of the patient.: Yes I have reviewed all pertinent clinical information, including history, physical exam and plan: Yes Notes (Text): 05/01/17 14:49 Medical attending: Patient was seen and examined by me, agree with the above note by medical records field technician. She reported feeling well she did not have any acute complaints or concerns this moment. Most likely be Saturday before the discharge patient, as she is back on the regimen of IV antibiotics this being said the microbiology has returned as negative for any further ESBL Escherichia coli growth Thank you very much Griffin Pickett
[2017-05-01 06:03] LABS: EOS # 0.1 K/uL (0.0-0.7); LYMPH # 1.4 K/uL (1.0-4.3); MEAN CORPUSCULAR HEMOGLOBIN 30.6 pg (27.0-31.0); MONO # 0.4 K/uL (0.0-0.8); WHITE BLOOD COUNT 5.3 K/uL (4.8-10.8)
[2017-05-01 06:11] LABS: BASO # 0.1 K/uL (0.0-0.2); BASO % 1.2 % (0.0-2.0); EOS % 1.6 % (0.0-4.0); HEMATOCRIT 29.7 % (34.0-47.0); LYMPH % 26.7 % (20.0-40.0); MEAN CELL VOLUME 91.4 fL (81.0-99.0); MEAN CORPUSCULAR HGB CONC 33.5 g/dL (33.0-37.0); MEAN PLATELET VOLUME 8.1 fL (7.2-11.7); MONO % 7.6 % (0.0-10.0)
[2017-05-01 06:26] LABS: CHLORIDE 108 mmol/L (98-107); POTASSIUM 4.2 mmol/L (3.6-5.2); SODIUM 141 mmol/L (132-148)
[2017-05-01 06:28] LABS: GFR AFRICAN-AMERICAN > 60
[2017-05-01 06:29] LABS: ALB/GLOB RATIO 0.8 (1.0-2.1); ALKALINE PHOSPHATASE 98 U/L (38-126); ALT/SGPT 52 U/L (9-52); AST/SGOT 25 U/L (14-36); BILIRUBIN,TOTAL 0.4 mg/dL (0.2-1.3); BLOOD UREA NITROGEN 20 mg/dL (7-17); CARBON DIOXIDE 23 mmol/L (22-30); GLUCOSE,RANDOM 85 mg/dL (65-105); TOTAL PROTEIN 5.7 g/dL (6.3-8.3)
[2017-05-01 06:30] LABS: CALCIUM 8.7 mg/dl (8.6-10.4)
[2017-05-01] MEDS: Pantoprazole 40 mg EC Tab PO SCH (09:05)
--- NOTE | 2017-05-01 10:51 | PCM.URO ---
Urology Progress Note - General General: No Complaints, Tolerating Diet - Subjective Abdominal Pain: No Flank Pain: Yes (mild, R flank) Nausea: No Vomiting: No Voiding Well: Yes Dysuria: No Hematuria: No [place]: Yes Chest Pain: No Fever & Chills: No - Objective Lab Results Last 24 Hours: Laboratory Results - last 24 hr 04/30/17 05/01/17 05/01/17 12:14 05:59 05:59 WBC 5.3 RBC 3.25 L Hgb 9.9 L Hct 29.7 L MCV 91.4 MCH 30.6 MCHC 33.5 RDW 13.0 Plt Count 233 MPV 8.1 Neut % (Auto) 62.9 Lymph % (Auto) 26.7 Rhea % (Auto) 7.6 Eos % (Auto) 1.6 Baso % (Auto) 1.2 Neut # 3.4 Lymph # 1.4 Rhea # 0.4 Eos # 0.1 Baso # 0.1 Sodium 141 Potassium 4.2 Chloride 108 H Carbon Dioxide 23 Anion Gap 14 BUN 20 H Creatinine 1.0 Est GFR ( Amer) > 60 Est GFR (Non-Af Amer) > 60 Random Glucose 85 Calcium 8.7 Total Bilirubin 0.4 AST 25 ALT 52 Alkaline Phosphatase 98 Total Protein 5.7 L Albumin 2.6 L Globulin 3.1 Albumin/Globulin Ratio 0.8 L Urine Color Colorless Urine Clarity Clear Urine pH 7.0 Ur Specific [place] 1.006 Urine Protein 1+ H Urine Glucose (UA) Normal Urine Ketones Negative Urine Blood 1+ H Urine Nitrate Negative Urine Bilirubin Negative Urine Urobilinogen Normal Ur Leukocyte Esterase Neg Urine WBC (Auto) 1 Urine RBC (Auto) 9 H Urine Bacteria Occ H Intake & Output: Intake & Output 04/30/17 05/01/17 05/01/17 18:59 06:59 18:59 Intake Total 800 1300 800 Balance 800 1300 800 Intake: Intake, IV Amount 800 800 800 Right Antecubital 800 800 800 Proximal Port Oral 500 Other: # Voids Urine, Voided 5 # Bowel Movements 1 Vital Signs: Vital Signs - 24 hr 04/30/17 04/30/17 05/01/17 16:19 23:12 07:57 Temperature 98.2 F 98.5 F 97.9 F Pulse Rate 75 77 68 Respiratory 20 20 20 Rate Blood Pressure 93/63 L 91/52 L 93/57 L O2 Sat by Pulse 96 97 97 Oximetry - Physical Exam Abdominal Exam: Soft, Non-Tender, Non-Distended Back: No CVA Tenderness - Plan Additional Information: Imp: progressing well. uti. R hydronephrosis. Plan: antibiotic rx as per ID. thereafter ureteroscopy. discussed w pt - Date & Time of Note Date: 05/01/17 Time: 10:51
[2017-05-02] MEDS: Meropenem 1 GM in Sodium Chloride 0.9% 100 ML IVPB SCH ×3 (06:10→21:48)
[2017-05-02 08:03] LABS: CHLORIDE 107 mmol/L (98-107); SODIUM 139 mmol/L (132-148)
[2017-05-02 08:05] LABS: GFR AFRICAN-AMERICAN > 60
[2017-05-02 08:06] LABS: ALB/GLOB RATIO 0.9 (1.0-2.1); ALKALINE PHOSPHATASE 93 U/L (38-126); ALT/SGPT 52 U/L (9-52); AST/SGOT 30 U/L (14-36); BILIRUBIN,TOTAL 0.5 mg/dL (0.2-1.3); BLOOD UREA NITROGEN 16 mg/dL (7-17); CALCIUM 8.3 mg/dl (8.6-10.4); CARBON DIOXIDE 24 mmol/L (22-30); GLUCOSE,RANDOM 79 mg/dL (65-105); TOTAL PROTEIN 5.9 g/dL (6.3-8.3)
[2017-05-02 08:20] LABS: BASO % 0.6 % (0.0-2.0); EOS # 0.1 K/uL (0.0-0.7); EOS % 1.1 % (0.0-4.0); HEMATOCRIT 29.5 % (34.0-47.0); LYMPH # 1.5 K/uL (1.0-4.3); LYMPH % 24.5 % (20.0-40.0); MEAN CELL VOLUME 91.2 fL (81.0-99.0); MEAN CORPUSCULAR HEMOGLOBIN 31.4 pg (27.0-31.0); MEAN CORPUSCULAR HGB CONC 34.4 g/dL (33.0-37.0); MEAN PLATELET VOLUME 8.8 fL (7.2-11.7); MONO # 0.5 K/uL (0.0-0.8); MONO % 8.6 % (0.0-10.0); NRBC % 0.1 % (0.0-2.0); RED CELL DISTRIBUTION WIDTH 12.8 % (11.5-14.5); WHITE BLOOD COUNT 6.3 K/uL (4.8-10.8)
[2017-05-02] MEDS: Pantoprazole 40 mg EC Tab PO SCH (11:17)
--- NOTE | 2017-05-02 13:30 | CP.PCM.PN ---
<Jaron Qureshi - Last Filed: 05/02/17 13:27> Subjective - Date & Time of Evaluation Date of Evaluation: 05/02/17 Time of Evaluation: 10:20 - Subjective Subjective: PGY1 Medicine Note for Dr. Pickett Patient seen and examined at bedside. Patient states that she is feeling very well and has no complaints at this time. She is currently finishing up her course of IV Amikacin and Meropenem for 3 more days. She will hopefully be discharged over the weekend on either 05/05 or 05/06. Denies f/c, n/v, d/c, sob or cp. Objective - Vital Signs/Intake and Output Vital Signs (last 24 hours): Temp Pulse Resp BP Pulse Ox 99.5 F 69 20 98/62 L 98 05/02/17 08:00 05/02/17 08:00 05/02/17 08:00 05/02/17 08:00 05/02/17 08:00 Intake and Output: 05/02/17 05/02/17 06:59 18:59 Intake Total 800 Balance 800 - Medications Medications: Current Medications Acetaminophen (Tylenol 325mg Tab) 650 mg PO Q6 PRN PRN Reason: Pain, Mild (1-3) Docusate Sodium (Colace) 100 mg PO BID [facility] Last Admin: 05/02/17 11:17 Dose: 100 mg Meropenem 1 gm/ Sodium (Chloride) 100 mls @ 100 mls/hr IVPB Q8 [facility] Last Admin: 05/02/17 06:10 Dose: 100 mls/hr Amikacin Sulfate 500 mg/ (Sodium Chloride) 102 mls @ 100 mls/hr IV Q12H [facility] Last Admin: 05/02/17 11:16 Dose: 100 mls/hr Ketorolac Tromethamine (Toradol) 30 mg IVP Q6 PRN PRN Reason: Pain, moderate (4-7) Last Admin: 04/30/17 16:15 Dose: 30 mg Ondansetron HCl (Zofran Inj) 4 mg IVP Q6H PRN PRN Reason: Nausea/Vomiting Last Admin: 04/25/17 15:06 Dose: 4 mg Pantoprazole Sodium (Protonix Ec Tab) 40 mg PO DAILY [facility] Last Admin: 05/02/17 11:17 Dose: 40 mg Rosuvastatin Calcium (Crestor) 5 mg PO HS [facility] Last Admin: 05/01/17 21:13 Dose: 5 mg - Labs Labs: 05/02/17 07:25 05/02/17 07:48 - Constitutional Appears: Non-toxic, No Acute Distress - Head Exam Head Exam: ATRAUMATIC, NORMOCEPHALIC - Eye Exam Eye Exam: EOMI, Normal appearance - ENT Exam ENT Exam: Mucous Membranes Moist - Respiratory Exam Respiratory Exam: Clear to Ausculation Bilateral, NORMAL BREATHING PATTERN. absent: Accessory Muscle Use, Rales, Wheezes, Respiratory Distress - Cardiovascular Exam Cardiovascular Exam: REGULAR RHYTHM, +S1, +S2 - GI/Abdominal Exam GI & Abdominal Exam: Soft, Normal Bowel Sounds. absent: Distended, Guarding, Rigid, Tenderness - Extremities Exam Extremities Exam: Normal Inspection. absent: Calf Tenderness, Pedal Edema - Back Exam Back Exam: CVA tenderness (R). absent: CVA tenderness (L) - Neurological Exam Neurological Exam: Alert, Awake, Oriented x3 - Psychiatric Exam Psychiatric exam: Normal Affect, Normal Mood - Skin Skin Exam: Dry, Normal Color, Warm Assessment and Plan - Assessment and Plan (Free Text) Plan: Disposition: Patient placed back on Amikacin and Meropenem, monotherapy with Invanz was not sufficient coverage. Patient has history of ESBL in BOTH urine x2 and blood. Patient will stay for her entire course of antibiotics. Anticipated day of discharge 05/05/17. No change at this time. Pyelonephritis * SIRS: Febrile, tachycardiac, no leukocytosis, left shift, bandemia, lactate = 0.8 --> 0.6, procal 13.8 * +ESBL on urine culture on 04/16/17 - resistant to Cipro * UA: +3 LE, +1 blood, +2 protein * Urine culture 04/16/17 - ESBL + * Blood culture 04/20/17 - ESBL + * Patient placed on CONTACT PRECAUTIONS * Morphine PRN, Zofran PRN * Urology consulted- Dr. Catie Newton * Repeat Blood and urine cultures on 04/22/17, 04/23/17 - negative * S/P CYSTOSCOPY AND R STENT PLACEMENT 04/22/17 * Currently on NS @100cc/hr * PICC placed 04/26/17 * Arrangements are made for patient to go to the infusion center here at [place]. * Patient received Invanz on 04/28, 04/29. However due to continued bandemia on despite monotherapy, she was placed back on Amikacin Q12H and Meropenem Q8H which she was originally on. As per Dr. Ling, she will require 3 more days of antibiotic treatment. Anticipated day of discharge 05/05/17. Hx of Pyelonephritis * January 2017 * Patient was DC on cipro and asked to follow up in the [facility] * Repeat Urine culture showed ESBL (+) on 04/16/17 Transaminitis * AST/ALT: 115/143 on admission * Downtrending HLD * Lipid Panel on 01/2017: TG 271 * Started on Crestor 5mg PO QHS Refractory Hypotension * 2/2 Pyelonephritis * Was transferred to ICU for 3 days * RESOLVED Prior studies: * ECHO 01/2017 - LVEF 86%, mild pulm htn, trace AI, trace TR * Abdomen and pelvis PO and IV contrast CT 03/2017: normal bilateral nephrograms , no evidence of cystic or solid mass, hydronephrosis or even pyelonephritis bilaterally. Fatty liver. Small bilateral adnexal cysts. * HGA1C: 5.3- WNL Prophylactic Measures * GI PPX: Protonix 40mg PO daily * DVT PPX: SCDs, Lovenox 40mg SC Daily * Regular Diet Case discussed with Dr. Nieves Salmeron Titus PGY1 <Griffin Pickett H - Last Filed: 05/02/17 16:51> Objective - Vital Signs/Intake and Output Vital Signs (last 24 hours): Temp Pulse Resp BP Pulse Ox 97.9 F 87 20 91/60 L 100 05/02/17 15:29 05/02/17 15:29 05/02/17 15:29 05/02/17 15:29 05/02/17 15:29 Intake and Output: 05/02/17 05/02/17 06:59 18:59 Intake Total 800 480 Balance 800 480 - Medications Medications: Current Medications Acetaminophen (Tylenol 325mg Tab) 650 mg PO Q6 PRN PRN Reason: Pain, Mild (1-3) Docusate Sodium (Colace) 100 mg PO BID [facility] Last Admin: 05/02/17 11:17 Dose: 100 mg Meropenem 1 gm/ Sodium (Chloride) 100 mls @ 100 mls/hr IVPB Q8 [facility] Last Admin: 05/02/17 14:21 Dose: 100 mls/hr Amikacin Sulfate 500 mg/ (Sodium Chloride) 102 mls @ 100 mls/hr IV Q12H [facility] Last Admin: 05/02/17 11:16 Dose: 100 mls/hr Ketorolac Tromethamine (Toradol) 30 mg IVP Q6 PRN PRN Reason: Pain, moderate (4-7) Last Admin: 04/30/17 16:15 Dose: 30 mg Ondansetron HCl (Zofran Inj) 4 mg IVP Q6H PRN PRN Reason: Nausea/Vomiting Last Admin: 04/25/17 15:06 Dose: 4 mg Pantoprazole Sodium (Protonix Ec Tab) 40 mg PO DAILY [facility] Last Admin: 05/02/17 11:17 Dose: 40 mg Rosuvastatin Calcium (Crestor) 5 mg PO HS [facility] Last Admin: 05/01/17 21:13 Dose: 5 mg - Labs Labs: 05/02/17 07:25 05/02/17 07:48 Attending/Attestation - Attestation I have personally seen and examined this patient.: Yes I have fully participated in the care of the patient.: Yes I have reviewed all pertinent clinical information, including history, physical exam and plan: Yes Notes (Text): Medical Attending: Patient was seen and examined by me. Agree with the above note by the resident. Patient is currently doing well. No new complaints or concerns at this time. The patient reports eating well and also bathroom is ok. As mentioned before she remains on IV abx at this time for E coli ESBL. Also has had stening done to relieve R side thank you Griffin Pickett
[2017-05-03] MEDS: Meropenem 1 GM in Sodium Chloride 0.9% 100 ML IVPB SCH ×3 (05:12→21:22)
[2017-05-03 07:19] LABS: BASO # 0.1 K/uL (0.0-0.2); BASO % 1.3 % (0.0-2.0); EOS # 0.1 K/uL (0.0-0.7); EOS % 1.4 % (0.0-4.0); HEMATOCRIT 30.4 % (34.0-47.0); LYMPH # 1.4 K/uL (1.0-4.3); LYMPH % 23.8 % (20.0-40.0); MEAN CELL VOLUME 89.9 fL (81.0-99.0); MEAN CORPUSCULAR HEMOGLOBIN 30.8 pg (27.0-31.0); MEAN CORPUSCULAR HGB CONC 34.2 g/dL (33.0-37.0); MEAN PLATELET VOLUME 8.5 fL (7.2-11.7); MONO # 0.5 K/uL (0.0-0.8); MONO % 8.7 % (0.0-10.0); NRBC % 0.1 % (0.0-2.0); RED CELL DISTRIBUTION WIDTH 12.7 % (11.5-14.5)
[2017-05-03 08:24] LABS: CHLORIDE 106 mmol/L (98-107); POTASSIUM 4.1 mmol/L (3.6-5.2); SODIUM 141 mmol/L (132-148)
[2017-05-03 08:26] LABS: BILIRUBIN,TOTAL 0.5 mg/dL (0.2-1.3); GFR AFRICAN-AMERICAN > 60
[2017-05-03 08:27] LABS: ALB/GLOB RATIO 0.9 (1.0-2.1); ALKALINE PHOSPHATASE 116 U/L (38-126); ALT/SGPT 52 U/L (9-52); AST/SGOT 29 U/L (14-36); BLOOD UREA NITROGEN 17 mg/dL (7-17); CARBON DIOXIDE 26 mmol/L (22-30); GLUCOSE,RANDOM 84 mg/dL (65-105); TOTAL PROTEIN 6.2 g/dL (6.3-8.3)
[2017-05-03] MEDS: Pantoprazole 40 mg EC Tab PO SCH (09:32)
--- NOTE | 2017-05-03 15:07 | CP.PCM.PN ---
Subjective - Date & Time of Evaluation Date of Evaluation: 05/03/17 Time of Evaluation: 10:30 - Subjective Subjective: PGY1 Medicine Note for Dr. Pickett Patient seen and examined at bedside this morning. The patient states that she is feeling better than yesterday but is still experiencing a little flank pain that radiated down into her thighs. This pain and radiation is b/l but worse on the right side. She denies having any trouble urinating but says the flank pain is worsened with urination. She states she slept well and has been able to ambulate without any problems. Patient states that she believes she is losing her hair. Denies f/c, n/v, d/c, sob or cp. Objective - Vital Signs/Intake and Output Vital Signs (last 24 hours): Temp Pulse Resp BP Pulse Ox 98 F 76 20 94/59 L 97 05/03/17 07:45 05/03/17 07:45 05/03/17 07:45 05/03/17 07:45 05/03/17 07:45 Intake and Output: 05/03/17 05/03/17 06:59 18:59 Intake Total 500 810 Balance 500 810 - Medications Medications: Current Medications Acetaminophen (Tylenol 325mg Tab) 650 mg PO Q6 PRN PRN Reason: Pain, Mild (1-3) Docusate Sodium (Colace) 100 mg PO BID [facility] Last Admin: 05/03/17 09:32 Dose: 100 mg Meropenem 1 gm/ Sodium (Chloride) 100 mls @ 100 mls/hr IVPB Q8 [facility] Last Admin: 05/03/17 13:23 Dose: 100 mls/hr Amikacin Sulfate 500 mg/ (Sodium Chloride) 102 mls @ 100 mls/hr IV Q12H [facility] Last Admin: 05/03/17 08:44 Dose: 100 mls/hr Ketorolac Tromethamine (Toradol) 30 mg IVP Q6 PRN PRN Reason: Pain, moderate (4-7) Last Admin: 04/30/17 16:15 Dose: 30 mg Ondansetron HCl (Zofran Inj) 4 mg IVP Q6H PRN PRN Reason: Nausea/Vomiting Last Admin: 04/25/17 15:06 Dose: 4 mg Pantoprazole Sodium (Protonix Ec Tab) 40 mg PO DAILY [facility] Last Admin: 05/03/17 09:32 Dose: 40 mg Rosuvastatin Calcium (Crestor) 5 mg PO HS [facility] Last Admin: 05/02/17 21:48 Dose: 5 mg - Labs Labs: 05/03/17 07:10 05/03/17 07:10 - Constitutional Appears: Non-toxic, No Acute Distress - Head Exam Head Exam: ATRAUMATIC, NORMOCEPHALIC - Eye Exam Eye Exam: EOMI, Normal appearance - ENT Exam ENT Exam: Mucous Membranes Moist - Respiratory Exam Respiratory Exam: Clear to Ausculation Bilateral, NORMAL BREATHING PATTERN. absent: Accessory Muscle Use, Rales, Wheezes, Respiratory Distress - Cardiovascular Exam Cardiovascular Exam: REGULAR RHYTHM, +S1, +S2 - GI/Abdominal Exam GI & Abdominal Exam: Soft, Normal Bowel Sounds. absent: Distended, Guarding, Tenderness - Extremities Exam Extremities Exam: Normal Inspection. absent: Calf Tenderness, Pedal Edema - Back Exam Back Exam: CVA tenderness (L), CVA tenderness (R) - Neurological Exam Neurological Exam: Alert, Awake, Normal Gait, Oriented x3 - Psychiatric Exam Psychiatric exam: Normal Affect, Normal Mood - Skin Skin Exam: Dry, Normal Color, Warm Assessment and Plan - Assessment and Plan (Free Text) Plan: Disposition: Patient placed back on Amikacin and Meropenem, monotherapy with Invanz was not sufficient coverage. Patient has history of ESBL in BOTH urine x2 and blood. Patient will stay for her entire course of antibiotics. Anticipated day of discharge 05/05/17. Patient's reported hair loss is believed to be a side effect of Amikacin. No change in abx regiment at this time. Pyelonephritis * SIRS: Febrile, tachycardiac, no leukocytosis, left shift, bandemia, lactate = 0.8 --> 0.6, procal 13.8 * +ESBL on urine culture on 04/16/17 - resistant to Cipro * UA: +3 LE, +1 blood, +2 protein * Urine culture 04/16/17 - ESBL + * Blood culture 04/20/17 - ESBL + * Patient placed on CONTACT PRECAUTIONS * Morphine PRN, Zofran PRN * Urology consulted- Dr. Catie Newton * Repeat Blood and urine cultures on 04/22/17, 04/23/17 - negative * Repeat Urine Culture on 04/29 - negative, no growth * S/P CYSTOSCOPY AND R STENT PLACEMENT 04/22/17 * Currently on NS @100cc/hr * PICC placed 04/26/17 * Arrangements are made for patient to go to the infusion center here at [facility]. * Patient received Invanz on 04/28, 04/29. However due to continued bandemia on despite monotherapy, she was placed back on Amikacin Q12H and Meropenem Q8H which she was originally on. As per Dr. Ling, she will require 2 more days of antibiotic treatment. Anticipated day of discharge 05/05/17. Hx of Pyelonephritis * January 2017 * Patient was DC on cipro and asked to follow up in the [facility] * Repeat Urine culture showed ESBL (+) on 04/16/17 Transaminitis * AST/ALT: 115/143 on admission * Downtrending --> AST 29/ALT 52 HLD * Lipid Panel on 01/2017: TG 271 * Started on Crestor 5mg PO QHS Refractory Hypotension * 2/2 Pyelonephritis * Was transferred to ICU for 3 days * RESOLVED Prior studies: * ECHO 01/2017 - LVEF 86%, mild pulm htn, trace AI, trace TR * Abdomen and pelvis PO and IV contrast CT 03/2017: normal bilateral nephrograms , no evidence of cystic or solid mass, hydronephrosis or even pyelonephritis bilaterally. Fatty liver. Small bilateral adnexal cysts. * HGA1C: 5.3- WNL Prophylactic Measures * GI PPX: Protonix 40mg PO daily * DVT PPX: SCDs, Lovenox 40mg SC Daily * Regular Diet Case discussed with Dr. Nieves Salmeron Titus PGY1
--- NOTE | 2017-05-04 00:25 | CP.PCM.PN ---
<Shaw Puckett - Last Filed: 05/04/17 06:05> Subjective - Date & Time of Evaluation Date of Evaluation: 05/04/17 Time of Evaluation: 05:45 - Subjective Subjective: PGY-[address] Pickett Patient seen and examined at bedside. Patient reports improvement in symptoms. Patient states that she still gets pressure in her flanks with urination but denies outright dysuria. Denies suprapubic or abdominal tenderness. Objective - Vital Signs/Intake and Output Vital Signs (last 24 hours): Temp Pulse Resp BP Pulse Ox 98.2 F 77 20 95/64 L 97 05/03/17 23:00 05/03/17 23:00 05/03/17 23:00 05/03/17 23:00 05/03/17 23:00 Intake and Output: 05/03/17 05/04/17 18:59 06:59 Intake Total 810 300 Balance 810 300 - Medications Medications: Current Medications Acetaminophen (Tylenol 325mg Tab) 650 mg PO Q6 PRN PRN Reason: Pain, Mild (1-3) Meropenem 1 gm/ Sodium (Chloride) 100 mls @ 100 mls/hr IVPB Q8 [facility] Last Admin: 05/03/17 21:22 Dose: 100 mls/hr Amikacin Sulfate 500 mg/ (Sodium Chloride) 102 mls @ 100 mls/hr IV Q12H [facility] Last Admin: 05/03/17 20:31 Dose: 100 mls/hr Ketorolac Tromethamine (Toradol) 30 mg IVP Q6 PRN PRN Reason: Pain, moderate (4-7) Last Admin: 04/30/17 16:15 Dose: 30 mg Ondansetron HCl (Zofran Inj) 4 mg IVP Q6H PRN PRN Reason: Nausea/Vomiting Last Admin: 04/25/17 15:06 Dose: 4 mg Pantoprazole Sodium (Protonix Ec Tab) 40 mg PO DAILY [facility] Last Admin: 05/03/17 09:32 Dose: 40 mg Rosuvastatin Calcium (Crestor) 5 mg PO HS [facility] Last Admin: 05/03/17 21:22 Dose: 5 mg - Labs Labs: 05/03/17 07:10 05/03/17 07:10 - Constitutional Appears: No Acute Distress - Head Exam Head Exam: ATRAUMATIC, NORMOCEPHALIC - Eye Exam Eye Exam: EOMI, Normal appearance - ENT Exam ENT Exam: Mucous Membranes Moist - Respiratory Exam Respiratory Exam: Clear to Ausculation Bilateral, NORMAL BREATHING PATTERN. absent: Rales, Rhonchi, Wheezes - Cardiovascular Exam Cardiovascular Exam: REGULAR RHYTHM, +S1, +S2 - GI/Abdominal Exam GI & Abdominal Exam: Soft, Normal Bowel Sounds. absent: Tenderness - Extremities Exam Extremities Exam: Normal Inspection. absent: Pedal Edema, Tenderness - Back Exam Back Exam: CVA tenderness (L), CVA tenderness (R) - Neurological Exam Neurological Exam: Alert, Awake, Oriented x3 - Psychiatric Exam Psychiatric exam: Normal Affect, Normal Mood - Skin Skin Exam: Dry, Intact, Normal Color, Warm Assessment and Plan - Assessment and Plan (Free Text) Plan: Disposition: Patient placed back on Amikacin and Meropenem, monotherapy with Invanz was not sufficient coverage. Patient has history of ESBL in BOTH urine x2 and blood. Patient will stay for her entire course of antibiotics. Anticipated day of discharge 05/05/17. Patient's prior reported hair loss yesterday is believed to be a side effect of Amikacin. No change in abx regiment at this time. Pyelonephritis * SIRS: Febrile, tachycardiac, no leukocytosis, left shift, bandemia, lactate = 0.8 --> 0.6, procal 13.8 * +ESBL on urine culture on 04/16/17 - resistant to Cipro * UA: +3 LE, +1 blood, +2 protein * Urine culture 04/16/17 - ESBL + * Blood culture 04/20/17 - ESBL + * Patient placed on CONTACT PRECAUTIONS * Morphine PRN, Zofran PRN * Urology consulted- Dr. Catie Newton * Repeat Blood and urine cultures on 04/22/17, 04/23/17 - negative * Repeat Urine Culture on 04/29 - negative, no growth * S/P CYSTOSCOPY AND R STENT PLACEMENT 04/22/17 * Currently on NS @100cc/hr * PICC placed 04/26/17 * Arrangements are made for patient to go to the infusion center here at [facility]. * Patient received Invanz on 04/28, 04/29. However due to continued bandemia on despite monotherapy, she was placed back on Amikacin Q12H and Meropenem Q8H which she was originally on. As per Dr. Ling, she will require 2 more days of antibiotic treatment. Anticipated day of discharge 05/05/17. Hx of Pyelonephritis * January 2017 * Patient was DC on cipro and asked to follow up in the [facility] * Repeat Urine culture showed ESBL (+) on 04/16/17 Transaminitis * AST/ALT: 115/143 on admission * Downtrending --> AST 29/ALT 52 HLD * Lipid Panel on 01/2017: TG 271 * Started on Crestor 5mg PO QHS Refractory Hypotension * 2/2 Pyelonephritis * Was transferred to ICU for 3 days * RESOLVED Prior studies: * ECHO 01/2017 - LVEF 86%, mild pulm htn, trace AI, trace TR * Abdomen and pelvis PO and IV contrast CT 03/2017: normal bilateral nephrograms , no evidence of cystic or solid mass, hydronephrosis or even pyelonephritis bilaterally. Fatty liver. Small bilateral adnexal cysts. * HGA1C: 5.3- WNL Prophylactic Measures * GI PPX: Protonix 40mg PO daily * DVT PPX: SCDs, Lovenox 40mg SC Daily * Regular Diet <Griffin Pickett H - Last Filed: 05/04/17 10:04> Objective - Vital Signs/Intake and Output Vital Signs (last 24 hours): Temp Pulse Resp BP Pulse Ox 98.3 F 70 20 96/59 L 97 05/04/17 07:22 05/04/17 07:22 05/04/17 07:22 05/04/17 07:22 05/04/17 07:22 Intake and Output: 05/04/17 05/04/17 06:59 18:59 Intake Total 300 Balance 300 - Medications Medications: Current Medications Acetaminophen (Tylenol 325mg Tab) 650 mg PO Q6 PRN PRN Reason: Pain, Mild (1-3) Meropenem 1 gm/ Sodium (Chloride) 100 mls @ 100 mls/hr IVPB Q8 [facility] Last Admin: 05/04/17 05:20 Dose: 100 mls/hr Amikacin Sulfate 500 mg/ (Sodium Chloride) 102 mls @ 100 mls/hr IV Q12H [facility] Last Admin: 05/04/17 09:01 Dose: 100 mls/hr Ondansetron HCl (Zofran Inj) 4 mg IVP Q6H PRN PRN Reason: Nausea/Vomiting Last Admin: 04/25/17 15:06 Dose: 4 mg Pantoprazole Sodium (Protonix Ec Tab) 40 mg PO DAILY [facility] Last Admin: 05/04/17 09:01 Dose: 40 mg Rosuvastatin Calcium (Crestor) 5 mg PO HS [facility] Last Admin: 05/03/17 21:22 Dose: 5 mg - Labs Labs: 05/04/17 07:40 05/04/17 07:40 Attending/Attestation - Attestation I have personally seen and examined this patient.: Yes I have fully participated in the care of the patient.: Yes I have reviewed all pertinent clinical information, including history, physical exam and plan: Yes Notes (Text): 05/04/17 10:01 Medical Attending: Patient was seen and examined by me. Agree with the above note by the resident. Reviewed the lab work - culture remain negative. Also the WBC is stable. There is no left shift. thank you Griffin Pickett
[2017-05-04] MEDS: Meropenem 1 GM in Sodium Chloride 0.9% 100 ML IVPB SCH ×3 (05:20→22:41)
[2017-05-04 07:48] LABS: BASO % 0.7 % (0.0-2.0); EOS # 0.1 K/uL (0.0-0.7); EOS % 1.5 % (0.0-4.0); HEMATOCRIT 31.9 % (34.0-47.0); LYMPH # 1.6 K/uL (1.0-4.3); LYMPH % 27.7 % (20.0-40.0); MEAN CELL VOLUME 90.3 fL (81.0-99.0); MEAN CORPUSCULAR HEMOGLOBIN 30.8 pg (27.0-31.0); MEAN CORPUSCULAR HGB CONC 34.1 g/dL (33.0-37.0); MEAN PLATELET VOLUME 8.8 fL (7.2-11.7); MONO # 0.5 K/uL (0.0-0.8); NRBC % 0.1 % (0.0-2.0); RED CELL DISTRIBUTION WIDTH 12.7 % (11.5-14.5); WHITE BLOOD COUNT 5.9 K/uL (4.8-10.8)
[2017-05-04 08:20] LABS: CHLORIDE 104 mmol/L (98-107)
[2017-05-04 08:21] LABS: POTASSIUM 4.3 mmol/L (3.6-5.2); SODIUM 139 mmol/L (132-148)
[2017-05-04 08:23] LABS: ALB/GLOB RATIO 0.9 (1.0-2.1); ALKALINE PHOSPHATASE 96 U/L (38-126); AST/SGOT 29 U/L (14-36); BILIRUBIN,TOTAL 0.6 mg/dL (0.2-1.3); BLOOD UREA NITROGEN 21 mg/dL (7-17); CARBON DIOXIDE 26 mmol/L (22-30); GFR AFRICAN-AMERICAN > 60; TOTAL PROTEIN 6.5 g/dL (6.3-8.3)
[2017-05-04 08:24] LABS: ALT/SGPT 55 U/L (9-52); GLUCOSE,RANDOM 81 mg/dL (65-105)
[2017-05-04] MEDS: Pantoprazole 40 mg EC Tab PO SCH (09:01)
[2017-05-05 00:35] VITALS: O2SAT 98
[2017-05-05] MEDS: Meropenem 1 GM in Sodium Chloride 0.9% 100 ML IVPB SCH (05:00)
[2017-05-05 07:48] LABS: BASO # 0.1 K/uL (0.0-0.2); EOS # 0.1 K/uL (0.0-0.7); EOS % 1.9 % (0.0-4.0); HEMATOCRIT 31.1 % (34.0-47.0); LYMPH # 1.5 K/uL (1.0-4.3); LYMPH % 29.3 % (20.0-40.0); MEAN CELL VOLUME 91.1 fL (81.0-99.0); MEAN CORPUSCULAR HEMOGLOBIN 30.4 pg (27.0-31.0); MEAN CORPUSCULAR HGB CONC 33.4 g/dL (33.0-37.0); MEAN PLATELET VOLUME 8.9 fL (7.2-11.7); MONO # 0.5 K/uL (0.0-0.8); MONO % 10.3 % (0.0-10.0); RED CELL DISTRIBUTION WIDTH 12.6 % (11.5-14.5); WHITE BLOOD COUNT 5.2 K/uL (4.8-10.8)
[2017-05-05 08:01] LABS: CHLORIDE 104 mmol/L (98-107)
[2017-05-05 08:02] LABS: POTASSIUM 3.9 mmol/L (3.6-5.2); SODIUM 138 mmol/L (132-148)
[2017-05-05 08:04] LABS: ALB/GLOB RATIO 0.9 (1.0-2.1); ALKALINE PHOSPHATASE 104 U/L (38-126); ALT/SGPT 49 U/L (9-52); AST/SGOT 26 U/L (14-36); BILIRUBIN,TOTAL 0.5 mg/dL (0.2-1.3); BLOOD UREA NITROGEN 21 mg/dL (7-17); CARBON DIOXIDE 24 mmol/L (22-30); GFR AFRICAN-AMERICAN > 60; TOTAL PROTEIN 6.3 g/dL (6.3-8.3)
[2017-05-05 08:05] LABS: CALCIUM 8.8 mg/dl (8.6-10.4); GLUCOSE,RANDOM 83 mg/dL (65-105)
[2017-05-05 08:32] VITALS: BP 138/70; PULSE 73; RESP 20; TEMP 98.2
[2017-05-05] MEDS: Pantoprazole 40 mg EC Tab PO SCH (09:18)
--- NOTE | 2017-05-05 09:26 | PCM.URO ---
Urology Progress Note - General General: No Complaints - Subjective Abdominal Pain: No Flank Pain: No Vomiting: No Voiding Well: Yes Dysuria: Yes Hematuria: No Stone Passed: No Dsypnea: No Chest Pain: No Fever & Chills: No - Objective Lab Results Last 24 Hours: Laboratory Results - last 24 hr 05/05/17 05/05/17 06:45 06:45 WBC 5.2 RBC 3.42 L Hgb 10.4 L Hct 31.1 L MCV 91.1 MCH 30.4 MCHC 33.4 RDW 12.6 Plt Count 260 MPV 8.9 Neut % (Auto) 57.5 Lymph % (Auto) 29.3 Menard % (Auto) 10.3 H Eos % (Auto) 1.9 Baso % (Auto) 1.0 Neut # 3.0 Lymph # 1.5 Menard # 0.5 Eos # 0.1 Baso # 0.1 Sodium 138 Potassium 3.9 Chloride 104 Carbon Dioxide 24 Anion Gap 14 BUN 21 H Creatinine 0.9 Est GFR ( Amer) > 60 Est GFR (Non-Af Amer) > 60 Random Glucose 83 Calcium 8.8 Total Bilirubin 0.5 AST 26 ALT 49 Alkaline Phosphatase 104 Total Protein 6.3 Albumin 3.0 L Globulin 3.3 Albumin/Globulin Ratio 0.9 L Intake & Output: Intake & Output 05/04/17 05/05/17 05/05/17 18:59 06:59 18:59 Intake Total 980 50 Balance 980 50 Intake: Intake, IV Amount 200 50 Right Antecubital 200 50 Proximal Port Oral 780 0 Other: # Voids Urine, Voided 3 1 # Bowel Movements 0 0 Vital Signs: Vital Signs - 24 hr 05/04/17 05/05/17 05/05/17 15:53 00:00 08:32 Temperature 99.3 F 98.7 F 98.2 F Pulse Rate 99 H 89 73 Respiratory 20 18 20 Rate Blood Pressure 110/66 108/65 138/70 O2 Sat by Pulse 99 98 98 Oximetry - Physical Exam Abdominal Exam: Soft, Non-Tender, Non-Distended Back: No CVA Tenderness - Plan Intake & Output: Yes Additional Information: Imp: uti. R hydronephrosis. rec/plan: R ureteral stent in place. Antibiotic rx. Cysto, R ureteroscopy t/f. flomax. urine culture. Discussed with pt and hospitalist - Date & Time of Note Date: 05/05/17 Time: 09:26
[2017-05-05 10:32] LABS: RBC URINE 23 /hpf (0-3); URINE BACTERIA RARE (<OCC); URINE BILIRUBIN NEGATIVE (NEGATIVE); URINE BLOOD 2+ (NEGATIVE); URINE COLOR Straw (YELLOW); URINE GLUCOSE (UA) NORMAL (Normal); URINE KETONE NEGATIVE (NEGATIVE); URINE LEUKOCYTE ESTERASE TRACE Leu/uL (Negative); URINE PROTEIN 1+ mg/dL (NEGATIVE); URINE UROBILINOGEN NORMAL mg/dL (0.2-1.0); WBC URINE 4 /hpf (0-5)
--- NOTE | 2017-05-05 14:32 | CP.PCM.DIS ---
<Jaron Qureshi - Last Filed: 05/07/17 10:13> Provider - Provider Date of Admission: 04/20/17 15:28 Attending physician: Griffin Pickett DO Consults: Infectious Disease - Dr. Alice Ling - UTI ESBL w/pcn Allergy Urology - Dr. Catie Newton - Rt [place] UTI Time Spent in preparation of Discharge (in minutes): 45 Hospital Course - Lab Results Lab Results: Micro Results 04/29/17 15:40 Urine Urine Culture - Final No Growth (<1,000 CFU/ML) 04/23/17 04:00 Blood-Venous Blood Culture - Final NO GROWTH AFTER 5 DAYS 04/23/17 04:00 Blood-Venous Gram Stain - Final TEST NOT PERFORMED 04/23/17 04:00 Blood-Venous Blood Culture - Final NO GROWTH AFTER 5 DAYS 04/23/17 04:00 Blood-Venous Gram Stain - Final TEST NOT PERFORMED 04/24/17 23:59 Nose MRSA Culture - Final MRSA NOT DETECTED 04/22/17 11:29 Urine Urine Culture - Final No Growth (<1,000 CFU/ML) 04/21/17 06:00 Naris MRSA Culture (Admit) - Final MRSA NOT DETECTED Most Recent Lab Values WBC 5.2 K/uL (4.8-10.8) 05/05/17 06:45 RBC 3.42 Mil/uL (3.80-5.20) L 05/05/17 06:45 Hgb 10.4 g/dL (11.0-16.0) L 05/05/17 06:45 Hct 31.1 % (34.0-47.0) L 05/05/17 06:45 MCV 91.1 fL (81.0-99.0) 05/05/17 06:45 MCH 30.4 pg (27.0-31.0) 05/05/17 06:45 MCHC 33.4 g/dL (33.0-37.0) 05/05/17 06:45 RDW 12.6 % (11.5-14.5) 05/05/17 06:45 Plt Count 260 K/uL (130-400) 05/05/17 06:45 MPV 8.9 fL (7.2-11.7) 05/05/17 06:45 Neut % (Auto) 57.5 % (50.0-75.0) 05/05/17 06:45 Lymph % (Auto) 29.3 % (20.0-40.0) 05/05/17 06:45 Cameron % (Auto) 10.3 % (0.0-10.0) H 05/05/17 06:45 Eos % (Auto) 1.9 % (0.0-4.0) 05/05/17 06:45 Baso % (Auto) 1.0 % (0.0-2.0) 05/05/17 06:45 Neut # 3.0 K/uL (1.8-7.0) 05/05/17 06:45 Lymph # 1.5 K/uL (1.0-4.3) 05/05/17 06:45 Cameron # 0.5 K/uL (0.0-0.8) 05/05/17 06:45 Eos # 0.1 K/uL (0.0-0.7) 05/05/17 06:45 Baso # 0.1 K/uL (0.0-0.2) 05/05/17 06:45 Neutrophils % (Manual) 58 % (50-75) 04/28/17 08:32 Band Neutrophils % 11 % (0-2) H* 04/28/17 08:32 Lymphocytes % (Manual) 22 % (20-40) 04/28/17 08:32 Reactive Lymphs % 4 % (0-0) H 04/26/17 08:17 Monocytes % (Manual) 8 % (0-10) 04/28/17 08:32 Eosinophils % (Manual) 2 % (0-4) 04/26/17 08:17 Metamyelocytes % 1 % (0-0) H 04/28/17 08:32 Myelocytes % 5 % (0-0) H 04/26/17 08:17 Promyelocytes % 1 % (0-0) H 04/26/17 08:17 Nucleated RBC % 1 % (0-0) H 04/24/17 06:40 Toxic Granulation Present 04/21/17 06:38 Platelet Estimate Normal (NORMAL) 04/28/17 08:32 RBC Morphology Normal 04/28/17 08:32 Hypochromasia (manual) Slight 04/26/17 08:17 Anisocytosis (manual) Slight 04/21/17 06:38 pO2 37 mm/Hg (30-55) 04/20/17 18:07 VBG pH 7.38 (7.32-7.43) 04/20/17 18:07 VBG pCO2 35 mmHg (40-60) L 04/20/17 18:07 VBG HCO3 21.2 mmol/L 04/20/17 18:07 VBG Total CO2 21.8 mmol/L (22-28) L 04/20/17 18:07 VBG O2 Sat (Calc) 75.4 % (40-65) H 04/20/17 18:07 VBG Base Excess -3.8 mmol/L (0.0-2.0) L 04/20/17 18:07 VBG Potassium 3.0 mmol/L (3.6-5.2) L 04/20/17 18:07 Sodium 142.0 mmol/l (132-148) 04/20/17 18:07 Chloride 112.0 mmol/L (98-107) H 04/20/17 18:07 Glucose 89 mg/dl (65-105) 04/20/17 18:07 Lactate 0.6 mmol/L (0.7-2.1) L 04/20/17 18:07 Sodium 138 mmol/L (132-148) 05/05/17 06:45 Potassium 3.9 mmol/L (3.6-5.2) 05/05/17 06:45 Chloride 104 mmol/L (98-107) 05/05/17 06:45 Carbon Dioxide 24 mmol/L (22-30) 05/05/17 06:45 Anion Gap 14 (10-20) 05/05/17 06:45 BUN 21 mg/dL (7-17) H 05/05/17 06:45 Creatinine 0.9 MG/DL (0.7-1.2) 05/05/17 06:45 Est GFR ( Amer) > 60 05/05/17 06:45 Est GFR (Non-Af Amer) > 60 05/05/17 06:45 Random Glucose 83 mg/dL (65-105) 05/05/17 06:45 Hemoglobin A1c 5.6 % (4.2-6.5) 04/22/17 06:07 Lactic Acid 1.0 mmol/L (0.7-2.1) 04/22/17 06:06 Calcium 8.8 mg/dl (8.6-10.4) 05/05/17 06:45 Phosphorus 2.7 mg/dL (2.5-4.5) 04/29/17 07:07 Magnesium 1.9 mg/dL (1.6-2.3) 04/29/17 07:07 Total Bilirubin 0.5 mg/dL (0.2-1.3) 05/05/17 06:45 AST 26 U/L (14-36) 05/05/17 06:45 ALT 49 U/L (9-52) 05/05/17 06:45 Alkaline Phosphatase 104 U/L (38-126) 05/05/17 06:45 Total Protein 6.3 g/dL (6.3-8.3) 05/05/17 06:45 Albumin 3.0 g/dL (3.5-5.0) L 05/05/17 06:45 Globulin 3.3 gm/dL (2.2-3.9) 05/05/17 06:45 Albumin/Globulin Ratio 0.9 (1.0-2.1) L 05/05/17 06:45 Procalcitonin 13.80 NG/ML (0.19-0.49) H 04/20/17 16:16 Venous Blood Potassium 3.0 mmol/L (3.6-5.2) L 04/20/17 18:07 Urine Color Straw (YELLOW) 05/05/17 10:25 Urine Clarity Clear (Clear) 05/05/17 10:25 Urine pH 7.0 (5.0-8.0) 05/05/17 10:25 Ur Specific [place] 1.008 (1.003-1.030) 05/05/17 10:25 Urine Protein 1+ mg/dL (NEGATIVE) H 05/05/17 10:25 Urine Glucose (UA) Normal mg/dL (Normal) 05/05/17 10:25 Urine Ketones Negative mg/dL (NEGATIVE) 05/05/17 10:25 Urine Blood 2+ (NEGATIVE) H 05/05/17 10:25 Urine Nitrate Negative (NEGATIVE) 05/05/17 10:25 Urine Bilirubin Negative (NEGATIVE) 05/05/17 10:25 Urine Urobilinogen Normal mg/dL (0.2-1.0) 05/05/17 10:25 Ur Leukocyte Esterase Trace Helder/uL (Negative) 05/05/17 10:25 Urine WBC (Auto) 4 /hpf (0-5) 05/05/17 10:25 Urine RBC (Auto) 23 /hpf (0-3) H 05/05/17 10:25 Ur Squamous Epith Cells 1 /hpf (0-5) 05/05/17 10:25 Urine Bacteria Rare (<OCC) 05/05/17 10:25 Urine HCG, Qual Negative (NEGATIVE) 04/22/17 09:56 - Hospital Course Hospital Course: As per admission documentation: 36F with Hx of pyelonephritis with admission 01/2017 presents to the ED with fever, chills, nausea, vomiting, dysuria, and generalized body aches for the past 5 days. Patient reports she was discharged previously with Cipro and to follow up with the clinic. A repeat urine culture 04/16/17 was done and she was called and told to return to the ED- grew ESBL +. She has fever, chills, headache, weakness, dizziness, nausea, vomiting x 1 episodes, abdominal pain, hematuria, dysuria, and urinary frequency. Denied chest pain or d/c. Patient was admitted to the hospital with acute sepsis 2/2 pyelonephritis with + ESBL, resistant to Cipro on 04/20/14. Patient initially started on Primaxin 500mg IV Q6H, Pyridium 200mg PO TIDPC. Switched to Amikacin Q12H and Meropenem Q8H on 04/21/17. Patient was moved to ICU overnight of 04/20 into 04/21 due to persistently low BP after IVF boluses. Abdomen and pelvis w/o PO or IV contrast CT 04/20 showed right sided Hydrouteronephrosis. Labs showed bandemia 11. Procalcitonin was high 13. Since patient was recently here for the same problem , prior studies were already preformed, ECHO 01/2017 - LVEF 86%, mild pulm htn, trace AI, trace TR. Abdomen and pelvis PO and IV contrast CT 03/2017: normal bilateral nephrograms, no evidence of cystic or solid mass, hydronephrosis or even pyelonephritis bilaterally. Fatty liver. Small bilateral adnexal cysts. Abdominal US 04/21: No evidence of cholelithiasis or cholecystitis. Heterogeneous echogenic liver suggestive of hepatic steatosis. No evidence of right sided hydronephrosis. Abdomen XRay 04/22: No evidence of acute mechanical bowel obstruction. Two tiny pelvic calcifications consistent with calcified pelvic phleboliths. Fluoroscopy 04/22/17 showed possible R distal ureteral stricture. cystitis lymphofollicularis. Cysto. bilateral rtg pyelogram. Insertion of R ureteral stent. EUA performed with Dr. Catie Newton. Patient was cleared from ICU and deemed stable to transfer to med/surg. floor after stent placement on 04/22. A PICC line was placed on 04/26 due to poor IV access and the need for IV abx. CXR 04/26: New right sided PICC catheter terminating at the level of the cavoatrial junction. Otherwise unremarkable examination. Per Dr. Ling on 04/25, patient will need antibiotics for 10days within 1 gram a day, to be started after PICC line placement. Patient was placed on Invanz, stopped Amikacin Q12H and Meropenem Q8H on 04/25. Plans were made for patient to go home and finish IV abx treatment as out patient at the infusion center at [facility] Cultures from 04/20 grew + for ESBL, blood x2 and urine x1. Patient has persistent bandemia and fevers, it was decided to restart Amikacin Q12H and Meropenem Q8H on 04/29 and have patient finish her final week of antibiotics in the hospital. Blood cultures on 04/23 were negative times 2. Urine Cultures on and 04/29 were both negative. MRSA nasal cultures on 04/21 and 04/24 were both negative. Patient's vital signs remained stable throughout the duration of her stay. Bandemia/fevers resolved. PICC line removed on 05/05 prior to discharge. Patient stated some continued pain on her right side. Dr. Catie Newton informed patient that the pain was most likely due to the stent that was place. Patient was given to be given Flomax upon discharge, per Dr. Newton, as it can help some patient's with stent placement pain. Discharge Instructions: Patient is to be discharged home, per Dr. Pickett. She will also need to follow up with her own PMD or [facility] within 1 week for post hospital care and for primary care. Patient will need to follow up with Dr. Newton within 1 week. She will return to ED if symptoms return or worsen. - Date & Time of H&P Date of H&P: 04/20/17 Time of H&P: 16:30 Discharge Exam - Head Exam Head Exam: ATRAUMATIC, NORMOCEPHALIC - Eye Exam Eye Exam: EOMI, Normal appearance - ENT Exam ENT Exam: Mucous Membranes Moist - Neck Exam Neck exam: Normal Inspection - Respiratory Exam Respiratory Exam: Clear to PA & Lateral, NORMAL BREATHING PATTERN. absent: Accessory Muscle Use, Rhonchi, Wheezes, Respiratory Distress - Cardiovascular Exam Cardiovascular Exam: REGULAR RHYTHM, +S1, +S2 - GI/Abdominal Exam GI & Abdominal Exam: Normal Bowel Sounds, Soft, Tenderness (mild RLQ/inguinal area tenderness. expected s/p rt ureteral stent.). absent: Distended, Rebound, Rigid - Exam Exam: absent: Bladder Distension - Back Exam Back exam: CVA tenderness (R) (mild, much improved from previous days). absent : CVA tenderness (L) - Neurological Exam Neurological exam: Alert, CN II-XII Intact, Oriented x3 - Psychiatric Exam Psychiatric exam: Normal Affect, Normal Mood - Skin Skin Exam: Dry, Normal Color, Warm Discharge Plan - Discharge Medications Prescriptions: Rosuvastatin Calcium [Crestor] 5 mg PO HS 30 Days Tamsulosin HCl [Flomax] 0.4 mg PO DAILY 30 Days - Follow Up Plan Condition: GUARDED Disposition: HOME/ ROUTINE Instructions: Urinary Tract Infection in Women (DC), Urinary Tract Infection in Men (DC), Fever in Adults (GEN), Acute Pyelonephritis (DC), Acute Pyelonephritis (GEN), Sepsis (DC), Sepsis (GEN), Dysuria (GEN) Additional Instructions: Patient is to be discharged home per Dr. Pickett. She will also need to follow up with her own D or [facility] within 1 week for post hospital care and for primary care. Patient will need to follow up with Dr. Newton within 1 week. She will return to ED if symptoms return or worsen. Referrals: at [facility] [Outside] Catie Newton MD [Staff Provider] - <Griffin Pickett - Last Filed: 05/13/17 07:26> Provider - Provider Date of Admission: 04/20/17 15:28 Attending physician: Griffin Pickett DO Hospital Course - Lab Results Lab Results: Micro Results 04/29/17 15:40 Urine Urine Culture - Final No Growth (<1,000 CFU/ML) 04/23/17 04:00 Blood-Venous Blood Culture - Final NO GROWTH AFTER 5 DAYS 04/23/17 04:00 Blood-Venous Gram Stain - Final TEST NOT PERFORMED 04/23/17 04:00 Blood-Venous Blood Culture - Final NO GROWTH AFTER 5 DAYS 04/23/17 04:00 Blood-Venous Gram Stain - Final TEST NOT PERFORMED 04/24/17 23:59 Nose MRSA Culture - Final MRSA NOT DETECTED 04/22/17 11:29 Urine Urine Culture - Final No Growth (<1,000 CFU/ML) 04/21/17 06:00 Naris MRSA Culture (Admit) - Final MRSA NOT DETECTED Most Recent Lab Values WBC 5.2 K/uL (4.8-10.8) 05/05/17 06:45 RBC 3.42 Mil/uL (3.80-5.20) L 05/05/17 06:45 Hgb 10.4 g/dL (11.0-16.0) L 05/05/17 06:45 Hct 31.1 % (34.0-47.0) L 05/05/17 06:45 MCV 91.1 fL (81.0-99.0) 05/05/17 06:45 MCH 30.4 pg (27.0-31.0) 05/05/17 06:45 MCHC 33.4 g/dL (33.0-37.0) 05/05/17 06:45 RDW 12.6 % (11.5-14.5) 05/05/17 06:45 Plt Count 260 K/uL (130-400) 05/05/17 06:45 MPV 8.9 fL (7.2-11.7) 05/05/17 06:45 Neut % (Auto) 57.5 % (50.0-75.0) 05/05/17 06:45 Lymph % (Auto) 29.3 % (20.0-40.0) 05/05/17 06:45 Cameron % (Auto) 10.3 % (0.0-10.0) H 05/05/17 06:45 Eos % (Auto) 1.9 % (0.0-4.0) 05/05/17 06:45 Baso % (Auto) 1.0 % (0.0-2.0) 05/05/17 06:45 Neut # 3.0 K/uL (1.8-7.0) 05/05/17 06:45 Lymph # 1.5 K/uL (1.0-4.3) 05/05/17 06:45 Cameron # 0.5 K/uL (0.0-0.8) 05/05/17 06:45 Eos # 0.1 K/uL (0.0-0.7) 05/05/17 06:45 Baso # 0.1 K/uL (0.0-0.2) 05/05/17 06:45 Neutrophils % (Manual) 58 % (50-75) 04/28/17 08:32 Band Neutrophils % 11 % (0-2) H* 04/28/17 08:32 Lymphocytes % (Manual) 22 % (20-40) 04/28/17 08:32 Reactive Lymphs % 4 % (0-0) H 04/26/17 08:17 Monocytes % (Manual) 8 % (0-10) 04/28/17 08:32 Eosinophils % (Manual) 2 % (0-4) 04/26/17 08:17 Metamyelocytes % 1 % (0-0) H 04/28/17 08:32 Myelocytes % 5 % (0-0) H 04/26/17 08:17 Promyelocytes % 1 % (0-0) H 04/26/17 08:17 Nucleated RBC % 1 % (0-0) H 04/24/17 06:40 Toxic Granulation Present 04/21/17 06:38 Platelet Estimate Normal (NORMAL) 04/28/17 08:32 RBC Morphology Normal 04/28/17 08:32 Hypochromasia (manual) Slight 04/26/17 08:17 Anisocytosis (manual) Slight 04/21/17 06:38 pO2 37 mm/Hg (30-55) 04/20/17 18:07 VBG pH 7.38 (7.32-7.43) 04/20/17 18:07 VBG pCO2 35 mmHg (40-60) L 04/20/17 18:07 VBG HCO3 21.2 mmol/L 04/20/17 18:07 VBG Total CO2 21.8 mmol/L (22-28) L 04/20/17 18:07 VBG O2 Sat (Calc) 75.4 % (40-65) H 04/20/17 18:07 VBG Base Excess -3.8 mmol/L (0.0-2.0) L 04/20/17 18:07 VBG Potassium 3.0 mmol/L (3.6-5.2) L 04/20/17 18:07 Sodium 142.0 mmol/l (132-148) 04/20/17 18:07 Chloride 112.0 mmol/L (98-107) H 04/20/17 18:07 Glucose 89 mg/dl (65-105) 04/20/17 18:07 Lactate 0.6 mmol/L (0.7-2.1) L 04/20/17 18:07 Sodium 138 mmol/L (132-148) 05/05/17 06:45 Potassium 3.9 mmol/L (3.6-5.2) 05/05/17 06:45 Chloride 104 mmol/L (98-107) 05/05/17 06:45 Carbon Dioxide 24 mmol/L (22-30) 05/05/17 06:45 Anion Gap 14 (10-20) 05/05/17 06:45 BUN 21 mg/dL (7-17) H 05/05/17 06:45 Creatinine 0.9 MG/DL (0.7-1.2) 05/05/17 06:45 Est GFR ( Amer) > 60 05/05/17 06:45 Est GFR (Non-Af Amer) > 60 05/05/17 06:45 Random Glucose 83 mg/dL (65-105) 05/05/17 06:45 Hemoglobin A1c 5.6 % (4.2-6.5) 04/22/17 06:07 Lactic Acid 1.0 mmol/L (0.7-2.1) 04/22/17 06:06 Calcium 8.8 mg/dl (8.6-10.4) 05/05/17 06:45 Phosphorus 2.7 mg/dL (2.5-4.5) 04/29/17 07:07 Magnesium 1.9 mg/dL (1.6-2.3) 04/29/17 07:07 Total Bilirubin 0.5 mg/dL (0.2-1.3) 05/05/17 06:45 AST 26 U/L (14-36) 05/05/17 06:45 ALT 49 U/L (9-52) 05/05/17 06:45 Alkaline Phosphatase 104 U/L (38-126) 05/05/17 06:45 Total Protein 6.3 g/dL (6.3-8.3) 05/05/17 06:45 Albumin 3.0 g/dL (3.5-5.0) L 05/05/17 06:45 Globulin 3.3 gm/dL (2.2-3.9) 05/05/17 06:45 Albumin/Globulin Ratio 0.9 (1.0-2.1) L 05/05/17 06:45 Procalcitonin 13.80 NG/ML (0.19-0.49) H 04/20/17 16:16 Venous Blood Potassium 3.0 mmol/L (3.6-5.2) L 04/20/17 18:07 Urine Color Straw (YELLOW) 05/05/17 10:25 Urine Clarity Clear (Clear) 05/05/17 10:25 Urine pH 7.0 (5.0-8.0) 05/05/17 10:25 Ur Specific [place] 1.008 (1.003-1.030) 05/05/17 10:25 Urine Protein 1+ mg/dL (NEGATIVE) H 05/05/17 10:25 Urine Glucose (UA) Normal mg/dL (Normal) 05/05/17 10:25 Urine Ketones Negative mg/dL (NEGATIVE) 05/05/17 10:25 Urine Blood 2+ (NEGATIVE) H 05/05/17 10:25 Urine Nitrate Negative (NEGATIVE) 05/05/17 10:25 Urine Bilirubin Negative (NEGATIVE) 05/05/17 10:25 Urine Urobilinogen Normal mg/dL (0.2-1.0) 05/05/17 10:25 Ur Leukocyte Esterase Trace Helder/uL (Negative) 05/05/17 10:25 Urine WBC (Auto) 4 /hpf (0-5) 05/05/17 10:25 Urine RBC (Auto) 23 /hpf (0-3) H 05/05/17 10:25 Ur Squamous Epith Cells 1 /hpf (0-5) 05/05/17 10:25 Urine Bacteria Rare (<OCC) 05/05/17 10:25 Urine HCG, Qual Negative (NEGATIVE) 04/22/17 09:56 Attending/Attestation - Attestation I have personally seen and examined this patient.: Yes I have fully participated in the care of the patient.: Yes I have reviewed all pertinent clinical information, including history, physical exam and plan: Yes Notes (Text): 05/13/17 07:23 Medical Attending: Please note, this discharge summary is being signed at a later date. However I did see and exam the patient with the medical pathology teacher at the time of discharge. Patient was seen and examined by me agree with the above note by the resident. She will need to follow up with the [facility] and eventually with urology as well. She had a prolonged hospitalization due to ESBL E coli. Griffin Pickett
== END 2017-05-05 14:30 | disposition home or self-care (01) | DRG 901 ==
LOC: C.ER 14:03 → C.9E 15:28 → C.3T 17:04 → C.9E 18:18 → C.9I 22:24 → C.5T 04-25 01:19 → C.3T 05-04 19:11
PROVIDERS: ADMIT Hospitalist; ATTEND Hospitalist
PROC: 0T763DZ Dilation of Right Ureter with Intraluminal Device, Percutaneous Approach (ICD-10-PCS; principal; 2017-04-22 14:00)
PROC: 02HV33Z Insertion of Infusion Device into Superior Vena Cava, Percutaneous Approach (ICD-10-PCS; 2017-04-26)
DX: A41.9 Sepsis, unspecified organism (principal); N13.30 Unspecified hydronephrosis; N13.6 Pyonephrosis; N39.0 Urinary tract infection, site not specified; N18.9 Chronic kidney disease, unspecified; N30.91 Cystitis, unspecified with hematuria; R65.20 Severe sepsis without septic shock; B96.20 Unspecified Escherichia coli [E. coli] as the cause of diseases classified elsewhere; E78.5 Hyperlipidemia, unspecified; Z88.0 Allergy status to penicillin

== ENCOUNTER 2017-06-09 16:20 | Inpatient (IN) | payer OTHER ==
[2017-06-09] MEDS ORDERED: Sodium Chloride 0.9% 1,000 ML ONE ×2 (16:29→16:43)
[2017-06-09] MEDS ORDERED: Sodium Chloride 0.9% 1,000 ML IV ONE ×3 (16:35→21:16)
[2017-06-09] MEDS ORDERED: Morphine 4 MG/ML VIAL ONE (16:42)
[2017-06-09 16:55] LABS: BASO % 0.3 % (0.0-2.0); EOS % 0.1 % (0.0-4.0); HEMATOCRIT 34.7 % (34.0-47.0); LYMPH # 0.8 K/uL (1.0-4.3); LYMPH % 10.9 % (20.0-40.0); MEAN CELL VOLUME 91.4 fL (81.0-99.0); MEAN CORPUSCULAR HEMOGLOBIN 31.6 pg (27.0-31.0); MEAN CORPUSCULAR HGB CONC 34.6 g/dL (33.0-37.0); MEAN PLATELET VOLUME 8.8 fL (7.2-11.7); MONO # 0.1 K/uL (0.0-0.8); MONO % 1.7 % (0.0-10.0); NRBC % 0.1 % (0.0-2.0); RED CELL DISTRIBUTION WIDTH 13.5 % (11.5-14.5); WHITE BLOOD COUNT 6.9 K/uL (4.8-10.8)
[2017-06-09 17:04] LABS: POTASSIUM 3.6 mmol/L (3.6-5.2)
[2017-06-09 17:06] LABS: BILIRUBIN,TOTAL 1.2 mg/dL (0.2-1.3)
[2017-06-09 17:07] LABS: ALB/GLOB RATIO 1.3 (1.0-2.1); CALCIUM 8.9 mg/dl (8.6-10.4); TOTAL PROTEIN 7.1 g/dL (6.3-8.3)
[2017-06-09 17:18] LABS: RBC URINE 2 /hpf (0-3); URINE BILIRUBIN NEGATIVE (NEGATIVE); URINE BLOOD 1+ (NEGATIVE); URINE COLOR Straw (YELLOW); URINE GLUCOSE (UA) NORMAL (Normal); URINE KETONE NEGATIVE (NEGATIVE); URINE PROTEIN 2+ mg/dL (NEGATIVE); URINE UROBILINOGEN NORMAL mg/dL (0.2-1.0); WBC URINE 83 /hpf (0-5)
[2017-06-09 17:20] LABS: URINE LEUKOCYTE ESTERASE 3+ Leu/uL (Negative)
[2017-06-09 17:21] LABS: URINE BACTERIA MOD (<OCC)
[2017-06-09] MEDS ORDERED: SODIUM CHLORIDE 0.9% IV STA (19:45)
[2017-06-09] MEDS ORDERED: AMIKACIN IV STA (19:45)
--- NOTE | 2017-06-09 19:46 | CT ---
EXAM: CT Abdomen and Pelvis Without Intravenous Contrast EXAM DATE/TIME: Exam ordered 06/09/2017 4:35 PM CLINICAL HISTORY: 36 years old, female; Pain; Abdominal pain; Localized; Right; Prior surgery; Surgery date: 1-6 months; Additional info: R renal stent removal and replacement 5 d ago TECHNIQUE: Axial computed tomography images of the abdomen and pelvis without intravenous contrast. All CT scans at this facility use one or more dose reduction techniques, viz.: automated exposure control; ma/kV adjustment per patient size (including targeted exams where dose is matched to indication; i.e. head); or iterative reconstruction technique. Coronal and sagittal reformatted images were created and reviewed. COMPARISON: US - RENAL 09/21/2015 12:29:48 PM FINDINGS: Lower thorax: No acute findings. ABDOMEN: Liver: The liver is low in density. Gallbladder and bile ducts: Unremarkable. No calcified stones. No ductal dilation. Pancreas: Unremarkable. No ductal dilation. Spleen: Unremarkable. No splenomegaly. Adrenals: Unremarkable. No mass. Kidneys and ureters: There is a right double-J ureteral stent. The proximal end of the stent is low in the renal pelvis/ureteropelvic junction and the distal end is coiled in the bladder. There is mild right-sided hydronephrosis. Stomach and bowel: Unremarkable. No obstruction. No mucosal thickening. Appendix: No findings to suggest acute appendicitis. PELVIS: Bladder: See above. Reproductive: Unremarkable as visualized. ABDOMEN and PELVIS: Intraperitoneal space: Unremarkable. No free air. No significant fluid collection. Bones/joints: No acute fracture. No dislocation. Soft tissues: Unremarkable. Vasculature: Unremarkable. No abdominal aortic aneurysm. Lymph nodes: Unremarkable. No enlarged lymph nodes. IMPRESSION: 1. Right sided double-J ureteral stent. Proximal end is positioned low in the renal pelvis/ureteropelvic junction. No evidence of urine leak. 2. Hepatic steatosis.
--- NOTE | 2017-06-09 19:51 | C.PDOC ---
History Of Present Illness 36 year old female presents to the ED for evaluation of right-sided flank pain associated with rigors which began yesterday. Patient had a right-sided ureteral stent removed and replaced around [address] Newton at his office. Patient has history of prolonged inpatient hospital stay during 04/26- involving sepsis and ESBL-positive E.Coli. Patient was treated with Amikacin and Meropenem. Patient also had a PICC line in place during her inpatient stay, which was removed prior to discharge. Patient states she has been well at home and has not been taking antibiotics until yesterday. Patient denies fever, chills. Time Seen by Provider: 06/09/17 16:30 Chief Complaint (Nursing): Back Pain History Per: Patient History/Exam Limitations: no limitations Onset/Duration Of Symptoms: Hrs Current Symptoms Are (Timing): Still Present Quality Of Discomfort: "Pain" Associated Symptoms: denies: Incontinence, New Weakness, New Numbness Additional History Per: Patient Past Medical History Reviewed: Historical Data, Nursing Documentation, Vital Signs Vital Signs: Last Vital Signs Temp 98.9 F 06/09/17 22:23 Pulse 88 06/09/17 22:23 Resp 18 06/09/17 22:23 BP 90/59 L 06/09/17 22:23 Pulse Ox 99 06/09/17 22:25 - Medical History PMH: Hypercholesterolemia, Chronic Kidney Disease - [facility] Procedures DILATION OF RIGHT URETER WITH INTRALUM DEV, PERC APPROACH (04/20/17) EXCISION OF ABDOMEN SKIN, EXTERNAL APPROACH (11/16/15) EXTRACTION OF POC, LOW CERVICAL, OPEN APPROACH (11/16/15) INSERTION OF INFUSION DEV INTO SUP VENA CAVA, PERC APPROACH (04/20/17) OCCLUSION OF BILATERAL FALLOPIAN TUBES, OPEN APPROACH (11/16/15) Family History: States: Unknown Family Hx - Social History Hx Tobacco Use: No Hx Alcohol Use: No Hx Substance Use: No - Immunization History Hx Tetanus Toxoid Vaccination: No Hx Influenza Vaccination: No Hx Pneumococcal Vaccination: No Review Of Systems Constitutional: Negative for: Fever, Chills Musculoskeletal: Positive for: Other (right flank pain with rigors ) Physical Exam - Physical Exam Appears: Non-toxic, No Acute Distress, Other (rigors, prostrate ) Skin: Normal Color, Warm, Dry Head: Atraumatic, Normacephalic Eye(s): bilateral: Normal Inspection Oral Mucosa: Moist Neck: Supple Chest: Symmetrical, No Deformity Cardiovascular: Rhythm Regular, No Murmur Respiratory: Normal Breath Sounds, No Rales, No Rhonchi, No Wheezing Back: Other (right flank tenderness ) Extremity: Normal ROM, Capillary Refill (less than 2 seconds ) Neurological/Psych: Oriented x3, Normal Speech, Normal Cognition Gait: Steady ED Course And Treatment - Laboratory Results Result Diagrams: 06/09/17 16:52 06/09/17 16:52 Lab Interpretation: Abnormal (UA 83 WBC's, creat 1.3) Urine POC: Negative O2 Sat by Pulse Oximetry: 99 (on RA) Pulse Ox Interpretation: Normal - CT Scan/US CT abd/pel Other Rad Studies (CT/US): Read By Radiologist, Radiology Report Reviewed CT/US Interpretation: IMPRESSION: 1. Right sided double-J ureteral stent. Proximal end is positioned low in the renal pelvis/ureteropelvic. junction. No evidence of urine leak. 2. Hepatic steatosis. Progress Note: IVF, morphine, toradol, zofran, pepcid. Case discussed with Dr. Catie Newton, who recommends inpatient evaluation for recurrent sepsis. Case discussed with Dr. Ling (infectious disease), who was previously involved in patient's care. Recommended administering amikacin and meropenem. Reevaluation Time: 19:57 Reassessment Condition: Improved - Physician Consult Information Outcome Of Conversation: 2000: d/w Mamie Mathews, Hospitalist Computer Language Coder- ok to obs. Medical Decision Making Medical Decision Making: early mild UTI c/w chronic indwelling ureteral cath, does not seem to be source of acute infection. Considering pt's prior serious Septic picture during admission 04/26- decided by Urology and ID to restart ABX and follow-cultures Consider other sources of infection. No PICC line in place, though pt had PICC line in prior adm. Disposition Doctor Will See Patient In The: Hospital Counseled Patient/Family Regarding: Studies Performed, Diagnosis - Disposition Disposition: HOSPITALIZED Disposition Time: 19:59 Condition: GOOD - Clinical Impression Clinical Impression: Fever and chills - Scribe Statement The provider has reviewed the documentation as recorded by the Scribe (Nivia Wu) Provider Attestation: All medical record entries made by the Scribe were at my direction and personally dictated by me. I have reviewed the chart and agree that the record accurately reflects my personal performance of the history, physical exam, medical decision making, and the department course for this patient. I have also personally directed, reviewed, and agree with the discharge instructions and disposition.
[2017-06-09] MEDS ORDERED: Meropenem 1 GM in Sodium Chloride 0.9% 100 ML IVPB ONE (20:00)
--- NOTE | 2017-06-09 21:24 | CP.PCM.HP ---
<Presley Butler - Last Filed: 06/09/17 22:27> History of Present Illness - History of Present Illness History of Present Illness: 36 yo female with a PMHx of pyelonephritis and HLD presents to ED for subjective fevers. She says she woke up this morning at 4am with fever, chills, nausea and 1 episode of non-bloody, non-bilious emesis. She denies alleviating or aggravating factors. Other associated symptoms include right sided flank pain and dysuria which began this past Saturday06/05/17 after a ureteral stent replacement by urologist, Dr Newton. The patient was discharged from [facility] on 04/30/17 after being treated for sepsis 2/2 right sided pyelonephritis +ESBL. During that admission she spent three days in the ICU for hypotension. She currently denies chest pain, abdominal pain, hematuria, recent travel, sick contacts, or appetite changes. PMD: Dr Mandujano PMHx: Hx of pyelonephritis 01/2017, 04/2017 PSHx: c-sections 2014, 2015 Allergies: Penicillin, pruritis Home Medications: none FamHx: Mother w/ DM SocialHx: denies tobacco, alcohol, drugs; lives at home; unemployed; 2 children Present on Admission - Present on Admission Any Indicators Present on Admission: No History of DVT/PE: No History of Uncontrolled Diabetes: No Review of Systems - Constitutional Constitutional: As Per HPI, Chills, Fever. absent: Headache, Increased Appetite , Weight Gain, Weight Loss - EENT Eyes: absent: Change in Vision Ears: absent: Ear Pain Nose/Mouth/Throat: absent: Nasal Discharge - Cardiovascular Cardiovascular: absent: Chest Pain, Edema, Palpitations - Respiratory Respiratory: absent: Cough, Dyspnea, Hemoptysis - Gastrointestinal Gastrointestinal: absent: Abdominal Pain, Constipation, Diarrhea - Genitourinary Genitourinary: Dysuria, Flank Pain, Freq UTI, Hx /Renal Surgery. absent: Hematuria, Urinary Frequency - Musculoskeletal Musculoskeletal: absent: Back Pain, Muscle Weakness, Myalgias - Integumentary Integumentary: absent: Lesions - Neurological Neurological: Dizziness. absent: Confusion, Convulsions, Numbness Past Patient History - Infectious Disease Hx of Infectious Diseases: None - Past Medical History & Family History Past Medical History?: Yes - Past Social History Smoking Status: Never Smoked - CARDIAC Hx Hypercholesterolemia: Yes - RENAL Hx Chronic Kidney Disease: Yes - MUSCULOSKELETAL/RHEUMATOLOGICAL Hx Falls: No - GENITOURINARY/GYNECOLOGICAL Hx Urinary Tract Infection: Yes - PSYCHIATRIC Hx Substance Use: No - SURGICAL HISTORY Hx Surgeries: Yes Hx Section: Yes - ANESTHESIA Hx Anesthesia: Yes Hx Anesthesia Reactions: No Hx Malignant Hyperthermia: No Meds Allergies/Adverse Reactions: Allergies Allergy/AdvReac Type Severity Reaction Status Date / Time Penicillins Allergy RASH Verified 04/16/17 09:30 Physical Exam - Constitutional Appears: Well, Non-toxic, No Acute Distress - Head Exam Head Exam: ATRAUMATIC, NORMAL INSPECTION - Eye Exam Eye Exam: EOMI Pupil Exam: PERRL - ENT Exam ENT Exam: Mucous Membranes Moist - Neck Exam Neck exam: Positive for: Normal Inspection. Negative for: Lymphadenopathy - Respiratory Exam Respiratory Exam: Clear to Auscultation Bilateral, NORMAL BREATHING PATTERN. absent: Rales, Rhonchi, Wheezes - Cardiovascular Exam Cardiovascular Exam: Tachycardia, REGULAR RHYTHM, +S1, +S2. absent: JVD, Systolic Murmur - GI/Abdominal Exam GI & Abdominal Exam: Normal Bowel Sounds, Soft. absent: Distended, Guarding, Rebound, Tenderness - Rectal Exam Rectal Exam: Deferred - Extremities Exam Extremities exam: Positive for: normal capillary refill. Negative for: pedal edema, tenderness - Back Exam Back exam: CVA tenderness (R). absent: vertebral tenderness - Psychiatric Exam Psychiatric exam: Normal Affect, Normal Mood - Skin Skin Exam: Dry, Intact, Normal Color, Warm Results - Vital Signs Recent Vital Signs: Last Vital Signs Temp 98.8 F 06/09/17 20:55 Pulse 99 H 06/09/17 20:55 Resp 18 06/09/17 20:55 BP 89/60 L 06/09/17 20:55 Pulse Ox 99 06/09/17 20:55 - Labs Result Diagrams: 06/09/17 16:52 06/09/17 16:52 Labs: Laboratory Results - last 24 hr 06/09/17 06/09/17 06/09/17 16:52 16:52 17:11 WBC 6.9 RBC 3.80 Hgb 12.0 Hct 34.7 MCV 91.4 MCH 31.6 H MCHC 34.6 RDW 13.5 Plt Count 175 MPV 8.8 Neut % (Auto) 87.0 H Lymph % (Auto) 10.9 L [place] % (Auto) 1.7 Eos % (Auto) 0.1 Baso % (Auto) 0.3 Neut # 6.0 Lymph # 0.8 L [place] # 0.1 Eos # 0.0 Baso # 0.0 Sodium 139 Potassium 3.6 Chloride 102 Carbon Dioxide 19 L Anion Gap 22 H BUN 19 H Creatinine 1.3 H Est GFR ( Amer) 56 Est GFR (Non-Af Amer) 46 Random Glucose 123 H Calcium 8.9 Total Bilirubin 1.2 AST 29 ALT 42 Alkaline Phosphatase 72 Total Protein 7.1 Albumin 4.0 Globulin 3.1 Albumin/Globulin Ratio 1.3 Lipase 52 Urine Color Straw Urine Clarity Clear Urine pH 5.0 Ur Specific [place] 1.008 Urine Protein 2+ H Urine Glucose (UA) Normal Urine Ketones Negative Urine Blood 1+ H Urine Nitrate Positive H Urine Bilirubin Negative Urine Urobilinogen Normal Ur Leukocyte Esterase 3+ H Urine WBC (Auto) 83 H Urine RBC (Auto) 2 Ur Squamous Epith Cells < 1 Urine Bacteria Mod H Urine HCG, Qual Negative Assessment & Plan (1) Right flank pain Assessment and Plan: s/p right ureteral stent replacement on 06/05/17; subjective fever, n/v/chills/ dysuria, rt flank pain; Hx of +ESBL pyelo in 04/2017 CT abd/pelvis unremarkable, hepatic steatosis Infectious disease consulted, Dr Ling Urology consulted, Dr Catie Newton Hx of septic shock, monitor BP Amikacin 500mg ivpb q12 Meropenem 1gm ivpb q8 NS @ 125 cc/hr Status: Acute (2) Hx of pyelonephritis Assessment and Plan: Patient was treated for pyelonephritis in 01/2017 and discharged on Cipro, repeat Urine Cx showed ESBL (+) in 04/2017 and patient was readmitted. Patient then treated with amikacin and meropenem and a right ureteral stent was placed. Septic shock during that admission, monitor BP. Status: Acute (3) Elevated serum creatinine Assessment and Plan: Possibly due to dehydration Amikacin is nephrotoxic but con't for now, will monitor Cr and adjust abx if necessary Status: Acute (4) HLD (hyperlipidemia) Assessment and Plan: Lipid Panel on 01/2017: TG 271, other markers normal crestor 5mg po qhs Status: Acute (5) Prophylactic measure Assessment and Plan: GI PPX: Protonix 40mg PO daily DVT PPX: SCDs, Lovenox 40mg SC Daily Diet: Regular Diet Prior Studies: ECHO 01/2017 LVEF 86%, mild pulm htn, trace AI, trace TR CT 03/2017 Abdomen and pelvis PO and IV contrast: normal bilateral nephrograms, no evidence of cystic or solid mass, hydronephrosis or even pyelonephritis bilaterally. Fatty liver. Small bilateral adnexal cysts. HGA1C 01/2017: 5.3 Status: Acute <Christopher Hatch - Last Filed: 06/10/17 06:14> Results - Vital Signs Recent Vital Signs: Last Vital Signs Temp 98.5 F 06/10/17 00:00 Pulse 96 H 06/10/17 00:00 Resp 20 06/10/17 00:00 BP 98/60 L 06/10/17 00:00 Pulse Ox 99 06/10/17 00:00 - Labs Result Diagrams: 06/09/17 16:52 06/09/17 16:52 Labs: Laboratory Results - last 24 hr 06/09/17 06/09/17 06/09/17 16:52 16:52 17:11 WBC 6.9 RBC 3.80 Hgb 12.0 Hct 34.7 MCV 91.4 MCH 31.6 H MCHC 34.6 RDW 13.5 Plt Count 175 MPV 8.8 Neut % (Auto) 87.0 H Lymph % (Auto) 10.9 L [place] % (Auto) 1.7 Eos % (Auto) 0.1 Baso % (Auto) 0.3 Neut # 6.0 Lymph # 0.8 L [place] # 0.1 Eos # 0.0 Baso # 0.0 Sodium 139 Potassium 3.6 Chloride 102 Carbon Dioxide 19 L Anion Gap 22 H BUN 19 H Creatinine 1.3 H Est GFR ( Amer) 56 Est GFR (Non-Af Amer) 46 Random Glucose 123 H Calcium 8.9 Total Bilirubin 1.2 AST 29 ALT 42 Alkaline Phosphatase 72 Total Protein 7.1 Albumin 4.0 Globulin 3.1 Albumin/Globulin Ratio 1.3 Lipase 52 Urine Color Straw Urine Clarity Clear Urine pH 5.0 Ur Specific [place] 1.008 Urine Protein 2+ H Urine Glucose (UA) Normal Urine Ketones Negative Urine Blood 1+ H Urine Nitrate Positive H Urine Bilirubin Negative Urine Urobilinogen Normal Ur Leukocyte Esterase 3+ H Urine WBC (Auto) 83 H Urine RBC (Auto) 2 Ur Squamous Epith Cells < 1 Urine Bacteria Mod H Urine HCG, Qual Negative Assessment & Plan - Date & Time Date: 06/10/17 (I have seen and examined the patient. I agree with the findings and plan of care as documented by Dr. Butler. Patient with fever and right flank pain. Recent admitted with ESBL infection/pyelonephritis/sepsis. Consult to ID and urology. Meropenum and Amikacin for now. Check urine and blood cultures. IVF for renal insufficiency. Monitor for acute changes.) Time: 06:11 Attending/Attestation - Attestation I have personally seen and examined this patient.: Yes I have fully participated in the care of the patient.: Yes I have reviewed all pertinent clinical information: Yes
[2017-06-09] MEDS: Sodium Chloride 0.9% 1,000 ML IV SCH (22:00)
[2017-06-09 23:03] VITALS: RESP 20
[2017-06-10] MEDS: Meropenem 1 GM in Sodium Chloride 0.9% 100 ML IVPB SCH ×3 (05:27→21:19)
[2017-06-10] MEDS: Sodium Chloride 0.9% 1,000 ML IV SCH ×3 (05:28→21:00)
[2017-06-10 07:39] LABS: BASO % 0.4 % (0.0-2.0); EOS # 0.1 K/uL (0.0-0.7); EOS % 0.7 % (0.0-4.0); HEMATOCRIT 28.6 % (34.0-47.0); LYMPH # 1.7 K/uL (1.0-4.3); LYMPH % 20.6 % (20.0-40.0); MEAN CELL VOLUME 93.1 fL (81.0-99.0); MEAN CORPUSCULAR HEMOGLOBIN 32.5 pg (27.0-31.0); MEAN CORPUSCULAR HGB CONC 34.9 g/dL (33.0-37.0); MEAN PLATELET VOLUME 9.2 fL (7.2-11.7); MONO # 0.7 K/uL (0.0-0.8); MONO % 8.4 % (0.0-10.0); RED CELL DISTRIBUTION WIDTH 13.8 % (11.5-14.5); WHITE BLOOD COUNT 8.2 K/uL (4.8-10.8)
[2017-06-10 07:44] LABS: GLUCOSE,RANDOM 84 mg/dL (65-105)
[2017-06-10 07:47] LABS: ALKALINE PHOSPHATASE 50 U/L (38-126); ALT/SGPT 55 U/L (9-52); AST/SGOT 35 U/L (14-36); BILIRUBIN,TOTAL 0.8 mg/dL (0.2-1.3); BLOOD UREA NITROGEN 13 mg/dL (7-17); CALCIUM 7.2 mg/dl (8.6-10.4); CARBON DIOXIDE 20 mmol/L (22-30); CHLORIDE 110 mmol/L (98-107); GFR AFRICAN-AMERICAN > 60; POTASSIUM 3.5 mmol/L (3.6-5.2); SODIUM 140 mmol/L (132-148)
--- NOTE | 2017-06-10 08:57 | CP.PCM.PN ---
<Jany Newman - Last Filed: 06/10/17 15:51> Subjective - Date & Time of Evaluation Date of Evaluation: 06/10/17 Time of Evaluation: 08:00 - Subjective Subjective: Medicine Note for Dr. Ingrid Wu Patient was seen and examined at bedside. She admits to some right sided flank pain, denied any dysuria, hematuria, or frequency. Denied fever, chills, headache, abdominal pain, n/v/d/c, or urinary symptoms. Objective - Vital Signs/Intake and Output Vital Signs (last 24 hours): Temp Pulse Resp BP Pulse Ox 98.5 F 86 20 97/66 L 98 06/10/17 07:43 06/10/17 07:43 06/10/17 07:43 06/10/17 07:43 06/10/17 07:43 Intake and Output: 06/10/17 06/10/17 06:59 18:59 Intake Total 3980 Balance 3980 - Medications Medications: Current Medications Enoxaparin Sodium (Lovenox) 40 mg SC DAILY [facility] Sodium Chloride (Sodium Chloride 0.9%) 1,000 mls @ 125 mls/hr IV .Q8H [facility] Last Admin: 06/10/17 05:28 Dose: 125 mls/hr Amikacin Sulfate 500 mg/ (Sodium Chloride) 252 mls @ 250 mls/hr IVPB Q12H [facility] Meropenem 1 gm/ Sodium (Chloride) 100 mls @ 100 mls/hr IVPB Q8 [facility] Last Admin: 06/10/17 05:27 Dose: 100 mls/hr Pantoprazole Sodium (Protonix Ec Tab) 40 mg PO DAILY [facility] Rosuvastatin Calcium (Crestor) 5 mg PO HS [facility] Saccharomyces Boulardii (Florastor) 250 mg PO BID [facility] - Labs Labs: 06/10/17 07:09 06/10/17 07:09 - Additional Findings Additional findings: - Constitutional Appears: Well, Non-toxic, No Acute Distress - Head Exam Head Exam: ATRAUMATIC, NORMAL INSPECTION - Eye Exam Eye Exam: EOMI Pupil Exam: PERRL - ENT Exam ENT Exam: Mucous Membranes Moist - Neck Exam Neck exam: Positive for: Normal Inspection. Negative for: Lymphadenopathy - Respiratory Exam Respiratory Exam: Clear to Auscultation Bilateral, NORMAL BREATHING PATTERN. absent: Rales, Rhonchi, Wheezes - Cardiovascular Exam Cardiovascular Exam: Tachycardia, REGULAR RHYTHM, +S1, +S2. absent: JVD, Systolic Murmur - GI/Abdominal Exam GI & Abdominal Exam: Normal Bowel Sounds, Soft. absent: Distended, Guarding, Rebound, Tenderness - Rectal Exam Rectal Exam: Deferred - Extremities Exam Extremities exam: Positive for: normal capillary refill. Negative for: pedal edema, tenderness - Back Exam Back exam: CVA tenderness (R). absent: vertebral tenderness - Psychiatric Exam Psychiatric exam: Normal Affect, Normal Mood - Skin Skin Exam: Dry, Intact, Normal Color, Warm Assessment and Plan - Assessment and Plan (Free Text) Plan: Right flank pain Assessment and Plan: Infectious disease consulted, Dr Ling Urology consulted, Dr Catie Newton s/p right ureteral stent replacement on 06/05/17; subjective fever, n/v/chills/ dysuria, rt flank pain; Hx of +ESBL pyelo in 04/2017 CT abd/pelvis unremarkable, hepatic steatosis Hx of septic shock, monitor BP * Amikacin 500mg ivpb q12 * Meropenem 1gm ivpb q8 * NS @ 125 cc/hr Monitor BP Status: Acute Hx of pyelonephritis Assessment and Plan: Patient was treated for pyelonephritis in 01/2017 and discharged on Cipro, repeat Urine Cx showed ESBL (+) in 04/2017 and patient was readmitted. Patient then treated with amikacin and meropenem and a right ureteral stent was placed. Septic shock during that admission, monitor BP. CT 03/2017 Abdomen and pelvis PO and IV contrast: normal bilateral nephrograms, no evidence of cystic or solid mass, hydronephrosis or even pyelonephritis bilaterally. Fatty liver. Small bilateral adnexal cysts. F/U UC Status: Acute Elevated serum creatinine Assessment and Plan: Possibly due to dehydration Amikacin is nephrotoxic but con't for now, will monitor Cr and adjust abx if necessary Status: Acute HLD (hyperlipidemia) Assessment and Plan: HGA1C 01/2017: 5.3 Lipid Panel on 01/2017: TG 271, other markers normal Prior Studies:ECHO 01/2017 LVEF 86%, mild pulm htn, trace AI, trace TR * Crestor 5mg po qhs Status: Acute Prophylactic measure Assessment and Plan: GI PPX: Protonix 40mg PO daily DVT PPX: SCDs, Lovenox 40mg SC Daily Diet: Regular Diet Florastor 250mg PO BID [facility] Trent Ramon DO, PGY-1 <Gareth Wu - Last Filed: 06/10/17 19:35> Objective - Vital Signs/Intake and Output Vital Signs (last 24 hours): Temp Pulse Resp BP Pulse Ox 98.5 F 92 H 20 112/67 98 06/10/17 15:00 06/10/17 15:00 06/10/17 15:00 06/10/17 15:00 06/10/17 15:00 Intake and Output: 06/10/17 06/11/17 18:59 06:59 Intake Total 1930 Balance 1930 - Medications Medications: Current Medications Enoxaparin Sodium (Lovenox) 40 mg SC DAILY [facility] Last Admin: 06/10/17 10:37 Dose: 40 mg Sodium Chloride (Sodium Chloride 0.9%) 1,000 mls @ 125 mls/hr IV .Q8H [facility] Last Admin: 06/10/17 05:28 Dose: 125 mls/hr Amikacin Sulfate 500 mg/ (Sodium Chloride) 252 mls @ 250 mls/hr IVPB Q12H [facility] Last Admin: 06/10/17 10:36 Dose: 250 mls/hr Meropenem 1 gm/ Sodium (Chloride) 100 mls @ 100 mls/hr IVPB Q8 [facility] Last Admin: 06/10/17 14:07 Dose: 100 mls/hr Pantoprazole Sodium (Protonix Ec Tab) 40 mg PO DAILY [facility] Last Admin: 06/10/17 10:38 Dose: 40 mg Rosuvastatin Calcium (Crestor) 5 mg PO [facility] Saccharomyces Boulardii (Florastor) 250 mg PO BID [facility] Last Admin: 06/10/17 17:46 Dose: 250 mg - Labs Labs: 06/10/17 07:09 06/10/17 07:09 Attending/Attestation - Attestation I have personally seen and examined this patient.: Yes I have fully participated in the care of the patient.: Yes I have reviewed all pertinent clinical information, including history, physical exam and plan: Yes Notes (Text): 06/10/17 19:29 Patient was seen and examined at 2:45 PM 06/10/17 Exam, assessment and plan were gone over with the resident. Also on Assessment and Plan 1). Bacteremia Blood culture 06/09/17 shows Gram Negative Rods: Amikacin and Meropenem. F/U sensitivities 2). UTI Urine Culture 06/09/17 shows Gram Negative Rods: Amikacin and Meropenem. F/U sensitivities Gareth Wu D.O.
[2017-06-10] MEDS: Amikacin Sulfate 500 MG in Sodium Chloride 0.9% 250 ML IVPB SCH ×2 (10:36→21:19)
[2017-06-10] MEDS: Enoxaparin 40 mg Syringe SC SCH (10:37)
[2017-06-10] MEDS: Saccharomyces Boulardi 250 mg Cap PO SCH ×2 (10:37→17:46)
[2017-06-10] MEDS: Pantoprazole 40 mg EC Tab PO SCH (10:38)
--- NOTE | 2017-06-10 11:46 | CP.PCM.CON ---
History of Present Illness - History of Present Illness History of Present Illness: HX of uti, hydronephrosis. Prev cysto, stent insertion. Prev ureteroscopy 2016 Now admitted with fever, rigors, R flank pain Full note to be dictated. YS Past Patient History - Infectious Disease Hx of Infectious Diseases: None - Past Medical History & Family History Past Medical History?: Yes - Past Social History Smoking Status: Never Smoked - CARDIAC Hx Cardiac Disorders: Yes Hx Hypercholesterolemia: Yes - PULMONARY Hx Respiratory Disorders: No - NEUROLOGICAL Hx Neurological Disorder: No - HEENT Hx HEENT Problems: No - RENAL Hx Chronic Kidney Disease: Yes - ENDOCRINE/METABOLIC Hx Endocrine Disorders: No - HEMATOLOGICAL/ONCOLOGICAL Hx Blood Disorders: No - INTEGUMENTARY Hx Dermatological Problems: No - MUSCULOSKELETAL/RHEUMATOLOGICAL Hx Musculoskeletal Disorders: No Hx Falls: No - GASTROINTESTINAL Hx Gastrointestinal Disorders: No - GENITOURINARY/GYNECOLOGICAL Hx Genitourinary Disorders: Yes Hx Urinary Tract Infection: Yes - PSYCHIATRIC Hx Psychophysiologic Disorder: No Hx Substance Use: No - SURGICAL HISTORY Hx Surgeries: Yes Hx Section: Yes - ANESTHESIA Hx Anesthesia: Yes Hx Anesthesia Reactions: No Hx Malignant Hyperthermia: No Has any member of the family had a problem w/ anesthesia?: No Meds Allergies/Adverse Reactions: Allergies Allergy/AdvReac Type Severity Reaction Status Date / Time Penicillins Allergy RASH Verified 04/16/17 09:30 - Medications Medications: Current Medications Enoxaparin Sodium (Lovenox) 40 mg SC DAILY [facility] Last Admin: 06/10/17 10:37 Dose: 40 mg Sodium Chloride (Sodium Chloride 0.9%) 1,000 mls @ 125 mls/hr IV .Q8H [facility] Last Admin: 06/10/17 05:28 Dose: 125 mls/hr Amikacin Sulfate 500 mg/ (Sodium Chloride) 252 mls @ 250 mls/hr IVPB Q12H [facility] Last Admin: 06/10/17 10:36 Dose: 250 mls/hr Meropenem 1 gm/ Sodium (Chloride) 100 mls @ 100 mls/hr IVPB Q8 [facility] Last Admin: 06/10/17 05:27 Dose: 100 mls/hr Pantoprazole Sodium (Protonix Ec Tab) 40 mg PO DAILY [facility] Last Admin: 06/10/17 10:38 Dose: 40 mg Rosuvastatin Calcium (Crestor) 5 mg PO HS [facility] Saccharomyces Boulardii (Florastor) 250 mg PO BID [facility] Last Admin: 06/10/17 10:37 Dose: 250 mg Results - Vital Signs Recent Vital Signs: Last Vital Signs Temp 98.5 F 06/10/17 07:43 Pulse 86 06/10/17 07:43 Resp 20 06/10/17 07:43 BP 97/66 L 06/10/17 07:43 Pulse Ox 98 06/10/17 07:43 - Labs Result Diagrams: 06/10/17 07:09 06/10/17 07:09 Labs: Laboratory Results - last 24 hr 06/09/17 06/09/17 06/09/17 16:52 16:52 17:11 WBC 6.9 RBC 3.80 Hgb 12.0 Hct 34.7 MCV 91.4 MCH 31.6 H MCHC 34.6 RDW 13.5 Plt Count 175 MPV 8.8 Neut % (Auto) 87.0 H Lymph % (Auto) 10.9 L [place] % (Auto) 1.7 Eos % (Auto) 0.1 Baso % (Auto) 0.3 Neut # 6.0 Lymph # 0.8 L [place] # 0.1 Eos # 0.0 Baso # 0.0 ESR Sodium 139 Potassium 3.6 Chloride 102 Carbon Dioxide 19 L Anion Gap 22 H BUN 19 H Creatinine 1.3 H Est GFR ( Amer) 56 Est GFR (Non-Af Amer) 46 Random Glucose 123 H Calcium 8.9 Total Bilirubin 1.2 AST 29 ALT 42 Alkaline Phosphatase 72 C-React Prot High Sens Total Protein 7.1 Albumin 4.0 Globulin 3.1 Albumin/Globulin Ratio 1.3 Lipase 52 Procalcitonin Urine Color Straw Urine Clarity Clear Urine pH 5.0 Ur Specific [place] 1.008 Urine Protein 2+ H Urine Glucose (UA) Normal Urine Ketones Negative Urine Blood 1+ H Urine Nitrate Positive H Urine Bilirubin Negative Urine Urobilinogen Normal Ur Leukocyte Esterase 3+ H Urine WBC (Auto) 83 H Urine RBC (Auto) 2 Ur Squamous Epith Cells < 1 Urine Bacteria Mod H Urine HCG, Qual Negative 06/10/17 06/10/17 06/10/17 07:09 07:09 07:09 WBC 8.2 RBC 3.07 L Hgb 10.0 L D Hct 28.6 L MCV 93.1 MCH 32.5 H MCHC 34.9 RDW 13.8 Plt Count 135 MPV 9.2 Neut % (Auto) 69.9 Lymph % (Auto) 20.6 [place] % (Auto) 8.4 Eos % (Auto) 0.7 Baso % (Auto) 0.4 Neut # 5.7 Lymph # 1.7 [place] # 0.7 Eos # 0.1 Baso # 0.0 ESR 40 H Sodium 140 Potassium 3.5 L Chloride 110 H Carbon Dioxide 20 L Anion Gap 14 BUN 13 Creatinine 1.1 Est GFR ( Amer) > 60 Est GFR (Non-Af Amer) 56 Random Glucose 84 Calcium 7.2 L Total Bilirubin 0.8 AST 35 ALT 55 H D Alkaline Phosphatase 50 C-React Prot High Sens Total Protein 5.0 L Albumin 2.5 L D Globulin 2.5 Albumin/Globulin Ratio 1.0 Lipase Procalcitonin 16.37 H Urine Color Urine Clarity Urine pH Ur Specific [place] Urine Protein Urine Glucose (UA) Urine Ketones Urine Blood Urine Nitrate Urine Bilirubin Urine Urobilinogen Ur Leukocyte Esterase Urine WBC (Auto) Urine RBC (Auto) Ur Squamous Epith Cells Urine Bacteria Urine HCG, Qual 06/10/17 07:09 WBC RBC Hgb Hct MCV MCH MCHC RDW Plt Count MPV Neut % (Auto) Lymph % (Auto) [place] % (Auto) Eos % (Auto) Baso % (Auto) Neut # Lymph # [place] # Eos # Baso # ESR Sodium Potassium Chloride Carbon Dioxide Anion Gap BUN Creatinine Est GFR ( Amer) Est GFR (Non-Af Amer) Random Glucose Calcium Total Bilirubin AST ALT Alkaline Phosphatase C-React Prot High Sens > 15.00 H Total Protein Albumin Globulin Albumin/Globulin Ratio Lipase Procalcitonin Urine Color Urine Clarity Urine pH Ur Specific [place] Urine Protein Urine Glucose (UA) Urine Ketones Urine Blood Urine Nitrate Urine Bilirubin Urine Urobilinogen Ur Leukocyte Esterase Urine WBC (Auto) Urine RBC (Auto) Ur Squamous Epith Cells Urine Bacteria Urine HCG, Qual Assessment & Plan - Assessment and Plan (Free Text) Assessment: UTI INDWELLING R URETERAL STENT Plan: CULTURES ANTIBIOTIC RX, PER id - Date & Time Date: 06/10/17 Time: 11:46
[2017-06-10] MEDS ORDERED: Potassium Chloride 20 mEq ER Tab PO ONE (15:00)
--- NOTE | 2017-06-10 16:16 | CP.PCM.CON ---
History of Present Illness - History of Present Illness History of Present Illness: dictated Past Patient History - Infectious Disease Hx of Infectious Diseases: None - Past Medical History & Family History Past Medical History?: Yes - Past Social History Smoking Status: Never Smoked - CARDIAC Hx Cardiac Disorders: Yes Hx Hypercholesterolemia: Yes - PULMONARY Hx Respiratory Disorders: No - NEUROLOGICAL Hx Neurological Disorder: No - HEENT Hx HEENT Problems: No - RENAL Hx Chronic Kidney Disease: Yes - ENDOCRINE/METABOLIC Hx Endocrine Disorders: No - HEMATOLOGICAL/ONCOLOGICAL Hx Blood Disorders: No - INTEGUMENTARY Hx Dermatological Problems: No - MUSCULOSKELETAL/RHEUMATOLOGICAL Hx Musculoskeletal Disorders: No Hx Falls: No - GASTROINTESTINAL Hx Gastrointestinal Disorders: No - GENITOURINARY/GYNECOLOGICAL Hx Genitourinary Disorders: Yes Hx Urinary Tract Infection: Yes - PSYCHIATRIC Hx Psychophysiologic Disorder: No Hx Substance Use: No - SURGICAL HISTORY Hx Surgeries: Yes Hx Section: Yes - ANESTHESIA Hx Anesthesia: Yes Hx Anesthesia Reactions: No Hx Malignant Hyperthermia: No Has any member of the family had a problem w/ anesthesia?: No Meds Allergies/Adverse Reactions: Allergies Allergy/AdvReac Type Severity Reaction Status Date / Time Penicillins Allergy RASH Verified 04/16/17 09:30 - Medications Medications: Current Medications Enoxaparin Sodium (Lovenox) 40 mg SC DAILY [facility] Last Admin: 06/10/17 10:37 Dose: 40 mg Sodium Chloride (Sodium Chloride 0.9%) 1,000 mls @ 125 mls/hr IV .Q8H [facility] Last Admin: 06/10/17 05:28 Dose: 125 mls/hr Amikacin Sulfate 500 mg/ (Sodium Chloride) 252 mls @ 250 mls/hr IVPB Q12H [facility] Last Admin: 06/10/17 10:36 Dose: 250 mls/hr Meropenem 1 gm/ Sodium (Chloride) 100 mls @ 100 mls/hr IVPB Q8 [facility] Last Admin: 06/10/17 14:07 Dose: 100 mls/hr Pantoprazole Sodium (Protonix Ec Tab) 40 mg PO DAILY [facility] Last Admin: 06/10/17 10:38 Dose: 40 mg Rosuvastatin Calcium (Crestor) 5 mg PO HS [facility] Saccharomyces Boulardii (Florastor) 250 mg PO BID [facility] Last Admin: 06/10/17 10:37 Dose: 250 mg Results - Vital Signs Recent Vital Signs: Last Vital Signs Temp 98.5 F 06/10/17 07:43 Pulse 86 06/10/17 07:43 Resp 20 06/10/17 07:43 BP 97/66 L 06/10/17 07:43 Pulse Ox 98 06/10/17 07:43 - Labs Result Diagrams: 06/10/17 07:09 06/10/17 07:09 Labs: Laboratory Results - last 24 hr 06/09/17 06/09/17 06/09/17 16:52 16:52 17:11 WBC 6.9 RBC 3.80 Hgb 12.0 Hct 34.7 MCV 91.4 MCH 31.6 H MCHC 34.6 RDW 13.5 Plt Count 175 MPV 8.8 Neut % (Auto) 87.0 H Lymph % (Auto) 10.9 L [place] % (Auto) 1.7 Eos % (Auto) 0.1 Baso % (Auto) 0.3 Neut # 6.0 Lymph # 0.8 L [place] # 0.1 Eos # 0.0 Baso # 0.0 ESR Sodium 139 Potassium 3.6 Chloride 102 Carbon Dioxide 19 L Anion Gap 22 H BUN 19 H Creatinine 1.3 H Est GFR ( Amer) 56 Est GFR (Non-Af Amer) 46 Random Glucose 123 H Calcium 8.9 Total Bilirubin 1.2 AST 29 ALT 42 Alkaline Phosphatase 72 C-React Prot High Sens Total Protein 7.1 Albumin 4.0 Globulin 3.1 Albumin/Globulin Ratio 1.3 Lipase 52 Procalcitonin Urine Color Straw Urine Clarity Clear Urine pH 5.0 Ur Specific [place] 1.008 Urine Protein 2+ H Urine Glucose (UA) Normal Urine Ketones Negative Urine Blood 1+ H Urine Nitrate Positive H Urine Bilirubin Negative Urine Urobilinogen Normal Ur Leukocyte Esterase 3+ H Urine WBC (Auto) 83 H Urine RBC (Auto) 2 Ur Squamous Epith Cells < 1 Urine Bacteria Mod H Urine HCG, Qual Negative 06/10/17 06/10/17 06/10/17 07:09 07:09 07:09 WBC 8.2 RBC 3.07 L Hgb 10.0 L D Hct 28.6 L MCV 93.1 MCH 32.5 H MCHC 34.9 RDW 13.8 Plt Count 135 MPV 9.2 Neut % (Auto) 69.9 Lymph % (Auto) 20.6 [place] % (Auto) 8.4 Eos % (Auto) 0.7 Baso % (Auto) 0.4 Neut # 5.7 Lymph # 1.7 [place] # 0.7 Eos # 0.1 Baso # 0.0 ESR 40 H Sodium 140 Potassium 3.5 L Chloride 110 H Carbon Dioxide 20 L Anion Gap 14 BUN 13 Creatinine 1.1 Est GFR ( Amer) > 60 Est GFR (Non-Af Amer) 56 Random Glucose 84 Calcium 7.2 L Total Bilirubin 0.8 AST 35 ALT 55 H D Alkaline Phosphatase 50 C-React Prot High Sens Total Protein 5.0 L Albumin 2.5 L D Globulin 2.5 Albumin/Globulin Ratio 1.0 Lipase Procalcitonin 16.37 H Urine Color Urine Clarity Urine pH Ur Specific [place] Urine Protein Urine Glucose (UA) Urine Ketones Urine Blood Urine Nitrate Urine Bilirubin Urine Urobilinogen Ur Leukocyte Esterase Urine WBC (Auto) Urine RBC (Auto) Ur Squamous Epith Cells Urine Bacteria Urine HCG, Qual 06/10/17 07:09 WBC RBC Hgb Hct MCV MCH MCHC RDW Plt Count MPV Neut % (Auto) Lymph % (Auto) [place] % (Auto) Eos % (Auto) Baso % (Auto) Neut # Lymph # [place] # Eos # Baso # ESR Sodium Potassium Chloride Carbon Dioxide Anion Gap BUN Creatinine Est GFR ( Amer) Est GFR (Non-Af Amer) Random Glucose Calcium Total Bilirubin AST ALT Alkaline Phosphatase C-React Prot High Sens > 15.00 H Total Protein Albumin Globulin Albumin/Globulin Ratio Lipase Procalcitonin Urine Color Urine Clarity Urine pH Ur Specific [place] Urine Protein Urine Glucose (UA) Urine Ketones Urine Blood Urine Nitrate Urine Bilirubin Urine Urobilinogen Ur Leukocyte Esterase Urine WBC (Auto) Urine RBC (Auto) Ur Squamous Epith Cells Urine Bacteria Urine HCG, Qual
--- NOTE | 2017-06-11 03:17 | CON ---
INFECTIOUS DISEASE CONSULTATION DATE: REQUESTED BY: Christopher Hatch DO. HISTORY OF PRESENT ILLNESS: This patient is a 36-year-old female. She was here with pyelonephritis. She was here in 04/2017 and received 14 days of antibiotics. She had ESBL and I think she got meropenem and amikacin and she also had a stent placed by Dr. Newton. She says on last Saturday, she went to Dr. Newton's office in [place] and they removed that stent and put another one and next morning she was complaining of dysuria and she called the Urologist and she was told this was normal. She also was given antibiotics. She thinks that was Cipro and next two days was fine, but actually on Saturday she started to have chills and feverish and she came in, she was also hypotensive. Last time, she was really hypotensive and was in ICU and she also had ESBL, right-sided pyelonephritis and now this time she came with similar symptoms and she was admitted. She feels slightly better today with the pain medications, still has right CVA tenderness and did had dysuria. She has history of pyelonephritis in January as well as in April. She has had two C-sections, one in 2014 and other in 2015, November was the last month. She is allergic to PENICILLIN, CAUSES PRURITUS, but she tolerated meropenem well. Home medications; she says she was taking antibiotics, I do not know if it was Cipro, as she is allergic to PENICILLIN. FAMILY HISTORY: Her mother has diabetes. SOCIAL HISTORY: Negative for smoking or drinking or any drug abuse. She lives at home and is unemployed and has two kids. REVIEW OF SYSTEMS: She said she did had some chills and fever. Did not have any headaches. Denies any ear, nose, and throat problems. Denies any chest pain. No edema. No palpitations. No cough, cold, or any trouble breathing. Denies any abdominal pain. Does have flank pain, dysuria, had no hematuria, and no frequency. She does complain of dizziness and weakness. No skin lesions present. She does have high cholesterol and kidney issues and has had sections. ALLERGIES: SHE IS ALLERGIC TO PENICILLIN, WHICH GIVES HER HIVES, RASH. MEDICATIONS: We started her on meropenem last night and she is on amikacin 500 mg q. 12 hours and she is also on Protonix, Crestor, Florastor and sodium chloride. PHYSICAL EXAMINATION: GENERAL: She is pale. VITAL SIGNS: T-max is 98.5, pulse 86, blood pressure 97/66, is low, and respirations are 20. HEENT: Head is atraumatic and normocephalic. Pupils are reacting to light. No pallor present. Tongue is moist. NECK: Supple. JVP is flat. LUNGS: Clear. No crackles or rales present. HEART: S1 and S2 is regular. ABDOMEN: Soft. She does have CVA tenderness. No guarding. No rigidity present. Bowel sounds are present. EXTREMITIES: Have no edema, clubbing, or cyanosis. LABORATORY DATA: White count is 8.2, hemoglobin 10, hematocrit 28.6, and platelet count is 135. Sodium 140, potassium 3.5, chloride 110, CO2 is 20, and alkaline phosphatase is 55. Her C-reactive is more than 15, procalcitonin is 16.37, which is high. Urine is showing gram negative rods. Blood cultures are pending. She did have E. coli on 04/20/2017 and it was only sensitive to meropenem and amikacin and she is getting that and it was ESBL positive. She also had abdominal CT yesterday and the abdominal CT shows right-sided double-J ureteral stent, proximal, and its position low in the renal pelvis, ureteral or pelvis junction. No evidence of urine leak, hepatic steatosis and does show mild right-sided hydronephrosis. She does have hydronephrosis with the stent and has returned again with these symptoms. She should be followed with Dr. Newton, also I think, he saw already today and her stent was just new. She had ureteroscopy on 06/05/2017 and to follow the cultures and her creatinine is 1.1, so we will continue amikacin at this time and meropenem and we will follow the culture reports, but it has become very hard as this is the third time she has come with ESBL positive infection and status post new stent placement. Alice Ling MD [facility] # [id number]
[2017-06-11] MEDS: Sodium Chloride 0.9% 1,000 ML IV SCH ×2 (05:00→21:30)
[2017-06-11] MEDS: Meropenem 1 GM in Sodium Chloride 0.9% 100 ML IVPB SCH ×3 (05:41→21:29)
[2017-06-11 08:47] LABS: BASO % 0.5 % (0.0-2.0); EOS # 0.1 K/uL (0.0-0.7); EOS % 2.4 % (0.0-4.0); HEMATOCRIT 31.9 % (34.0-47.0); LYMPH # 1.5 K/uL (1.0-4.3); LYMPH % 26.8 % (20.0-40.0); MEAN CORPUSCULAR HEMOGLOBIN 31.7 pg (27.0-31.0); MEAN PLATELET VOLUME 8.9 fL (7.2-11.7); MONO # 0.4 K/uL (0.0-0.8); MONO % 7.4 % (0.0-10.0); RED CELL DISTRIBUTION WIDTH 13.9 % (11.5-14.5); WHITE BLOOD COUNT 5.5 K/uL (4.8-10.8)
[2017-06-11 08:54] LABS: CHLORIDE 110 mmol/L (98-107)
[2017-06-11 08:55] LABS: SODIUM 144 mmol/L (132-148)
[2017-06-11 08:57] LABS: GFR AFRICAN-AMERICAN > 60
[2017-06-11 08:58] LABS: ALB/GLOB RATIO 0.8 (1.0-2.1); ALKALINE PHOSPHATASE 85 U/L (38-126); ALT/SGPT 119 U/L (9-52); AST/SGOT 77 U/L (14-36); BILIRUBIN,TOTAL 0.4 mg/dL (0.2-1.3); BLOOD UREA NITROGEN 9 mg/dL (7-17); CALCIUM 8.1 mg/dl (8.6-10.4); CARBON DIOXIDE 24 mmol/L (22-30); GLUCOSE,RANDOM 115 mg/dL (65-105); PHOSPHOROUS 2.3 mg/dL (2.5-4.5); TOTAL PROTEIN 6.6 g/dL (6.3-8.3)
[2017-06-11 08:59] LABS: MAGNESIUM 1.6 mg/dL (1.6-2.3)
[2017-06-11] MEDS: Saccharomyces Boulardi 250 mg Cap PO SCH ×2 (09:23→18:00)
[2017-06-11] MEDS: Pantoprazole 40 mg EC Tab PO SCH (09:23)
[2017-06-11] MEDS: Amikacin Sulfate 500 MG in Sodium Chloride 0.9% 250 ML IVPB SCH ×2 (09:24→22:42)
--- NOTE | 2017-06-11 09:26 | CP.PCM.PN ---
<Jany Newman - Last Filed: 06/11/17 13:39> Subjective - Date & Time of Evaluation Date of Evaluation: 06/11/17 Time of Evaluation: 08:00 - Subjective Subjective: Medicine Note for Dr. Ingrid Wu Patient was seen and examined at bedside. She admits to minimal right sided flank pain, denied any dysuria, hematuria, or frequency. Denied fever, chills, headache, abdominal pain, n/v/d/c, or urinary symptoms. Objective - Vital Signs/Intake and Output Vital Signs (last 24 hours): Temp Pulse Resp BP Pulse Ox 98.5 F 63 20 99/61 L 97 06/11/17 07:42 06/11/17 07:42 06/11/17 07:42 06/11/17 07:42 06/11/17 07:42 Intake and Output: 06/11/17 06/11/17 06:59 18:59 Intake Total 2730 Output Total 500 Balance 2230 - Medications Medications: Current Medications Enoxaparin Sodium (Lovenox) 40 mg SC DAILY [facility] Last Admin: 06/10/17 10:37 Dose: 40 mg Sodium Chloride (Sodium Chloride 0.9%) 1,000 mls @ 125 mls/hr IV .Q8H [facility] Last Admin: 06/11/17 05:00 Dose: 125 mls/hr Amikacin Sulfate 500 mg/ (Sodium Chloride) 252 mls @ 250 mls/hr IVPB Q12H [facility] Last Admin: 06/10/17 21:19 Dose: 250 mls/hr Meropenem 1 gm/ Sodium (Chloride) 100 mls @ 100 mls/hr IVPB Q8 [facility] Last Admin: 06/11/17 05:41 Dose: 100 mls/hr Pantoprazole Sodium (Protonix Ec Tab) 40 mg PO DAILY [facility] Last Admin: 06/10/17 10:38 Dose: 40 mg Rosuvastatin Calcium (Crestor) 5 mg PO HS [facility] Last Admin: 06/10/17 21:19 Dose: 5 mg Saccharomyces Boulardii (Florastor) 250 mg PO BID [facility] Last Admin: 06/10/17 17:46 Dose: 250 mg - Labs Labs: 06/11/17 08:27 06/11/17 08:27 - Additional Findings Additional findings: - Constitutional Appears: Well, Non-toxic, No Acute Distress - Head Exam Head Exam: ATRAUMATIC, NORMAL INSPECTION - Eye Exam Eye Exam: EOMI Pupil Exam: PERRL - ENT Exam ENT Exam: Mucous Membranes Moist - Neck Exam Neck exam: Positive for: Normal Inspection. Negative for: Lymphadenopathy - Respiratory Exam Respiratory Exam: Clear to Auscultation Bilateral, NORMAL BREATHING PATTERN. absent: Rales, Rhonchi, Wheezes - Cardiovascular Exam Cardiovascular Exam: Tachycardia, REGULAR RHYTHM, +S1, +S2. absent: JVD, Systolic Murmur - GI/Abdominal Exam GI & Abdominal Exam: Normal Bowel Sounds, Soft. absent: Distended, Guarding, Rebound, Tenderness - Rectal Exam Rectal Exam: Deferred - Extremities Exam Extremities exam: Positive for: normal capillary refill. Negative for: pedal edema, tenderness - Back Exam Back exam: CVA tenderness (R). absent: vertebral tenderness - Psychiatric Exam Psychiatric exam: Normal Affect, Normal Mood - Skin Skin Exam: Dry, Intact, Normal Color, Warm Assessment and Plan - Assessment and Plan (Free Text) Plan: Pyelonephritis Assessment and Plan: Infectious disease consulted, Dr Ling Urology consulted, Dr Catie Newton s/p right ureteral stent replacement on 06/05/17; subjective fever, n/v/chills/ dysuria, rt flank pain; Hx of +ESBL pyelo in 04/2017 CT abd/pelvis: 1. Right sided double-J ureteral stent. Proximal end is positioned low in the renal pelvis/ureteropelvic junction. No evidence of urine leak. 2. Hepatic steatosis. Urine Culture 06/09/17 - E. Coli F/U REPEAT BC and UC 06/11/[address] Amanuel Newton - possible removal of double J stent next week Hx of septic shock, monitor BP * Amikacin 500mg ivpb q12 * Meropenem 1gm ivpb q8 * NS @ 125 cc/hr Bacterimia Infectious disease consulted, Dr Ling Blood culture x1 06/09/17 - gram negative davina Hx of septic shock, monitor BP * Amikacin 500mg ivpb q12 * Meropenem 1gm ivpb q8 Hx of pyelonephritis Assessment and Plan: Patient was treated for pyelonephritis in 01/2017 and discharged on Cipro, repeat Urine Cx showed ESBL (+) in 04/2017 and patient was readmitted. Patient then treated with amikacin and meropenem and a right ureteral stent was placed. Septic shock during that admission, monitor BP. CT 03/2017 Abdomen and pelvis PO and IV contrast: normal bilateral nephrograms, no evidence of cystic or solid mass, hydronephrosis or even pyelonephritis bilaterally. Fatty liver. Small bilateral adnexal cysts. HLD (hyperlipidemia) Assessment and Plan: HGA1C 01/2017: 5.3 Lipid Panel on 01/2017: TG 271, other markers normal Prior Studies:ECHO 01/2017 LVEF 86%, mild pulm htn, trace AI, trace TR * Crestor 5mg po qhs Prophylactic measure Assessment and Plan: GI PPX: Protonix 40mg PO daily DVT PPX: SCDs, Lovenox 40mg SC Daily Diet: Regular Diet Florastor 250mg PO BID DW Dr. Ingrid Wu, Trent THOMPSON, PGY-1 <Gareth Wu - Last Filed: 06/11/17 19:04> Objective - Vital Signs/Intake and Output Vital Signs (last 24 hours): Temp Pulse Resp BP Pulse Ox 98.3 F 70 20 108/74 100 06/11/17 15:00 06/11/17 15:00 06/11/17 15:00 06/11/17 15:00 06/11/17 15:00 Intake and Output: 06/11/17 06/12/17 18:59 06:59 Intake Total 1930 Balance 1930 - Medications Medications: Current Medications Enoxaparin Sodium (Lovenox) 40 mg SC DAILY [facility] Last Admin: 06/11/17 09:27 Dose: 40 mg Sodium Chloride (Sodium Chloride 0.9%) 1,000 mls @ 125 mls/hr IV .Q8H [facility] Last Admin: 06/11/17 05:00 Dose: 125 mls/hr Amikacin Sulfate 500 mg/ (Sodium Chloride) 252 mls @ 250 mls/hr IVPB Q12H [facility] Last Admin: 06/11/17 09:24 Dose: 250 mls/hr Meropenem 1 gm/ Sodium (Chloride) 100 mls @ 100 mls/hr IVPB Q8 [facility] Last Admin: 06/11/17 13:09 Dose: 100 mls/hr Pantoprazole Sodium (Protonix Ec Tab) 40 mg PO DAILY [facility] Last Admin: 06/11/17 09:23 Dose: 40 mg Saccharomyces Boulardii (Florastor) 250 mg PO BID [facility] Last Admin: 06/11/17 09:23 Dose: 250 mg - Labs Labs: 06/11/17 08:27 06/11/17 08:27 Attending/Attestation - Attestation I have personally seen and examined this patient.: Yes I have fully participated in the care of the patient.: Yes I have reviewed all pertinent clinical information, including history, physical exam and plan: Yes Notes (Text): 06/11/17 19:03 Patient was seen and examined at 1:45 PM 06/11/17. Exam, assessment and plan were thoroughly gone over with the resident. Gareth Wu D.O.
[2017-06-11] MEDS: Enoxaparin 40 mg Syringe SC SCH (09:27)
[2017-06-11] MEDS ORDERED: Influenza Vaccine 60 mcg/0.5 mL SYR (4YR UP) IM ONE (10:00)
--- NOTE | 2017-06-11 20:49 | CP.PCM.PN ---
Subjective - Date & Time of Evaluation Date of Evaluation: 06/11/17 Time of Evaluation: 03:00 - Subjective Subjective: dictated Objective - Vital Signs/Intake and Output Vital Signs (last 24 hours): Temp Pulse Resp BP Pulse Ox 98.3 F 70 20 108/74 100 06/11/17 15:00 06/11/17 15:00 06/11/17 15:00 06/11/17 15:00 06/11/17 15:00 Intake and Output: 06/11/17 06/12/17 18:59 06:59 Intake Total 1930 Balance 1930 - Medications Medications: Current Medications Enoxaparin Sodium (Lovenox) 40 mg SC DAILY [facility] Last Admin: 06/11/17 09:27 Dose: 40 mg Sodium Chloride (Sodium Chloride 0.9%) 1,000 mls @ 125 mls/hr IV .Q8H [facility] Last Admin: 06/11/17 05:00 Dose: 125 mls/hr Amikacin Sulfate 500 mg/ (Sodium Chloride) 252 mls @ 250 mls/hr IVPB Q12H [facility] Last Admin: 06/11/17 09:24 Dose: 250 mls/hr Meropenem 1 gm/ Sodium (Chloride) 100 mls @ 100 mls/hr IVPB Q8 [facility] Last Admin: 06/11/17 13:09 Dose: 100 mls/hr Pantoprazole Sodium (Protonix Ec Tab) 40 mg PO DAILY [facility] Last Admin: 06/11/17 09:23 Dose: 40 mg Saccharomyces Boulardii (Florastor) 250 mg PO BID [facility] Last Admin: 06/11/17 09:23 Dose: 250 mg - Labs Labs: 06/11/17 08:27 06/11/17 08:27
--- NOTE | 2017-06-11 21:47 | PN ---
INFECTIOUS DISEASE FOLLOWUP DATE: SUBJECTIVE: The patient this morning was seen and she did not complain of an problem. She has no right kidney pain. Denies any dysuria Denies travel. She did have blood culture positive, which came out for the ESBL. She has had this third admission for the same bacteria and this is very disturbing. She did have a stent replaced on Saturday and comes in now with this and I am not sure if there is anything else that could be done. She has received meropenem and amikacin in the past and we had negative blood cultures and urine cultures at that time. The patient also went for echocardiogram. Repeat blood culture and urine culture were also taken today. PHYSICAL EXAMINATION VITAL SIGNS: T-max is 98.3, pulse 70, blood pressure 108/74, and respirations are 20. HEENT: Head is atraumatic and normocephalic. Mild pallor present. NECK: Supple. LUNGS: Clear. No crackles or rales present. HEART: S* and S2 regular. ABDOMEN: Soft and nontender. Bowel sounds are present. EXTREMITIES: Have no edema, clubbing, or cyanosis. LABORATORY DATA: Labs show white count of 5.5, hemoglobin 10.8, and hematocrit 31.9. Creatinine is 0.9. AST is 77 and ALT is 119. We will need to monitor those as her liver enzymes are elevated at this time and procalcitonin was 16.37. She has stent in place and she also had abdominal CT, pelvic CT done on 06/09/2017, which shows right-sided double-J ureter stent prominent, proximal and it was reaching low in the renal pelvis, ureteropelvic junction. No evidence of urine leak. So, we need to also see with the urologist, Dr. Newton has to say as this is third time she has had this bacteremia and UTI. Repeat the cultures, follow the echo and we will see how things go with that at this time and also monitor liver function tests. Alice Ling MD
[2017-06-12] MEDS: Meropenem 1 GM in Sodium Chloride 0.9% 100 ML IVPB SCH ×3 (05:52→21:36)
--- NOTE | 2017-06-12 06:58 | CP.PCM.PN ---
<Jany Newman - Last Filed: 06/12/17 08:59> Subjective - Date & Time of Evaluation Date of Evaluation: 06/12/17 Time of Evaluation: 06:00 - Subjective Subjective: Medicine Note for Dr. Ingrid Wu Patient was seen and examined at bedside. She denied any right sided flank pain , denied any dysuria, hematuria, or frequency. Denied fever, chills, headache, abdominal pain, n/v/d/c, or urinary symptoms. Objective - Vital Signs/Intake and Output Vital Signs (last 24 hours): Temp Pulse Resp BP Pulse Ox 98.9 F 80 20 111/74 99 06/12/17 00:00 06/12/17 00:00 06/12/17 00:00 06/12/17 00:00 06/12/17 00:00 Intake and Output: 06/11/17 06/12/17 18:59 06:59 Intake Total 1930 2760 Output Total 600 Balance 1930 2160 - Medications Medications: Current Medications Enoxaparin Sodium (Lovenox) 40 mg SC DAILY [facility] Last Admin: 06/11/17 09:27 Dose: 40 mg Sodium Chloride (Sodium Chloride 0.9%) 1,000 mls @ 125 mls/hr IV .Q8H [facility] Last Admin: 06/11/17 21:30 Dose: 125 mls/hr Amikacin Sulfate 500 mg/ (Sodium Chloride) 252 mls @ 250 mls/hr IVPB Q12H [facility] Last Admin: 06/11/17 22:42 Dose: 250 mls/hr Meropenem 1 gm/ Sodium (Chloride) 100 mls @ 100 mls/hr IVPB Q8 [facility] Last Admin: 06/12/17 05:52 Dose: 100 mls/hr Pantoprazole Sodium (Protonix Ec Tab) 40 mg PO DAILY [facility] Last Admin: 06/11/17 09:23 Dose: 40 mg Saccharomyces Boulardii (Florastor) 250 mg PO BID [facility] Last Admin: 06/11/17 18:00 Dose: Not Given - Labs Labs: 06/11/17 08:27 06/11/17 08:27 - Additional Findings Additional findings: - Constitutional Appears: Well, Non-toxic, No Acute Distress - Head Exam Head Exam: ATRAUMATIC, NORMAL INSPECTION - Eye Exam Eye Exam: EOMI Pupil Exam: PERRL - ENT Exam ENT Exam: Mucous Membranes Moist - Neck Exam Neck exam: Positive for: Normal Inspection. Negative for: Lymphadenopathy - Respiratory Exam Respiratory Exam: Clear to Auscultation Bilateral, NORMAL BREATHING PATTERN. absent: Rales, Rhonchi, Wheezes - Cardiovascular Exam Cardiovascular Exam: Tachycardia, REGULAR RHYTHM, +S1, +S2. absent: JVD, Systolic Murmur - GI/Abdominal Exam GI & Abdominal Exam: Normal Bowel Sounds, Soft. absent: Distended, Guarding, Rebound, Tenderness - Rectal Exam Rectal Exam: Deferred - Extremities Exam Extremities exam: Positive for: normal capillary refill. Negative for: pedal edema, tenderness - Back Exam Back exam: Absent: vertebral tenderness - Psychiatric Exam Psychiatric exam: Normal Affect, Normal Mood - Skin Skin Exam: Dry, Intact, Normal Color, Warm Assessment and Plan - Assessment and Plan (Free Text) Plan: Pyelonephritis Assessment and Plan: Infectious disease consulted, Dr Ling Urology consulted, Dr Catie Newton s/p right ureteral stent replacement on 06/05/17; subjective fever, n/v/chills/ dysuria, rt flank pain; Hx of +ESBL pyelo in 04/2017 CT abd/pelvis: 1. Right sided double-J ureteral stent. Proximal end is positioned low in the renal pelvis/ureteropelvic junction. No evidence of urine leak. 2. Hepatic steatosis. Urine Culture 06/09/17 - E. Coli F/U REPEAT BC and UC 06/11/[address] Amanuel Newton - possible removal of double J stent next week - will discuss with him today for an earlier date of removal Hx of septic shock, monitor BP * NS @ 125 cc/hr * Amikacin 500mg ivpb q12 * Meropenem 1gm ivpb q8 Bacterimia Infectious disease consulted, Dr Ling Blood culture x1 06/09/17 - gram negative davina F/U REPEAT BC 06/11/17 Hx of septic shock, monitor BP * Amikacin 500mg ivpb q12 * Meropenem 1gm ivpb q8 Hx of pyelonephritis Assessment and Plan: Patient was treated for pyelonephritis in 01/2017 and discharged on Cipro, repeat Urine Cx showed ESBL (+) in 04/2017 and patient was readmitted. Patient then treated with amikacin and meropenem and a right ureteral stent was placed. Septic shock during that admission, monitor BP. CT 03/2017 Abdomen and pelvis PO and IV contrast: normal bilateral nephrograms, no evidence of cystic or solid mass, hydronephrosis or even pyelonephritis bilaterally. Fatty liver. Small bilateral adnexal cysts. HLD (hyperlipidemia) Assessment and Plan: HGA1C 01/2017: 5.3 - will need to repeat in 1 year Lipid Panel on 01/2017: TG 271, other markers normal Prior Studies:ECHO 01/2017 LVEF 86%, mild pulm htn, trace AI, trace TR F/U repeat ECHO: * Crestor 5mg po qhs - this is held 2/2 transaminitis which are currently downtrending Prophylactic measure Assessment and Plan: GI PPX: Protonix 40mg PO daily DVT PPX: SCDs, Lovenox 40mg SC Daily Diet: Regular Diet Florastor 250mg PO BID DW Dr. Ingrid Wu, Trent THOMPSON, PGY-1 <Gareth Wu - Last Filed: 06/12/17 18:31> Objective - Vital Signs/Intake and Output Vital Signs (last 24 hours): Temp Pulse Resp BP Pulse Ox 98.8 F 76 20 109/77 97 06/12/17 15:00 06/12/17 15:00 06/12/17 15:00 06/12/17 15:00 06/12/17 15:00 Intake and Output: 06/12/17 06/12/17 06:59 18:59 Intake Total 2760 1580 Output Total 600 Balance 2160 1580 - Medications Medications: Current Medications Enoxaparin Sodium (Lovenox) 40 mg SC DAILY [facility] Last Admin: 06/12/17 10:51 Dose: 40 mg Sodium Chloride (Sodium Chloride 0.9%) 1,000 mls @ 125 mls/hr IV .Q8H [facility] Last Admin: 06/12/17 10:59 Dose: 125 mls/hr Meropenem 1 gm/ Sodium (Chloride) 100 mls @ 100 mls/hr IVPB Q8 [facility] Last Admin: 06/12/17 14:13 Dose: 100 mls/hr Pantoprazole Sodium (Protonix Ec Tab) 40 mg PO DAILY [facility] Last Admin: 06/12/17 10:51 Dose: 40 mg Saccharomyces Boulardii (Florastor) 250 mg PO BID [facility] Last Admin: 06/12/17 18:20 Dose: 250 mg - Labs Labs: 06/12/17 07:34 06/12/17 07:34 Attending/Attestation - Attestation I have personally seen and examined this patient.: Yes I have fully participated in the care of the patient.: Yes I have reviewed all pertinent clinical information, including history, physical exam and plan: Yes Notes (Text): 06/12/17 18:28 Patient was seen and examined at 3:45 PM 06/12/17. Exam, assessment and plan were gone over with the resident. Amikacin was discontinued as Meropenem will cover the E. coli in urine and blood. Repeat Urine Culture 06/11/17 showed NO growth. Repeat Blood Culture 06/11/17 is negative to date. Urology planning on removing Right Double J Ureteral Stent next week. LFTs improved with discontinuation of Crestor. Disposition: once repeat blood culture is negative for at least 72 hours then plan on discharging patient. Gareth Wu D.O.
[2017-06-12] MEDS: Sodium Chloride 0.9% 1,000 ML IV SCH ×3 (07:00→21:39)
[2017-06-12 07:42] LABS: BASO # 0.1 K/uL (0.0-0.2); BASO % 1.3 % (0.0-2.0); EOS # 0.1 K/uL (0.0-0.7); EOS % 2.8 % (0.0-4.0); HEMATOCRIT 31.3 % (34.0-47.0); LYMPH # 1.4 K/uL (1.0-4.3); LYMPH % 34.3 % (20.0-40.0); MEAN CELL VOLUME 91.2 fL (81.0-99.0); MEAN CORPUSCULAR HEMOGLOBIN 31.4 pg (27.0-31.0); MEAN CORPUSCULAR HGB CONC 34.5 g/dL (33.0-37.0); MEAN PLATELET VOLUME 9.1 fL (7.2-11.7); MONO # 0.5 K/uL (0.0-0.8); MONO % 11.1 % (0.0-10.0); NRBC % 0.2 % (0.0-2.0); RED CELL DISTRIBUTION WIDTH 13.7 % (11.5-14.5); WHITE BLOOD COUNT 4.1 K/uL (4.8-10.8)
[2017-06-12] MEDS ORDERED: Bisacodyl 5mg EC Tab PO ONE (07:45)
[2017-06-12 08:06] LABS: CHLORIDE 105 mmol/L (98-107); SODIUM 139 mmol/L (132-148)
[2017-06-12 08:07] LABS: POTASSIUM 3.8 mmol/L (3.6-5.2)
[2017-06-12 08:08] LABS: AST/SGOT 48 U/L (14-36); BILIRUBIN,TOTAL 0.5 mg/dL (0.2-1.3); CARBON DIOXIDE 23 mmol/L (22-30); GFR AFRICAN-AMERICAN > 60
[2017-06-12 08:09] LABS: ALB/GLOB RATIO 0.9 (1.0-2.1); ALKALINE PHOSPHATASE 97 U/L (38-126); ALT/SGPT 96 U/L (9-52); BLOOD UREA NITROGEN 9 mg/dL (7-17); GLUCOSE,RANDOM 82 mg/dL (65-105); PHOSPHOROUS 2.4 mg/dL (2.5-4.5); TOTAL PROTEIN 6.5 g/dL (6.3-8.3)
[2017-06-12 08:10] LABS: CALCIUM 8.5 mg/dl (8.6-10.4); MAGNESIUM 1.6 mg/dL (1.6-2.3)
[2017-06-12] MEDS: Pantoprazole 40 mg EC Tab PO SCH (10:51)
[2017-06-12] MEDS: Amikacin Sulfate 500 MG in Sodium Chloride 0.9% 250 ML IVPB SCH (10:51)
[2017-06-12] MEDS: Enoxaparin 40 mg Syringe SC SCH (10:51)
[2017-06-12] MEDS: Saccharomyces Boulardi 250 mg Cap PO SCH ×2 (10:51→18:20)
--- NOTE | 2017-06-12 12:54 | CARD ---
APPROVED REPORT EXAM: Two-dimensional and M-mode echocardiogram with Doppler and color Doppler. Other Information Quality : GoodRhythm : NSR INDICATION Infection: RISK FACTORS Hypertension 2D DIMENSIONS IVSd1.0 (0.7-1.1cm)LVDd3.9 (3.9-5.9cm) PWd1.0 (0.7-1.1cm)LVDs2.7 (2.5-4.0cm) FS (%) 30.9 %LVEF (%)59.2 (>50%) M-Mode DIMENSIONS Left Atrium (MM)3.92 (2.5-4.0cm)Aortic Root3.01 (2.2-3.7cm) Aortic Cusp Exc.1.73 (1.5-2.0cm) Aortic Valve AI P 1/2 [id number] Mitral Valve MV E Zxwzbyhl10.6cm/sMV A Prbzvuki21.0cm/sE/A ratio1.1 TDI E/Lateral E'0.0E/Medial E'0.0 Tricuspid Valve TR Peak [id number]/sTR Peak Gr.[id number] <Conclusion> normal size la,lv & ra rv. normal lv wall motion,thickness,systolic & diastolic function with lvef of 60-65%. normal aortic,mitral,tv & pv. trace mr,mild tr & ai with normal pulmonary systolic pressures of 26 mm of hg. no pericardial effusion. normal size aortic root.
--- NOTE | 2017-06-12 13:06 | PCM.URO ---
Urology Progress Note - General General: No Complaints, Tolerating Diet - Subjective Abdominal Pain: No Flank Pain: Yes (mild, R) Nausea: No Vomiting: No Voiding Well: Yes Dysuria: No Hematuria: No Dsypnea: No Chest Pain: No Fever & Chills: No - Objective Lab Studies: Reviewed Lab Results Last 24 Hours: Laboratory Results - last 24 hr 06/12/17 06/12/17 07:34 07:34 WBC 4.1 L RBC 3.43 L Hgb 10.8 L Hct 31.3 L MCV 91.2 MCH 31.4 H MCHC 34.5 RDW 13.7 Plt Count 179 MPV 9.1 Neut % (Auto) 50.5 Lymph % (Auto) 34.3 [place] % (Auto) 11.1 H Eos % (Auto) 2.8 Baso % (Auto) 1.3 Neut # 2.1 Lymph # 1.4 [place] # 0.5 Eos # 0.1 Baso # 0.1 Sodium 139 Potassium 3.8 Chloride 105 Carbon Dioxide 23 Anion Gap 14 BUN 9 Creatinine 1.0 Est GFR ( Amer) > 60 Est GFR (Non-Af Amer) > 60 Random Glucose 82 Calcium 8.5 L Phosphorus 2.4 L Magnesium 1.6 Total Bilirubin 0.5 AST 48 H D ALT 96 H Alkaline Phosphatase 97 Total Protein 6.5 Albumin 3.2 L Globulin 3.4 Albumin/Globulin Ratio 0.9 L Intake & Output: Intake & Output 06/11/17 06/12/17 06/12/17 18:59 06:59 18:59 Intake Total 1930 2760 Output Total 600 Balance 1930 2160 Intake: Intake, IV Amount 1350 2100 Left Antecubital 1350 2100 Oral 580 660 Output: Urine 600 Urine, Voided 600 Other: # Voids Urine, Voided 6 3 # Bowel Movements 0 0 Vital Signs: Vital Signs - 24 hr 06/11/17 06/12/17 06/12/17 15:00 00:00 08:16 Temperature 98.3 F 98.9 F 98.4 F Pulse Rate 70 80 75 Respiratory 20 20 20 Rate Blood Pressure 108/74 111/74 106/76 O2 Sat by Pulse 100 99 100 Oximetry - Physical Exam Abdominal Exam: Soft, Non-Tender, Non-Distended Back: No CVA Tenderness - Plan Additional Information: Imp: uti. bacteremia. rec/plan. antibiotic rx as per ID. stent removal, via suture, next week. discussed w pt and hosp staff - Date & Time of Note Date: 06/12/17 Time: 13:05
[2017-06-13] MEDS: Meropenem 1 GM in Sodium Chloride 0.9% 100 ML IVPB SCH ×3 (05:15→21:53)
[2017-06-13] MEDS: Sodium Chloride 0.9% 1,000 ML IV SCH ×3 (06:30→17:44)
--- NOTE | 2017-06-13 07:02 | CP.PCM.PN ---
<Jany Newman - Last Filed: 06/13/17 06:55> Subjective - Date & Time of Evaluation Date of Evaluation: 06/13/17 Time of Evaluation: 06:00 - Subjective Subjective: Medicine Note for Dr. Ingrid Wu Patient was seen and examined at bedside. She denied any right sided flank pain , denied any dysuria, hematuria, or frequency. Denied fever, chills, headache, abdominal pain, n/v/d/c, or urinary symptoms. Objective - Vital Signs/Intake and Output Vital Signs (last 24 hours): Temp Pulse Resp BP Pulse Ox 98.5 F 69 20 103/66 99 06/13/17 00:00 06/13/17 00:00 06/13/17 00:00 06/13/17 00:00 06/13/17 00:00 Intake and Output: 06/12/17 06/13/17 18:59 06:59 Intake Total 1580 1400 Balance 1580 1400 - Medications Medications: Current Medications Enoxaparin Sodium (Lovenox) 40 mg SC DAILY [facility] Last Admin: 06/12/17 10:51 Dose: 40 mg Sodium Chloride (Sodium Chloride 0.9%) 1,000 mls @ 125 mls/hr IV .Q8H [facility] Last Admin: 06/13/17 06:30 Dose: 125 mls/hr Meropenem 1 gm/ Sodium (Chloride) 100 mls @ 100 mls/hr IVPB Q8 [facility] Last Admin: 06/13/17 05:15 Dose: 100 mls/hr Pantoprazole Sodium (Protonix Ec Tab) 40 mg PO DAILY [facility] Last Admin: 06/12/17 10:51 Dose: 40 mg Saccharomyces Boulardii (Florastor) 250 mg PO BID [facility] Last Admin: 06/12/17 18:20 Dose: 250 mg - Labs Labs: 06/12/17 07:34 06/12/17 07:34 - Additional Findings Additional findings: - Constitutional Appears: Well, Non-toxic, No Acute Distress - Head Exam Head Exam: ATRAUMATIC, NORMAL INSPECTION - Eye Exam Eye Exam: EOMI Pupil Exam: PERRL - ENT Exam ENT Exam: Mucous Membranes Moist - Neck Exam Neck exam: Positive for: Normal Inspection. Negative for: Lymphadenopathy - Respiratory Exam Respiratory Exam: Clear to Auscultation Bilateral, NORMAL BREATHING PATTERN. absent: Rales, Rhonchi, Wheezes - Cardiovascular Exam Cardiovascular Exam: Tachycardia, REGULAR RHYTHM, +S1, +S2. absent: JVD, Systolic Murmur - GI/Abdominal Exam GI & Abdominal Exam: Normal Bowel Sounds, Soft. absent: Distended, Guarding, Rebound, Tenderness - Rectal Exam Rectal Exam: Deferred - Extremities Exam Extremities exam: Positive for: normal capillary refill. Negative for: pedal edema, tenderness - Back Exam Back exam: Absent: vertebral tenderness - Psychiatric Exam Psychiatric exam: Normal Affect, Normal Mood - Skin Skin Exam: Dry, Intact, Normal Color, Warm Assessment and Plan - Assessment and Plan (Free Text) Plan: Disposition: Continue IV ABX for entire course as per ID. Double J Stent to be removed next week by Dr. Amanuel Newton next week. Pyelonephritis Assessment and Plan: Infectious disease consulted, Dr Ling Urology consulted, Dr Catie Newton s/p right ureteral stent replacement on 06/05/17; subjective fever, n/v/chills/ dysuria, rt flank pain; Hx of +ESBL pyelo in 04/2017 CT abd/pelvis: 1. Right sided double-J ureteral stent. Proximal end is positioned low in the renal pelvis/ureteropelvic junction. No evidence of urine leak. 2. Hepatic steatosis. Urine Culture 06/09/17 - E. Coli REPEAT BC and UC 06/11/17 - NEGATIVE As per Dr. Amanuel Newton - Removal of double J stent next week Hx of septic shock, monitor BP * NS @ 125 cc/hr * Meropenem 1gm ivpb q8 (Started 06/09/17 - continue) * Amikacin 500mg ivpb q12 - stopped 06/12/17 Bacterimia Infectious disease consulted, Dr Ling Blood culture x1 06/09/17 - gram negative davina REPEAT BC 06/11/17 - negative Hx of septic shock, monitor BP * Meropenem 1gm ivpb q8 (Started 06/09/17 - continue) * Amikacin 500mg ivpb q12 - stopped 06/12/17 Hx of pyelonephritis Assessment and Plan: Patient was treated for pyelonephritis in 01/2017 and discharged on Cipro, repeat Urine Cx showed ESBL (+) in 04/2017 and patient was readmitted. Patient then treated with amikacin and meropenem and a right ureteral stent was placed. Septic shock during that admission, monitor BP. CT 03/2017 Abdomen and pelvis PO and IV contrast: normal bilateral nephrograms, no evidence of cystic or solid mass, hydronephrosis or even pyelonephritis bilaterally. Fatty liver. Small bilateral adnexal cysts. HLD (hyperlipidemia) Assessment and Plan: HGA1C 01/2017: 5.3 - will need to repeat in 1 year Lipid Panel on 01/2017: TG 271, other markers normal Prior Studies:ECHO 01/2017 LVEF 86%, mild pulm htn, trace AI, trace TR Repeat ECHO: LVEF 60% trace MR, TR, and aortic insufficiency with normal pulmonary pressures of 26mmhg * Crestor 5mg po qhs - this is held 2/2 transaminitis which are currently downtrending Prophylactic measure Assessment and Plan: GI PPX: Protonix 40mg PO daily DVT PPX: SCDs, Lovenox 40mg SC Daily Diet: Regular Diet Florastor 250mg PO BID DW Dr. Ingrid Wu, Trent THOMPSON, PGY-1 <Gareth Wu - Last Filed: 06/13/17 16:34> Objective - Vital Signs/Intake and Output Vital Signs (last 24 hours): Temp Pulse Resp BP Pulse Ox 98.8 F 72 20 99/65 L 98 06/13/17 15:00 06/13/17 15:00 06/13/17 15:00 06/13/17 15:00 06/13/17 15:00 Intake and Output: 06/13/17 06/13/17 06:59 18:59 Intake Total 2675 500 Output Total 0 Balance 2675 500 - Medications Medications: Current Medications Enoxaparin Sodium (Lovenox) 40 mg SC DAILY [facility] Last Admin: 06/13/17 10:38 Dose: 40 mg Meropenem 1 gm/ Sodium (Chloride) 100 mls @ 100 mls/hr IVPB Q8 [facility] Last Admin: 06/13/17 13:18 Dose: 100 mls/hr Sodium Chloride (Sodium Chloride 0.9%) 1,000 mls @ 80 mls/hr IV .[id number] [facility] Pantoprazole Sodium (Protonix Ec Tab) 40 mg PO DAILY [facility] Last Admin: 06/13/17 10:38 Dose: 40 mg Saccharomyces Boulardii (Florastor) 250 mg PO BID [facility] Last Admin: 06/13/17 10:38 Dose: 250 mg - Labs Labs: 06/13/17 08:09 06/13/17 08:09 Attending/Attestation - Attestation I have personally seen and examined this patient.: Yes I have fully participated in the care of the patient.: Yes I have reviewed all pertinent clinical information, including history, physical exam and plan: Yes Notes (Text): 06/13/17 16:30 Patient was seen and examined at 12:15 PM 06/13/17. Exam, assessment and plan were gone over with the resident. Soley on Meropenem for the E. coli in urine and blood. Repeat Urine Culture 06/11/17 showed NO growth. Repeat Blood Culture 06/11/17 is negative to date. Urology planning on removing Right Double J Ureteral Stent next week. LFTs improved with discontinuation of Crestor. Medicine Team will discharge patient on Pravastatin instead. Disposition: once repeat blood culture is negative for at least 72 hours then plan on discharging patient. Gareth Wu D.O.
[2017-06-13 08:23] LABS: BASO % 1.2 % (0.0-2.0); EOS # 0.1 K/uL (0.0-0.7); EOS % 2.2 % (0.0-4.0); HEMATOCRIT 33.3 % (34.0-47.0); LYMPH # 1.3 K/uL (1.0-4.3); LYMPH % 33.9 % (20.0-40.0); MEAN CELL VOLUME 91.6 fL (81.0-99.0); MEAN CORPUSCULAR HEMOGLOBIN 31.4 pg (27.0-31.0); MEAN CORPUSCULAR HGB CONC 34.3 g/dL (33.0-37.0); MEAN PLATELET VOLUME 9.2 fL (7.2-11.7); MONO # 0.5 K/uL (0.0-0.8); MONO % 12.1 % (0.0-10.0); RED CELL DISTRIBUTION WIDTH 13.5 % (11.5-14.5); WHITE BLOOD COUNT 3.9 K/uL (4.8-10.8)
[2017-06-13 08:39] LABS: CHLORIDE 106 mmol/L (98-107); SODIUM 138 mmol/L (132-148)
[2017-06-13 08:41] LABS: AST/SGOT 27 U/L (14-36); BILIRUBIN,TOTAL 0.4 mg/dL (0.2-1.3); CARBON DIOXIDE 24 mmol/L (22-30); GFR AFRICAN-AMERICAN > 60
[2017-06-13 08:42] LABS: ALKALINE PHOSPHATASE 89 U/L (38-126); ALT/SGPT 75 U/L (9-52); BLOOD UREA NITROGEN 10 mg/dL (7-17); CALCIUM 8.7 mg/dl (8.6-10.4); GLUCOSE,RANDOM 82 mg/dL (65-105); MAGNESIUM 1.7 mg/dL (1.6-2.3); PHOSPHOROUS 2.5 mg/dL (2.5-4.5); TOTAL PROTEIN 6.7 g/dL (6.3-8.3)
[2017-06-13] MEDS: Pantoprazole 40 mg EC Tab PO SCH (10:38)
[2017-06-13] MEDS: Saccharomyces Boulardi 250 mg Cap PO SCH ×2 (10:38→17:45)
[2017-06-13] MEDS: Enoxaparin 40 mg Syringe SC SCH (10:38)
[2017-06-13] MEDS ORDERED: Sodium Chloride 0.9% 1,000 ML IV SCH (14:45)
--- NOTE | 2017-06-14 00:25 | PN ---
DATE: SUBJECTIVE: The patient is feeling better. She was seen by Dr. Newton and she tells me that Dr. Newton plans to take out the stent on Saturday. Today, she was having some headache and her blood pressure was low, we will look into it. She denied any urinary symptoms; however and remains in isolation. PHYSICAL EXAMINATION: GENERAL: She is alert and oriented. VITAL SIGNS: Her T-max today was 98.8, pulse of 72, blood pressure now was 103/69, she was on normal saline; however, it had dropped to 99/65 on 06/13/2017 and respirations are 20 and pulse remains 72. HEENT: Head is atraumatic and normocephalic. Pupils are reactive to light. NECK: Supple. LUNGS: Clear. No crackles or rales present. HEART: S1 and S2 regular. ABDOMEN: Soft and nontender. No guarding. No rigidity present. EXTREMITIES: Have no edema, clubbing or cyanosis. LABORATORY DATA: Her white count is 3.9, hemoglobin is 11.4, hematocrit is 33.3 and platelet count is 210. Sodium is 138, potassium is 4, chloride is 106, CO2 is 24, BUN is 12 and creatinine is 0.9. ALT is 75. Blood cultures are negative now. Urine cultures negative. IMPRESSION AND PLAN: She did have extended spectrum beta-lactamase in the urine. She has been on meropenem and Amikacin. She gets hypotensive, but at this time, I would continue meropenem to complete total 2 weeks of treatment and this was started on admission. If her blood pressure remains low, I think we will have to add back the Amikacin, but since blood cultures and urine cultures are negative, we should continue meropenem. Alice Ling MD
[2017-06-14] MEDS: Sodium Chloride 0.9% 1,000 ML IV SCH ×3 (01:25→20:52)
[2017-06-14] MEDS: Meropenem 1 GM in Sodium Chloride 0.9% 100 ML IVPB SCH ×3 (05:30→22:30)
--- NOTE | 2017-06-14 06:30 | CP.PCM.PN ---
<Jany Newman - Last Filed: 06/14/17 13:05> Subjective - Date & Time of Evaluation Date of Evaluation: 06/14/17 Time of Evaluation: 06:00 - Subjective Subjective: Medicine Note for Dr. Ingrid Wu Patient was seen and examined at bedside. She denied any right sided flank pain , denied any dysuria, hematuria, or frequency. Patient understands the removal of the Double J stent will happen Saturday. Denied fever, chills, headache, abdominal pain, n/v/d/c, or urinary symptoms. Objective - Vital Signs/Intake and Output Vital Signs (last 24 hours): Temp Pulse Resp BP Pulse Ox 98.3 F 77 20 103/68 98 06/14/17 00:00 06/14/17 00:00 06/14/17 00:00 06/14/17 00:00 06/14/17 00:00 Intake and Output: 06/13/17 06/14/17 18:59 06:59 Intake Total 500 1275 Balance 500 1275 - Medications Medications: Current Medications Enoxaparin Sodium (Lovenox) 40 mg SC DAILY [facility] Last Admin: 06/13/17 10:38 Dose: 40 mg Meropenem 1 gm/ Sodium (Chloride) 100 mls @ 100 mls/hr IVPB Q8 [facility] Last Admin: 06/14/17 05:30 Dose: 100 mls/hr Sodium Chloride (Sodium Chloride 0.9%) 1,000 mls @ 125 mls/hr IV .Q8H [facility] Last Admin: 06/14/17 04:00 Dose: 125 mls/hr Pantoprazole Sodium (Protonix Ec Tab) 40 mg PO DAILY [facility] Last Admin: 06/13/17 10:38 Dose: 40 mg Saccharomyces Boulardii (Florastor) 250 mg PO BID [facility] Last Admin: 06/13/17 17:45 Dose: 250 mg - Labs Labs: 06/13/17 08:09 06/13/17 08:09 - Additional Findings Additional findings: - Constitutional Appears: Well, Non-toxic, No Acute Distress - Head Exam Head Exam: ATRAUMATIC, NORMAL INSPECTION - Eye Exam Eye Exam: EOMI Pupil Exam: PERRL - ENT Exam ENT Exam: Mucous Membranes Moist - Neck Exam Neck exam: Positive for: Normal Inspection. Negative for: Lymphadenopathy - Respiratory Exam Respiratory Exam: Clear to Auscultation Bilateral, NORMAL BREATHING PATTERN. absent: Rales, Rhonchi, Wheezes - Cardiovascular Exam Cardiovascular Exam: Tachycardia, REGULAR RHYTHM, +S1, +S2. absent: JVD, Systolic Murmur - GI/Abdominal Exam GI & Abdominal Exam: Normal Bowel Sounds, Soft. absent: Distended, Guarding, Rebound, Tenderness - Rectal Exam Rectal Exam: Deferred - Extremities Exam Extremities exam: Positive for: normal capillary refill. Negative for: pedal edema, tenderness - Back Exam Back exam: Absent: vertebral tenderness - Psychiatric Exam Psychiatric exam: Normal Affect, Normal Mood - Skin Skin Exam: Dry, Intact, Normal Color, Warm Assessment and Plan - Assessment and Plan (Free Text) Plan: Disposition: Once patient gets PICC LINE PLACED, she will need to receive ONE DOSE of INVANZ of day of discharge, she will then continue as per Dr. Ling, Invanz 1 gram IVP daily x 10 days. Patient is to follow up with Dr. Catie Newton on Saturday to have the double J stent removed. Pyelonephritis Assessment and Plan: Infectious disease consulted, Dr Ling Urology consulted, Dr Catie Newton s/p right ureteral stent replacement on 06/05/17; subjective fever, n/v/chills/ dysuria, rt flank pain; Hx of +ESBL pyelo in 04/2017 CT abd/pelvis: 1. Right sided double-J ureteral stent. Proximal end is positioned low in the renal pelvis/ureteropelvic junction. No evidence of urine leak. 2. Hepatic steatosis. Urine Culture 06/09/17 - E. Coli REPEAT BC and UC 06/11/17 - NEGATIVE As per Dr. Amanuel Newton - Removal of double J stent next week in his office on Saturday. Hx of septic shock, monitor BP * NS @ 125 cc/hr -resumed at this rate because she became hypotensive * Meropenem 1gm ivpb q8 (Started 06/09/17 - continue). As per Dr. Ling, Jyotsnaanz 1 gram IVP daily x 10 days after discharge. * Amikacin 500mg ivpb q12 - stopped 06/12/17 Bacterimia Infectious disease consulted, Dr Ling Blood culture x1 06/09/17 - gram negative davina REPEAT BC 06/11/17 - negative Hx of septic shock, monitor BP * Meropenem 1gm ivpb q8 (Started 06/09/17 - continue). * Amikacin 500mg ivpb q12 - stopped 06/12/17 Hx of pyelonephritis Assessment and Plan: Patient was treated for pyelonephritis in 01/2017 and discharged on Cipro, repeat Urine Cx showed ESBL (+) in 04/2017 and patient was readmitted. Patient then treated with amikacin and meropenem and a right ureteral stent was placed. Septic shock during that admission, monitor BP. CT 03/2017 Abdomen and pelvis PO and IV contrast: normal bilateral nephrograms, no evidence of cystic or solid mass, hydronephrosis or even pyelonephritis bilaterally. Fatty liver. Small bilateral adnexal cysts. HLD (hyperlipidemia) Assessment and Plan: HGA1C 01/2017: 5.3 - will need to repeat in 1 year Lipid Panel on 01/2017: TG 271, other markers normal Prior Studies:ECHO 01/2017 LVEF 86%, mild pulm htn, trace AI, trace TR Repeat ECHO: LVEF 60% trace MR, TR, and aortic insufficiency with normal pulmonary pressures of 26mmhg * Crestor 5mg po qhs - this is held 2/2 transaminitis which are currently downtrending * Patient will be discharged on Pravastatin instead of Crestor. Prophylactic measure Assessment and Plan: GI PPX: Protonix 40mg PO daily DVT PPX: SCDs, Lovenox 40mg SC Daily Diet: Regular Diet Florastor 250mg PO BID DW Trent Ramon DO, PGY-1 <Gareth Wu - Last Filed: 06/14/17 17:15> Objective - Vital Signs/Intake and Output Vital Signs (last 24 hours): Temp Pulse Resp BP Pulse Ox 98.5 F 70 20 92/57 L 98 06/14/17 15:00 06/14/17 15:00 06/14/17 15:00 06/14/17 15:00 06/14/17 15:00 Intake and Output: 06/14/17 06/14/17 06:59 18:59 Intake Total 2550 650 Balance 2550 650 - Medications Medications: Current Medications Enoxaparin Sodium (Lovenox) 40 mg SC DAILY [facility] Last Admin: 06/14/17 10:08 Dose: 40 mg Meropenem 1 gm/ Sodium (Chloride) 100 mls @ 100 mls/hr IVPB Q8 [facility] Last Admin: 06/14/17 14:15 Dose: 100 mls/hr Sodium Chloride (Sodium Chloride 0.9%) 1,000 mls @ 125 mls/hr IV .Q8H [facility] Pantoprazole Sodium (Protonix Ec Tab) 40 mg PO DAILY [facility] Last Admin: 06/14/17 10:08 Dose: 40 mg Saccharomyces Boulardii (Florastor) 250 mg PO BID [facility] Last Admin: 06/14/17 10:08 Dose: 250 mg - Labs Labs: 06/14/17 07:01 06/14/17 07:01 Attending/Attestation - Attestation I have personally seen and examined this patient.: Yes I have fully participated in the care of the patient.: Yes I have reviewed all pertinent clinical information, including history, physical exam and plan: Yes Notes (Text): 06/14/17 17:11 Patient was seen and examined at 8:15 AM 06/14/17. Exam, Assessment and Plan were gone over with the patient. Plan: Place PICC Line: this will likely occur on Saturday06/17/17 Once PICC Line placed give one dose of Invanz 1 gm and discharge patient Have Dr. Catie Newton remove Right Ureteral Double J Stent on Saturday06/17/17 while she is still here (if he can't do it then, then she will need to follow up at his office on Saturday06/18/17 for removal). [employer] Liz was already given Rx for Invanz 1 gm IV 1x/day for 10 days ( 06/17/17 through 06/26/17) Patient was already given Rx for Blood Work to be done on [facility] on 06/19/17. Gareth Wu D.O.
[2017-06-14 07:23] LABS: BASO % 0.9 % (0.0-2.0); EOS # 0.1 K/uL (0.0-0.7); EOS % 2.6 % (0.0-4.0); HEMATOCRIT 32.5 % (34.0-47.0); LYMPH % 43.1 % (20.0-40.0); MEAN CELL VOLUME 91.4 fL (81.0-99.0); MEAN CORPUSCULAR HEMOGLOBIN 31.9 pg (27.0-31.0); MEAN CORPUSCULAR HGB CONC 34.9 g/dL (33.0-37.0); MEAN PLATELET VOLUME 8.6 fL (7.2-11.7); MONO # 0.7 K/uL (0.0-0.8); MONO % 14.9 % (0.0-10.0); NRBC % 0.3 % (0.0-2.0); RED CELL DISTRIBUTION WIDTH 13.3 % (11.5-14.5); WHITE BLOOD COUNT 4.7 K/uL (4.8-10.8)
[2017-06-14 07:25] LABS: CHLORIDE 105 mmol/L (98-107); SODIUM 137 mmol/L (132-148)
[2017-06-14 07:26] LABS: POTASSIUM 4.2 mmol/L (3.6-5.2)
[2017-06-14 07:27] LABS: GFR AFRICAN-AMERICAN > 60
[2017-06-14 07:28] LABS: ALKALINE PHOSPHATASE 80 U/L (38-126); ALT/SGPT 58 U/L (9-52); AST/SGOT 22 U/L (14-36); BILIRUBIN,TOTAL 0.4 mg/dL (0.2-1.3); BLOOD UREA NITROGEN 14 mg/dL (7-17); CARBON DIOXIDE 23 mmol/L (22-30); GLUCOSE,RANDOM 83 mg/dL (65-105); PHOSPHOROUS 2.7 mg/dL (2.5-4.5); TOTAL PROTEIN 6.7 g/dL (6.3-8.3)
[2017-06-14 07:29] LABS: CALCIUM 8.3 mg/dl (8.6-10.4); MAGNESIUM 1.7 mg/dL (1.6-2.3)
[2017-06-14] MEDS ORDERED: Sodium Chloride 0.9% 1,000 ML IV SCH (08:30)
[2017-06-14] MEDS: Pantoprazole 40 mg EC Tab PO SCH (10:08)
[2017-06-14] MEDS: Saccharomyces Boulardi 250 mg Cap PO SCH ×2 (10:08→18:37)
[2017-06-14] MEDS: Enoxaparin 40 mg Syringe SC SCH (10:08)
[2017-06-14] MEDS ORDERED: Lidocaine 1% Inj (20ml) ONE (13:07)
--- NOTE | 2017-06-14 13:09 | PCM.SURG1 ---
Surgeon's Initial Post Op Note - Surgeon's Notes Surgeon: Chito Kumari MD Silk Examiner: NONE Type of Anesthesia: Local Pre-Operative Diagnosis: Infection requiring correction IV abx Operative Findings: US showed a patent right basilic vein Post-Operative Diagnosis: Infection requiring correction IV abx Operation Performed: Single lumen picc placement right basilic vein, 34 cm. Tip is in the SVC. Specimen/Specimens Removed: None Estimated Blood Loss: EBL {In ML}: 2 Blood Products Given: N/A Drains Used: No Drains Post-Op Condition: Fair Date of Surgery/Procedure: 06/14/17 Time of Surgery/Procedure: 13:15
--- NOTE | 2017-06-14 19:31 | CP.PCM.PN ---
Subjective - Date & Time of Evaluation Date of Evaluation: 06/14/17 Time of Evaluation: 05:00 - Subjective Subjective: dictated Objective - Vital Signs/Intake and Output Vital Signs (last 24 hours): Temp Pulse Resp BP Pulse Ox 98.5 F 70 20 92/57 L 98 06/14/17 15:00 06/14/17 15:00 06/14/17 15:00 06/14/17 15:00 06/14/17 15:00 Intake and Output: 06/14/17 06/15/17 18:59 06:59 Intake Total 650 Balance 650 - Medications Medications: Current Medications Enoxaparin Sodium (Lovenox) 40 mg SC DAILY [facility] Last Admin: 06/14/17 10:08 Dose: 40 mg Meropenem 1 gm/ Sodium (Chloride) 100 mls @ 100 mls/hr IVPB Q8 [facility] Last Admin: 06/14/17 14:15 Dose: 100 mls/hr Sodium Chloride (Sodium Chloride 0.9%) 1,000 mls @ 125 mls/hr IV .Q8H [facility] Pantoprazole Sodium (Protonix Ec Tab) 40 mg PO DAILY [facility] Last Admin: 06/14/17 10:08 Dose: 40 mg Saccharomyces Boulardii (Florastor) 250 mg PO BID [facility] Last Admin: 06/14/17 18:37 Dose: 250 mg - Labs Labs: 06/14/17 07:01 06/14/17 07:01
--- NOTE | 2017-06-14 19:50 | PN ---
DATE: SUBJECTIVE: The patient was waiting for the PICC line. PICC line was inserted late and then she may have a stent removed on Saturday. I want her to continue meropenem 1 mg q.8 hours for now and to renew the antibiotic. Actually I will be away, I will sign out this patient to Dr. Garcia, but she did come in with septicemia with E. coli, ESBL positive, and this is her third time and she had a new stent placed on Saturday probably that triggered it and should get antibiotic till 06/23/2017. Alice Ling MD
[2017-06-15] MEDS: Sodium Chloride 0.9% 1,000 ML IV SCH ×4 (05:30→17:05)
[2017-06-15] MEDS: Meropenem 1 GM in Sodium Chloride 0.9% 100 ML IVPB SCH ×3 (05:40→21:42)
--- NOTE | 2017-06-15 06:36 | CP.PCM.PN ---
<Jaron Qureshi - Last Filed: 06/15/17 06:33> Subjective - Date & Time of Evaluation Date of Evaluation: 06/15/17 Time of Evaluation: 06:33 - Subjective Subjective: PGY1 Medicine Note for Dr. Ingrid Wu Patient was seen and examined at bedside. She denied any right sided flank pain , denied any dysuria, hematuria, or frequency. Patient will undergo removal of the Double J stent this upcoming week. Denied fever, chills, n/v/d/c, headache, abdominal pain, or urinary symptoms. Objective - Vital Signs/Intake and Output Vital Signs (last 24 hours): Temp Pulse Resp BP Pulse Ox 98.2 F 64 20 100/57 L 100 06/15/17 00:00 06/15/17 00:00 06/15/17 00:00 06/15/17 00:00 06/15/17 00:00 Intake and Output: 06/14/17 06/15/17 18:59 06:59 Intake Total 650 1275 Balance 650 1275 - Medications Medications: Current Medications Enoxaparin Sodium (Lovenox) 40 mg SC DAILY [facility] Last Admin: 06/14/17 10:08 Dose: 40 mg Sodium Chloride (Sodium Chloride 0.9%) 1,000 mls @ 125 mls/hr IV .Q8H [facility] Meropenem 1 gm/ Sodium (Chloride) 100 mls @ 100 mls/hr IVPB Q8 [facility] Last Admin: 06/15/17 05:40 Dose: 100 mls/hr Sodium Chloride (Sodium Chloride 0.9%) 1,000 mls @ 125 mls/hr IV .Q8H [facility] Last Admin: 06/15/17 05:30 Dose: 125 mls/hr Pantoprazole Sodium (Protonix Ec Tab) 40 mg PO DAILY [facility] Last Admin: 06/14/17 10:08 Dose: 40 mg Saccharomyces Boulardii (Florastor) 250 mg PO BID [facility] Last Admin: 06/14/17 18:37 Dose: 250 mg - Labs Labs: 06/14/17 07:01 06/14/17 07:01 - Constitutional Appears: Non-toxic, No Acute Distress - Head Exam Head Exam: ATRAUMATIC, NORMOCEPHALIC - Eye Exam Eye Exam: EOMI, Normal appearance - ENT Exam ENT Exam: Mucous Membranes Moist - Neck Exam Neck Exam: Normal Inspection. absent: Lymphadenopathy - Respiratory Exam Respiratory Exam: Clear to Ausculation Bilateral, NORMAL BREATHING PATTERN. absent: Rales, Rhonchi, Wheezes, Respiratory Distress - Cardiovascular Exam Cardiovascular Exam: REGULAR RHYTHM, +S1, +S2. absent: JVD - GI/Abdominal Exam GI & Abdominal Exam: Soft, Normal Bowel Sounds. absent: Distended, Firm, Guarding, Rigid, Tenderness - Extremities Exam Extremities Exam: Normal Capillary Refill - Back Exam Back Exam: absent: paraspinal tenderness, vertebral tenderness - Neurological Exam Neurological Exam: Alert, Awake - Psychiatric Exam Psychiatric exam: Normal Affect, Normal Mood - Skin Skin Exam: Dry, Normal Color, Warm Assessment and Plan - Assessment and Plan (Free Text) Plan: Disposition: Once patient gets PICC LINE PLACED, she will need to receive ONE DOSE of INVANZ of day of discharge, she will then continue as per Dr. Ling, Invanz 1 gram IVP daily x 10 days. Patient is to follow up with Dr. Catie Newton on Saturday to have the double J stent removed. Pyelonephritis Assessment and Plan: Infectious disease consulted, Dr Ling Urology consulted, Dr Catie Newton s/p right ureteral stent replacement on 06/05/17; subjective fever, n/v/chills/ dysuria, rt flank pain; Hx of +ESBL pyelo in 04/2017 CT abd/pelvis: 1. Right sided double-J ureteral stent. Proximal end is positioned low in the renal pelvis/ureteropelvic junction. No evidence of urine leak. 2. Hepatic steatosis. Urine Culture 06/09/17 - E. Coli REPEAT BC and UC 06/11/17 - NEGATIVE As per Dr. Amanuel Newton - Removal of double J stent next week in his office on Saturday. Hx of septic shock, monitor BP * NS @ 125 cc/hr -resumed at this rate because she became hypotensive * Meropenem 1gm ivpb q8 (Started 06/09/17 - continue). As per Dr. Ling, Invanz 1 gram IVP daily x 10 days after discharge. * Amikacin 500mg ivpb q12 - stopped 06/12/17 Bacterimia Infectious disease consulted, Dr Ling Blood culture x1 06/09/17 - gram negative davina REPEAT BC 06/11/17 - negative Hx of septic shock, monitor BP * Meropenem 1gm ivpb q8 (Started 06/09/17 - continue). * Amikacin 500mg ivpb q12 - stopped 06/12/17 Hx of pyelonephritis Assessment and Plan: Patient was treated for pyelonephritis in 01/2017 and discharged on Cipro, repeat Urine Cx showed ESBL (+) in 04/2017 and patient was readmitted. Patient then treated with amikacin and meropenem and a right ureteral stent was placed. Septic shock during that admission, monitor BP. CT 03/2017 Abdomen and pelvis PO and IV contrast: normal bilateral nephrograms, no evidence of cystic or solid mass, hydronephrosis or even pyelonephritis bilaterally. Fatty liver. Small bilateral adnexal cysts. HLD (hyperlipidemia) Assessment and Plan: HGA1C 01/2017: 5.3 - will need to repeat in 1 year Lipid Panel on 01/2017: TG 271, other markers normal Prior Studies:ECHO 01/2017 LVEF 86%, mild pulm htn, trace AI, trace TR Repeat ECHO: LVEF 60% trace MR, TR, and aortic insufficiency with normal pulmonary pressures of 26mmhg * Crestor 5mg po qhs - this is held 2/2 transaminitis which are currently downtrending * Patient will be discharged on Pravastatin instead of Crestor. Prophylactic measure Assessment and Plan: GI PPX: Protonix 40mg PO daily DVT PPX: SCDs, Lovenox 40mg SC Daily Diet: Regular Diet Florastor 250mg PO BID Will discuss case with Dr. Faheem Qureshi PGY1 <Gareth Wu - Last Filed: 06/15/17 11:00> Objective - Vital Signs/Intake and Output Vital Signs (last 24 hours): Temp Pulse Resp BP Pulse Ox 98.2 F 65 20 94/61 L 97 06/15/17 08:27 06/15/17 08:27 06/15/17 08:27 06/15/17 08:27 06/15/17 08:27 Intake and Output: 06/15/17 06/15/17 06:59 18:59 Intake Total 2650 Balance 2650 - Medications Medications: Current Medications Enoxaparin Sodium (Lovenox) 40 mg SC DAILY [facility] Last Admin: 06/15/17 10:22 Dose: 40 mg Sodium Chloride (Sodium Chloride 0.9%) 1,000 mls @ 125 mls/hr IV .Q8H [facility] Meropenem 1 gm/ Sodium (Chloride) 100 mls @ 100 mls/hr IVPB Q8 [facility] Last Admin: 06/15/17 05:40 Dose: 100 mls/hr Sodium Chloride (Sodium Chloride 0.9%) 1,000 mls @ 125 mls/hr IV .Q8H [facility] Last Admin: 06/15/17 05:30 Dose: 125 mls/hr Pantoprazole Sodium (Protonix Ec Tab) 40 mg PO DAILY [facility] Last Admin: 06/15/17 10:23 Dose: 40 mg Saccharomyces Boulardii (Florastor) 250 mg PO BID [facility] Last Admin: 06/15/17 10:23 Dose: 250 mg - Labs Labs: 06/15/17 06:25 06/15/17 06:25 Attending/Attestation - Attestation I have personally seen and examined this patient.: Yes I have fully participated in the care of the patient.: Yes I have reviewed all pertinent clinical information, including history, physical exam and plan: Yes Notes (Text): 06/15/17 10:59 Patient was seen and examined at 10:45 AM 06/15/17. Exam, Assessment and Plan were gone over with the patient. Plan: Place PICC Line: this was done on the night of 06/14/[address] Chito Kumari and his help is greatly appreciated Invanz 1 gm 1x/day to start on 06/17/[address] Catie Newton remove Right Ureteral Double J Stent on Saturday06/17/17 while she is still here (if he can't do it then, then she will need to follow up at his office on Saturday06/18/17 for removal). Side Laster Staple Liz was already given Rx for Invanz 1 gm IV 1x/day for 10 days ( 06/17/17 through 06/26/17) Patient was already given Rx for Blood Work to be done on [facility] on 06/19/17. Gareth Wu D.O.
[2017-06-15 06:37] LABS: CHLORIDE 106 mmol/L (98-107)
[2017-06-15 06:38] LABS: BASO # 0.1 K/uL (0.0-0.2); BASO % 1.1 % (0.0-2.0); EOS # 0.1 K/uL (0.0-0.7); EOS % 2.6 % (0.0-4.0); HEMATOCRIT 31.1 % (34.0-47.0); LYMPH % 40.2 % (20.0-40.0); MEAN CELL VOLUME 91.1 fL (81.0-99.0); MEAN CORPUSCULAR HEMOGLOBIN 32.1 pg (27.0-31.0); MEAN CORPUSCULAR HGB CONC 35.2 g/dL (33.0-37.0); MEAN PLATELET VOLUME 8.5 fL (7.2-11.7); MONO # 0.6 K/uL (0.0-0.8); MONO % 11.6 % (0.0-10.0); NRBC % 0.1 % (0.0-2.0); POTASSIUM 3.8 mmol/L (3.6-5.2); RED CELL DISTRIBUTION WIDTH 13.4 % (11.5-14.5); SODIUM 136 mmol/L (132-148); WHITE BLOOD COUNT 4.9 K/uL (4.8-10.8)
[2017-06-15 06:40] LABS: ALB/GLOB RATIO 0.9 (1.0-2.1); ALKALINE PHOSPHATASE 88 U/L (38-126); ALT/SGPT 59 U/L (9-52); AST/SGOT 23 U/L (14-36); BILIRUBIN,TOTAL 0.2 mg/dL (0.2-1.3); BLOOD UREA NITROGEN 17 mg/dL (7-17); CARBON DIOXIDE 22 mmol/L (22-30); GFR AFRICAN-AMERICAN > 60; GLUCOSE,RANDOM 79 mg/dL (65-105); TOTAL PROTEIN 6.9 g/dL (6.3-8.3)
[2017-06-15 06:41] LABS: MAGNESIUM 1.8 mg/dL (1.6-2.3); PHOSPHOROUS 3.2 mg/dL (2.5-4.5)
[2017-06-15] MEDS: Enoxaparin 40 mg Syringe SC SCH (10:22)
[2017-06-15] MEDS: Pantoprazole 40 mg EC Tab PO SCH (10:23)
[2017-06-15] MEDS: Saccharomyces Boulardi 250 mg Cap PO SCH ×2 (10:23→17:06)
[2017-06-16] MEDS: Sodium Chloride 0.9% 1,000 ML IV SCH ×6 (00:30→23:30)
[2017-06-16] MEDS: Meropenem 1 GM in Sodium Chloride 0.9% 100 ML IVPB SCH ×3 (05:50→21:13)
[2017-06-16 07:14] LABS: BASO # 0.1 K/uL (0.0-0.2); EOS # 0.1 K/uL (0.0-0.7); EOS % 2.6 % (0.0-4.0); HEMATOCRIT 31.6 % (34.0-47.0); LYMPH # 2.2 K/uL (1.0-4.3); LYMPH % 43.5 % (20.0-40.0); MEAN CELL VOLUME 91.3 fL (81.0-99.0); MEAN CORPUSCULAR HEMOGLOBIN 31.7 pg (27.0-31.0); MEAN CORPUSCULAR HGB CONC 34.8 g/dL (33.0-37.0); MEAN PLATELET VOLUME 8.7 fL (7.2-11.7); MONO # 0.6 K/uL (0.0-0.8); MONO % 10.9 % (0.0-10.0); RED CELL DISTRIBUTION WIDTH 13.5 % (11.5-14.5); WHITE BLOOD COUNT 5.1 K/uL (4.8-10.8)
[2017-06-16 07:52] LABS: CHLORIDE 105 mmol/L (98-107); SODIUM 136 mmol/L (132-148)
[2017-06-16 07:53] LABS: POTASSIUM 3.8 mmol/L (3.6-5.2)
[2017-06-16 07:55] LABS: ALKALINE PHOSPHATASE 90 U/L (38-126); AST/SGOT 29 U/L (14-36); BILIRUBIN,TOTAL 0.3 mg/dL (0.2-1.3); BLOOD UREA NITROGEN 18 mg/dL (7-17); CARBON DIOXIDE 21 mmol/L (22-30); GFR AFRICAN-AMERICAN > 60; GLUCOSE,RANDOM 77 mg/dL (65-105); PHOSPHOROUS 2.8 mg/dL (2.5-4.5); TOTAL PROTEIN 6.7 g/dL (6.3-8.3)
[2017-06-16 07:56] LABS: ALT/SGPT 56 U/L (9-52); CALCIUM 8.6 mg/dl (8.6-10.4); MAGNESIUM 1.8 mg/dL (1.6-2.3)
[2017-06-16] MEDS: Saccharomyces Boulardi 250 mg Cap PO SCH ×2 (09:45→17:37)
[2017-06-16] MEDS: Enoxaparin 40 mg Syringe SC SCH (09:45)
[2017-06-16] MEDS: Pantoprazole 40 mg EC Tab PO SCH (09:45)
--- NOTE | 2017-06-16 12:40 | CP.PCM.PN ---
<SteffanyLinda - Last Filed: 06/16/17 18:32> Subjective - Date & Time of Evaluation Date of Evaluation: 06/16/17 Time of Evaluation: 12:40 - Subjective Subjective: Internal Medicine Progress note for Dr. Wu Patient seen and examined at bedside. Patient states no complaints overnight. Patient states she knows that she will have removal of the Double J stent this upcoming week and that she will be NPO past midnight the night before removal. Patient denies any fever, chills, shortness of breath, nausea, vomiting, diarrhea, back pain, abdominal pain. Patient denies any difficulty with urination or burning sensation with urination. Objective - Vital Signs/Intake and Output Vital Signs (last 24 hours): Temp Pulse Resp BP Pulse Ox 98.5 F 77 20 92/60 L 98 06/16/17 00:32 06/16/17 00:32 06/16/17 00:32 06/16/17 00:32 06/16/17 00:32 Intake and Output: 06/16/17 06/16/17 06:59 18:59 Intake Total 2450 Balance 2450 - Medications Medications: Current Medications Enoxaparin Sodium (Lovenox) 40 mg SC DAILY [facility] Last Admin: 06/16/17 09:45 Dose: 40 mg Sodium Chloride (Sodium Chloride 0.9%) 1,000 mls @ 125 mls/hr IV .Q8H [facility] Last Admin: 06/16/17 08:36 Dose: Not Given Meropenem 1 gm/ Sodium (Chloride) 100 mls @ 100 mls/hr IVPB Q8 [facility] Last Admin: 06/16/17 05:50 Dose: 100 mls/hr Sodium Chloride (Sodium Chloride 0.9%) 1,000 mls @ 125 mls/hr IV .Q8H [facility] Last Admin: 06/16/17 12:26 Dose: 125 mls/hr Pantoprazole Sodium (Protonix Ec Tab) 40 mg PO DAILY [facility] Last Admin: 06/16/17 09:45 Dose: 40 mg Saccharomyces Boulardii (Florastor) 250 mg PO BID [facility] Last Admin: 06/16/17 09:45 Dose: 250 mg - Labs Labs: 06/16/17 07:01 06/16/17 07:01 - Constitutional Appears: Non-toxic - Head Exam Head Exam: NORMAL INSPECTION - Eye Exam Eye Exam: EOMI, Normal appearance - ENT Exam ENT Exam: Mucous Membranes Moist - Neck Exam Neck Exam: Full ROM. absent: Tenderness - Respiratory Exam Respiratory Exam: Clear to Ausculation Bilateral, NORMAL BREATHING PATTERN. absent: Accessory Muscle Use, Respiratory Distress - Cardiovascular Exam Cardiovascular Exam: REGULAR RHYTHM, +S1, +S2. absent: Bradycardia, Tachycardia - GI/Abdominal Exam GI & Abdominal Exam: Soft, Normal Bowel Sounds. absent: Tenderness - Extremities Exam Extremities Exam: Full ROM, Normal Inspection. absent: Pedal Edema Additional comments: Patient has a right PICC line in place. Patient states no issues with the PICC line. Area of insertion does not have any induration, erythema, drainage. - Neurological Exam Neurological Exam: Alert, Awake, Oriented x3 - Psychiatric Exam Psychiatric exam: Normal Affect, Normal Mood - Skin Skin Exam: Dry, Intact, Normal Color, Warm Assessment and Plan - Assessment and Plan (Free Text) Assessment: Pyelonephritis Assessment and Plan: Infectious disease consulted, Dr Ling Urology consulted, Dr Catie Newton s/p right ureteral stent replacement on 06/05/17; subjective fever, n/v/chills/ dysuria, rt flank pain; Hx of +ESBL pyelo in 04/2017 CT abd/pelvis: 1. Right sided double-J ureteral stent. Proximal end is positioned low in the renal pelvis/ureteropelvic junction. No evidence of urine leak. 2. Hepatic steatosis. Urine Culture 06/09/17 - E. Coli REPEAT BC and UC 06/11/17 - NEGATIVE As per Dr. Amanuel Newton - Removal of double J stent on Saturday, June 17 2017. Patient will be NPO and Lovenox will be held Hx of septic shock, monitor BP * NS @ 125 cc/hr -resumed at this rate because she became hypotensive * Meropenem 1gm ivpb q8 (Started 06/09/17 - continue). As per Dr. Ling, Invanz 1 gram IVP daily x 10 days after discharge. * Amikacin 500mg ivpb q12 - stopped 06/12/17 Bacteremia Infectious disease consulted, Dr Ling Blood culture x1 06/09/17 - gram negative davina REPEAT BC 06/11/17 - negative Hx of septic shock, monitor BP * Meropenem 1gm ivpb q8 (Started 06/09/17 - continue). * Amikacin 500mg ivpb q12 - stopped 06/12/17 Hx of pyelonephritis Assessment and Plan: Patient was treated for pyelonephritis in 01/2017 and discharged on Cipro, repeat Urine Cx showed ESBL (+) in 04/2017 and patient was readmitted. Patient then treated with amikacin and meropenem and a right ureteral stent was placed. Septic shock during that admission, monitor BP. CT 03/2017 Abdomen and pelvis PO and IV contrast: normal bilateral nephrograms, no evidence of cystic or solid mass, hydronephrosis or even pyelonephritis bilaterally. Fatty liver. Small bilateral adnexal cysts. HLD (hyperlipidemia) Assessment and Plan: HGA1C 01/2017: 5.3 - will need to repeat in 1 year Lipid Panel on 01/2017: TG 271, other markers normal Prior Studies:ECHO 01/2017 LVEF 86%, mild pulm htn, trace AI, trace TR Repeat ECHO: LVEF 60% trace MR, TR, and aortic insufficiency with normal pulmonary pressures of 26mmhg * Crestor 5mg po qhs - this is held 2/2 transaminitis which are currently downtrending * Patient will be discharged on Pravastatin instead of Crestor. Prophylactic measure Assessment and Plan: GI PPX: Protonix 40mg PO daily DVT PPX: SCDs, Lovenox 40mg SC Daily Diet: Regular Diet Florastor 250mg PO BID Disposition: ONE DOSE of INVANZ of day of discharge per Dr. Ling and continue as written below Prescription for Blood Work to be done on [facility] on 06/19/17 was given Prescription written for Invanz 1 gram IVP daily x 10 days to be taken on to 06/26/17 Patient is to follow up with Dr. Catie Newton on Saturday06/17/17 to have the double J stent removed or remove in office Saturday06/18/17 if not possible. Patient will be NPO and Lovenox will be held prior to the removal. Discussed with Dr. Faheem Jeter DO PGY1 <Gareth Wu - Last Filed: 06/16/17 20:33> Objective - Vital Signs/Intake and Output Vital Signs (last 24 hours): Temp Pulse Resp BP Pulse Ox 98.1 F 85 20 87/53 L 100 06/16/17 16:00 06/16/17 16:00 06/16/17 16:00 06/16/17 16:00 06/16/17 16:00 - Medications Medications: Current Medications Enoxaparin Sodium (Lovenox) 40 mg SC DAILY [facility] Last Admin: 06/16/17 09:45 Dose: 40 mg Sodium Chloride (Sodium Chloride 0.9%) 1,000 mls @ 125 mls/hr IV .Q8H [facility] Last Admin: 06/16/17 16:44 Dose: Not Given Meropenem 1 gm/ Sodium (Chloride) 100 mls @ 100 mls/hr IVPB Q8 [facility] Last Admin: 06/16/17 14:10 Dose: 100 mls/hr Sodium Chloride (Sodium Chloride 0.9%) 1,000 mls @ 125 mls/hr IV .Q8H [facility] Last Admin: 06/16/17 12:26 Dose: 125 mls/hr Pantoprazole Sodium (Protonix Ec Tab) 40 mg PO DAILY [facility] Last Admin: 06/16/17 09:45 Dose: 40 mg Saccharomyces Boulardii (Florastor) 250 mg PO BID [facility] Last Admin: 06/16/17 17:37 Dose: 250 mg - Labs Labs: 06/16/17 07:01 06/16/17 07:01 Attending/Attestation - Attestation I have personally seen and examined this patient.: Yes I have fully participated in the care of the patient.: Yes I have reviewed all pertinent clinical information, including history, physical exam and plan: Yes Notes (Text): 06/16/17 20:31 Patient was seen and examined at 9:00 AM 06/16/17. Exam, Assessment and Plan were gone over with the patient. Plan: Place PICC Line: this was done on the night of 06/14/[address] Chito Kumrai and his help is greatly appreciated Invanz 1 gm 1x/day to start on 06/17/[address] Catie Newton remove Right Ureteral Double J Stent on Saturday06/17/17. I spoke with Dr. Newton on 06/16/17 and he states that he will do this at the bedside on morning of 06/17/17. Ekg Monitor Tech Liz was already given Rx for Invanz 1 gm IV 1x/day for 10 days ( 06/17/17 through 06/26/17) Patient was already given Rx for Blood Work to be done on [facility] on 06/19/17. Patient may be discharged on morning 06/17/17 after pulling of Right Ureteral Double J Stent by Dr. Amanuel Newton. Gareth Wu D.O.
[2017-06-17] MEDS: Sodium Chloride 0.9% 1,000 ML IV SCH ×3 (04:45→11:00)
[2017-06-17] MEDS: Meropenem 1 GM in Sodium Chloride 0.9% 100 ML IVPB SCH ×2 (06:11→14:35)
[2017-06-17 07:01] LABS: BASO % 0.8 % (0.0-2.0); EOS # 0.1 K/uL (0.0-0.7); EOS % 2.4 % (0.0-4.0); HEMATOCRIT 31.9 % (34.0-47.0); LYMPH # 2.1 K/uL (1.0-4.3); LYMPH % 39.7 % (20.0-40.0); MEAN CELL VOLUME 91.4 fL (81.0-99.0); MEAN PLATELET VOLUME 8.3 fL (7.2-11.7); MONO # 0.5 K/uL (0.0-0.8); MONO % 9.6 % (0.0-10.0); NRBC % 0.1 % (0.0-2.0); RED CELL DISTRIBUTION WIDTH 13.3 % (11.5-14.5); WHITE BLOOD COUNT 5.2 K/uL (4.8-10.8)
[2017-06-17 07:12] LABS: CHLORIDE 105 mmol/L (98-107); POTASSIUM 4.2 mmol/L (3.6-5.2); SODIUM 136 mmol/L (132-148)
[2017-06-17 07:14] LABS: GFR AFRICAN-AMERICAN > 60
--- NOTE | 2017-06-17 07:14 | CP.PCM.DIS ---
<Jany Newman - Last Filed: 06/17/17 12:35> Provider - Provider Date of Admission: 06/11/17 13:53 Attending physician: Christopher Hatch MD Consults: ID: [email or web address] Urology: Stevan Newton Time Spent in preparation of Discharge (in minutes): 55 Hospital Course - Lab Results Lab Results: Micro Results 06/11/17 09:25 Blood Blood Culture - Final NO GROWTH AFTER 5 DAYS 06/11/17 09:25 Blood Gram Stain - Final TEST NOT PERFORMED 06/11/17 11:46 Blood Blood Culture - Final NO GROWTH AFTER 5 DAYS 06/11/17 11:46 Blood Gram Stain - Final TEST NOT PERFORMED 06/09/17 20:00 Blood-Venous Blood Culture - Final NO GROWTH AFTER 5 DAYS 06/09/17 20:00 Blood-Venous Gram Stain - Final TEST NOT PERFORMED 06/09/17 20:00 Blood-Venous Blood Culture - Final Escherichia Coli 06/09/17 20:00 Blood-Venous Gram Stain - Final 06/11/17 11:21 Urine,Clean Catch Urine Culture - Final No Growth (<1,000 CFU/ML) 06/09/17 20:59 Urine,Clean Catch Urine Culture - Final Escherichia Coli Most Recent Lab Values WBC 5.2 K/uL (4.8-10.8) 06/17/17 06:53 RBC 3.49 Mil/uL (3.80-5.20) L 06/17/17 06:53 Hgb 11.1 g/dL (11.0-16.0) 06/17/17 06:53 Hct 31.9 % (34.0-47.0) L 06/17/17 06:53 MCV 91.4 fL (81.0-99.0) 06/17/17 06:53 MCH 32.0 pg (27.0-31.0) H 06/17/17 06:53 MCHC 35.0 g/dL (33.0-37.0) 06/17/17 06:53 RDW 13.3 % (11.5-14.5) 06/17/17 06:53 Plt Count 266 K/uL (130-400) 06/17/17 06:53 MPV 8.3 fL (7.2-11.7) 06/17/17 06:53 Neut % (Auto) 47.5 % (50.0-75.0) L 06/17/17 06:53 Lymph % (Auto) 39.7 % (20.0-40.0) 06/17/17 06:53 [place] % (Auto) 9.6 % (0.0-10.0) 06/17/17 06:53 Eos % (Auto) 2.4 % (0.0-4.0) 06/17/17 06:53 Baso % (Auto) 0.8 % (0.0-2.0) 06/17/17 06:53 Neut # 2.5 K/uL (1.8-7.0) 06/17/17 06:53 Lymph # 2.1 K/uL (1.0-4.3) 06/17/17 06:53 [place] # 0.5 K/uL (0.0-0.8) 06/17/17 06:53 Eos # 0.1 K/uL (0.0-0.7) 06/17/17 06:53 Baso # 0.0 K/uL (0.0-0.2) 06/17/17 06:53 ESR 47 mm/hr (0-20) H 06/11/17 08:27 Sodium 136 mmol/L (132-148) 06/16/17 07:01 Potassium 3.8 mmol/L (3.6-5.2) 06/16/17 07:01 Chloride 105 mmol/L (98-107) 06/16/17 07:01 Carbon Dioxide 21 mmol/L (22-30) L 06/16/17 07:01 Anion Gap 14 (10-20) 06/16/17 07:01 BUN 18 mg/dL (7-17) H 06/16/17 07:01 Creatinine 0.9 mg/dL (0.7-1.2) 06/16/17 07:01 Est GFR ( Amer) > 60 06/16/17 07:01 Est GFR (Non-Af Amer) > 60 06/16/17 07:01 Random Glucose 77 mg/dL (65-105) 06/16/17 07:01 Calcium 8.6 mg/dl (8.6-10.4) 06/16/17 07:01 Phosphorus 2.8 mg/dL (2.5-4.5) 06/16/17 07:01 Magnesium 1.8 mg/dL (1.6-2.3) 06/16/17 07:01 Total Bilirubin 0.3 mg/dL (0.2-1.3) 06/16/17 07:01 AST 29 U/L (14-36) 06/16/17 07:01 ALT 56 U/L (9-52) H 06/16/17 07:01 Alkaline Phosphatase 90 U/L (38-126) 06/16/17 07:01 C-React Prot High Sens > 15.00 mg/L (1.00-3.00) H 06/10/17 07:09 Total Protein 6.7 g/dL (6.3-8.3) 06/16/17 07:01 Albumin 3.3 g/dL (3.5-5.0) L 06/16/17 07:01 Globulin 3.4 gm/dL (2.2-3.9) 06/16/17 07:01 Albumin/Globulin Ratio 1.0 (1.0-2.1) 06/16/17 07:01 Lipase 52 U/L (23-300) 06/09/17 16:52 Procalcitonin 16.37 NG/ML (0.19-0.49) H 06/10/17 07:09 Urine Color Straw (YELLOW) 06/09/17 17:11 Urine Clarity Clear (Clear) 06/09/17 17:11 Urine pH 5.0 (5.0-8.0) 06/09/17 17:11 Ur Specific [place] 1.008 (1.003-1.030) 06/09/17 17:11 Urine Protein 2+ mg/dL (NEGATIVE) H 06/09/17 17:11 Urine Glucose (UA) Normal mg/dL (Normal) 06/09/17 17:11 Urine Ketones Negative mg/dL (NEGATIVE) 06/09/17 17:11 Urine Blood 1+ (NEGATIVE) H 06/09/17 17:11 Urine Nitrate Positive (NEGATIVE) H 06/09/17 17:11 Urine Bilirubin Negative (NEGATIVE) 06/09/17 17:11 Urine Urobilinogen Normal mg/dL (0.2-1.0) 06/09/17 17:11 Ur Leukocyte Esterase 3+ Helder/uL (Negative) H 06/09/17 17:11 Urine WBC (Auto) 83 /hpf (0-5) H 06/09/17 17:11 Urine RBC (Auto) 2 /hpf (0-3) 06/09/17 17:11 Ur Squamous Epith Cells < 1 /hpf (0-5) 06/09/17 17:11 Urine Bacteria Mod (<OCC) H 06/09/17 17:11 Urine HCG, Qual Negative (NEGATIVE) 06/09/17 17:11 - Hospital Course Hospital Course: Upon Admission: 36 yo female with a PMHx of pyelonephritis and HLD presents to ED for subjective fevers. She says she woke up this morning at 4am with fever, chills, nausea and 1 episode of non-bloody, non-bilious emesis. She denies alleviating or aggravating factors. Other associated symptoms include right sided flank pain and dysuria which began this past Saturday06/05/17 after a ureteral stent replacement by urologist, Dr Newton. The patient was discharged from [facility] on 04/30/17 after being treated for sepsis 2/2 right sided pyelonephritis +ESBL. During that admission she spent three days in the ICU for hypotension. She currently denies chest pain, abdominal pain, hematuria, recent travel, sick contacts, or appetite changes. PMD: Dr Mandujano PMHx: Hx of pyelonephritis 01/2017, 04/2017 PSHx: c-sections 2014, 2016 Allergies: Penicillin, pruritis Home Medications: none FamHx: Mother w/ DM SocialHx: denies tobacco, alcohol, drugs; lives at home; unemployed; 2 children Throughout Hospital Course: Patient was admitted for pyelonephritis. Pyelonephritis Assessment and Plan: Infectious disease consulted, Dr Ling Urology consulted, Dr Catie Newton s/p right ureteral stent replacement on 06/05/17; subjective fever, n/v/chills/ dysuria, rt flank pain; Hx of +ESBL pyelo in 04/2017 CT abd/pelvis: 1. Right sided double-J ureteral stent. Proximal end is positioned low in the renal pelvis/ureteropelvic junction. No evidence of urine leak. 2. Hepatic steatosis. Urine Culture 06/09/17 - E. Coli REPEAT BC and UC 06/11/17 - NEGATIVE As per Dr. Amanuel Newton - Removal of double J stent on Saturday, June 17 2017 at bedside. Patient will be NPO and Lovenox will be held Hx of septic shock, monitor BP * NS @ 125 cc/hr -resumed at this rate because she became hypotensive * Meropenem 1gm ivpb q8 (Started 06/09/17 - continue). As per Dr. Ling, Invanz 1 gram IVP daily x 10 days after discharge. * Amikacin 500mg ivpb q12 - stopped 06/12/17 Bacteremia Infectious disease consulted, Dr Ling Blood culture x1 06/09/17 - gram negative davina REPEAT BC 06/11/17 - negative Hx of septic shock, monitor BP * Meropenem 1gm ivpb q8 (Started 06/09/17 - continue). * Amikacin 500mg ivpb q12 - stopped 06/12/17 Hx of pyelonephritis Assessment and Plan: Patient was treated for pyelonephritis in 01/2017 and discharged on Cipro, repeat Urine Cx showed ESBL (+) in 04/2017 and patient was readmitted. Patient then treated with amikacin and meropenem and a right ureteral stent was placed. Septic shock during that admission, monitor BP. CT 03/2017 Abdomen and pelvis PO and IV contrast: normal bilateral nephrograms, no evidence of cystic or solid mass, hydronephrosis or even pyelonephritis bilaterally. Fatty liver. Small bilateral adnexal cysts. HLD (hyperlipidemia) Assessment and Plan: HGA1C 01/2017: 5.3 - will need to repeat in 1 year Lipid Panel on 01/2017: TG 271, other markers normal Prior Studies:ECHO 01/2017 LVEF 86%, mild pulm htn, trace AI, trace TR Repeat ECHO: LVEF 60% trace MR, TR, and aortic insufficiency with normal pulmonary pressures of 26mmhg * Crestor 5mg po qhs - this is held 2/2 transaminitis which are currently downtrending * Patient will be discharged on Pravastatin instead of Crestor. ONE DOSE of INVANZ of day of discharge per Dr. Ling and continue as written below Prescription for Blood Work to be done on [facility] on 06/19/17 was given Prescription written for Invanz 1 gram IVP daily x 10 days to be taken on to 06/26/17 Patient is to follow up with Dr. Catie Newton on Saturday06/17/17 to have the double J stent removed or remove in office Saturday06/18/17 if not possible. This is a brief summary of the patient's hospital course. Please review EMR for full record. Discharge Exam - Head Exam Head Exam: NORMAL INSPECTION - Additional Findings Additional findings: - Constitutional Appears: Non-toxic - Head Exam Head Exam: NORMAL INSPECTION - Eye Exam Eye Exam: EOMI, Normal appearance - ENT Exam ENT Exam: Mucous Membranes Moist - Neck Exam Neck Exam: Full ROM. absent: Tenderness - Respiratory Exam Respiratory Exam: Clear to Ausculation Bilateral, NORMAL BREATHING PATTERN. absent: Accessory Muscle Use, Respiratory Distress - Cardiovascular Exam Cardiovascular Exam: REGULAR RHYTHM, +S1, +S2. absent: Bradycardia, Tachycardia - GI/Abdominal Exam GI & Abdominal Exam: Soft, Normal Bowel Sounds. absent: Tenderness - Extremities Exam Extremities Exam: Full ROM, Normal Inspection. absent: Pedal Edema Additional comments: Patient has a right PICC line in place. Patient states no issues with the PICC line. Area of insertion does not have any induration, erythema, drainage. - Neurological Exam Neurological Exam: Alert, Awake, Oriented x3 - Psychiatric Exam Psychiatric exam: Normal Affect, Normal Mood - Skin Skin Exam: Dry, Intact, Normal Color, Warm Discharge Plan - Discharge Medications Prescriptions: Ertapenem Sodium [Invanz] 1 gm IV DAILY 10 Days vial.port RX: Pravastatin Sodium [Pravachol] 20 mg PO QPM #30 tab RX: Tamsulosin HCl [Flomax] 0.4 mg PO DAILY 30 Days cap.er.24h - Follow Up Plan Condition: GOOD Disposition: HOME/ ROUTINE Instructions: Pravastatin (By mouth), Tamsulosin (By mouth), Ertapenem (By injection), Acute Pyelonephritis (DC), Acute Pyelonephritis (GEN) Additional Instructions: You are to continue taking Flomax 0.4mg by mouth every day (to help you urinate ) and Pravastatin 20mg by mouth at night for your cholesterol. Everyday for the next 10 days, please come to our infusion center, to get your antibiotic once a day for the next 10 days. The last dose will be on . After your last dose, the PICC line inserted in your right arm will be removed. On June 19, they will also draw some blood work since you are on an antibiotic. Please make an appointment in 1-2 weeks to be seen in the [facility] downstairs. Please also make an appointment with Dr. Catie Newton in 1 week for follow up. Please return to the Emergency Room if your symptoms return or worsen. Usted debe continuar tomando Flomax 0.4 mg por la boca todos los schaeffer (para ayudarle a orinar) y pravastatina 20 mg por la boca por la noche para malave colesterol. Cada da nini los prximos 10 schaeffer, por favor venga a nuestro centro de infusin, para obtener malave antibitico justino vez al pee nini los prximos 10 d as. La ltima dosis ser el jueves 06/26/17. Despus de malave ltima dosis, la l navneet PICC insertada en malave brazo derecho ser removida. El , irwin harn un poco de trabajo de catie ya que usted est en un antibitico. Por favor, divina justino mirela en 1-2 semanas para ser visto en la clnica de armin del vecindario abajo. Por favor, irwin divina justino mirela con el Dr. Catie Newton en 1 semana para el seguimiento. Por favor regrese a la rufus de emergencias si helene sntomas regresan o empeoran. Referrals: Catie Newton MD [Staff Provider] - [facility] at [facility] [Outside] <Vivi Mercer V - Last Filed: 06/17/17 15:10> Provider - Provider Date of Admission: 06/11/17 13:53 Attending physician: Christopher Hatch MD Hospital Course - Lab Results Lab Results: Micro Results 06/11/17 09:25 Blood Blood Culture - Final NO GROWTH AFTER 5 DAYS 06/11/17 09:25 Blood Gram Stain - Final TEST NOT PERFORMED 06/11/17 11:46 Blood Blood Culture - Final NO GROWTH AFTER 5 DAYS 06/11/17 11:46 Blood Gram Stain - Final TEST NOT PERFORMED 06/09/17 20:00 Blood-Venous Blood Culture - Final NO GROWTH AFTER 5 DAYS 06/09/17 20:00 Blood-Venous Gram Stain - Final TEST NOT PERFORMED 06/09/17 20:00 Blood-Venous Blood Culture - Final Escherichia Coli 06/09/17 20:00 Blood-Venous Gram Stain - Final 06/11/17 11:21 Urine,Clean Catch Urine Culture - Final No Growth (<1,000 CFU/ML) 06/09/17 20:59 Urine,Clean Catch Urine Culture - Final Escherichia Coli Most Recent Lab Values WBC 5.2 K/uL (4.8-10.8) 06/17/17 06:53 RBC 3.49 Mil/uL (3.80-5.20) L 06/17/17 06:53 Hgb 11.1 g/dL (11.0-16.0) 06/17/17 06:53 Hct 31.9 % (34.0-47.0) L 06/17/17 06:53 MCV 91.4 fL (81.0-99.0) 06/17/17 06:53 MCH 32.0 pg (27.0-31.0) H 06/17/17 06:53 MCHC 35.0 g/dL (33.0-37.0) 06/17/17 06:53 RDW 13.3 % (11.5-14.5) 06/17/17 06:53 Plt Count 266 K/uL (130-400) 06/17/17 06:53 MPV 8.3 fL (7.2-11.7) 06/17/17 06:53 Neut % (Auto) 47.5 % (50.0-75.0) L 06/17/17 06:53 Lymph % (Auto) 39.7 % (20.0-40.0) 06/17/17 06:53 [place] % (Auto) 9.6 % (0.0-10.0) 06/17/17 06:53 Eos % (Auto) 2.4 % (0.0-4.0) 06/17/17 06:53 Baso % (Auto) 0.8 % (0.0-2.0) 06/17/17 06:53 Neut # 2.5 K/uL (1.8-7.0) 06/17/17 06:53 Lymph # 2.1 K/uL (1.0-4.3) 06/17/17 06:53 [place] # 0.5 K/uL (0.0-0.8) 06/17/17 06:53 Eos # 0.1 K/uL (0.0-0.7) 06/17/17 06:53 Baso # 0.0 K/uL (0.0-0.2) 06/17/17 06:53 ESR 47 mm/hr (0-20) H 06/11/17 08:27 Sodium 136 mmol/L (132-148) 06/17/17 06:53 Potassium 4.2 mmol/L (3.6-5.2) 06/17/17 06:53 Chloride 105 mmol/L (98-107) 06/17/17 06:53 Carbon Dioxide 20 mmol/L (22-30) L 06/17/17 06:53 Anion Gap 15 (10-20) 06/17/17 06:53 BUN 21 mg/dL (7-17) H 06/17/17 06:53 Creatinine 0.9 mg/dL (0.7-1.2) 06/17/17 06:53 Est GFR ( Amer) > 60 06/17/17 06:53 Est GFR (Non-Af Amer) > 60 06/17/17 06:53 Random Glucose 73 mg/dL (65-105) 06/17/17 06:53 Calcium 8.9 mg/dl (8.6-10.4) 06/17/17 06:53 Phosphorus 2.8 mg/dL (2.5-4.5) 06/17/17 06:53 Magnesium 1.9 mg/dL (1.6-2.3) 06/17/17 06:53 Total Bilirubin 0.5 mg/dL (0.2-1.3) 06/17/17 06:53 AST 28 U/L (14-36) 06/17/17 06:53 ALT 56 U/L (9-52) H 06/17/17 06:53 Alkaline Phosphatase 86 U/L (38-126) 06/17/17 06:53 C-React Prot High Sens > 15.00 mg/L (1.00-3.00) H 06/10/17 07:09 Total Protein 6.8 g/dL (6.3-8.3) 06/17/17 06:53 Albumin 3.6 g/dL (3.5-5.0) 06/17/17 06:53 Globulin 3.1 gm/dL (2.2-3.9) 06/17/17 06:53 Albumin/Globulin Ratio 1.2 (1.0-2.1) 06/17/17 06:53 Lipase 52 U/L (23-300) 06/09/17 16:52 Procalcitonin 16.37 NG/ML (0.19-0.49) H 06/10/17 07:09 Urine Color Straw (YELLOW) 06/09/17 17:11 Urine Clarity Clear (Clear) 06/09/17 17:11 Urine pH 5.0 (5.0-8.0) 06/09/17 17:11 Ur Specific [place] 1.008 (1.003-1.030) 06/09/17 17:11 Urine Protein 2+ mg/dL (NEGATIVE) H 06/09/17 17:11 Urine Glucose (UA) Normal mg/dL (Normal) 06/09/17 17:11 Urine Ketones Negative mg/dL (NEGATIVE) 06/09/17 17:11 Urine Blood 1+ (NEGATIVE) H 06/09/17 17:11 Urine Nitrate Positive (NEGATIVE) H 06/09/17 17:11 Urine Bilirubin Negative (NEGATIVE) 06/09/17 17:11 Urine Urobilinogen Normal mg/dL (0.2-1.0) 06/09/17 17:11 Ur Leukocyte Esterase 3+ Helder/uL (Negative) H 06/09/17 17:11 Urine WBC (Auto) 83 /hpf (0-5) H 06/09/17 17:11 Urine RBC (Auto) 2 /hpf (0-3) 06/09/17 17:11 Ur Squamous Epith Cells < 1 /hpf (0-5) 06/09/17 17:11 Urine Bacteria Mod (<OCC) H 06/09/17 17:11 Urine HCG, Qual Negative (NEGATIVE) 06/09/17 17:11 Attending/Attestation - Attestation I have personally seen and examined this patient.: Yes I have fully participated in the care of the patient.: Yes I have reviewed all pertinent clinical information, including history, physical exam and plan: Yes Notes (Text): Patient seen, examined and case discussed with day-time resident. Patient see at bedside with at bedside. Urology removed stent prior to my arrival. Patient denies acute complaints. Eager to go home. Discussed with nurse, Sandra, patient to receive 1st dose of Invanz today, and then to complete IV abx until 06/26/17 at the outpatient transfusion center. Arrangements made prior to discharge. Discharge order and discharge instructions discussed with day-time resident and patient at bedside. Patient to follow-up with urology post hospitalization. Patient to complete IV abx at the outpatient transfusion center. This is a summary of patient's hospitalization. Please see EMR for further details. Discharge Diagnoses: 1) Pyelonephritis-->Resolved Assessment and Plan: * Infectious disease consulted, Dr Ling-Help appreciated * Urology consulted, Dr Catie Newton-Help appreciated * s/p right ureteral stent replacement on 06/05/17 s/p removal of double J stent on 06/17/17 prior to discharge * CT abd/pelvis: 1. Right sided double-J ureteral stent. Proximal end is positioned low in the renal pelvis/ureteropelvic junction. No evidence of urine leak. 2. Hepatic steatosis. * Urine Culture 06/09/17 - E. Coli * REPEAT BC and UC 06/11/17) negative final * As per Lisa Rucker 1 gram IVP daily x 10 days after discharge. PICC line in placement * Patient to complete IV abx at the outpatient transfusion center 2) Bacteremia-->resolved * Infectious disease consulted, Dr Ling-Greta appreciated * Blood culture (06/09/17): E. coli (1 bottle out of 2); * Blood culture (06/11/17): no growth after 5 days X2 * As per Lisa Rucker 1 gram IVP daily x 10 days after discharge. PICC line in placement * Patient to complete IV abx at the outpatient transfusion center 3) HLD (hyperlipidemia)-Chronic Assessment and Plan: * HGA1C 01/2017: 5.3 - will need to repeat in 1 year * Lipid Panel on 01/2017: TG 271, other markers normal * Prior Studies:ECHO 01/2017 LVEF 86%, mild pulm htn, trace AI, trace TR * Repeat ECHO: LVEF 60% trace MR, TR, and aortic insufficiency with normal pulmonary pressures of 26mmhg * Crestor 5mg po qhs - this is held 2/2 transaminitis which are currently downtrending * Patient will be discharged on Pravastatin instead of Crestor.
[2017-06-17 07:15] LABS: ALB/GLOB RATIO 1.2 (1.0-2.1); ALKALINE PHOSPHATASE 86 U/L (38-126); ALT/SGPT 56 U/L (9-52); AST/SGOT 28 U/L (14-36); BILIRUBIN,TOTAL 0.5 mg/dL (0.2-1.3); BLOOD UREA NITROGEN 21 mg/dL (7-17); CALCIUM 8.9 mg/dl (8.6-10.4); CARBON DIOXIDE 20 mmol/L (22-30); GLUCOSE,RANDOM 73 mg/dL (65-105); PHOSPHOROUS 2.8 mg/dL (2.5-4.5); TOTAL PROTEIN 6.8 g/dL (6.3-8.3)
[2017-06-17 07:16] LABS: MAGNESIUM 1.9 mg/dL (1.6-2.3)
--- NOTE | 2017-06-17 10:30 | US ---
Date of procedure: 06/14/2017 Procedure: Ultrasound guidance for vascular access HISTORY: Infection requiring long-term IV antibiotics TECHNIQUE: Following informed consent and procedure time-out, the patient placed supine on the interventional table and the right arm prepped and draped in the usual sterile fashion. Ultrasound showed a patent and compressible basilic vein. After the skin was anesthetized with lidocaine, the basilic vein was accessed with micro micropuncture technique using ultrasound guidance. An image documenting ultrasound guidance for vascular access was permanently saved. IMPRESSION: Ultrasound guidance for vascular access for placement of PICC.
--- NOTE | 2017-06-17 10:31 | RAD ---
PROCEDURE: Date of procedure: 06/14/2017 Procedure: 1. Placement of a right arm PICC with ultrasound and fluoroscopic guidance, CPT 81408 2. PICC tip confirmation with spot radiograph and is in the superior vena cava Medications: 1 percent lidocaine Total Fluoro time: 2.4 seconds Radiation: 0.88 MGy EBL: 2 cc HISTORY: Infection requiring long-term IV antibiotics TECHNIQUE: Following informed consent and procedure time-out, the patient was placed supine on the interventional table and the right arm prepped and draped in the usual sterile fashion. Ultrasound showed a patent and compressible right basilic vein. After the skin was anesthetized with lidocaine, the basilic vein was accessed with micro micropuncture technique using ultrasound guidance. A guidewire was then advanced under fluoroscopic guidance into the superior vena cava. An image documenting ultrasound guidance for vascular access was permanently saved. The length of the single-lumen 4 [place] PICC was trimmed to 34 centimeters and advanced through a peel-away sheath. The PICC was position with tip of PICC confirm a spot radiograph the superior vena cava. The PICC was secured to the patient's skin. The PICC was flushed. A biopatch and sterile dressing was applied. IMPRESSION: Placement of a single-lumen 4 [place] PICC trimmed to 34 centimeters via right basilic vein. The tip of the PICC is confirmed with spot radiograph and is in the superior vena cava.
--- NOTE | 2017-06-17 10:36 | PCM.URO ---
Urology Progress Note - General General: No Complaints - Subjective Abdominal Pain: No Flank Pain: No Nausea: No Vomiting: No Voiding Well: Yes Dysuria: No Hematuria: No Dsypnea: No Chest Pain: No Fever & Chills: No - Objective Lab Studies: Reviewed Lab Results Last 24 Hours: Laboratory Results - last 24 hr 06/17/17 06/17/17 06:53 06:53 WBC 5.2 RBC 3.49 L Hgb 11.1 Hct 31.9 L MCV 91.4 MCH 32.0 H MCHC 35.0 RDW 13.3 Plt Count 266 MPV 8.3 Neut % (Auto) 47.5 L Lymph % (Auto) 39.7 [place] % (Auto) 9.6 Eos % (Auto) 2.4 Baso % (Auto) 0.8 Neut # 2.5 Lymph # 2.1 [place] # 0.5 Eos # 0.1 Baso # 0.0 Sodium 136 Potassium 4.2 Chloride 105 Carbon Dioxide 20 L Anion Gap 15 BUN 21 H Creatinine 0.9 Est GFR ( Amer) > 60 Est GFR (Non-Af Amer) > 60 Random Glucose 73 Calcium 8.9 Phosphorus 2.8 Magnesium 1.9 Total Bilirubin 0.5 AST 28 ALT 56 H Alkaline Phosphatase 86 Total Protein 6.8 Albumin 3.6 Globulin 3.1 Albumin/Globulin Ratio 1.2 Intake & Output: Intake & Output 06/16/17 06/17/17 06/17/17 18:59 06:59 18:59 Intake Total 1275 975 Balance 1275 975 Intake: Intake, IV Amount 975 975 Right Upper arm 975 975 Oral 300 0 Other: # Voids Urine, Voided 3 2 # Bowel Movements 1 0 Vital Signs: Vital Signs - 24 hr 06/16/17 06/17/17 16:00 00:00 Temperature 98.1 F 98.5 F Pulse Rate 85 74 Respiratory 20 20 Rate Blood Pressure 87/53 L 90/59 L O2 Sat by Pulse 100 98 Oximetry - Physical Exam Abdominal Exam: Soft, Non-Tender, Non-Distended Back: No CVA Tenderness - Plan Discontinue Urinary Catheter: Yes (ureteral stent removed, via suture, at bedside) Intake & Output: Yes Additional Information: imp: progressing well re uti. P: stent removed. discussed w pt, , nursing staff, and hosp staff - Date & Time of Note Date: 06/17/17 Time: 10:35
[2017-06-17] MEDS: Saccharomyces Boulardi 250 mg Cap PO SCH (11:00)
[2017-06-17] MEDS: Pantoprazole 40 mg EC Tab PO SCH (11:00)
[2017-06-17 17:04] VITALS: BP 101/61; PULSE 65; TEMP 98.2; O2SAT 99
--- NOTE | 2017-06-18 06:33 | CON ---
UROLOGY CONSULTATION DATE: 06/10/17 REQUESTED BY: Dr. Hatch. Urology consultation was filled by Dr. Catie Newton. REASON FOR CONSULTATION: Urinary tract infection. Hydronephrosis. HISTORY OF PRESENT ILLNESS: The patient is a 36-year-old female who presents with right flank pain, fever, and rigors. The patient is in otherwise [id number]. The patient was admitted last month to [facility] with urosepsis. The patient was treated with antibiotic therapy. The patient had sepsis and hypotension. She was found to have right hydronephrosis on CT scan. The patient underwent cystoscopy and insertion of right ureteral stent during that admission. The patient had clinical improvement. The etiology of the hydronephrosis was not clear from previous evaluation during that hospitalization. There was no stone identified. The patient had cystoscopy and retrograde pyelogram, which revealed possible right ureteral stricture. The patient has a history of previous section. The patient is otherwise well. No history of hypertension, diabetes, pneumonia, asthma, and tuberculosis. Last week, on 06/05/2017, the patient underwent cystoscopy and right ureteroscopy. The procedure was performed for both diagnostic reasons as well as possible therapeutic reasons if a stricture or obstructing lesions or stones were identified. The ureteroscopy revealed no evidence of right ureteral obstruction or mucosal abnormality or stones or tumor. The patient did well for subsequent 4 days. The patient presented to the hospital on 06/09/2017 with the report of abdominal and flank pain on the right side, and associated with fever and rigors. There is no hematuria. Mild dysuria. The patient voids with good urinary stream and good control. The patient has a good appetite. Normal bowel movements. PHYSICAL EXAMINATION: GENERAL: The patient is a well-developed and well-nourished middle-aged female. The patient is awake and alert. VITAL SIGNS: See attached. ABDOMEN: Soft. Mild right upper quadrant tenderness. Mild right CVA tenderness. Nondistended. No mass or organomegaly. LABORATORY DATA: Reviewed as well including chemistry, CBC, and urinalysis. IMPRESSION: History of recent ureteroscopy. Urinary tract infection. Possible sepsis. History of hydronephrosis. RECOMMENDATIONS AND PLAN: Urine culture. Blood culture. Antibiotic therapy. Stent removal to follow. Further therapy to follow according to the patient's clinical course as well as results of above. I will discuss the matter further with the patient as well as the hospital staff. Thank you for recommending the patient to urology consultation. Catie Newton MD
== END 2017-06-17 14:52 | disposition home or self-care (01) | DRG 901 ==
LOC: C.ER 16:20 → C.3T 19:55 → OBSVTOIN 06-11 13:53 → C.3T 06-11 18:10
PROVIDERS: ADMIT Family Medicine; ATTEND Family Medicine
PROC: 02HV33Z Insertion of Infusion Device into Superior Vena Cava, Percutaneous Approach (ICD-10-PCS; principal; 2017-06-14)
DX: A41.51 Sepsis due to Escherichia coli [E. coli] (principal); I27.20 Pulmonary hypertension, unspecified; N13.6 Pyonephrosis; N18.9 Chronic kidney disease, unspecified; E78.5 Hyperlipidemia, unspecified; E78.00 Pure hypercholesterolemia, unspecified; L29.9 Pruritus, unspecified; Z88.0 Allergy status to penicillin

== ENCOUNTER 2018-10-30 08:39 | Outpatient (CLI) | payer OTHER | END 2018-10-30 08:40 | disposition home or self-care (01) | LOC: C.LAB 08:39 ==